=== PATIENT | male | born 1955 | race Caucasian/White ===

== ENCOUNTER 2023-05-25 15:23 | Inpatient (IN) | payer MEDICARE, OTHER, SELFPAY ==
[2023-05-25] VITALS (7 sets, daily range): BP systolic 132–151; BP diastolic 83–101; PULSE 57–92; RESP 16–20; TEMP 36.4; O2SAT 92–100; BMI 24.7
--- NOTE | ~2023-05-25 | CT_ITS ---
EXAMINATION: CT brain wo con DATE: 05/25/2023 18:28 INDICATION: Altered mental status TECHNIQUE: Computed tomography (CT) of the head was performed without intravenous contrast. Sagittal and coronal reconstructions were performed. The mA was adjusted according to patient size. Iterative reconstruction technique was employed. The dose-length product was 1362.00 mGy-cm. COMPARISON: None FINDINGS: A few small regions of cortical atrophy in the bilateral frontal lobes and right parietal lobe consis tent with chronic infarcts. Additional small old lacunar infarct at the bilateral basal ganglia and t he left thalamus. No acute intracranial hemorrhage, acute infarction or abnormal extra axial fluid co llection. There is moderate scattered white matter hypoattenuation consistent with chronic small vess el ischemic disease. Symmetric prominence of the sulci and ventricles consistent with mild to modera te age-appropriate diffuse cerebral volume loss. No mass/mass effect. Changes of right intraocular le ns replacement. The orbits and mastoid air cells are normal. Moderate mucosal thickening in the right ethmoid and maxillary sinuses with small amount of posterior layering fluid in the right maxillary s inus. IMPRESSION: 1. Scattered old infarcts in the bilateral cerebral hemispheres, basal ganglia and left thalamus. No acute intracranial process. 2. Age-related changes including mild to moderate diffuse volume loss and moderate scattered white ma tter hypoattenuation consistent with chronic small vessel ischemic disease. 3. Right maxillary and ethmoid sinus disease. Reviewed, dictated and finalized at location A. JOB TITLES MEAN IMPRESSION: 1. Scattered old infarcts in the bilateral cerebral hemispheres, basal ganglia and left thalamus. No acute intracranial process. 2. Age-related changes including mild to moderate diffuse volume loss and moder ate scattered white matter hypoattenuation consistent with chronic small vessel ischemic disease. 3. Right maxillary and ethmoid sinus disease.
--- NOTE | ~2023-05-25 | XR_ITS ---
EXAMINATION: XR chest 1V portable DATE: 05/25/2023 19:09 INDICATION: COVID TECHNIQUE: frontal view of the chest was obtained. COMPARISON: Chest radiograph dated 10/20/2018 FINDINGS: Lung volumes are mildly decreased with prominent on the right. There are mild airspace opacity right lower lung zone and minimal at the left costophrenic angle. No pleural effusion or pneumothorax. The cardiomediastinal silhouette is normal. Moderate thoracolumbar spondylosis. Right rotator cuff arthro jumana. IMPRESSION: 1. Opacities at the bilateral lower lung zones, right greater than left which given the posterior vol ume loss could represent atelectasis with differential including pneumonia. Reviewed, dictated and finalized at location A. ER OUT IMPRESSION: 1. Opacities at the bilateral lower lung zones, right greater than left which g iven the posterior volume loss could represent atelectasis with differential in cluding pneumonia.
--- NOTE | 2023-05-25 15:26 | ECG_ITS ---
Measurements Intervals [place] Rate: 89 P: 62 IN: 202 QRS: -44 QRSD: 138 T: 95 QT: 385 QTc: 468 Interpretive Statements SINUS RHYTHM ATRIAL PREMATURE COMPLEX LEFT AXIS DEVIATION BORDERLINE AV CONDUCTION DELAY LEFT BUNDLE BRANCH BLOCK BASELINE ARTIFACT- II, III, AVR, AVL, AVF, V4-V6 ABNORMAL ECG COMPARED TO ECG 10/20/2018 15:11:44 LEFT BUNDLE-BRANCH BLOCK NOW PRESENT Electronically Signed On 05-25-2023 16:43:33 [employer] by Gordy Stewart D.O.
[2023-05-25 16:04] LABS: Basophils Percent Auto 0.4 % (0.2-1.2); Hematocrit 41.3 % (42.0-52.0); Immature Granulocyte Absolute 0.02 K/mm3 (0.00-0.031); Immature Granulocyte Percent A 0.4 % (0-0.5); Immature Platelet Fraction Pct 6.7 % (0.9-11.2); Lymphocytes Absolute Auto 0.78 K/mm3 (0.9-3.2); Lymphocytes Percent Auto 16.1 % (18.3-44.2); Mean Corpuscular HGB Conc 33.9 g/dl (32-36); Mean Corpuscular Hemoglobin 30.5 pg (26-34); Mean Platelet Volume 10.9 fl (7.4-10.4); Monocytes Absolute Auto 0.6 K/mm3 (0.1-0.6); Monocytes Percent Auto 12.8 % (2.6-8.5); Neutrophils Absolute Auto 3.4 K/mm3 (1.3-6.7); Neutrophils Percent Auto 70.3 % (45.5-73.1); Platelet Count Result 146 k/mm3 (150-375); Red Blood Count 4.59 M/mm3 (4.6-6.20); Red Cell Distribution Width 12.7 % (11.5-14.5); White Blood Count 4.8 K/mm3 (4.5-10.0)
[2023-05-25 16:12] LABS: Appearance Urine Clear (Clear); Bacteria Urine None Seen /hpf; Bilirubin Urine Negative (Negative); Blood Urine Negative (Negative); Color Urine Yellow (Yellow); Glucose Urine UA 3+ mg/dL (Negative); Ketones Urine 3+ mg/dL (Negative); Leukocyte Esterase Ur Negative LEU/UL (Negative); Nitrate Urine Negative (Negative); Protein Urine 1+ mg/dL (Negative); RBC Urine 0-2 /hpf (0-2); Squamous Epithelial Cell Urine None seen /hpf (Few); WBC Urine 0-5 /hpf; pH Urine 5.5 (5.0-9.0)
[2023-05-25 16:12] LABS: Alanine Aminotransferase 23 U/L (6-50); Albumin Level 4.2 g/dL (3.5-5.1); Alkaline Phosphatase 66 U/L (38-126); Anion Gap 14 mmol/L (8-16); Aspartate Amino Transferase 24 U/L (17-59); Blood Urea Nitrogen 15 mg/dL (9-20); Calcium 8.9 mg/dL (8.4-10.2); Carbon Dioxide 22 mmol/L (22-30); Chloride 96 mmol/L (98-107); Estimated CRCL calculation 101 ml/min; Estimated Glomerular Filt Rate > 60; Glucose 273 mg/dL (65-110); Potassium 3.8 mmol/L (3.4-5.0); Sodium 132 mmol/L (137-145)
[2023-05-25 16:14] LABS: Partial Thromboplastin Time 26.4 SECONDS (22.3-36.8)
[2023-05-25 16:30] LABS: Add Urine Microscopic? YES; Specific Grav Ur 1.043 (1.001-1.035)
[2023-05-25 17:23] LABS: Influenza A QL RT-PCR Negative (Negative); Influenza B QL RT-PCR Negative (Negative); RSV RNA, RT-PCR Negative (Negative); SARS-CoV-2 RNA PCR Positive (Negative)
[2023-05-25] MEDS: LORazepam INJ (*CRX) 2 MG/ML VIAL 1 MG IV PUSH (18:20)
--- NOTE | 2023-05-25 18:49 | ED.AMS ---
HPI - Altered Mental Status General Chief Complaint: Altered Mental Status Stated Complaint: AMS Time Seen by Provider: 05/25/23 18:30 History of Present Illness HPI narrative: Patient is a 67-year-old male with history of heavy alcohol use, sober for 8 years, prior strokes here with weakness. All history is obtained from daughter as patient is confused. Daughter states that patient is at his baseline and is always confused. She notes that over the last 4-5 days he has been having an increased cough. Yesterday he seemed weaker and did have a fall at home. Today had difficulty ambulating around the house at all. She notes that usually he walks on his own, they do not have any assist with walker, wheelchair, cane. She is unsure if he has had a fever. Related Data Home Medications Medication Instructions Recorded Confirmed No Home Medications 05/25/23 05/25/23 Allergies Allergy/AdvReac Type Severity Reaction Status Date / Time No Known Allergies Allergy Unverified 10/20/18 18:38 Review of Systems Review of Systems: ROS unobtainable: Yes unobtainable due to mental status [facility] Family History Family History (Updated 05/25/23 @ 22:15 by Joycelyn Hernandez RN) Father Acute myocardial infarction Alcohol abuse Social History Social History Smoking status: Former smoker Alcohol intake: former Substance use: never Lack of Transportation: No Lack of Food: Never True Current Housing: I Have Housing Concerned About Future Housing: No Difficulty Paying Gas/Electric Bills: No Difficulty Paying for Meds: No Currently Unemployed: No Education: Associate Degree Difficulty w/ Childcare or Family Care: No Spiritual care concerns: No Exam Narrative: GENERAL: Well-appearing, well-nourished, and in no acute distress. HEAD: Normocephalic, atraumatic. EYES: PERRLA and EOMI. ENT: Nares clear. Mucous membranes dry. NECK: Supple. CHEST: Clear to auscultation. No respiratory distress. No chest wall tenderness HEART: Regular rate and rhythm. Normal peripheral pulses. ABDOMEN: Soft, nontender, nondistended. EXTREMITIES: Normal range of motion. No edema. No hip tenderness, moving all extremities with normal range of motion. Atraumatic extremity exam SKIN: Warm, dry, no rash. NEURO: No focal deficits. Alert and oriented x1-2. Course Course Emergency Course: Chart review performed. He is brought in by EMS for weakness and altered mental status. His daughter reportedly called EMS because he was unable to stand today. Triage vitals grossly normal. Triage workup reviewed, CBC within normal limits, electrolytes grossly normal, urine negative for UTI. Patient is COVID positive. CT brain shows scattered old infarcts throughout bilateral cerebral hemispheres, basal cannula, left thalamus. No acute process. Spoke with patient's daughter, Chery Wilcox: [phone] She lives with him. Noted he can usually get up and move around with some help. Yesterday he kept falling. Today was too weak to walk around. He has had a cough for about 4-5 days. No sick contacts. He has an appointment with a new PCP next Thursday. Troponin negative. Discussed case with Dr. Mcfarlane who accepts patient for admission. Additional IV fluids ordered. Daughter updated on plan of care. Vital Signs Vital signs: Vital Signs Pulse Rate 92 05/25/23 15:22 Respiratory Rate 16 05/25/23 15:22 Blood Pressure 151/101 H 05/25/23 15:22 Pulse Oximetry 99 05/25/23 15:22 Oxygen Delivery Room Air 05/25/23 15:22 Temperature 97.6 F 05/25/23 21:49 Pulse Rate 57 L 05/25/23 21:49 Respiratory Rate 18 05/25/23 21:49 Blood Pressure 136/85 05/25/23 21:49 Pulse Oximetry 92 05/25/23 21:49 Oxygen Delivery Room Air 05/25/23 16:03 MDM - Altered Mental Status Lab Data 05/25/23 15:31 05/25/23 15:31 Labs: Lab Results 05/25/23 05/25/23 05/25/23 Range/Units
[2023-05-25 20:13] LABS: Troponin I < 0.012 ng/mL (0.000-0.034)
[2023-05-25] MEDS: SODIUM CHLORIDE 0.9% IV 1,000 ML 999 ML IV CONT (20:21)
[2023-05-25] MEDS: LACTATED RINGERS 1,000 ML 999 ML IV CONT (21:01)
[2023-05-25 22:00] LABS: Glucose Point of Care 295 mg/dl (65-105)
--- NOTE | 2023-05-25 22:12 | ADMGEN ---
This patient, Miquel Real, was admitted to Medical Room 255-01. Patient/family oriented to hospital policies and general routines including ID bracelet, bed and alarms, visiting hours, pain management, procedures, bathroom and other care routines, personal items, smoking policy, room service/diet, and visiting hours. Information on how to activate the Rapid Response Team has been discussed. Patient/Family are encouraged to report perceived risks to care and to ask questions if they do not understand what they are told or what they should do.
[2023-05-25] MEDS: LACTATED RINGERS 1,000 ML 100 ML IV CONT (22:31)
[2023-05-26 02:54] VITALS: BP 152/82; PULSE 60; RESP 18; TEMP 37; O2SAT 96
--- NOTE | 2023-05-26 06:06 | PM.IMHP ---
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 Although the patient can answer orientation questions regarding being in the hospital and the month year and oriented person the patient denies all other symptoms. The patient was noted to be coughing. He has also been having significant bouts of urinary incontinence at home more than is usual. The patient denies the symptoms and was frustrated because he did not want to come to the ER at all. The daughter had reported the patient was having 4-5 days of cough. He had a fall at home. The patient is usually ambulatory on his own and does not need to use any assistive devices. Patient denies having any fever and the daughter did not check the patient for fever. Patient does have a history of type 2 diabetes mellitus but has not taken his metformin and will over a year. Patient evidently is lives with his daughter for the last 6-8 years. She reports that the patient memory is not been the same since he quit drinking 8 years ago. The patient is evidently been refusing to take medications. The daughter has an appointment arranged to get established with a new primary care physician next Thursday. The patient report provide some information regarding his social history but is otherwise a poor historian and unable to provide significant information. Review of Systems Review of Systems: ROS unobtainable: Yes unobtainable due to medical condition (Dementia) [facility] Past Medical History Medical History Alcoholism in recovery (~2014) Chronic sinusitis CVA (cerebral vascular accident) CT performed the ER 04/2023 demonstrated evidence of multiple scattered old infarcts bilateral cerebral hemispheres, basal ganglia and left thalamus Type 2 diabetes mellitus Surgical History Surgical History (Updated 05/26/23 @ 06:20 by Amber Mcfarlane DO) History of hemorrhoidectomy Infected pilonidal cyst With incision and drainage September 20082018 Status post cataract extraction Family History Family History Father Acute myocardial infarction Alcohol abuse Social History Social History (Updated 05/26/23 @ 06:22 by Amber Mcfarlane DO) Social History: The patient is live with his daughter since proximally 2014. He is a former alcoholic and has been in recovery since that time. He reports he used to smoke many years ago but cannot specify in amount. 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 Spiritual care concerns: No Meds Home Medications and Allergies Home Medications Medication Instructions Recorded Confirmed Type No Home Medications 05/25/23 05/25/23 History Allergies Allergy/AdvReac Type Severity Reaction Status Date / Time No Known Allergies Allergy Unverified 10/20/18 18:38 Vital Signs Vital Signs - 24 hr 05/25/23 15:22 05/25/23 16:03 05/25/23 15:33 Temperature Pulse Rate 92 89 Respiratory Rate 16 20 Blood Pressure 151/101 H 143/91 H Pulse Oximetry 99 100 Oxygen Delivery Room Air Room Air 05/25/23 15:34 05/25/23 19:33 05/25/23 19:46 Temperature Pulse Rate 87 91 89 Respiratory Rate 2
[2023-05-26 08:31] LABS: Glucose Point of Care 311 mg/dl (65-105)
[2023-05-26] MEDS: LACTATED RINGERS 1,000 ML 100 ML IV CONT ×2 (09:05→21:30)
[2023-05-26] MEDS: ENOXAPARIN 40 MG/0.4 ML SYRINGE SUB-Q (09:05)
[2023-05-26] MEDS: INSULIN ASPART (*BKC) 100 UNITS/ML SUB-Q ×4 (09:05→21:29)
[2023-05-26 10:36] LABS: Anion Gap 8 mmol/L (8-16); Blood Urea Nitrogen 11 mg/dL (9-20); Calcium 8.4 mg/dL (8.4-10.2); Carbon Dioxide 23 mmol/L (22-30); Chloride 101 mmol/L (98-107); Estimated CRCL calculation 91 ml/min; Estimated Glomerular Filt Rate > 60; Glucose 288 mg/dL (65-110); Potassium 3.7 mmol/L (3.4-5.0); Sodium 132 mmol/L (137-145)
[2023-05-26 10:53] LABS: Hematocrit 41.6 % (42.0-52.0); Immature Platelet Fraction Pct 6.5 % (0.9-11.2); Mean Corpuscular HGB Conc 33.7 g/dl (32-36); Mean Corpuscular Hemoglobin 30.4 pg (26-34); Mean Corpuscular Volume 90.4 fl (80-100); Mean Platelet Volume 10.9 fl (7.4-10.4); Platelet Count Result 137 k/mm3 (150-375); Red Cell Distribution Width 12.6 % (11.5-14.5); White Blood Count 3.9 K/mm3 (4.5-10.0)
[2023-05-26 12:08] LABS: Glucose Point of Care 381 mg/dl (65-105)
[2023-05-26 13:25] VITALS: BP 141/72; PULSE 76; RESP 18; TEMP 36.6; O2SAT 98
--- NOTE | 2023-05-26 14:39 | PM.IMPN ---
Progress Note: A&P Assessment and Plan (1) COVID: Code(s): U07.1 - COVID-19 Status: Acute Assessment and Plan: Uncertain onset of symptoms, patient poor historian and family not available. Atelectasis verses possible on imaging but patient is on room air without respiratory distress. (2) Uncontrolled diabetes mellitus with hyperglycemia: Code(s): E11.65 - Type 2 diabetes mellitus with hyperglycemia Status: Acute Assessment and Plan: Previously untreated type 2 diabetes with glucose levels over 300 on fingerstick. A1c from 2019 was 12 1. We will repeat this and use corrective sliding scale insulin. Patient will need diabetes education and prescriptions upon discharge. (3) Acute dehydration: Code(s): E86.0 - Dehydration Status: Acute Assessment and Plan: IV fluids continued. Diabetic diet with dietary supplements. (4) Inability to walk: Code(s): R26.2 - Difficulty in walking, not elsewhere classified Status: Acute Assessment and Plan: Currently using sit to stand, PT OT consulted (5) Hyponatremia: Code(s): E87.1 - Hypo-osmolality and hyponatremia Status: Acute Assessment and Plan: Records show sodium has been 135-138 in the past, 132 on admission as well as on repeat labs 05/26 morning. (6) History of CVA (cerebrovascular accident): Code(s): Z86.73 - Personal history of transient ischemic attack (TIA), and cerebral infarction without residual deficits Status: Acute Assessment and Plan: Imaging completed on 05/25 shows scattered old infarcts in the bilateral cerebral hemispheres basal ganglia and left thalamus as well as age-related changes including mild to moderate diffuse volume loss and moderate scattered white matter hypoattenuation consistent with chronic small-vessel ischemic disease Plan Admitting physician reports patient has chronic dementia and has refused to treat his diabetes at home. Patient's treatment may be hampered as the patient has refused medications in the past per staff report. Time Spent With Patient Time with patient: Greater than 35 minutes Subjective Date/time seen: 05/26/23 14:39 Interval history: This is a 67-year-old male patient poor historian with a history prior alcoholism, chronic confusion/dementia, newly identified scattered old ischemic strokes and uncontrolled type 2 diabetes that he refuses to take medication for at home. Patient is admitted to hospital due to inability to ambulate, generalized weakness altered mental status COVID positive status. Patient reportedly has had cough for 4-5 days and had a fall 2 days ago at home. Review of Systems Review of Systems: ROS unobtainable: Yes unobtainable due to mental status Exam Const: Other: No acute distress, appears older than stated age, well-developed well-nourished HENMT: Other: Edentulous in upper and lower jaw, no oral pharyngeal erythema, head is normocephalic atraumatic, patient will only minimally open his mouth limiting exam Eyes: Other: Pupils are equal and reactive, extraocular movements appear to be grossly intact but exam limited due to patient ability to follow commands Neck: Other: No lymphadenopathy, supple, no JVD Resp: Other: Clear to auscultation bilaterally, no increased work of breathing Cardio: Other: Regular rate, regular rhythm, 2+ bilateral radial pedal pulses GI: Other: Soft, lower abdominal tenderness and palpable fullness of the bladder, normoactive bowel sounds, nondistended Skin: Other: No jaundice, no pallor Neuro: Other: Alert and oriented x3 but poor historian regarding symptoms or past medical history, speech is clear and but slow, no obvious facial asymmetry but patient seems to have difficulty following some commands, no gross motor deficits noted on limited exam Extrem: Other: Positive clubbing, no cyanosis no edema
[2023-05-26 17:03] LABS: Glucose Point of Care 259 mg/dl (65-105)
[2023-05-26 19:52] LABS: Hemoglobin A1C 12.5 % (<5.7)
[2023-05-26 20:00] VITALS: PULSE 77; RESP 20; O2SAT 97
[2023-05-26 21:13] VITALS: BP 148/87; PULSE 77; RESP 20; TEMP 36.8; O2SAT 97
[2023-05-27 02:39] LABS: Glucose Point of Care 278 mg/dl (65-105)
[2023-05-27 03:18] VITALS: BP 146/74; PULSE 62; RESP 20; TEMP 36.4; O2SAT 98
[2023-05-27 05:25] LABS: Basophils Percent Auto 0.3 % (0.2-1.2); Eosinophils Percent Auto 1.3 % (0-4.4); Hemoglobin 12.9 g/dL (14.0-18.0); Immature Granulocyte Absolute 0.01 K/mm3 (0.00-0.031); Immature Granulocyte Percent A 0.3 % (0-0.5); Immature Platelet Fraction Pct 5.8 % (0.9-11.2); Lymphocytes Absolute Auto 1.42 K/mm3 (0.9-3.2); Lymphocytes Percent Auto 46.7 % (18.3-44.2); Mean Corpuscular HGB Conc 33.9 g/dl (32-36); Mean Corpuscular Hemoglobin 30.4 pg (26-34); Mean Corpuscular Volume 89.4 fl (80-100); Mean Platelet Volume 10.2 fl (7.4-10.4); Monocytes Absolute Auto 0.4 K/mm3 (0.1-0.6); Monocytes Percent Auto 12.5 % (2.6-8.5); Neutrophils Absolute Auto 1.2 K/mm3 (1.3-6.7); Neutrophils Percent Auto 38.9 % (45.5-73.1); Platelet Count Result 106 k/mm3 (150-375); Red Blood Count 4.25 M/mm3 (4.6-6.20); Red Cell Distribution Width 12.4 % (11.5-14.5)
[2023-05-27 05:43] LABS: Alanine Aminotransferase 21 U/L (6-50); Albumin Level 3.1 g/dL (3.5-5.1); Alkaline Phosphatase 59 U/L (38-126); Anion Gap 7 mmol/L (8-16); Aspartate Amino Transferase 31 U/L (17-59); Bilirubin,Total 0.6 mg/dL (0.2-1.3); Blood Urea Nitrogen 11 mg/dL (9-20); Carbon Dioxide 25 mmol/L (22-30); Chloride 101 mmol/L (98-107); Estimated CRCL calculation 91 ml/min; Estimated Glomerular Filt Rate > 60; Glucose 230 mg/dL (65-110); Magnesium 1.9 mg/dL (1.6-2.3); Potassium 3.5 mmol/L (3.4-5.0); Sodium 133 mmol/L (137-145)
[2023-05-27 08:00] VITALS: PULSE 80; RESP 16; O2SAT 100
--- NOTE | 2023-05-27 08:03 | PM.IMPN ---
Progress Note: A&P Assessment and Plan (1) COVID: Code(s): U07.1 - COVID-19 Status: Acute Assessment and Plan: Uncertain onset of symptoms, patient poor historian and family not available.? Atelectasis verses possible on imaging but patient is on room air without respiratory distress. Not a candidate for remdesivir given he is not requiring oxygen. IS and PEP therapy ordered Albuterol nebs prn for SOB 05/27: WBC 3.0. Afebrile. (2) Acute dehydration: Code(s): E86.0 - Dehydration Status: Acute Assessment and Plan: Diabetic diet with dietary supplements Monitor I&O's 05/27: Blood pressures elevated. Will stop IVF and continue with DM diet. (3) Inability to walk: Code(s): R26.2 - Difficulty in walking, not elsewhere classified Status: Acute Assessment and Plan: Baseline is independent with ambulation Currently using sit to stand PT OT consulted, rec's appreciated Anticipating needing SNF at discharge. Care coordination is consulted and assistance with this is much appreciated. 05/27: No formal evaluation from therapy at this time. OT recommends home health. (4) Uncontrolled diabetes mellitus with hyperglycemia: Code(s): E11.65 - Type 2 diabetes mellitus with hyperglycemia Status: Acute Assessment and Plan: Previously untreated type 2 diabetes with glucose levels over 300 on fingerstick.? A1c from 2019 was 12 1.? We will repeat this and use corrective sliding scale insulin.? Patient will need diabetes education and prescriptions upon discharge. Repeat A1C is 12.5% Blood glucose is not within desired range Moderate dosing SSI with ac/hs accu checks and hypoglycemic protocol Adding Lantus 16 units HS tonight snack foods mixer operator consulted and rec's appreciated. 05/27: BG ranging 230-280's. Add on Lantus [facility] units at [facility]. DM educator consulted. (5) Hyponatremia: Code(s): E87.1 - Hypo-osmolality and hyponatremia Status: Acute Assessment and Plan: Records show sodium has been 135-138 in the past 132 on admission Daily BMP 05/27: Na 133. Stable. Continue to monitor. (6) History of CVA (cerebrovascular accident): Code(s): Z86.73 - Personal history of transient ischemic attack (TIA), and cerebral infarction without residual deficits Status: Acute Assessment and Plan: Imaging completed on 05/25 shows scattered old infarcts in the bilateral cerebral hemispheres basal ganglia and left thalamus as well as age-related changes including mild to moderate diffuse volume loss and moderate scattered white matter hypoattenuation consistent with chronic small-vessel ischemic disease. 05/27: AMS likely 2/2 to acute viral infection with COVID vs worsening dementia. Plan Feeding:DM diet Analgesia:Tylenol Thromboembolic prophylaxis: Lovenox Ulcer prophylaxis: N/A Glycemic control: SSI moderate dosing, Accu checks, hypoglycemic protocol, Lantus 16 units. Bowel regimen: miralax prn Lines: PIV Antibiotics: na Disposition: Expecting placement with SNF?? 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 Although the patient can answer orientation questions regarding being in the hospital and the month year and oriented person the patient denies all other symptoms.? The patient was noted to be coughing.? He has also been having significant bouts of urinary incontinence at home more than is usual.? The patient denies the symptoms and was frustrated because he did not want to come to the ER at all.? The daughter had reported the patient was having 4-5 days of cough.? He had a fall at home.? The patient is usually ambulatory on his own and does not need to use any assistive devices.?
[2023-05-27 08:43] LABS: Glucose Point of Care 268 mg/dl (65-105)
[2023-05-27] MEDS: INSULIN ASPART (*BKC) 100 UNITS/ML SUB-Q ×4 (09:03→21:01)
[2023-05-27] MEDS: ENOXAPARIN 40 MG/0.4 ML SYRINGE SUB-Q (09:03)
--- NOTE | 2023-05-27 11:20 | PCPTNOTE ---
Attempted PT evaluation, pt on the phone and did not acknowledge therapist. RN aware.
[2023-05-27 11:38] VITALS: BMI 24.7
[2023-05-27 11:52] LABS: Glucose Point of Care 365 mg/dl (65-105)
[2023-05-27 14:43] VITALS: BP 127/80; PULSE 80; RESP 16; TEMP 36.6; O2SAT 100
[2023-05-27 17:12] LABS: Glucose Point of Care 289 mg/dl (65-105)
[2023-05-27 20:00] VITALS: PULSE 89; RESP 18; O2SAT 100
[2023-05-27 20:43] LABS: Glucose Point of Care 317 mg/dl (65-105)
[2023-05-27 20:53] VITALS: BP 143/86; PULSE 89; RESP 18; TEMP 36.8; O2SAT 100
[2023-05-27] MEDS: INSULIN GLARGINE (*BKC) 100 UNITS/ML 16 UNITS SUB-Q (21:01)
--- NOTE | 2023-05-28 | ECHO_ITS ---
Patient Info Name: Miquel Real Age: 67 years : 1955 Gender: Male Ht: 71 in Wt: 177 lbs BSA: 2.01 m2 HR: 62 bpm BP: 146 / 74 mmHg Heart Rhythm: Sinus Rhythm Technical Quality: Good Exam Date: 05/28/2023 9:25 AM Exam Location: Echo Lab Patient Status: Inpatient Admit Date: 05/25/2023 Staff Ordering Physician: Alex Chavira APRN Hand Dry Cleaner: Triston Jimenez RDCS Attending Provider: Amber Mcfarlane DO Referring Physician: Fan ARELLANO; Exam Type: CA echo doppler w bubble study Study Info Indications - scattered old stroke Complete two-dimensional, color flow and Doppler transthoracic echocardiogram is performed with agitated saline. Contrast/Agitated Saline Contrast/Ag. Saline: Agitated Saline Amount: 20.00 ml Summary 1. Left ventricular chamber dimension is normal. 2. Left ventricular systolic function is normal, estimated at 60-65%. 3. There is mildly increased left ventricular wall thickness. 4. The left ventricular diastolic function is grade I diastolic dysfunction. 5. Right ventricular systolic function is normal. 6. The interatrial septum is aneurysmal. Negative bubble study. 7. No significant valvular disease. Left Ventricle Left ventricular chamber dimension is normal. Left ventricular systolic function is normal, estimated at 60-65%. There is mildly increased left ventricular wall thickness. The left ventricular diastolic function is grade I diastolic dysfunction. Right Ventricle Right ventricular chamber dimension is normal. Right ventricular systolic function is normal. Left Atria Left atrial chamber dimension is normal. Right Atria Right atrial chamber dimension is normal. Atrial Septum The interatrial septum is aneurysmal. Negative bubble study. Aortic Valve The aortic valve is probable trileaflet. There is mild aortic valve sclerosis. There is no aortic valve stenosis. There is no aortic valve regurgitation. Pulmonic Valve The pulmonic valve is not well visualized. There is trace pulmonic regurgitation. Mitral Valve There is trace mitral valve regurgitation. Tricuspid Valve There is trace tricuspid valve regurgitation. Pericardium/Pleural The pericardium appears epicardial fat pad. There is no pericardial effusion. Inferior Vena Cava Inferior vena cava is not well visualized. Aorta The aortic root size at the sinus of Valsalva is normal. Left Ventricular Outflow Tract Name Value Normal LVOT 2D LVOT Diameter 2.0 cm LVOT Doppler LVOT Peak Gradient 7 mmHg LVOT Mean Gradient 3 mmHg LVOT VTI 27 cm LVOT VTI/AV VTI Ratio 1.1 LVOT Stroke Volume 88 ml LVOT CO 6.9 l/min LVOT CI 3.4 l/min/m2 Pulmonic Valve Name Value Normal RVOT Doppler
[2023-05-28 05:35] LABS: Basophils Percent Auto 0.3 % (0.2-1.2); Eosinophils Absolute Auto 0.1 K/mm3 (0-0.3); Eosinophils Percent Auto 1.9 % (0-4.4); Hematocrit 39.9 % (42.0-52.0); Hemoglobin 13.7 g/dL (14.0-18.0); Immature Granulocyte Absolute 0.02 K/mm3 (0.00-0.031); Immature Granulocyte Percent A 0.5 % (0-0.5); Immature Platelet Fraction Pct 6.2 % (0.9-11.2); Lymphocytes Absolute Auto 1.82 K/mm3 (0.9-3.2); Lymphocytes Percent Auto 48.4 % (18.3-44.2); Mean Corpuscular HGB Conc 34.3 g/dl (32-36); Mean Corpuscular Hemoglobin 30.6 pg (26-34); Mean Corpuscular Volume 89.3 fl (80-100); Mean Platelet Volume 10.5 fl (7.4-10.4); Monocytes Absolute Auto 0.4 K/mm3 (0.1-0.6); Monocytes Percent Auto 9.3 % (2.6-8.5); Neutrophils Absolute Auto 1.5 K/mm3 (1.3-6.7); Neutrophils Percent Auto 39.6 % (45.5-73.1); Platelet Count Result 124 k/mm3 (150-375); Red Blood Count 4.47 M/mm3 (4.6-6.20); Red Cell Distribution Width 12.4 % (11.5-14.5); White Blood Count 3.8 K/mm3 (4.5-10.0)
[2023-05-28 05:45] LABS: Alanine Aminotransferase 25 U/L (6-50); Albumin Level 3.4 g/dL (3.5-5.1); Alkaline Phosphatase 72 U/L (38-126); Anion Gap 7 mmol/L (8-16); Aspartate Amino Transferase 30 U/L (17-59); Bilirubin,Total 0.8 mg/dL (0.2-1.3); Blood Urea Nitrogen 9 mg/dL (9-20); Calcium 8.5 mg/dL (8.4-10.2); Carbon Dioxide 25 mmol/L (22-30); Chloride 103 mmol/L (98-107); Estimated CRCL calculation 91 ml/min; Estimated Glomerular Filt Rate > 60; Glucose 216 mg/dL (65-110); Potassium 3.5 mmol/L (3.4-5.0); Sodium 135 mmol/L (137-145)
[2023-05-28 06:00] VITALS: BP 145/80; PULSE 75; RESP 18; TEMP 36.5; O2SAT 95
--- NOTE | 2023-05-28 06:13 | PCCARD ---
Changed Echocardiogram with bubble study to an echocardiogram without bubble study due to the patient positive for covid.
--- NOTE | 2023-05-28 07:42 | PM.DS ---
DS: Admitting Diagnosis Discharge Date 05/28 Admitting Diagnosis AMS DS: Discharge Diagnosis Discharge Diagnosis (1) COVID: Code(s): U07.1 - COVID-19 Status: Acute Assessment and Plan: Uncertain onset of symptoms, patient poor historian and family not available.? Atelectasis verses possible on imaging but patient is on room air without respiratory distress. Not a candidate for remdesivir given he is not requiring oxygen. IS and PEP therapy ordered Albuterol nebs prn for SOB 05/27: WBC 3.0. Afebrile. (2) Acute dehydration: Code(s): E86.0 - Dehydration Status: Acute Assessment and Plan: Diabetic diet with dietary supplements Monitor I&O's 05/27: Blood pressures elevated. Will stop IVF and continue with DM diet. (3) Inability to walk: Code(s): R26.2 - Difficulty in walking, not elsewhere classified Status: Acute Assessment and Plan: Baseline is independent with ambulation Currently using sit to stand PT OT consulted, rec's appreciated Anticipating needing SNF at discharge. Care coordination is consulted and assistance with this is much appreciated. 05/27: No formal evaluation from therapy at this time. OT recommends home health. (4) Uncontrolled diabetes mellitus with hyperglycemia: Code(s): E11.65 - Type 2 diabetes mellitus with hyperglycemia Status: Acute Assessment and Plan: Previously untreated type 2 diabetes with glucose levels over 300 on fingerstick.? A1c from 2019 was 12 1.? We will repeat this and use corrective sliding scale insulin.? Patient will need diabetes education and prescriptions upon discharge. Repeat A1C is 12.5% Blood glucose is not within desired range Moderate dosing SSI with ac/hs accu checks and hypoglycemic protocol Adding Lantus 16 units HS tonight public health educator consulted and rec's appreciated. 05/27: BG ranging 230-280's. [facility] DM educator consulted. (5) Hyponatremia: Code(s): E87.1 - Hypo-osmolality and hyponatremia Status: Acute Assessment and Plan: Records show sodium has been 135-138 in the past 132 on admission Daily BMP 05/27: Na 133. Stable. Continue to monitor. (6) History of CVA (cerebrovascular accident): Code(s): Z86.73 - Personal history of transient ischemic attack (TIA), and cerebral infarction without residual deficits Status: Acute Assessment and Plan: Imaging completed on 05/25 shows scattered old infarcts in the bilateral cerebral hemispheres basal ganglia and left thalamus as well as age-related changes including mild to moderate diffuse volume loss and moderate scattered white matter hypoattenuation consistent with chronic small-vessel ischemic disease. 05/27: AMS likely 2/2 to acute viral infection with COVID vs worsening dementia. Plan Feeding:DM diet Analgesia:Tylenol Thromboembolic prophylaxis: Lovenox Ulcer prophylaxis: N/A Glycemic control: SSI moderate dosing, Accu checks, hypoglycemic protocol, Lantus 16 units. Bowel regimen: miralax prn Lines: PIV Antibiotics: na Disposition: Expecting placement with SNF?? 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 Although the patient can answer orientation questions regarding being in the hospital and the month year and oriented person the patient denies all other symptoms.? The patient was noted to be coughing.? He has also been having significant bouts of urinary incontinence at home more than is usual.? The patient denies the symptoms and was frustrated because he did not want to come to the ER at all.? The daughter had reported the patient was having 4-5 days of cough.? He had a fall at home.? The patient is usually ambulatory on his own and does not need t
[2023-05-28 08:13] LABS: Glucose Point of Care 226 mg/dl (65-105)
[2023-05-28] MEDS: INSULIN ASPART (*BKC) 100 UNITS/ML SUB-Q ×2 (09:59→12:45)
[2023-05-28] MEDS: ENOXAPARIN 40 MG/0.4 ML SYRINGE SUB-Q (10:00)
[2023-05-28 12:16] LABS: Glucose Point of Care 328 mg/dl (65-105)
[2023-05-28 14:00] VITALS: BP 140/78; PULSE 72; RESP 17; TEMP 36.4; O2SAT 96
--- NOTE | 2023-05-28 14:30 | PCCDE ---
am: received call from Angela JARVIS requesting to come speak with pt's daughter today. Daughter will be here at 1400 1430 arrived to unit but daughter not here yet. RN Amber called her and she was filling her tire and will be in. Amber agreed to call me when she arrives. 1515: Amber calls to verify if I saw the pt b/c the daughter said I did and he is on his way to the car. Amber called the family but they declined to come back up for education stating she doesn't need it. Amber called her back and provided my contact info and advised to call assistant health educator. Received order for OP diabetes education but will need final order from PCP managing the diabetes for Medicare to cover. He has first appt with Dr Whitney on 06/03-will request order from him.
== END 2023-05-28 15:10 | disposition home or self-care (01) | DRG 178 ==
LOC: ANHED 18:30 → ANH2MED 21:21
PROVIDERS: Emergency Medicine; Nurse Practitioner; Admitting Provider Internal Medicine; Emergency Provider Student in an Organized Health Care Education/Training Program; PCP Emergency Medicine; Visit Provider Internal Medicine
DX: U07.1 COVID-19 (principal); E87.1 Hypo-osmolality and hyponatremia; E86.0 Dehydration; E11.65 Type 2 diabetes mellitus with hyperglycemia; F03.90 Unspecified dementia, unspecified severity, without behavioral disturbance, psychotic disturbance, mood disturbance, and anxiety; F10.21 Alcohol dependence, in remission; J32.9 Chronic sinusitis, unspecified; R26.2 Difficulty in walking, not elsewhere classified; R32 Unspecified urinary incontinence; Z91.148 Patient's other noncompliance with medication regimen for other reason; Z86.73 Personal history of transient ischemic attack (TIA), and cerebral infarction without residual deficits; Z87.891 Personal history of nicotine dependence
CPT/HCPCS: 36415; 70450; 71045; 80048; 80053; 81001; 82948; 83036; 83735; 84484; 85025; 85027; 85055; 85610; 85730; 87637; 93005; 93306; 94667; 96374; 96375; 97110; 97161; 97165; 97530; 97535; 99285; A9270; J1650; J1815; J2060; J7030; J7120

== ENCOUNTER 2023-09-14 17:12 | Inpatient (IN) | payer MEDICARE, SELFPAY ==
[2023-09-14] VITALS (7 sets, daily range): BP systolic 121–166; BP diastolic 64–90; PULSE 46–75; RESP 14–18; TEMP 36.6–36.7; O2SAT 99–100
--- NOTE | ~2023-09-14 | XR_ITS ---
EXAMINATION: XR chest 2V DATE: 09/18/2023 13:12 INDICATION: Postoperative day 1 post pacemaker insertion TECHNIQUE: PA and lateral views of the chest were obtained. COMPARISON: Chest radiograph dated 09/17/2023 FINDINGS: No interval change in a dual lead pacemaker seen with leads projecting over the expected locations of the right atrium and right ventricle. Mild interstitial pattern at the bilateral costophrenic angles consistent with minimal pulmonary edema. No pleural effusion or pneumothorax. The cardiomediastinal silhouette is normal. Mild thoracic spondylosis with chronic mild anterior wedging of a lower thoraci c vertebral body, likely T11. IMPRESSION: 1. Mild interstitial pattern at the bilateral costophrenic angles most consistent with minimal pulmon chava edema with differential including atelectasis or less likely pneumonia. 2. Dual-lead cardiac pacemaker which remains in expected position. Reviewed, dictated and finalized at location A. IMPRESSION: 1. Mild interstitial pattern at the bilateral costophrenic angles most consiste nt with minimal pulmonary edema with differential including atelectasis or less likely pneumonia. 2. Dual-lead cardiac pacemaker which remains in expected position.
--- NOTE | ~2023-09-14 | CT_ITS ---
EXAMINATION: CT brain wo con DATE: 09/14/2023 18:24 INDICATION: head injury . TECHNIQUE: Computed tomography (CT) of the head was performed without intravenous contrast. The mA wa s adjusted according to patient size. Iterative reconstruction technique was employed. The dose-lengt h product was 756.67 mGy-cm. COMPARISON: 05/25/2023. FINDINGS: No acute intracranial hemorrhage or extra-axial fluid collection. No hydrocephalus, mass, or herniation. No acute ischemic infarct. Unremarkable dural venous sinus attenuation. No acute osseous abnormality. Pansinus mucosal thickening, mastoid air cells are clear. Moderate atrophy and chronic white matter change. Atherosclerotic intracranial calcification. Right l ens replacement. Bilateral basal ganglia calcification. Focal bilateral old basal ganglia and left th alamic lacunar infarcts. Focal encephalomalacia in the bilateral frontal and right parietal lobes. IMPRESSION: No acute intracranial process. Reviewed, dictated and finalized at location K.
--- NOTE | ~2023-09-14 | XR_ITS ---
EXAMINATION: XR chest 1V portable Exam Date/Time: 09/14/2023 22:55 CDT HISTORY: weakness Comparison: 05/25/2023. RESULT: Lines, tubes, and devices: None. Lungs and pleura: Rightward rotation. Right hemidiaphragm elevation. Streaky bibasilar opacities. Mi nimal right costophrenic angle blunting. Cardiomediastinal silhouette: Evaluation limited by rotation, grossly stable. Other: No acute osseous or upper abdominal finding. IMPRESSION: Streaky right basilar opacities possibly represent atelectasis, given associated volume loss. Infecti on/aspiration not excluded. Possible small right pleural effusion. Reviewed, dictated and finalized at location K. IMPRESSION: Streaky right basilar opacities possibly represent atelectasis, given associate d volume loss. Infection/aspiration not excluded. Possible small right pleural effusion.
--- NOTE | ~2023-09-14 | XR_ITS ---
XR chest 1V portable DATE: 09/17/2023 13:40 INDICATION: Pacemaker insertion TECHNIQUE: Portable AP chest on 09/17/2023 at 1336 hours COMPARISON: 09/14/2023 portable AP chest at 1100 hours FINDINGS: There is interval placement of a left transvenous pacemaker device with leads overlying rig ht atrium and right ventricle. Heart size is normal. There is mild aortic calcification and tortuosity. No hilar or mediastinal enla rgement. No pulmonary infiltrate or consolidation, pleural effusion or pulmonary vascular congestion or pneumo thorax is evident. Osteopenia. Dextroscoliosis of the thoracic spine. IMPRESSION: Left transvenous pacemaker placement with leads overlying right atrium and right ventricl e; no active cardiopulmonary disease or pneumothorax Reviewed, dictated and finalized at location L. IMPRESSION: Left transvenous pacemaker placement with leads overlying right atr ium and right ventricle; no active cardiopulmonary disease or pneumothorax
--- NOTE | ~2023-09-14 | CT_ITS ---
EXAMINATION: CT facial & cervical spine wo DATE: 09/14/2023 18:24 INDICATION: trauma TECHNIQUE: Computed tomography (CT) of the maxillofacial region and cervical spine was performed with out intravenous contrast. Automated exposure control and iterative reconstruction technique were empl oyed. The dose-length product was 501.87 mGy-cm. COMPARISON: None FINDINGS: CERVICAL: Vertebral Body Alignment: Intact. Reversed lordosis, centered at C3-4.i Craniocervical and atlantoaxial alignment: Moderate degenerative change. Alignment intact. Osseous structures/fracture: No evidence of a lytic or blastic process in the visualized spine. No e vidence of acute fracture. Right C2-3 and left C3-4 facet fusion. Cervical soft tissues: The paraspinal soft tissues planes are maintained. Degenerative changes: Multilevel severe degenerative disc disease. Multilevel facet arthropathy. Yolande re right neural foraminal narrowing at C4-5 secondary to degenerative changes. No severe central geronimo l narrowing. FACE: Soft Tissues: Left temporal periorbital soft tissue swelling. Facial bones: Mildly displaced fracture of the left lateral maxillary wall. Nondisplaced fracture of the left anterior maxillary sinus wall. No lytic or blastic process. Eyes: The globes are intact. Right lens replacement The soft tissue planes of the orbits are maintai mehran. Paranasal Sinuses: Pansinus mucosal thickening. The mastoid air cells are clear. Foreign Bodies: No radiopaque foreign bodies. Other Findings: Dental caries and periodontal disease. IMPRESSION: Fractures of the left anterior and lateral maxillary ludwig. No acute fracture or traumatic malalignment detected in the cervical spine. Reviewed, dictated and finalized at location K.
[2023-09-14 17:59] LABS: Basophils Percent Auto 0.2 % (0.2-1.2); Hematocrit 49.6 % (42.0-52.0); Hemoglobin 16.9 g/dL (14.0-18.0); Immature Granulocyte Absolute 0.04 K/mm3 (0.00-0.031); Immature Granulocyte Percent A 0.4 % (0-0.5); Lymphocytes Absolute Auto 1.31 K/mm3 (0.9-3.2); Lymphocytes Percent Auto 11.7 % (18.3-44.2); Mean Corpuscular HGB Conc 34.1 g/dl (32-36); Mean Corpuscular Hemoglobin 29.9 pg (26-34); Mean Corpuscular Volume 87.8 fl (80-100); Monocytes Absolute Auto 0.5 K/mm3 (0.1-0.6); Neutrophils Absolute Auto 9.4 K/mm3 (1.3-6.7); Neutrophils Percent Auto 83.7 % (45.5-73.1); Platelet Count Result 208 k/mm3 (150-375); Red Blood Count 5.65 M/mm3 (4.6-6.20); Red Cell Distribution Width 13.2 % (11.5-14.5); White Blood Count 11.2 K/mm3 (4.5-10.0)
[2023-09-14 18:09] LABS: Alanine Aminotransferase 62 U/L (6-50); Albumin Level 4.9 g/dL (3.5-5.1); Alkaline Phosphatase 98 U/L (38-126); Anion Gap 19 mmol/L (8-16); Aspartate Amino Transferase 55 U/L (17-59); Bilirubin,Total 1.4 mg/dL (0.2-1.3); Blood Urea Nitrogen 22 mg/dL (9-20); Calcium 10.4 mg/dL (8.4-10.2); Carbon Dioxide 21 mmol/L (22-30); Chloride 102 mmol/L (98-107); Creatine Kinase 437 U/L (55-170); Estimated Glomerular Filt Rate > 60; Glucose 418 mg/dL (65-110); Lipase 27 U/L (23-300); Potassium 4.2 mmol/L (3.4-5.0); Sodium 142 mmol/L (137-145)
[2023-09-14 18:10] LABS: Prothrombin Time 13.6 Seconds (11.1-14.7)
[2023-09-14 18:27] LABS: Troponin I 0.038 ng/mL (0.000-0.034)
--- NOTE | 2023-09-14 18:37 | ED.GENADULT ---
HPI - General Adult General Chief complaint: Weakness Stated complaint: found on floor by family @ 0900, LKW 2100 last noc Time Seen by Provider: 09/14/23 17:26 History of Present Illness HPI narrative: Patient is a 67-year-old male who presents ER with altered mental status. Apparently last night patient been vomiting throughout the evening and then was found on the ground this morning. He continued to lay on the ground since 9:00 a.m. this morning and EMS was called. Patient is not cooperative with exam or history taking will not answer questions. There is evidence of trauma to left face ray as some ecchymosis to the upper eyelid. He has dried vomit on his face and arms and chest. Related Data Allergies Allergy/AdvReac Type Severity Reaction Status Date / Time No Known Allergies Allergy Verified 06/03/23 13:26 Review of Systems Review of Systems: ROS unobtainable: Yes unobtainable due to mental status PMFSH Past Medical History Medical History (Updated 09/14/23 @ 19:43 by Urban Salcido MD) Acute dehydration Alcoholism in recovery (~2014) Chronic sinusitis COVID CVA (cerebral vascular accident) CT performed the ER 04/2023 demonstrated evidence of multiple scattered old infarcts bilateral cerebral hemispheres, basal ganglia and left thalamus History of CVA (cerebrovascular accident) Type 2 diabetes mellitus Surgical History Surgical History History of hemorrhoidectomy Infected pilonidal cyst With incision and drainage September 20082018 Status post cataract extraction Family History Family History Father Acute myocardial infarction Alcohol abuse Social History Social History Social History: The patient is live with his daughter since proximally 2014. He is a former alcoholic and has been in recovery since that time. He reports he used to smoke many years ago but cannot specify in amount. 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 HEAD: Normocephalic, bruising left face most notably with the upper eyelid and supraorbital ridge. ENT: Dry mucous membranes with poor dentition. NECK: Supple. CHEST: Clear to auscultation. No respiratory distress. HEART: Bradycardic regular. Normal peripheral pulses. ABDOMEN: Soft, nontender, nondistended. EXTREMITIES: Moving all extremities with normal strength. No edema. No deformity. SKIN: Warm, dry, no rash. NEURO: Awake and alert, not cooperative.. Course Course Emergency Course: Discussed with ENT, recommend sinus precautions, soft diet for a couple days, and augmentin. Patient will be aggressively hydrated given elevated CK. We will trend troponins. Admit to hospitalist service for observation. Vital Signs Vital signs: Vital Signs Temperature 97.9 F 09/14/23 17:16 Pulse Rate 50 L 09/14/23 17:16 Respiratory Rate 14 09/14/23 17:16 Blood Pressure 158/78 H 09/14/23 17:16 Pulse Oximetry 100 09/14/23 17:16 Oxygen Delivery Room Air 09/14/23 17:16 Temperature 97.9 F 09/14/23 17:16 Pulse Rate 75 09/14/23 18:30 Respiratory Rate 16 09/14/23 18:30 Blood Pressure 124/90 09/14/23 18:30 Pulse Oximetry 99 09/14/23 18:30 Oxygen Delivery Room Air 08/27
--- NOTE | 2023-09-14 18:42 | ECG_ITS ---
Measurements Intervals [place] Rate: 53 P: MA: 0 QRS: -89 QRSD: 134 T: 75 QT: 551 QTc: 521 Interpretive Statements SINUS BRADYCARDIA ATRIAL AND VENTRICULAR PREMATURE COMPLEXES RIGHT BUNDLE BRANCH BLOCK LEFT ANTERIOR FASCICULAR BLOCK BASELINE ARTIFACT- I, II, III, AVR, AVL, AVF, V1-V6 ABNORMAL ECG COMPARED TO ECG 05/25/2023 15:46:49 SINUS BRADYCARDIA NOW PRESENT RIGHT BUNDLE-BRANCH BLOCK NOW PRESENT LEFT ANTERIOR FASCICULAR BLOCK NOW PRESENT Electronically Signed On 09-15-2023 9:17:13 CDT by Gordy Stewart D.O.
[2023-09-14 19:18] LABS: Ethanol < 10 mg/dL (<10)
[2023-09-14] MEDS: SODIUM CHLORIDE 0.9% IV 1,000 ML 999 ML IV CONT ×2 (19:35→21:17)
[2023-09-14] MEDS: THIAMINE HCL 200 MG/2 ML VIAL 100 MG IV PUSH (19:39)
--- NOTE | 2023-09-14 19:49 | PC.NURSE ---
Pt placed on bed alarm.
--- NOTE | 2023-09-14 19:51 | PC.NURSE ---
1944-PATIENT PLACED ON FALL PAD. YELLOW CLASP PRESENT TO [place]MB[place]. FALL SIGNAL AT PATIENT DOOR. NO VISITORS PRESENT. CHARGE NURSE NOTIFIED OF PATIENT AT RISK FOR FALL.
--- NOTE | 2023-09-14 21:00 | PC.NURSE ---
Pt unable to take PO abx. Hospitalist notified and advised this RN to have the floor nurse attempt to give it to him.
[2023-09-14 22:22] LABS: Troponin I 0.037 ng/mL (0.000-0.034)
--- NOTE | 2023-09-14 23:47 | PM.IMHP ---
H&P: HPI History of Present Illness Date/Time: 09/14/23 23:47 Chief Complaint: found on ground Narrative: Source of information is from ER records and past medical records. The patient will only tell me his 1st name and is not following commands. 67-year-old male with past medical history of dementia secondary to alcohol use and multi-infarct dementia and insulin-dependent diabetes mellitus and noncompliance with medical management who presented to the ER via EMS from home after being found down on the ground at 09:00 today. Patient's last known well was the night before around 21:00 the night before. The patient initially refused to come to the ER at 09:00 and family called EMS at 1637 after the patient had had several episodes of emesis.. The patient was found to be covered in emesis and had a left periorbital hematoma. The family given and 26 units of long-acting insulin but had not checked his sugars. On arrival to the ER patient's glucoses were in the 400s. The patient would tell me his 1st name but would not answer his last last name. He would only say yes or no and responses were not always appropriate. There were times when I would ask a question the patient would stare straight ahead at me and clench his jaw repetitively. Patient is slightly tremulous. He has been afebrile since presentation. He has been mildly bradycardic. Initial labs demonstrated mild anion gap and glucose of 418 with mild hyper calcemia a mildly elevated ALT as well as mild elevation in CK at 04:37. The patient's troponin was mildly elevated as well ranging between 0.[address] scan in the ER demonstrated maxillary fractures on the left without other acute process. Chest x-ray demonstrated streaky right basilar opacities atelectasis versus pneumonia with atelectasis be more likely. Right small pleural effusion. Patient's white count was minimally elevated. Patient received oral Augmentin, 2 L normal saline and 1 dose of IV thiamin. Review of Systems Review of Systems: ROS unobtainable: Yes unobtainable due to mental status [facility] Past Medical History Medical History (Updated 09/15/23 @ 02:41 by Amber Mcfarlane, ) Alcoholism in recovery (~2014) Chronic sinusitis COVID 04/2023 CVA (cerebral vascular accident) CT performed the ER 04/2023 demonstrated evidence of multiple scattered old infarcts bilateral cerebral hemispheres, basal ganglia and left thalamus Dementia With history of alcoholism and multiple infarcts Diastolic dysfunction Type 2 diabetes mellitus Surgical History Surgical History History of hemorrhoidectomy Infected pilonidal cyst With incision and drainage September 20082018 Status post cataract extraction Family History Family History Father Acute myocardial infarction Alcohol abuse Social History Social History Social History: The patient is live with his daughter since proximally 2014. He is a former alcoholic and has been in recovery since that time. He reports he used to smoke many years ago but cannot specify in amount. 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
[2023-09-15] VITALS (11 sets, daily range): BP systolic 134–164; BP diastolic 60–84; PULSE 43–76; RESP 14–18; TEMP 36.5–37.3; O2SAT 95–100; BMI 21.7
--- NOTE | 2023-09-15 | ECHO_ITS ---
Patient Info Name: Miquel Real Age: 67 years : 1955 Gender: Male Ht: 70 in Wt: 151 lbs BSA: 1.84 m2 HR: 48 bpm BP: 134 / 66 mmHg Heart Rhythm: Bradycardia Technical Quality: Fair Exam Date: 09/15/2023 2:22 PM Exam Location: Echo Lab Patient Status: Inpatient Admit Date: 09/15/2023 Staff Ordering Physician: Kristy Ramírez PA-C Wharf Laborer: Melissa Nieves RDCS Attending Provider: Amber Mcfarlane DO Referring Physician: Darrell HUNT; Exam Type: CA echo doppler color flow Study Info Indications - elevated trops Complete two-dimensional, color flow and Doppler transthoracic echocardiogram is performed. Summary 1. Technically difficult study with limited views. 2. Left ventricular chamber dimension is normal. 3. Left ventricular systolic function is normal, estimated at 65-70%. 4. Right ventricular systolic function is normal. 5. There is mild tricuspid valve regurgitation. Left Ventricle Left ventricular chamber dimension is normal. Left ventricular systolic function is normal, estimated at 65-70%. There is no increased left ventricular wall thickness. Right Ventricle Right ventricular chamber dimension is normal. Right ventricular systolic function is normal. Left Atria Left atrial chamber dimension is normal. Right Atria Right atrial chamber dimension is normal. Atrial Septum Intact interatrial septum visualized by color flow imaging. Aortic Valve The aortic valve is probable trileaflet. There is no aortic valve stenosis. There is no aortic valve regurgitation. There is mild aortic valve calcification. Pulmonic Valve The pulmonic valve is not well visualized. There is trace pulmonic regurgitation. Mitral Valve There is trace mitral valve regurgitation. Tricuspid Valve There is mild tricuspid valve regurgitation. Pericardium/Pleural There is no pericardial effusion. Inferior Vena Cava Inferior vena cava is not well visualized. Aorta The aortic root size at the sinus of Valsalva is normal. Left Ventricular Outflow Tract Name Value Normal LVOT 2D LVOT Diameter 2.0 cm LVOT Doppler LVOT Peak Gradient 4 mmHg LVOT Mean Gradient 2 mmHg LVOT VTI 19 cm LVOT VTI/AV VTI Ratio 0.8 LVOT Stroke Volume 59 ml LVOT CO 2.6 l/min LVOT CI 1.4 l/min/m2 Pulmonic Valve Name Value Normal RVOT Doppler RVOT Peak Gradient 3 mmHg PV Doppler PV Peak Gradient 4 mmHg Mitral Valve Name Value Normal MV Doppler
[2023-09-15 01:26] LABS: Troponin I 0.044 ng/mL (0.000-0.034)
[2023-09-15 01:40] LABS: Glucose Point of Care 293 mg/dl (65-105)
[2023-09-15] MEDS: SODIUM CHLORIDE 0.9% IV 1,000 ML 150 ML IV CONT ×2 (01:47→16:00)
[2023-09-15] MEDS: INSULIN GLARGINE (*BKC) 100 UNITS/ML 16 UNITS SUB-Q ×2 (04:06→20:01)
--- NOTE | 2023-09-15 04:46 | ADMGEN ---
This patient, Miquel Real, was admitted to [facility] Surg Room 305-02. Patient/family oriented to hospital policies and general routines including ID bracelet, bed and alarms, visiting hours, pain management, procedures, bathroom and other care routines, personal items, smoking policy, room service/diet, and visiting hours. Information on how to activate the Rapid Response Team has been discussed. Patient/Family are encouraged to report perceived risks to care and to ask questions if they do not understand what they are told or what they should do.
[2023-09-15 07:00] LABS: Hematocrit 43.4 % (42.0-52.0); Hemoglobin 14.8 g/dL (14.0-18.0); Mean Corpuscular HGB Conc 34.1 g/dl (32-36); Mean Corpuscular Hemoglobin 30.5 pg (26-34); Mean Corpuscular Volume 89.5 fl (80-100); Mean Platelet Volume 10.8 fl (7.4-10.4); Platelet Count Result 188 k/mm3 (150-375); Red Blood Count 4.85 M/mm3 (4.6-6.20); Red Cell Distribution Width 13.2 % (11.5-14.5); White Blood Count 13.4 K/mm3 (4.5-10.0)
[2023-09-15 07:06] LABS: Alanine Aminotransferase 46 U/L (6-50); Albumin Level 3.9 g/dL (3.5-5.1); Alkaline Phosphatase 81 U/L (38-126); Anion Gap 10 mmol/L (8-16); Aspartate Amino Transferase 38 U/L (17-59); Blood Urea Nitrogen 19 mg/dL (9-20); Calcium 9.2 mg/dL (8.4-10.2); Carbon Dioxide 25 mmol/L (22-30); Chloride 110 mmol/L (98-107); Creatine Kinase 589 U/L (55-170); Estimated CRCL calculation 66 ml/min; Estimated Glomerular Filt Rate > 60; Glucose 260 mg/dL (65-110); Potassium 3.8 mmol/L (3.4-5.0); Sodium 145 mmol/L (137-145)
[2023-09-15 07:32] LABS: Hemoglobin A1C > 14.0 % (<5.7)
[2023-09-15] MEDS: THIAMINE HCL 100 MG TABLET PO (08:47)
[2023-09-15] MEDS: AMOXICILLIN/CLAVULANATE K 875-125 MG TAB 1 TABLET PO ×2 (08:47→19:59)
[2023-09-15] MEDS: INSULIN ASPART (*BKC) 100 UNITS/ML SUB-Q ×2 (09:05→18:01)
[2023-09-15 09:14] LABS: Glucose Point of Care 248 mg/dl (65-105)
[2023-09-15 12:53] LABS: Glucose Point of Care 200 mg/dl (65-105)
--- NOTE | 2023-09-15 13:46 | PM.IMPN ---
Progress Note: A&P Assessment and Plan (1) Altered mental status: Qualifiers: Altered mental status type: unspecified Qualified Code(s): R41.82 - Altered mental status, unspecified Code(s): R41.82 - Altered mental status, unspecified Status: Acute Assessment and Plan: The patient has acute altered mental status and seems encephalopathic which is complicating his chronic dementia. Patient does not have evidence of acute infection but does have significant hyperglycemia. He is chronically noncompliant with his diabetic medications and has uncontrolled diabetes with his prior A1cs both in 2019 and 2022 being higher than 12%. Evidence of rhabdomyolysis, on IV fluids. A&O to self, place and president (2) Rhabdomyolysis: Qualifiers: Rhabdomyolysis type: non-traumatic Qualified Code(s): M62.82 - Rhabdomyolysis Code(s): M62.82 - Rhabdomyolysis Status: Acute Assessment and Plan: Patient had a fall and was found on the ground. CK 437 ->589 Continuous IV fluids Monitor labs. (3) Elevated troponin: Code(s): R79.89 - Other specified abnormal findings of blood chemistry Status: Acute Assessment and Plan: Likely elevated due to rhabdomyolysis. Denies active chest pain. 0.038, 0.037, 0.044 Continue to monitor Telemetery monitoring. Echocardiogram ordered. (4) Closed fracture of maxillary sinus: Qualifiers: Encounter type: initial encounter Qualified Code(s): S02.401A - Maxillary fracture, unspecified side, initial encounter for closed fracture Code(s): S02.401A - Maxillary fracture, unspecified side, initial encounter for closed fracture Status: Acute Assessment and Plan: CT of facial bones with fractures of the left anterior and lateral maxillary ludwig. Analgesics as needed. Ice to affected area (5) Uncontrolled diabetes mellitus with hyperglycemia: Qualifiers: Diabetes mellitus type: type 2 Qualified Code(s): E11.65 - Type 2 diabetes mellitus with hyperglycemia Code(s): E11.65 - Type 2 diabetes mellitus with hyperglycemia Status: Acute Assessment and Plan: Insulin Lispro sliding scale, Accu-checks qAc and HS and Hold oral hypoglycemics Initiate hypoglycemic precautions HgbA1c >14 certified lactation educator consult (6) Pneumonia: Code(s): J18.9 - Pneumonia, unspecified organism Status: Acute Assessment and Plan: Chest x-ray showing right basilar opacities representing atelectasis versus pneumonia. Patient started on Augmentin. Supportive therapy with nebs, Tessalon Perles and Tylenol (7) Dementia: Qualifiers: Dementia behavioral or psychological symptom: unspecified whether behavioral, psychotic, or mood disturbance or anxiety Dementia severity: moderate Dementia type: vascular dementia Qualified Code(s): F01.B0 - Vascular dementia, moderate, without behavioral disturbance, psychotic disturbance, mood disturbance, and anxiety Code(s): F03.90 - Unspecified dementia, unspecified severity, without behavioral disturbance, psychotic disturbance, mood disturbance, and anxiety Status: Acute Subjective Date/time seen: 09/15/23 13:46 Interval history: Patient is alert oriented to place, self and president. He was not able to tell me the year. He did seem more alert oriented than his admission no stated. He is on IV fluids. As well as antibiotics for potential pneumonia. He denies any chest pain, shortness a breath, nausea, vomiting or dysuria. Exam Narrative: GENERAL: Comfortable, no acute distress HENMT: moist mucous membranes EYES: EOM intact b/l NECK: no lymphadenopathy RESPIRATORY: clear to auscultation, no increased respiratory effort CARDIO: Regular rate and rhythm GI: soft, nontender, bowel sounds present SKIN/EXTREMITIES: no rashes, no edema, no redness or tenderness NEURO:
[2023-09-15 15:19] LABS: Troponin I 0.021 ng/mL (0.000-0.034)
[2023-09-15 17:27] LABS: Glucose Point of Care 220 mg/dl (65-105)
[2023-09-15 19:18] LABS: Amphetamine Screen Urine Negative (Negative); Barbiturate Screen Urine Negative (Negative); Benzodiazepines Screen Urine Negative (Negative); Cannabinoid Screen Urine Negative (Negative); Cocaine Screen Urine Negative (Negative); Methadone Screen Urine Negative (Negative); Opiate Screen Urine Negative (Negative); Phencyclidine Screen Urine Negative (Negative)
[2023-09-15 20:14] LABS: Glucose Point of Care 132 mg/dl (65-105)
[2023-09-15] MEDS: SODIUM CHLORIDE 0.9% IV 1,000 ML 125 ML IV CONT (23:52)
[2023-09-16] VITALS (9 sets, daily range): BP systolic 123–145; BP diastolic 65–98; PULSE 38–87; RESP 12–18; TEMP 36.4–37.3; O2SAT 96–99
--- NOTE | 2023-09-16 07:50 | ECG_ITS ---
Measurements Intervals [place] Rate: 52 P: 67 [place]: 218 QRS: -75 QRSD: 146 T: 62 QT: 568 QTc: 530 Interpretive Statements SINUS BRADYCARDIA WITH SECOND DEGREE AV BLOCK (2:1 AV BLOCK) VENTRICULAR PREMATURE COMPLEX LEFT AXIS DEVIATION RIGHT BUNDLE BRANCH BLOCK INFERIOR INFARCT, AGE INDETERMINATE BASELINE ARTIFACT- I, II, III, AVL, V2 ABNORMAL ECG COMPARED TO ECG 09/14/2023 19:02:47 SECOND DEGREE AV BLOCK NOW PRESENT Electronically Signed On 09-16-2023 13:42:46 CDT by Gordy Stewart D.O.
[2023-09-16 07:58] LABS: Glucose Point of Care 108 mg/dl (65-105)
[2023-09-16 07:59] LABS: Alanine Aminotransferase 32 U/L (6-50); Albumin Level 3.2 g/dL (3.5-5.1); Alkaline Phosphatase 71 U/L (38-126); Anion Gap 6 mmol/L (8-16); Aspartate Amino Transferase 32 U/L (17-59); Bilirubin,Total 1.2 mg/dL (0.2-1.3); Blood Urea Nitrogen 12 mg/dL (9-20); Calcium 8.5 mg/dL (8.4-10.2); Carbon Dioxide 25 mmol/L (22-30); Chloride 107 mmol/L (98-107); Creatine Kinase 274 U/L (55-170); Estimated CRCL calculation 83 ml/min; Estimated Glomerular Filt Rate > 60; Glucose 96 mg/dL (65-110); Potassium 3.2 mmol/L (3.4-5.0); Sodium 138 mmol/L (137-145)
[2023-09-16] MEDS: AMOXICILLIN/CLAVULANATE K 875-125 MG TAB 1 TABLET PO ×2 (08:37→20:59)
[2023-09-16] MEDS: THIAMINE HCL 100 MG TABLET PO (08:37)
[2023-09-16] MEDS: SODIUM CHLORIDE 0.9% IV 1,000 ML 125 ML IV CONT ×2 (08:38→17:04)
[2023-09-16] MEDS: FOLIC ACID 1 MG TABLET PO (08:38)
[2023-09-16 08:43] LABS: Hematocrit 37.2 % (42.0-52.0); Hemoglobin 12.9 g/dL (14.0-18.0); Mean Corpuscular HGB Conc 34.7 g/dl (32-36); Mean Corpuscular Hemoglobin 30.9 pg (26-34); Mean Corpuscular Volume 89.2 fl (80-100); Platelet Count Result 145 k/mm3 (150-375); Red Blood Count 4.17 M/mm3 (4.6-6.20); Red Cell Distribution Width 13.2 % (11.5-14.5); White Blood Count 8.3 K/mm3 (4.5-10.0)
[2023-09-16 08:55] LABS: Cholesterol 149 mg/dL (0-200); HDL Direct 36 mg/dL; Triglycerides 105 mg/dL (<150)
[2023-09-16 08:59] LABS: Creatine Kinase 248 U/L (55-170)
[2023-09-16 09:05] LABS: LDL Cholesterol Direct 103 mg/dL
[2023-09-16 09:45] LABS: NT Pro B Type Natriuretic Pept 574 pg/mL (19.9-100); Troponin I 0.014 ng/mL (0.000-0.034)
--- NOTE | 2023-09-16 11:18 | P.PNIM_ITS ---
Progress Note: A&P Assessment and Plan (1) Rhabdomyolysis: Qualifiers: Rhabdomyolysis type: non-traumatic Qualified Code(s): M62.82 - Rhabdomyolysis Code(s): M62.82 - Rhabdomyolysis Status: Acute Assessment and Plan: Improving Patient had a fall and was found on the ground. * CK 437 ->589>248 * Continuous IV fluids * Monitor labs. (2) Elevated troponin: Code(s): R79.89 - Other specified abnormal findings of blood chemistry Status: Acute Assessment and Plan: * Likely ischemic demand * 0.038, 0.037, 0.044 * Negative troponin 09/15 * Continue to monitor * Telemetry monitoring. * Echocardiogram ordered. (3) Closed fracture of maxillary sinus: Qualifiers: Encounter type: initial encounter Qualified Code(s): S02.401A - Maxillary fracture, unspecified side, initial encounter for closed fracture Code(s): S02.401A - Maxillary fracture, unspecified side, initial encounter for closed fracture Status: Acute Assessment and Plan: CT of facial bones with fractures of the left anterior and lateral maxillary ludwig. * Analgesics as needed. * Ice to affected area (4) Uncontrolled diabetes mellitus with hyperglycemia: Qualifiers: Diabetes mellitus type: type 2 Qualified Code(s): E11.65 - Type 2 diabetes mellitus with hyperglycemia Code(s): E11.65 - Type 2 diabetes mellitus with hyperglycemia Status: Acute Assessment and Plan: * Patient non-compliant/Hyperglycemic POA >400 * Accu-Cheks a.c. HS * sliding scale insulin * resume patient's home long-acting * Hemoglobin A1c goal 14.4 * lipid panel * Diabetic diet * consult to dietitian * encourage lifestyle modifications and weight loss * Optimize Regino inhibitors and statins. * Watch for hypoglycemia/hypoglycemic protocol ordered (5) Pneumonia: Code(s): J18.9 - Pneumonia, unspecified organism Status: Acute Assessment and Plan: * Chest x-ray showing right basilar opacities representing atelectasis versus pneumonia. * Patient started on Augmentin. * Supportive therapy with nebs, Tessalon Perles and Tylenol * Normal WBC/afebrile (6) Dementia: Qualifiers: Dementia behavioral or psychological symptom: unspecified whether behavioral, psychotic, or mood disturbance or anxiety Dementia severity: moderate Dementia type: vascular dementia Qualified Code(s): F01.B0 - Vascular dementia, moderate, without behavioral disturbance, psychotic disturbance, mood disturbance, and anxiety Code(s): F03.90 - Unspecified dementia, unspecified severity, without behavioral dist urbance, psychotic disturbance, mood disturbance, and anxiety Status: Acute (7) Metabolic encephalopathy: Code(s): G93.41 - Metabolic encephalopathy Status: Acute Assessment and Plan: Resolving back to baseline The patient has acute altered mental status and seems encephalopathic which is complicating his chronic dementia.? Patient does not have evidence of acute infection but does have significant hyperglycemia.? * He is chronically noncompliant with his diabetic medications and has uncontrolled diabetes with his prior A1cs both in 2019 and 2022 being higher than 12%. * Evidence of rhabdomyolysis, on IV fluids. * A&O to self, place and president (8) Bradycardia with 31-40 beats per minute: Code(s): R00.1 - Bradycardia, unspecified Status: Acute
--- NOTE | 2023-09-16 11:18 | PM.IMPN ---
Progress Note: A&P Assessment and Plan (1) Rhabdomyolysis: Qualifiers: Rhabdomyolysis type: non-traumatic Qualified Code(s): M62.82 - Rhabdomyolysis Code(s): M62.82 - Rhabdomyolysis Status: Acute Assessment and Plan: Improving Patient had a fall and was found on the ground. CK 437 ->589>248 Continuous IV fluids Monitor labs. (2) Elevated troponin: Code(s): R79.89 - Other specified abnormal findings of blood chemistry Status: Acute Assessment and Plan: Likely ischemic demand 0.038, 0.037, 0.044 Negative troponin 09/15 Continue to monitor Telemetry monitoring. Echocardiogram ordered. (3) Closed fracture of maxillary sinus: Qualifiers: Encounter type: initial encounter Qualified Code(s): S02.401A - Maxillary fracture, unspecified side, initial encounter for closed fracture Code(s): S02.401A - Maxillary fracture, unspecified side, initial encounter for closed fracture Status: Acute Assessment and Plan: CT of facial bones with fractures of the left anterior and lateral maxillary ludwig. Analgesics as needed. Ice to affected area (4) Uncontrolled diabetes mellitus with hyperglycemia: Qualifiers: Diabetes mellitus type: type 2 Qualified Code(s): E11.65 - Type 2 diabetes mellitus with hyperglycemia Code(s): E11.65 - Type 2 diabetes mellitus with hyperglycemia Status: Acute Assessment and Plan: Patient non-compliant/Hyperglycemic POA >400 Accu-Cheks a.c. HS sliding scale insulin resume patient's home long-acting Hemoglobin A1c goal 14.4 lipid panel Diabetic diet consult to dietitian encourage lifestyle modifications and weight loss Optimize Regino inhibitors and statins. Watch for hypoglycemia/hypoglycemic protocol ordered (5) Pneumonia: Code(s): J18.9 - Pneumonia, unspecified organism Status: Acute Assessment and Plan: Chest x-ray showing right basilar opacities representing atelectasis versus pneumonia. Patient started on Augmentin. Supportive therapy with nebs, Tessalon Perles and Tylenol Normal WBC/afebrile (6) Dementia: Qualifiers: Dementia behavioral or psychological symptom: unspecified whether behavioral, psychotic, or mood disturbance or anxiety Dementia severity: moderate Dementia type: vascular dementia Qualified Code(s): F01.B0 - Vascular dementia, moderate, without behavioral disturbance, psychotic disturbance, mood disturbance, and anxiety Code(s): F03.90 - Unspecified dementia, unspecified severity, without behavioral disturbance, psychotic disturbance, mood disturbance, and anxiety Status: Acute (7) Metabolic encephalopathy: Code(s): G93.41 - Metabolic encephalopathy Status: Acute Assessment and Plan: Resolving back to baseline The patient has acute altered mental status and seems encephalopathic which is complicating his chronic dementia.? Patient does not have evidence of acute infection but does have significant hyperglycemia.? He is chronically noncompliant with his diabetic medications and has uncontrolled diabetes with his prior A1cs both in 2019 and 2022 being higher than 12%. Evidence of rhabdomyolysis, on IV fluids. A&O to self, place and president (8) Bradycardia with 31-40 beats per minute: Code(s): R00.1 - Bradycardia, unspecified Status: Acute Assessment and Plan: EKG sinus Roby 53 w/ RT BBB POA bradycardia worsening as low as 36 No HR lower medication Junctional on monitor f/U EKG pending Echo pending Cardiology consulted continuous potline monitor Plan Code status: Full code per patient DVT prophylaxis: SCD Stress ulcer prophylaxis: Protonix 40 daily PT/OT notes: PT/OT pending Disposition: Patient continues admission to the cardiac unit for further evaluation of bradycardia, AMS
[2023-09-16 12:04] LABS: Glucose Point of Care 120 mg/dl (65-105)
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
[2023-09-16 16:40] LABS: Glucose Point of Care 120 mg/dl (65-105)
[2023-09-16] MEDS: INSULIN ASPART (*BKC) 100 UNITS/ML SUB-Q (21:23)
[2023-09-16] MEDS: INSULIN GLARGINE (*BKC) 100 UNITS/ML 16 UNITS SUB-Q (21:23)
[2023-09-16 21:24] LABS: Glucose Point of Care 219 mg/dl (65-105)
--- NOTE | 2023-09-16 21:50 | PC.NURSE ---
This patient, Miquel Real, was transferred to [ [facility]] on 09/16/23 at 2153. Personal belongings sent with patient. Report given to [ Vega]. Appropriate documentation sent with patient.
[2023-09-17] VITALS (24 sets, daily range): BP systolic 147–179; BP diastolic 75–106; PULSE 39–93; RESP 12–18; TEMP 36.2–36.6; O2SAT 93–99
[2023-09-17] MEDS: SODIUM CHLORIDE 0.9% IV 1,000 ML 125 ML IV CONT ×2 (00:12→09:43)
--- NOTE | 2023-09-17 00:13 | PC.NURSE ---
This patient, Miquel Real, was received from [ [facility]urg ] on 09/17/23 at 2200. Patient/family oriented to unit policies and routines
[2023-09-17 05:14] LABS: Hematocrit 39.5 % (42.0-52.0); Hemoglobin 13.5 g/dL (14.0-18.0); Mean Corpuscular HGB Conc 34.2 g/dl (32-36); Mean Corpuscular Hemoglobin 30.3 pg (26-34); Mean Corpuscular Volume 88.6 fl (80-100); Mean Platelet Volume 10.9 fl (7.4-10.4); Platelet Count Result 146 k/mm3 (150-375); Red Blood Count 4.46 M/mm3 (4.6-6.20); Red Cell Distribution Width 12.9 % (11.5-14.5); White Blood Count 7.2 K/mm3 (4.5-10.0)
[2023-09-17 05:25] LABS: Alanine Aminotransferase 27 U/L (6-50); Albumin Level 3.1 g/dL (3.5-5.1); Alkaline Phosphatase 67 U/L (38-126); Anion Gap 5 mmol/L (8-16); Aspartate Amino Transferase 26 U/L (17-59); Bilirubin,Total 1.1 mg/dL (0.2-1.3); Blood Urea Nitrogen 10 mg/dL (9-20); Calcium 8.3 mg/dL (8.4-10.2); Carbon Dioxide 23 mmol/L (22-30); Chloride 107 mmol/L (98-107); Estimated CRCL calculation 83 ml/min; Estimated Glomerular Filt Rate > 60; Glucose 132 mg/dL (65-110); Sodium 135 mmol/L (137-145)
[2023-09-17] MEDS: THIAMINE HCL 100 MG TABLET PO (08:27)
[2023-09-17] MEDS: ASPIRIN 81 MG ENTERIC TABLET PO (08:27)
[2023-09-17] MEDS: FOLIC ACID 1 MG TABLET PO (08:27)
[2023-09-17] MEDS: ATORVASTATIN 40 MG TABLET PO (08:27)
[2023-09-17] MEDS: AMOXICILLIN/CLAVULANATE K 875-125 MG TAB 1 TABLET PO ×2 (08:27→22:30)
[2023-09-17 08:32] LABS: Glucose Point of Care 119 mg/dl (65-105)
[2023-09-17] MEDS: ACETAMINOPHEN 325 MG TABLET 650 MG PO (08:37)
--- NOTE | 2023-09-17 09:24 | PM.OP ---
Procedure Note - Brief Procedure Note - Brief Date of procedure: 09/17/23 AMS,Rhabdomyolysis,Elevvated Trop,Maxillary Sinus Post-op diagnosis: Other (Status post loop recorder implant) Procedure performed: Uneventful loop recorder implant under local anesthesia Surgeon: Deloris Nails MD Description of procedure: Uneventful loop recorder implant under local anesthesia Urine output (mL): 620 Complications: No immediate complications Condition: Stable Disposition: Observation
[2023-09-17] MEDS: POTASSIUM CHLORIDE 20 MEQ PACKET (FOR LIQUID) 40 MEQ PO (09:47)
--- NOTE | 2023-09-17 10:17 | PCOTNOTE ---
The patient treatment was not able to be completed on 09/16 due to patient going into surgery for pacemaker. Will plan to continue treatment per plan of care.
[2023-09-17] MEDS: LORazepam (*CRX) 1 MG TABLET PO (10:39)
--- NOTE | 2023-09-17 11:12 | WPDHPUPDATE1 ---
History and Physical Update Update Date/Time: 09/17/23 11:12 Pt remained in 2:1 heart block through the night, but did not require atropine. Afebrile. Has been given extra potassium for hypokalemia. Again reviewed the indication for pacemaker implant with patient and his sisters. He and they would like to proceed. History and Physical has been reviewed, including an updated exam of the patient. There are NO changes in the patient's condition. Risks, benefits, and alternatives have been discussed and questions answered. Reviewed risks of pacemaker implant with patient. These include breathing problems, allergic reactions, bleeding, infection, pneumothorax, cardiac puncture, need for unanticipated surgery, lead dislodgement among others. Patient agrees to proceed with procedure.
--- NOTE | 2023-09-17 11:14 | WPDMODSED ---
Moderate Sedation Note-Pt Data Patient Data Diagnosis: Syncope, second-degree AV block type 2 Present Complaint: Miquel Real is a 67-year-old male with dementia who had a syncopal event at home and was down for a while. He was admitted with rhabdomyolysis in and mild dehydration. He was found to have second-degree AV block type 2 as well as a right bundle-branch block and left anterior fascicular block. Echo showed ejection fraction 65-70%. I suspect this interval episode was due to high-degree AV block and recommended implantation of dual-chamber pacemaker. Procedure to be performed/Plan: Conscious sedation venogram implantation of a dual-chamber pacemaker Allergies Allergy/AdvReac Type Severity Reaction Status Date / Time No Known Allergies Allergy Verified 06/03/23 13:26 Home Medications Medication Instructions Recorded Confirmed Type blood sugar diagnostic (OneTouch #1 g 05/28/23 09/15/23 Rx Verio test strips) blood-glucose meter (OneTouch #1 page hospital 05/28/23 09/15/23 Rx Verio Flex Meter) glucose 2 gram chewable tablet 2 g PO PRN hypoglycemia #30 tabs 05/28/23 09/15/23 Rx insulin aspart U-100 100 unit/mL 1 sliding scale dose subcut .TID 05/28/23 09/15/23 Rx (3 mL) subcutaneous pen with meals diabetes #15 mL insulin aspart U-100 100 unit/mL 4 unit (0.04 mL) subcut .TID with 05/28/23 09/15/23 Rx (3 mL) subcutaneous pen meals #15 mL insulin glargine-aglr 100 unit/mL 16 unit (0.16 mL) subcut QPM #15 mL 05/28/23 09/15/23 Rx (3 mL) subcutaneous pen (Rezvoglar CezarikPen) lancets 30 gauge (OneTouch Delica #1 pkg 05/28/23 09/15/23 Rx Plus Lancet) pen needle, diabetic 32 gauge x #1 pkg 05/28/23 09/15/23 Rx /32 (BD Ultra-Fine Liat Pen Needle) Current Medications: Active Medications Acetaminophen (Acetaminophen 325 Mg Tablet) 650 mg PO Q4H PRN PRN Reason: Mild Pain (1-3) or Fever Last Admin: 09/17/23 08:37 Dose: 650 mg Albuterol (Albuterol Sulfate Neb 2.5 Mg/3 Ml Inh) 2.5 mg INHALATION Q6HRT PRN PRN Reason: Shortness Of Breath Amoxicillin/Clavulanate Potassium (Amoxicillin/Clavulanate K 875-125 Mg Tab) 1 tablet PO Q12HR [facility] Last Admin: 09/17/23 08:27 Dose: 1 tablet Aspirin (Aspirin 81 Mg Enteric Tablet) 81 mg PO QAM [facility] Last Admin: 09/17/23 08:27 Dose: 81 mg Atorvastatin Calcium (Atorvastatin 40 Mg Tablet) 40 mg PO DAILY [facility] Last Admin: 09/17/23 08:27 Dose: 40 mg Atropine Sulfate (Atropine Sulfate 0.4 Mg/Ml Vial) 0.4 mg IV PUSH Q5MIN PRN PRN Reason: for sustained HR < 30 BPM Benzonatate (Benzonatate 100 Mg Capsule) 100 mg PO TID PRN PRN Reason: cough Dextrose (Dextrose 50% 25 Gm/50 Ml Syringe) 12.5 gm IV PUSH PRN PRN; Protocol PRN Reason: Hypoglycemia Diphenhydramine HCl (Diphenhydramine Hcl Cap 25 Mg Capsule) 25 mg PO Q6H PRN PRN Reason: Itching Folic Acid (Folic Acid 1 Mg Tablet) 1 mg PO DAILY [facility] Last Admin: 09/17/23 08:27 Dose: 1 mg Glucagon (Glucagon For Inj 1 Mg Vial) 1 mg IM PRN PRN; Protocol PRN Reason: Hypoglycemia Glucose (Glucose Oral Gel 15 Gm Of Glucse In 37.5 Gm Tube) 15 gm PO PRN PRN; Protocol PRN Reason: Hypoglycemia Sodium Chloride (Normal Saline Iv) 1,000 mls @ 125 mls/hr IV CONT .Q8H [facility] Last Admin: 09/17/23 09:43 Dose: 125 mls/hr Dextrose (Dextrose 5% 1,000 Ml) 1,000 mls @ 100 mls/hr IVPB PRN PRN; Protocol PRN Reason: Hypoglycemia Insulin Aspart (Insulin Aspart (*Bkc) 100 Units/Ml) 3 - 6 units SUB-Q TIDWM [facility]; Protocol Last Admin: 09/17/23 08:24 Dose: Not Given Insulin Aspart (Insulin Aspart (*Bkc) 100 Units/Ml) 1 - 3 units SUB-Q HS [facility]; Protocol Last Admin: 09/16/23 21:23 Dose: 1 units Insulin Glargine (Insulin Glargine (*Bkc) 100 Units/Ml) 16 units SUB-Q HS [facility]HAIL Last Admin: 09/16/23 21:23 Dose: 16 units Perflutren Lipid Microsphere (Perflutren Lipid Microspheres 1.5 Ml Vial Diluted To 10 Ml Total Volume) 0 ml IV PUSH ONCE PRN; Protocol PRN Reason: adequate visualization Stop: 09/18/23 14:04 Pr
--- NOTE | 2023-09-17 13:19 | ECG_ITS ---
Measurements Intervals [place] Rate: 62 P: 252 CT: 179 QRS: 264 QRSD: 173 T: 50 QT: 487 QTc: 498 Interpretive Statements ELECTRONIC ATRIAL PACEMAKER ELECTRONIC VENTRICULAR PACEMAKER NO FURTHER INTERPRETATION IS POSSIBLE ATYPICAL ECG COMPARED TO ECG 09/16/2023 13:18:32 ELECTRONIC ATRIAL-VENTRICULAR PACEMAKER NOW PRESENT Electronically Signed On 09-17-2023 13:37:18 CDT by Gordy Stewart D.O.
--- NOTE | 2023-09-17 13:26 | PM.OP ---
Procedure Note - Brief Procedure Note - Brief Date of procedure: 09/17/23 Second-degree AV block, syncope Post-op diagnosis: Other ( status post dual-chamber Biotronik pacemaker) Procedure performed: conscious sedation dual-chamber Biotronik pacemaker implantation Surgeon: Deloris Nails MD Findings: 2-1 AV block throughout case Description of procedure: uneventful pacemaker implant Implants: Biotronik dual-chamber pacemaker Urine output (mL): 620 Complications: No immediate complications Condition: Stable Disposition: Floor
--- NOTE | 2023-09-17 13:28 | W.PM.PROC2 ---
Procedure Note - Detailed Date of Procedure 09/17/23 Pre-op Diagnosis syncope, second-degree AV block type 2 Post-op Diagnosis Other ( status post dual-chamber Biotronik pacemaker implantation) Procedure Performed PROCEDURE PERFORMED: Conscious sedation Venogram Placement of a permanent dual-chamber pacemaker Surgeon Deloris Nails MD Anesthesia Local ( with conscious sedation) Indications Miquel Real is a 67-year-old male with dementia who had a syncopal event at home and was down for a while.? He was admitted with rhabdomyolysis and mild dehydration.? He was found to have second-degree AV block type 2 as well as a right bundle-branch block and left anterior fascicular block. ? Echo showed ejection fraction 65-70%. ? I suspect this syncopal episode was due to high-degree AV block and recommended implantation of dual-chamber pacemaker. Findings Tortuous venous system Pt remained in 2-1 AV block throughout case Description of Procedure SITE: Left prepectoral area MEDICATIONS GIVEN IN CHECKER LOADER: vancomycin 2 gram IV piggyback CONSCIOUS SEDATION: Assessment: The patient has no history of anesthesia problems. The patient's oropharynx is clear. The patient was deemed to be a good candidate for conscious sedation. The patient had continuous hemodynamic monitoring during the procedure. Start time: 11:29 a.m. Completion time: 1:02 p.m. Total conscious sedation time: 83 minutes Medications: Versed 3 mg, fentanyl 125 mcg IV push Trained observer: Litzy Lewis RN, and Zeenat Lerner RN Outcome: The patient tolerated the procedure well with no complications. PROCEDURE: After informed consent , the patient was brought to the lab technician and the left prepectoral area was prepped and draped in usual fashion . The patient received preop antibiotic and conscious sedation . The left prepectoral area was anesthetized with lidocaine . A venogram was performed showing the course of the left subclavian vein,which was patent though tortuous. Next a skin incision was made and carried down to the prepectoral fascia. Hemostasis was obtained using electrocautery . The pacer pocket was formed. The left subclavian vein was easily accessed with the micropuncture technique, and a J-tipped guide wire was passed into the inferior vena cava under fluoroscopic guidance. The needle was withdrawn. A 2nd wire was introduced in an identical fashion. Because of the venous tortuousity, long sheaths were used. A 6 Vietnamese safety sheath was passed over the lateral wire, the wire withdrawn, and the right ventricular lead was passed into the inferior vena cava under fluoroscopic guidance . The lead was then prolapsed through the tricuspid valve and advanced into the right ventricular apex. When suitable sensing and pacing thresholds were obtained, it was screwed into place. No extra cardiac stimulation was obtained using 10 volts. The sheath was withdrawn. Next, another 6 Vietnamese long safety sheath was passed over the more medial wire, the wire withdrawn, and the right atrial lead was passed into the inferior vena cava under fluoroscopic guidance. Right atrial lead was then pulled back to the level of the right atrium and manipulated into the right atrial appendage . When suitable sensing and pacing thresholds were obtained , it was screwed into place . No extra cardiac stimulation was obtained using 10 volts. The sheath was withdrawn. The RV lead had become dislodged and was reimplanted in the RV apex, and secured into place when suitable sensing and pacing was obtained. Both leads were secured to the prepectoral fascia using 2-0 silk over their respective sleeves. The pocket was cleansed with antibiotic containing solution . The pulse generator was introduced into the operative field, and both leads were secured into the generator . A gentle tug showed the leads were securely fastened. The device was introduced into the pocket
--- NOTE | 2023-09-17 13:47 | P.PNIM_ITS ---
Progress Note: A&P Assessment and Plan (1) Rhabdomyolysis: Qualifiers: Rhabdomyolysis type: non-traumatic Qualified Code(s): M62.82 - Rhabdomyolysis Code(s): M62.82 - Rhabdomyolysis Status: Acute Assessment and Plan: Improving Patient had a fall and was found on the ground. * CK 437 ->589>248 * Continuous IV fluids * Monitor labs. (2) Elevated troponin: Code(s): R79.89 - Other specified abnormal findings of blood chemistry Status: Acute Assessment and Plan: * Likely ischemic demand * 0.038, 0.037, 0.044 * Negative troponin 09/15 * Continue to monitor * Telemetry monitoring. * Echocardiogram Summary ? 1. Technically difficult study with limited views. ? 2. Left ventricular chamber dimension is normal. ? 3. Left ventricular systolic function is normal, estimated at 65-70%. ? 4. Right ventricular systolic function is normal. ? 5. There is mild tricuspid valve regurgitation. (3) Closed fracture of maxillary sinus: Qualifiers: Encounter type: initial encounter Qualified Code(s): S02.401A - Maxillary fracture, unspecified side, initial encounter for closed fracture Code(s): S02.401A - Maxillary fracture, unspecified side, initial encounter for closed fracture Status: Acute Assessment and Plan: CT of facial bones with fractures of the left anterior and lateral maxillary ludwig. * Analgesics as needed. * Ice to affected area (4) Uncontrolled diabetes mellitus with hyperglycemia: Qualifiers: Diabetes mellitus type: type 2 Qualified Code(s): E11.65 - Type 2 diabetes mellitus with hyperglycemia Code(s): E11.65 - Type 2 diabetes mellitus with hyperglycemia Status: Acute Assessment and Plan: * Patient non-compliant/Hyperglycemic POA >400 * Accu-Cheks a.c. HS * sliding scale insulin * resume patient's home long-acting * Hemoglobin A1c goal 14.4 * lipid panel * Diabetic diet * consult to dietitian * encourage lifestyle modifications and weight loss * Optimize Regino inhibitors and statins. * Watch for hypoglycemia/hypoglycemic protocol ordered (5) Pneumonia: Code(s): J18.9 - Pneumonia, unspecified organism Status: Acute Assessment and Plan: * Chest x-ray showing right basilar opacities representing atelectasis versus pneumonia. * Patient started on Augmentin. * Supportive therapy with nebs, Tessalon Perles and Tylenol * Normal WBC/afebrile (6) Dementia: Qualifiers: Dementia behavioral or psychological symptom: unspecified whether behavioral, psychotic, or mood disturbance or anxiety Dementia severity: moderate Dementia type: vascular dementia Qualified Code(s): F01.B0 - Vascular dementia, moderate, without behavioral disturbance, psychotic disturbance, mood disturbance, and anxiety Code(s): F03.90 - Unspecified dementia, unspecified severity, without behavioral disturbance, psychotic disturbance, mood disturbance, and anxiety Status: Acute (7) Metabolic encephalopathy: Code(s): G93.41 - Metabolic encephalopathy Status: Acute Assessment and Plan: Resolving back to baseline The patient has acute altered mental status and seems encephalopathic which is complicating his chronic dementia.? Patient does not have evidence of acute infection but does have significant hyperglycemia.? * He is chronically noncompliant with his diabetic medications and has uncon
--- NOTE | 2023-09-17 13:47 | PM.IMPN ---
Progress Note: A&P Assessment and Plan (1) Rhabdomyolysis: Qualifiers: Rhabdomyolysis type: non-traumatic Qualified Code(s): M62.82 - Rhabdomyolysis Code(s): M62.82 - Rhabdomyolysis Status: Acute Assessment and Plan: Improving Patient had a fall and was found on the ground. CK 437 ->589>248 Continuous IV fluids Monitor labs. (2) Elevated troponin: Code(s): R79.89 - Other specified abnormal findings of blood chemistry Status: Acute Assessment and Plan: Likely ischemic demand 0.038, 0.037, 0.044 Negative troponin 09/15 Continue to monitor Telemetry monitoring. Echocardiogram Summary ? 1. Technically difficult study with limited views. ? 2. Left ventricular chamber dimension is normal. ? 3. Left ventricular systolic function is normal, estimated at 65-70%. ? 4. Right ventricular systolic function is normal. ? 5. There is mild tricuspid valve regurgitation. (3) Closed fracture of maxillary sinus: Qualifiers: Encounter type: initial encounter Qualified Code(s): S02.401A - Maxillary fracture, unspecified side, initial encounter for closed fracture Code(s): S02.401A - Maxillary fracture, unspecified side, initial encounter for closed fracture Status: Acute Assessment and Plan: CT of facial bones with fractures of the left anterior and lateral maxillary ludwig. Analgesics as needed. Ice to affected area (4) Uncontrolled diabetes mellitus with hyperglycemia: Qualifiers: Diabetes mellitus type: type 2 Qualified Code(s): E11.65 - Type 2 diabetes mellitus with hyperglycemia Code(s): E11.65 - Type 2 diabetes mellitus with hyperglycemia Status: Acute Assessment and Plan: Patient non-compliant/Hyperglycemic POA >400 Accu-Cheks a.c. HS sliding scale insulin resume patient's home long-acting Hemoglobin A1c goal 14.4 lipid panel Diabetic diet consult to dietitian encourage lifestyle modifications and weight loss Optimize Regino inhibitors and statins. Watch for hypoglycemia/hypoglycemic protocol ordered (5) Pneumonia: Code(s): J18.9 - Pneumonia, unspecified organism Status: Acute Assessment and Plan: Chest x-ray showing right basilar opacities representing atelectasis versus pneumonia. Patient started on Augmentin. Supportive therapy with nebs, Tessalon Perles and Tylenol Normal WBC/afebrile (6) Dementia: Qualifiers: Dementia behavioral or psychological symptom: unspecified whether behavioral, psychotic, or mood disturbance or anxiety Dementia severity: moderate Dementia type: vascular dementia Qualified Code(s): F01.B0 - Vascular dementia, moderate, without behavioral disturbance, psychotic disturbance, mood disturbance, and anxiety Code(s): F03.90 - Unspecified dementia, unspecified severity, without behavioral disturbance, psychotic disturbance, mood disturbance, and anxiety Status: Acute (7) Metabolic encephalopathy: Code(s): G93.41 - Metabolic encephalopathy Status: Acute Assessment and Plan: Resolving back to baseline The patient has acute altered mental status and seems encephalopathic which is complicating his chronic dementia.? Patient does not have evidence of acute infection but does have significant hyperglycemia.? He is chronically noncompliant with his diabetic medications and has uncontrolled diabetes with his prior A1cs both in 2019 and 2022 being higher than 12%. Evidence of rhabdomyolysis, on IV fluids. A&O to self, place and president (8) Bradycardia with 31-40 beats per minute: Code(s): R00.1 - Bradycardia, unspecified Status: Acute Assessment and Plan: EKG sinus Roby 53 w/ RT BBB POA bradycardia worsening as low as 36 No HR lower medication Junctional on monitor f/U EKG pending Echo pending Cardiology consulted cont
--- NOTE | 2023-09-17 14:27 | PC.NURSE ---
patient gone for pacemaker procedure
[2023-09-17 16:30] LABS: Glucose Point of Care 182 mg/dl (65-105)
[2023-09-17 20:28] LABS: Glucose Point of Care 360 mg/dl (65-105)
[2023-09-17] MEDS: INSULIN GLARGINE (*BKC) 100 UNITS/ML 16 UNITS SUB-Q (22:30)
[2023-09-17] MEDS: INSULIN ASPART (*BKC) 100 UNITS/ML SUB-Q (22:30)
[2023-09-17] MEDS: VANCOMYCIN 1,000 MG/NS 250 ML 1,000 MG/250 ML BAG 250 MG IVPB (22:37)
[2023-09-18] VITALS (18 sets, daily range): BP systolic 128–153; BP diastolic 85–104; PULSE 76–96; RESP 16–18; TEMP 36.2–36.9; O2SAT 96–100; BMI 21.7
[2023-09-18] MEDS: SODIUM CHLORIDE 0.9% IV 1,000 ML 125 ML IV CONT (01:50)
[2023-09-18 05:09] LABS: Hemoglobin 14.8 g/dL (14.0-18.0); Mean Corpuscular HGB Conc 34.4 g/dl (32-36); Mean Corpuscular Hemoglobin 30.3 pg (26-34); Mean Corpuscular Volume 88.1 fl (80-100); Platelet Count Result 141 k/mm3 (150-375); Red Blood Count 4.88 M/mm3 (4.6-6.20); Red Cell Distribution Width 12.8 % (11.5-14.5); White Blood Count 5.7 K/mm3 (4.5-10.0)
[2023-09-18 05:35] LABS: Alanine Aminotransferase 26 U/L (6-50); Albumin Level 3.6 g/dL (3.5-5.1); Alkaline Phosphatase 79 U/L (38-126); Anion Gap 3 mmol/L (8-16); Aspartate Amino Transferase 26 U/L (17-59); Bilirubin,Total 1.4 mg/dL (0.2-1.3); Blood Urea Nitrogen 5 mg/dL (9-20); Calcium 8.7 mg/dL (8.4-10.2); Carbon Dioxide 27 mmol/L (22-30); Chloride 106 mmol/L (98-107); Estimated CRCL calculation 96 ml/min; Estimated Glomerular Filt Rate > 60; Glucose 164 mg/dL (65-110); Potassium 3.1 mmol/L (3.4-5.0); Sodium 136 mmol/L (137-145)
[2023-09-18 07:55] LABS: Glucose Point of Care 181 mg/dl (65-105)
--- NOTE | 2023-09-18 08:18 | PC.NURSE ---
Report given to the Nveae[facility] INFORMATION TECHNOLOGY SPECIALIST that the EMT Dr. Poole endorses he does not treat Maxillary Fractures if the pt is needing treatment the pt will need to be transferred
[2023-09-18] MEDS: AMOXICILLIN/CLAVULANATE K 875-125 MG TAB 1 TABLET PO ×2 (09:18→21:29)
[2023-09-18] MEDS: ASPIRIN 81 MG ENTERIC TABLET PO (09:18)
[2023-09-18] MEDS: ATORVASTATIN 40 MG TABLET PO (09:19)
[2023-09-18] MEDS: THIAMINE HCL 100 MG TABLET PO (09:19)
[2023-09-18] MEDS: FOLIC ACID 1 MG TABLET PO (09:19)
[2023-09-18] MEDS: POTASSIUM CHLORIDE INJ 40 MEQ in SODIUM CHLORIDE 0.9% IV 500 ML 130 MEQ IVPB (09:19)
[2023-09-18 09:45] LABS: Creatine Kinase 128 U/L (55-170)
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
[2023-09-18] MEDS: INSULIN ASPART (*BKC) 100 UNITS/ML SUB-Q (12:26)
[2023-09-18 12:53] LABS: Glucose Point of Care 360 mg/dl (65-105)
[2023-09-18 12:53] LABS: Glucose Point of Care 365 mg/dl (65-105)
--- NOTE | 2023-09-18 15:14 | P.PNIM_ITS ---
Progress Note: A&P Assessment and Plan (1) Rhabdomyolysis: Qualifiers: Rhabdomyolysis type: non-traumatic Qualified Code(s): M62.82 - Rhabdomyolysis Code(s): M62.82 - Rhabdomyolysis Status: Acute Assessment and Plan: Improving Patient had a fall and was found on the ground. * CK 437 ->589 > 248 -> 128 * d/c IV fluids * Monitor labs. (2) Elevated troponin: Code(s): R79.89 - Other specified abnormal findings of blood chemistry Status: Acute Assessment and Plan: * Likely ischemic demand * 0.038, 0.037, 0.044 * Negative troponin 09/15 * Continue to monitor * Telemetry monitoring. * Echocardiogram Summary ? 1. Technically difficult study with limited views. ? 2. Left ventricular chamber dimension is normal. ? 3. Left ventricular systolic function is normal, estimated at 65-70%. ? 4. Right ventricular systolic function is normal. ? 5. There is mild tricuspid valve regurgitation. (3) Closed fracture of maxillary sinus: Qualifiers: Encounter type: initial encounter Qualified Code(s): S02.401A - Maxillary fracture, unspecified side, initial encounter for closed fracture Code(s): S02.401A - Maxillary fracture, unspecified side, initial encounter for closed fracture Status: Acute Assessment and Plan: CT of facial bones with fractures of the left anterior and lateral maxillary ludwig. * Analgesics as needed. * Ice to affected area (4) Uncontrolled diabetes mellitus with hyperglycemia: Qualifiers: Diabetes mellitus type: type 2 Qualified Code(s): E11.65 - Type 2 diabetes mellitus with hyperglycemia Code(s): E11.65 - Type 2 diabetes mellitus with hyperglycemia Status: Acute Assessment and Plan: * Patient non-compliant/Hyperglycemic POA >400 * Accu-Cheks a.c. HS * sliding scale insulin * resume patient's home long-acting * Hemoglobin A1c goal 14.4 * lipid panel * Diabetic diet * consult to dietitian * encourage lifestyle modifications and weight loss * Optimize Regino inhibitors and statins. * Watch for hypoglycemia/hypoglycemic protocol ordered (5) Pneumonia: Code(s): J18.9 - Pneumonia, unspecified organism Status: Acute Assessment and Plan: * Chest x-ray showing right basilar opacities representing atelectasis versus pneumonia. * con't Augmentin. * Supportive therapy with nebs, Tessalon Perles and Tylenol * Normal WBC/afebrile (6) Dementia: Qualifiers: Dementia type: vascular dementia Dementia severity: moderate Dementia behavioral or psychological symptom: unspecified whether behavioral, psychotic, or mood disturbance or anxiety Qualified Code(s): F01.B0 - Vascular dementia, moderate, without behavioral disturbance, psychotic disturbance, mood disturbance, and anxiety Code(s): F03.90 - Unspecified dementia, unspecified severity, without behavioral disturbance, psychotic disturbance, mood disturbance, and anxiety Status: Chronic (7) Metabolic encephalopathy: Code(s): G93.41 - Metabolic encephalopathy Status: Acute Assessment and Plan: Resolving back to baseline The patient has acute altered mental status and seems encephalopathic which is complicating his chronic dementia.? Patient does not have evidence of acute infection but does have significant hyperglycemia.? * He is chronically noncompliant with his diabetic medications and has uncontrolled
--- NOTE | 2023-09-18 15:14 | PM.IMPN ---
Progress Note: A&P Assessment and Plan (1) Rhabdomyolysis: Qualifiers: Rhabdomyolysis type: non-traumatic Qualified Code(s): M62.82 - Rhabdomyolysis Code(s): M62.82 - Rhabdomyolysis Status: Acute Assessment and Plan: Improving Patient had a fall and was found on the ground. CK 437 ->589 > 248 -> 128 d/c IV fluids Monitor labs. (2) Elevated troponin: Code(s): R79.89 - Other specified abnormal findings of blood chemistry Status: Acute Assessment and Plan: Likely ischemic demand 0.038, 0.037, 0.044 Negative troponin 09/15 Continue to monitor Telemetry monitoring. Echocardiogram Summary ? 1. Technically difficult study with limited views. ? 2. Left ventricular chamber dimension is normal. ? 3. Left ventricular systolic function is normal, estimated at 65-70%. ? 4. Right ventricular systolic function is normal. ? 5. There is mild tricuspid valve regurgitation. (3) Closed fracture of maxillary sinus: Qualifiers: Encounter type: initial encounter Qualified Code(s): S02.401A - Maxillary fracture, unspecified side, initial encounter for closed fracture Code(s): S02.401A - Maxillary fracture, unspecified side, initial encounter for closed fracture Status: Acute Assessment and Plan: CT of facial bones with fractures of the left anterior and lateral maxillary ludwig. Analgesics as needed. Ice to affected area (4) Uncontrolled diabetes mellitus with hyperglycemia: Qualifiers: Diabetes mellitus type: type 2 Qualified Code(s): E11.65 - Type 2 diabetes mellitus with hyperglycemia Code(s): E11.65 - Type 2 diabetes mellitus with hyperglycemia Status: Acute Assessment and Plan: Patient non-compliant/Hyperglycemic POA >400 Accu-Cheks a.c. HS sliding scale insulin resume patient's home long-acting Hemoglobin A1c goal 14.4 lipid panel Diabetic diet consult to dietitian encourage lifestyle modifications and weight loss Optimize Regino inhibitors and statins. Watch for hypoglycemia/hypoglycemic protocol ordered (5) Pneumonia: Code(s): J18.9 - Pneumonia, unspecified organism Status: Acute Assessment and Plan: Chest x-ray showing right basilar opacities representing atelectasis versus pneumonia. con't Augmentin. Supportive therapy with nebs, Tessalon Perles and Tylenol Normal WBC/afebrile (6) Dementia: Qualifiers: Dementia type: vascular dementia Dementia severity: moderate Dementia behavioral or psychological symptom: unspecified whether behavioral, psychotic, or mood disturbance or anxiety Qualified Code(s): F01.B0 - Vascular dementia, moderate, without behavioral disturbance, psychotic disturbance, mood disturbance, and anxiety Code(s): F03.90 - Unspecified dementia, unspecified severity, without behavioral disturbance, psychotic disturbance, mood disturbance, and anxiety Status: Chronic (7) Metabolic encephalopathy: Code(s): G93.41 - Metabolic encephalopathy Status: Acute Assessment and Plan: Resolving back to baseline The patient has acute altered mental status and seems encephalopathic which is complicating his chronic dementia.? Patient does not have evidence of acute infection but does have significant hyperglycemia.? He is chronically noncompliant with his diabetic medications and has uncontrolled diabetes with his prior A1cs both in 2019 and 2022 being higher than 12%. improved rhabdomyolysis A&O x3 today (8) Bradycardia with 31-40 beats per minute: Code(s): R00.1 - Bradycardia, unspecified Status: Acute Assessment and Plan: EKG sinus Roby 53 w/ RT BBB POA bradycardia worsening as low as 36 No HR lower medication Junctional on monitor f/U EKG Echo Cardiology placed pacemaker yesterday, following continuous clinical research monitor (9) S
[2023-09-18 18:44] LABS: Glucose Point of Care 199 mg/dl (65-105)
--- NOTE | 2023-09-18 19:22 | PC.NURSE ---
1220 The pt refused continuation of IV Potassium. Education given on the need for intervention. The pts IV was flushed, blood return noted. The pt requested IV be removed et a new one place. IV replacement completed et the pt tolerated well. Nevaeh JARVIS called et given report on the pt refusal et requesting a oral intervention. POC reviewed. No new orders given to the RN
[2023-09-18] MEDS: ACETAMINOPHEN 325 MG TABLET 650 MG PO (21:29)
[2023-09-18] MEDS: INSULIN GLARGINE (*BKC) 100 UNITS/ML 16 UNITS SUB-Q (21:30)
[2023-09-18 21:41] LABS: Glucose Point of Care 175 mg/dl (65-105)
[2023-09-19] VITALS (14 sets, daily range): BP systolic 148–169; BP diastolic 83–98; PULSE 58–93; RESP 16–20; TEMP 36.4–36.6; O2SAT 95–100
[2023-09-19 04:40] LABS: Hematocrit 41.6 % (42.0-52.0); Hemoglobin 14.3 g/dL (14.0-18.0); Mean Corpuscular HGB Conc 34.4 g/dl (32-36); Mean Corpuscular Hemoglobin 30.4 pg (26-34); Mean Corpuscular Volume 88.5 fl (80-100); Platelet Count Result 146 k/mm3 (150-375); Red Cell Distribution Width 12.9 % (11.5-14.5); White Blood Count 6.2 K/mm3 (4.5-10.0)
[2023-09-19 04:54] LABS: Alanine Aminotransferase 20 U/L (6-50); Albumin Level 3.3 g/dL (3.5-5.1); Alkaline Phosphatase 73 U/L (38-126); Anion Gap 3 mmol/L (8-16); Aspartate Amino Transferase 19 U/L (17-59); Bilirubin,Total 1.2 mg/dL (0.2-1.3); Blood Urea Nitrogen 4 mg/dL (9-20); Calcium 8.6 mg/dL (8.4-10.2); Carbon Dioxide 26 mmol/L (22-30); Chloride 109 mmol/L (98-107); Estimated CRCL calculation 83 ml/min; Estimated Glomerular Filt Rate > 60; Glucose 147 mg/dL (65-110); Potassium 3.3 mmol/L (3.4-5.0); Sodium 138 mmol/L (137-145)
[2023-09-19 07:57] LABS: Glucose Point of Care 152 mg/dl (65-105)
[2023-09-19] MEDS: ACETAMINOPHEN 325 MG TABLET 650 MG PO (08:23)
[2023-09-19] MEDS: ATORVASTATIN 40 MG TABLET PO (08:23)
[2023-09-19] MEDS: THIAMINE HCL 100 MG TABLET PO (08:23)
[2023-09-19] MEDS: ASPIRIN 81 MG ENTERIC TABLET PO (08:23)
[2023-09-19] MEDS: AMOXICILLIN/CLAVULANATE K 875-125 MG TAB 1 TABLET PO ×2 (08:23→20:57)
[2023-09-19] MEDS: FOLIC ACID 1 MG TABLET PO (08:23)
--- NOTE | 2023-09-19 09:42 | P.PNIM_ITS ---
Progress Note: A&P Assessment and Plan (1) Rhabdomyolysis: Qualifiers: Rhabdomyolysis type: non-traumatic Qualified Code(s): M62.82 - Rhabdomyolysis Code(s): M62.82 - Rhabdomyolysis Status: Acute Assessment and Plan: RESOLVED * Patient had a fall and was found on the ground. * CK 437 ->589 > 248 -> 128 * d/c IV fluids * Monitor labs. (2) Elevated troponin: Code(s): R79.89 - Other specified abnormal findings of blood chemistry Status: Acute Assessment and Plan: * Likely ischemic demand * 0.038, 0.037, 0.044 * Negative troponin 09/15 * Continue to monitor * Telemetry monitoring. * Echocardiogram Summary ? 1. Technically difficult study with limited views. ? 2. Left ventricular chamber dimension is normal. ? 3. Left ventricular systolic function is normal, estimated at 65-70%. ? 4. Right ventricular systolic function is normal. ? 5. There is mild tricuspid valve regurgitation. (3) Closed fracture of maxillary sinus: Qualifiers: Encounter type: initial encounter Qualified Code(s): S02.401A - Maxillary fracture, unspecified side, initial encounter for closed fracture Code(s): S02.401A - Maxillary fracture, unspecified side, initial encounter for closed fracture Status: Acute Assessment and Plan: CT of facial bones with fractures of the left anterior and lateral maxillary ludwig. * Analgesics as needed. * Ice to affected area (4) Uncontrolled diabetes mellitus with hyperglycemia: Qualifiers: Diabetes mellitus type: type 2 Qualified Code(s): E11.65 - Type 2 diabetes mellitus with hyperglycemia Code(s): E11.65 - Type 2 diabetes mellitus with hyperglycemia Status: Acute Assessment and Plan: * Patient non-compliant/Hyperglycemic POA >400 * Accu-Cheks a.c. HS * sliding scale insulin * resume patient's home long-acting * Hemoglobin A1c goal 14.4 * lipid panel * Diabetic diet * consult to dietitian * encourage lifestyle modifications and weight loss * Optimize Regino inhibitors and statins. * Watch for hypoglycemia/hypoglycemic protocol ordered (5) Pneumonia: Code(s): J18.9 - Pneumonia, unspecified organism Status: Acute Assessment and Plan: * Chest x-ray showing right basilar opacities representing atelectasis versus pneumonia. * con't Augmentin. * Supportive therapy with nebs, Tessalon Perles and Tylenol * Normal WBC/afebrile (6) Dementia: Qualifiers: Dementia behavioral or psychological symptom: unspecified whether behavioral, psychotic, or mood disturbance or anxiety Dementia severity: moderate Dementia type: vascular dementia Qualified Code(s): F01.B0 - Vascular dementia, moderate, without behavioral disturbance, psychotic disturbance, mood disturbance, and anxiety Code(s): F03.90 - Unspecified dementia, unspecified severity, without behavioral disturbance, psychotic disturbance, mood disturbance, and anxiety Status: Chronic (7) Metabolic encephalopathy: Code(s): G93.41 - Metabolic encephalopathy Status: Acute Assessment and Plan: Resolving back to baseline The patient has acute altered mental status and seems encephalopathic which is complicating his chronic dementia.? Patient does not have evidence of acute infection but does have significant hyperglycemia.? * He is chronically noncompliant with his diabetic medications and has
--- NOTE | 2023-09-19 09:42 | PM.IMPN ---
Progress Note: A&P Assessment and Plan (1) Rhabdomyolysis: Qualifiers: Rhabdomyolysis type: non-traumatic Qualified Code(s): M62.82 - Rhabdomyolysis Code(s): M62.82 - Rhabdomyolysis Status: Acute Assessment and Plan: RESOLVED Patient had a fall and was found on the ground. CK 437 ->589 > 248 -> 128 d/c IV fluids Monitor labs. (2) Elevated troponin: Code(s): R79.89 - Other specified abnormal findings of blood chemistry Status: Acute Assessment and Plan: Likely ischemic demand 0.038, 0.037, 0.044 Negative troponin 09/15 Continue to monitor Telemetry monitoring. Echocardiogram Summary ? 1. Technically difficult study with limited views. ? 2. Left ventricular chamber dimension is normal. ? 3. Left ventricular systolic function is normal, estimated at 65-70%. ? 4. Right ventricular systolic function is normal. ? 5. There is mild tricuspid valve regurgitation. (3) Closed fracture of maxillary sinus: Qualifiers: Encounter type: initial encounter Qualified Code(s): S02.401A - Maxillary fracture, unspecified side, initial encounter for closed fracture Code(s): S02.401A - Maxillary fracture, unspecified side, initial encounter for closed fracture Status: Acute Assessment and Plan: CT of facial bones with fractures of the left anterior and lateral maxillary ludwig. Analgesics as needed. Ice to affected area (4) Uncontrolled diabetes mellitus with hyperglycemia: Qualifiers: Diabetes mellitus type: type 2 Qualified Code(s): E11.65 - Type 2 diabetes mellitus with hyperglycemia Code(s): E11.65 - Type 2 diabetes mellitus with hyperglycemia Status: Acute Assessment and Plan: Patient non-compliant/Hyperglycemic POA >400 Accu-Cheks a.c. HS sliding scale insulin resume patient's home long-acting Hemoglobin A1c goal 14.4 lipid panel Diabetic diet consult to dietitian encourage lifestyle modifications and weight loss Optimize Regino inhibitors and statins. Watch for hypoglycemia/hypoglycemic protocol ordered (5) Pneumonia: Code(s): J18.9 - Pneumonia, unspecified organism Status: Acute Assessment and Plan: Chest x-ray showing right basilar opacities representing atelectasis versus pneumonia. con't Augmentin. Supportive therapy with nebs, Tessalon Perles and Tylenol Normal WBC/afebrile (6) Dementia: Qualifiers: Dementia behavioral or psychological symptom: unspecified whether behavioral, psychotic, or mood disturbance or anxiety Dementia severity: moderate Dementia type: vascular dementia Qualified Code(s): F01.B0 - Vascular dementia, moderate, without behavioral disturbance, psychotic disturbance, mood disturbance, and anxiety Code(s): F03.90 - Unspecified dementia, unspecified severity, without behavioral disturbance, psychotic disturbance, mood disturbance, and anxiety Status: Chronic (7) Metabolic encephalopathy: Code(s): G93.41 - Metabolic encephalopathy Status: Acute Assessment and Plan: Resolving back to baseline The patient has acute altered mental status and seems encephalopathic which is complicating his chronic dementia.? Patient does not have evidence of acute infection but does have significant hyperglycemia.? He is chronically noncompliant with his diabetic medications and has uncontrolled diabetes with his prior A1cs both in 2019 and 2022 being higher than 12%. improved rhabdomyolysis A&O x3 today (8) Bradycardia with 31-40 beats per minute: Code(s): R00.1 - Bradycardia, unspecified Status: Acute Assessment and Plan: RESOLVED EKG sinus Roby 53 w/ RT BBB POA bradycardia worsening as low as 36 No HR lower medication Junctional on monitor f/U EKG Echo Cardiology placed pacemaker yesterday, following continuous card
[2023-09-19 12:01] LABS: Glucose Point of Care 371 mg/dl (65-105)
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
[2023-09-19] MEDS: POTASSIUM CHLORIDE 20 MEQ ER TABLET 40 MEQ PO (12:54)
[2023-09-19] MEDS: FUROSEMIDE INJ 40 MG/4 ML VIAL 20 MG IV PUSH (12:54)
[2023-09-19] MEDS: INSULIN ASPART (*BKC) 100 UNITS/ML SUB-Q ×2 (12:55→20:58)
[2023-09-19 15:50] LABS: Glucose Point of Care 166 mg/dl (65-105)
--- NOTE | 2023-09-19 19:01 | PC.NURSE ---
Report given to Chery RN day nurse
[2023-09-19 19:51] LABS: Glucose Point of Care 218 mg/dl (65-105)
[2023-09-19] MEDS: INSULIN GLARGINE (*BKC) 100 UNITS/ML 16 UNITS SUB-Q (20:57)
[2023-09-20] VITALS (15 sets, daily range): BP systolic 138–158; BP diastolic 89–112; PULSE 73–96; RESP 16–24; TEMP 36.3–36.8; O2SAT 95–100
[2023-09-20 05:04] LABS: Hematocrit 41.9 % (42.0-52.0); Hemoglobin 14.3 g/dL (14.0-18.0); Mean Corpuscular HGB Conc 34.1 g/dl (32-36); Mean Corpuscular Hemoglobin 30.2 pg (26-34); Mean Corpuscular Volume 88.6 fl (80-100); Mean Platelet Volume 10.7 fl (7.4-10.4); Platelet Count Result 160 k/mm3 (150-375); Red Blood Count 4.73 M/mm3 (4.6-6.20); Red Cell Distribution Width 12.6 % (11.5-14.5); White Blood Count 6.7 K/mm3 (4.5-10.0)
[2023-09-20 05:13] LABS: Alanine Aminotransferase 20 U/L (6-50); Albumin Level 3.5 g/dL (3.5-5.1); Alkaline Phosphatase 73 U/L (38-126); Anion Gap 3 mmol/L (8-16); Aspartate Amino Transferase 19 U/L (17-59); Bilirubin,Total 1.4 mg/dL (0.2-1.3); Blood Urea Nitrogen 5 mg/dL (9-20); Calcium 8.9 mg/dL (8.4-10.2); Carbon Dioxide 28 mmol/L (22-30); Chloride 106 mmol/L (98-107); Estimated CRCL calculation 83 ml/min; Estimated Glomerular Filt Rate > 60; Glucose 151 mg/dL (65-110); Potassium 3.1 mmol/L (3.4-5.0); Sodium 137 mmol/L (137-145)
[2023-09-20 08:19] LABS: Glucose Point of Care 149 mg/dl (65-105)
[2023-09-20] MEDS: ACETAMINOPHEN 325 MG TABLET 650 MG PO (10:10)
[2023-09-20] MEDS: ATORVASTATIN 40 MG TABLET PO (10:10)
[2023-09-20] MEDS: ASPIRIN 81 MG ENTERIC TABLET PO (10:10)
[2023-09-20] MEDS: FOLIC ACID 1 MG TABLET PO (10:10)
[2023-09-20] MEDS: AMOXICILLIN/CLAVULANATE K 875-125 MG TAB 1 TABLET PO ×2 (10:10→21:06)
[2023-09-20] MEDS: THIAMINE HCL 100 MG TABLET PO (10:11)
[2023-09-20 11:15] LABS: Glucose Point of Care 305 mg/dl (65-105)
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
[2023-09-20] MEDS: POTASSIUM CHLORIDE 20 MEQ ER TABLET 40 MEQ PO (14:21)
[2023-09-20] MEDS: INSULIN ASPART (*BKC) 100 UNITS/ML SUB-Q ×3 (14:22→21:06)
[2023-09-20 16:25] LABS: Glucose Point of Care 206 mg/dl (65-105)
[2023-09-20 20:57] LABS: Glucose Point of Care 256 mg/dl (65-105)
[2023-09-20] MEDS: INSULIN GLARGINE (*BKC) 100 UNITS/ML 16 UNITS SUB-Q (21:06)
[2023-09-21] VITALS (20 sets, daily range): BP systolic 121–142; BP diastolic 70–92; PULSE 75–96; RESP 17–19; TEMP 36.3–36.9; O2SAT 97–100
[2023-09-21 05:09] LABS: Hematocrit 42.8 % (42.0-52.0); Hemoglobin 14.7 g/dL (14.0-18.0); Mean Corpuscular HGB Conc 34.3 g/dl (32-36); Mean Corpuscular Hemoglobin 30.2 pg (26-34); Mean Corpuscular Volume 88.1 fl (80-100); Mean Platelet Volume 10.7 fl (7.4-10.4); Platelet Count Result 170 k/mm3 (150-375); Red Blood Count 4.86 M/mm3 (4.6-6.20); Red Cell Distribution Width 13.2 % (11.5-14.5); White Blood Count 7.7 K/mm3 (4.5-10.0)
[2023-09-21 05:19] LABS: Alanine Aminotransferase 20 U/L (6-50); Albumin Level 3.6 g/dL (3.5-5.1); Alkaline Phosphatase 76 U/L (38-126); Anion Gap 6 mmol/L (8-16); Aspartate Amino Transferase 22 U/L (17-59); Bilirubin,Total 1.3 mg/dL (0.2-1.3); Blood Urea Nitrogen 7 mg/dL (9-20); Carbon Dioxide 26 mmol/L (22-30); Chloride 106 mmol/L (98-107); Estimated CRCL calculation 83 ml/min; Estimated Glomerular Filt Rate > 60; Glucose 230 mg/dL (65-110); Potassium 3.8 mmol/L (3.4-5.0); Sodium 138 mmol/L (137-145)
--- NOTE | 2023-09-21 07:41 | P.PNIM_ITS ---
Progress Note: A&P Assessment and Plan (1) Rhabdomyolysis: Qualifiers: Rhabdomyolysis type: non-traumatic Qualified Code(s): M62.82 - Rhabdomyolysis Code(s): M62.82 - Rhabdomyolysis Status: Acute Assessment and Plan: RESOLVED * Patient had a fall and was found on the ground. * CK 437 ->589 > 248 -> 128 * d/c IV fluids * Monitor labs. (2) Elevated troponin: Code(s): R79.89 - Other specified abnormal findings of blood chemistry Status: Acute Assessment and Plan: * Likely ischemic demand * 0.038, 0.037, 0.044 * Negative troponin 09/15 * Continue to monitor * Telemetry monitoring. * Echocardiogram Summary ? 1. Technically difficult study with limited views. ? 2. Left ventricular chamber dimension is normal. ? 3. Left ventricular systolic function is normal, estimated at 65-70%. ? 4. Right ventricular systolic function is normal. ? 5. There is mild tricuspid valve regurgitation. (3) Closed fracture of maxillary sinus: Qualifiers: Encounter type: initial encounter Qualified Code(s): S02.401A - Maxillary fracture, unspecified side, initial encounter for closed fracture Code(s): S02.401A - Maxillary fracture, unspecified side, initial encounter for closed fracture Status: Acute Assessment and Plan: CT of facial bones with fractures of the left anterior and lateral maxillary ludwig. * Analgesics as needed. * Ice to affected area (4) Uncontrolled diabetes mellitus with hyperglycemia: Qualifiers: Diabetes mellitus type: type 2 Qualified Code(s): E11.65 - Type 2 diabetes mellitus with hyperglycemia Code(s): E11.65 - Type 2 diabetes mellitus with hyperglycemia Status: Acute Assessment and Plan: * Patient non-compliant/Hyperglycemic POA >400 * Accu-Cheks a.c. HS * sliding scale insulin * resume patient's home long-acting * Hemoglobin A1c goal 14.4 * lipid panel * Diabetic diet * consult to dietitian * encourage lifestyle modifications and weight loss * Optimize Regino inhibitors and statins. * Watch for hypoglycemia/hypoglycemic protocol ordered (5) Pneumonia: Code(s): J18.9 - Pneumonia, unspecified organism Status: Acute Assessment and Plan: RESOLVED * Chest x-ray showing right basilar opacities representing atelectasis versus pneumonia. * con't Augmentin. * Supportive therapy with nebs, Tessalon Perles and Tylenol * Normal WBC/afebrile (6) Dementia: Qualifiers: Dementia behavioral or psychological symptom: unspecified whether behavioral, psychotic, or mood disturbance or anxiety Dementia severity: moderate Dementia type: vascular dementia Qualified Code(s): F01.B0 - Vascular dementia, moderate, without behavioral disturbance, psychotic disturbance, mood disturbance, and anxiety Code(s): F03.90 - Unspecified dementia, unspecified severity, without behavioral disturbance, psychotic disturbance, mood disturbance, and anxiety Status: Chronic Assessment and Plan: * Mini mental * B12/folic/RPR/hepatitis/HIV * CT showing moderate white matter atrophy * Discussed with Dr. Lindsay Psychiatry (7) Metabolic encephalopathy: Code(s): G93.41 - Metabolic encephalopathy Status: Acute Assessment and Plan: Resolving back to baseline The patient has acute altered mental status and seems encephalopathic which is complicating his c
[2023-09-21 07:59] LABS: Alanine Aminotransferase 19 U/L (6-50); Albumin Level 3.5 g/dL (3.5-5.1); Alkaline Phosphatase 74 U/L (38-126); Aspartate Amino Transferase 31 U/L (17-59); Bilirubin,Total 1.2 mg/dL (0.2-1.3)
[2023-09-21 08:07] LABS: Glucose Point of Care 199 mg/dl (65-105)
[2023-09-21 08:16] LABS: Vitamin D 25 Hydroxy 30.2 ng/mL
[2023-09-21 09:09] LABS: Folic Acid 9.6 ng/mL (2.76->20); Vitamin B12 > 1000.0 pg/mL (239-931)
[2023-09-21] MEDS: ATORVASTATIN 40 MG TABLET PO (09:27)
[2023-09-21] MEDS: LOSARTAN POTASSIUM 25 MG TABLET PO (09:27)
[2023-09-21] MEDS: AMOXICILLIN/CLAVULANATE K 875-125 MG TAB 1 TABLET PO ×2 (09:27→20:59)
[2023-09-21] MEDS: FOLIC ACID 1 MG TABLET PO (09:27)
[2023-09-21] MEDS: ASPIRIN 81 MG ENTERIC TABLET PO (09:27)
[2023-09-21] MEDS: THIAMINE HCL 100 MG TABLET PO (09:27)
[2023-09-21] MEDS: ACETAMINOPHEN 325 MG TABLET 650 MG PO (09:27)
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
[2023-09-21 11:38] LABS: Glucose Point of Care 292 mg/dl (65-105)
[2023-09-21] MEDS: INSULIN ASPART (*BKC) 100 UNITS/ML SUB-Q ×2 (11:38→17:06)
--- NOTE | 2023-09-21 15:00 | WPDCNPSYCH ---
HPI Data of Consult Date/Time: 09/21/23 15:00 Requesting Physician: Amber Mcfarlane DO Primary Care Provider: Eyal Whitney MD Consult Narrative Narrative: CHIEF COMPLAINT/REASON FOR CONSULTATION: According to the patient's Nurse Practitioner, Maddy Smith, patient was admitted five days ago to the Medicine Service for a near syncopal episode with an associated fall. Psychiatric Consultation is requested for a competency evaluation. HISTORY OF PRESENT ILLNESS: According to Maddy Smith NP, patient appears intact cognitively when she has had contact with the patient. She reports family requests a Psychiatric Consultation for competency. According to Maddy Smith NP, patient would lay in his feces. He was living with his daughter and needed help with activities of daily living; and, at this hospitalization, patient needed either a pacemaker or a defibrillator placed. His CT of the head was c/w nonspecific findings. His lab work including TSH were unremarkable. DISCUSSION: Competency evaluation often is done by Primary Care. Maddy Smith NP has agreed to order RPR, HIV, Hepatitis panel, B12, folate, Vitamin D level and to ask Care Coordination to conduct MMSE. Maddy Smith NP will review the results of the above, and if she still feels Psychiatric Consultation is indicated she will contact me again and I complete a formal consultation. Thanks for contacting me about this patient. I hope our informal consult has proved adequate. If not please contact me for a more formal consult. I have left my cellphone number with Maddy Smith NP Sincerely, Go Lindsay MD cellphone: [phone] [facility] Past Medical History Medical History Alcoholism in recovery (~2014) Chronic sinusitis COVID 04/2023 CVA (cerebral vascular accident) CT performed the ER 04/2023 demonstrated evidence of multiple scattered old infarcts bilateral cerebral hemispheres, basal ganglia and left thalamus Dementia With history of alcoholism and multiple infarcts Diastolic dysfunction Second degree AV block, Mobitz type II Syncope Type 2 diabetes mellitus Surgical History Surgical History History of hemorrhoidectomy Infected pilonidal cyst With incision and drainage September 2008 2019 Status post cataract extraction Family History Family History Father Acute myocardial infarction Alcohol abuse Social History Social History Social History: The patient is live with his daughter since proximally 2014. He is a former alcoholic and has been in recovery since that time. He reports he used to smoke many years ago but cannot specify in amount. 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
[2023-09-21 16:53] LABS: Rapid Plasma Reagin Non-Reactive (NonReactive)
[2023-09-21 16:57] LABS: Glucose Point of Care 232 mg/dl (65-105)
[2023-09-21 20:30] LABS: Glucose Point of Care 197 mg/dl (65-105)
[2023-09-21] MEDS: INSULIN GLARGINE (*BKC) 100 UNITS/ML 16 UNITS SUB-Q (21:03)
[2023-09-22] VITALS (10 sets, daily range): BP systolic 118–131; BP diastolic 68–90; PULSE 80–110; RESP 18–20; TEMP 36.2–36.6; O2SAT 98–100
[2023-09-22 04:55] LABS: Hematocrit 41.3 % (42.0-52.0); Hemoglobin 14.3 g/dL (14.0-18.0); Mean Corpuscular HGB Conc 34.6 g/dl (32-36); Mean Corpuscular Hemoglobin 30.8 pg (26-34); Mean Corpuscular Volume 88.8 fl (80-100); Mean Platelet Volume 10.6 fl (7.4-10.4); Platelet Count Result 160 k/mm3 (150-375); Red Blood Count 4.65 M/mm3 (4.6-6.20); Red Cell Distribution Width 13.2 % (11.5-14.5); White Blood Count 7.7 K/mm3 (4.5-10.0)
[2023-09-22 05:14] LABS: Alanine Aminotransferase 20 U/L (6-50); Albumin Level 3.5 g/dL (3.5-5.1); Alkaline Phosphatase 70 U/L (38-126); Anion Gap 4 mmol/L (8-16); Aspartate Amino Transferase 23 U/L (17-59); Bilirubin,Total 1.4 mg/dL (0.2-1.3); Blood Urea Nitrogen 9 mg/dL (9-20); Calcium 8.9 mg/dL (8.4-10.2); Carbon Dioxide 28 mmol/L (22-30); Chloride 105 mmol/L (98-107); Estimated CRCL calculation 74 ml/min; Estimated Glomerular Filt Rate > 60; Glucose 222 mg/dL (65-110); Potassium 3.7 mmol/L (3.4-5.0); Sodium 137 mmol/L (137-145)
[2023-09-22 08:27] LABS: Glucose Point of Care 191 mg/dl (65-105)
[2023-09-22] MEDS: THIAMINE HCL 100 MG TABLET PO (08:39)
[2023-09-22] MEDS: LOSARTAN POTASSIUM 25 MG TABLET PO (08:39)
[2023-09-22] MEDS: ASPIRIN 81 MG ENTERIC TABLET PO (08:39)
[2023-09-22] MEDS: FOLIC ACID 1 MG TABLET PO (08:39)
[2023-09-22] MEDS: AMOXICILLIN/CLAVULANATE K 875-125 MG TAB 1 TABLET PO (08:39)
[2023-09-22] MEDS: ATORVASTATIN 40 MG TABLET PO (08:40)
--- NOTE | 2023-09-22 09:21 | P.DS_ITS ---
DS: Admitting Diagnosis Discharge Date 09/22/2023 Admitting Diagnosis AMS/rhabdomyolysis/bradycardia/hyperglycemia DS: Discharge Diagnosis Discharge Diagnosis (1) Rhabdomyolysis: Qualifiers: Rhabdomyolysis type: non-traumatic Qualified Code(s): M62.82 - Rhabdomyolysis Code(s): M62.82 - Rhabdomyolysis Status: Acute Assessment and Plan: RESOLVED * Patient had a fall and was found on the ground. * CK 437 ->589 > 248 -> 128 * d/c IV fluids * Monitor labs. (2) Elevated troponin: Code(s): R79.89 - Other specified abnormal findings of blood chemistry Status: Acute Assessment and Plan: * Likely ischemic demand * 0.038, 0.037, 0.044 * Negative troponin 09/15 * Continue to monitor * Telemetry monitoring. * Echocardiogram Summary ? 1. Technically difficult study with limited views. ? 2. Left ventricular chamber dimension is normal. ? 3. Left ventricular systolic function is normal, estimated at 65-70%. ? 4. Right ventricular systolic function is normal. ? 5. There is mild tricuspid valve regurgitation. (3) Closed fracture of maxillary sinus: Qualifiers: Encounter type: initial encounter Qualified Code(s): S02.401A - Maxillary fracture, unspecified side, initial encounter for closed fracture Code(s): S02.401A - Maxillary fracture, unspecified side, initial encounter for closed fracture Status: Acute Assessment and Plan: CT of facial bones with fractures of the left anterior and lateral maxillary ludwig. * Analgesics as needed. * Ice to affected area (4) Uncontrolled diabetes mellitus with hyperglycemia: Qualifiers: Diabetes mellitus type: type 2 Qualified Code(s): E11.65 - Type 2 diabetes mellitus with hyperglycemia Code(s): E11.65 - Type 2 diabetes mellitus with hyperglycemia Status: Acute Assessment and Plan: * Patient non-compliant/Hyperglycemic POA >400 * Accu-Cheks a.c. HS * sliding scale insulin * resume patient's home long-acting * Hemoglobin A1c goal 14.4 * lipid panel * Diabetic diet * consult to dietitian * encourage lifestyle modifications and weight loss * Optimize Regino inhibitors and statins. * Watch for hypoglycemia/hypoglycemic protocol ordered (5) Pneumonia: Code(s): J18.9 - Pneumonia, unspecified organism Status: Acute Assessment and Plan: RESOLVED * Chest x-ray showing right basilar opacities representing atelectasis versus pneumonia. * con't Augmentin. * Supportive therapy with nebs, Tessalon Perles and Tylenol * Normal WBC/afebrile (6) Dementia: Qualifiers: Dementia behavioral or psychological symptom: unspecified whether behavioral, psychotic, or mood disturbance or anxiety Dementia severity: moderate Dementia type: vascular dementia Qualified Code(s): F01.B0 - Vascular dementia, moderate, without behavioral disturbance, psychotic disturbance, mood disturbance, and anxiety Code(s): F03.90 - Unspecified dementia, unspecified severity, without behavioral disturbance, psychotic disturbance, mood disturbance, and anxiety Status: Chronic Assessment and Plan: * Mini mental * B12/folic/RPR/hepatitis/HIV * CT showing moderate white matter atrophy * Discussed with Dr. Lindsay Psychiatry (7) Metabolic encephalopathy: Code(s): G93.41 - Metabolic encephalopathy Status: Acute Assessment
--- NOTE | 2023-09-22 09:21 | PM.DS ---
DS: Admitting Diagnosis Discharge Date 09/22/2023 Admitting Diagnosis AMS/rhabdomyolysis/bradycardia/hyperglycemia DS: Discharge Diagnosis Discharge Diagnosis (1) Rhabdomyolysis: Qualifiers: Rhabdomyolysis type: non-traumatic Qualified Code(s): M62.82 - Rhabdomyolysis Code(s): M62.82 - Rhabdomyolysis Status: Acute Assessment and Plan: RESOLVED Patient had a fall and was found on the ground. CK 437 ->589 > 248 -> 128 d/c IV fluids Monitor labs. (2) Elevated troponin: Code(s): R79.89 - Other specified abnormal findings of blood chemistry Status: Acute Assessment and Plan: Likely ischemic demand 0.038, 0.037, 0.044 Negative troponin 09/15 Continue to monitor Telemetry monitoring. Echocardiogram Summary ? 1. Technically difficult study with limited views. ? 2. Left ventricular chamber dimension is normal. ? 3. Left ventricular systolic function is normal, estimated at 65-70%. ? 4. Right ventricular systolic function is normal. ? 5. There is mild tricuspid valve regurgitation. (3) Closed fracture of maxillary sinus: Qualifiers: Encounter type: initial encounter Qualified Code(s): S02.401A - Maxillary fracture, unspecified side, initial encounter for closed fracture Code(s): S02.401A - Maxillary fracture, unspecified side, initial encounter for closed fracture Status: Acute Assessment and Plan: CT of facial bones with fractures of the left anterior and lateral maxillary ludwig. Analgesics as needed. Ice to affected area (4) Uncontrolled diabetes mellitus with hyperglycemia: Qualifiers: Diabetes mellitus type: type 2 Qualified Code(s): E11.65 - Type 2 diabetes mellitus with hyperglycemia Code(s): E11.65 - Type 2 diabetes mellitus with hyperglycemia Status: Acute Assessment and Plan: Patient non-compliant/Hyperglycemic POA >400 Accu-Cheks a.c. HS sliding scale insulin resume patient's home long-acting Hemoglobin A1c goal 14.4 lipid panel Diabetic diet consult to dietitian encourage lifestyle modifications and weight loss Optimize Regino inhibitors and statins. Watch for hypoglycemia/hypoglycemic protocol ordered (5) Pneumonia: Code(s): J18.9 - Pneumonia, unspecified organism Status: Acute Assessment and Plan: RESOLVED Chest x-ray showing right basilar opacities representing atelectasis versus pneumonia. con't Augmentin. Supportive therapy with nebs, Tessalon Perles and Tylenol Normal WBC/afebrile (6) Dementia: Qualifiers: Dementia behavioral or psychological symptom: unspecified whether behavioral, psychotic, or mood disturbance or anxiety Dementia severity: moderate Dementia type: vascular dementia Qualified Code(s): F01.B0 - Vascular dementia, moderate, without behavioral disturbance, psychotic disturbance, mood disturbance, and anxiety Code(s): F03.90 - Unspecified dementia, unspecified severity, without behavioral disturbance, psychotic disturbance, mood disturbance, and anxiety Status: Chronic Assessment and Plan: Mini mental B12/folic/RPR/hepatitis/HIV CT showing moderate white matter atrophy Discussed with Dr. Lindsay Psychiatry (7) Metabolic encephalopathy: Code(s): G93.41 - Metabolic encephalopathy Status: Acute Assessment and Plan: Resolving back to baseline The patient has acute altered mental status and seems encephalopathic which is complicating his chronic dementia.? Patient does not have evidence of acute infection but does have significant hyperglycemia.? He is chronically noncompliant with his diabetic medications and has uncontrolled diabetes with his prior A1cs both in 2019 and 2022 being higher than 12%. improved rhabdomyolysis A&O x3 today (8) Bradycardia with 31-40 beats per minute: Code(s): R00.1 - Miguel
[2023-09-22] MEDS: INSULIN ASPART (*BKC) 100 UNITS/ML 10 UNITS SUB-Q (11:34)
[2023-09-22 13:27] LABS: Glucose Point of Care 443 mg/dl (65-105)
[2023-09-22 13:28] LABS: Glucose Point of Care 444 mg/dl (65-105)
[2023-09-22 13:28] LABS: Glucose Point of Care 345 mg/dl (65-105)
--- NOTE | 2023-09-22 14:57 | PC.NURSE ---
1330- discharge instructions discussed with pt and family- both verbalized [id number] instructions for activity and dressing for pacemaker. 1410- discharged home via w/c to vehicle driven by daughter
--- NOTE | 2023-09-22 16:21 | PC.NURSE ---
1320 J Luis SLIP COVER OPERATOR notified of repeat blood sugar - okayed to discharge
--- NOTE | 2023-09-23 09:31 | PCCDE ---
09/23/23 Message left re: following up since discharge, including direct call back number.
[2023-09-23 15:51] LABS: HIV 1 RNA PCR Not Detected Copies/mL; HIV 1 RNA PCR Not Detected Log cps/mL
== END 2023-09-22 14:05 | disposition home health service (06) | DRG 242 ==
LOC: ANHED 19:14 → ANH3MEDSUR 09-15 03:42 → ANHIMU 09-17 01:32 → ANH3MEDSUR 09-23 08:44 → ANHIMU 09-23 08:44
PROVIDERS: Internal Medicine; Internal Medicine Cardiovascular Disease; Internal Medicine Critical Care Medicine; Nurse Practitioner; Admitting Provider Internal Medicine; Emergency Provider Emergency Medicine; PCP Emergency Medicine; Visit Provider Nurse Practitioner Family
PROC: 0JH606Z Insertion of Pacemaker, Dual Chamber into Chest Subcutaneous Tissue and Fascia, Open Approach (ICD-10-PCS; CPT 33208; principal; 2023-09-17 12:00)
DX: I44.1 Atrioventricular block, second degree (principal); G93.41 Metabolic encephalopathy; J18.9 Pneumonia, unspecified organism; M62.82 Rhabdomyolysis; S02.40DA Maxillary fracture, left side, initial encounter for closed fracture; I24.89 Other forms of acute ischemic heart disease; J98.11 Atelectasis; R55 Syncope and collapse; E86.0 Dehydration; E11.65 Type 2 diabetes mellitus with hyperglycemia; W19.XXXA Unspecified fall, initial encounter; F03.90 Unspecified dementia, unspecified severity, without behavioral disturbance, psychotic disturbance, mood disturbance, and anxiety; R00.1 Bradycardia, unspecified; I45.10 Unspecified right bundle-branch block; I44.4 Left anterior fascicular block; E83.52 Hypercalcemia; E87.6 Hypokalemia; Z60.9 Problem related to social environment, unspecified; Z86.16 Personal history of COVID-19; Z86.73 Personal history of transient ischemic attack (TIA), and cerebral infarction without residual deficits; Z98.49 Cataract extraction status, unspecified eye; Z87.891 Personal history of nicotine dependence; Z91.148 Patient's other noncompliance with medication regimen for other reason
CPT/HCPCS: 33208; 36415; 70450; 70486; 71045; 71046; 72125; 80053; 80061; 80076; 80307; 82306; 82550; 82607; 82746; 82948; 83036; 83690; 83880; 84443; 84484; 85025; 85027; 85055; 85610; 85730; 86592; 87536; 93005; 93306; 96361; 96374; 97110; 97116; 97161; 97165; 97530; 97535; 97537; 99285; A9270; C1779; C1785; C1894; G0378; J1815; J1940; J2250; J3010; J3370; J3411; J3480; J7030; J7040

== ENCOUNTER 2023-12-07 20:23 | Emergency (ER) | payer MEDICARE, SELFPAY ==
--- NOTE | ~2023-12-07 | CT_ITS ---
EXAMINATION: CT cervical spine wo con DATE: 12/07/2023 23:21 INDICATION: weak, fall TECHNIQUE: Computed tomography (CT) of the cervical spine was performed without intravenous contrast. Automated exposure control and iterative reconstruction technique were employed. The dose-length pro duct was 579.90 mGy-cm. COMPARISON: 09/14/2023. FINDINGS: Motion artifact is present throughout the scan. Vertebral Body Alignment: Intact. Reversed lordosis, centered at C3-4. Craniocervical and atlantoaxial alignment: Moderate degenerative change. Alignment intact. Osseous structures/fracture: No evidence of a lytic or blastic process in the visualized spine. No e vidence of acute fracture. Right C2-3 and left C3-4 facet fusion. Cervical soft tissues: The paraspinal soft tissues planes are maintained. Considerable motion artifac t at the thoracic inlet and upper lungs. Degenerative changes: Multilevel degenerative disc disease and facet arthropathy. Severe right neural foraminal narrowing at C4-5 secondary to degenerative changes. No severe central canal narrowing. IMPRESSION: Motion limited examination. No definite acute fracture or traumatic malalignment in the cervical spin e. Reviewed, dictated and finalized at location K. IMPRESSION: Motion limited examination. No definite acute fracture or traumatic malalignmen t in the cervical spine.
--- NOTE | ~2023-12-07 | XR_ITS ---
EXAMINATION: XR chest 2V Exam Date/Time: 12/07/2023 21:25 CDT HISTORY: weakness Comparison: 09/18/2023. RESULT: Lines, tubes, and devices: Left chest pacer with intact leads. Lungs and pleura: Mild diffuse reticular opacities. Cardiomediastinal silhouette: Stable. Other: No acute osseous or upper abdominal finding. Stable mild anterior wedge deformity of a lower thoracic vertebral body. IMPRESSION: Mild interstitial edema. Reviewed, dictated and finalized at location K. IMPRESSION: Mild interstitial edema.
--- NOTE | ~2023-12-07 | CT_ITS ---
EXAMINATION: CT brain wo con DATE: 12/07/2023 23:21 INDICATION: weak, fall . TECHNIQUE: Computed tomography (CT) of the head was performed without intravenous contrast. The mA wa s adjusted according to patient size. Iterative reconstruction technique was employed. The dose-lengt h product was 1135.00 mGy-cm. COMPARISON: 09/14/2023. FINDINGS: Motion artifact present which persisted in repeated imaging attempts. Large volume, hemispheric, extra-axial fluid collection over the right hemisphere with isodense and h yperdense components. Compression of the right lateral ventricle. [id number] midline shift of 5 mm. No acute ischemic infarct. Unremarkable dural venous sinus attenuation. No acute osseous abnormality. Right maxillary and ethmoid mucosal thickening, the remaining aerated spaces are clear. Moderate atrophy and chronic white matter change. Atherosclerotic intracranial calcification. Right l ens replacement. Bilateral basal ganglia calcification. Focal bilateral old basal ganglia and left th alamic lacunar infarcts. Focal encephalomalacia in the bilateral frontal and right parietal lobes IMPRESSION: Motion limited examination. Large right extra-axial hemorrhagic collection, likely representing acute or acute on chronic subdura l hemorrhage. 5 mm right to left subfalcine herniation. Results reported telephonically to Diann Verduzco PA-C by Dr. Nunn at 11:33 PM on 12/07/2023. Reviewed, dictated and finalized at location K. IMPRESSION: Motion limited examination. Large right extra-axial hemorrhagic collection, likely representing acute or ac ella on chronic subdural hemorrhage. 5 mm right to left subfalcine herniation. Results reported telephonically to Diann Verduzco PA-C by Dr. Nunn at 11:33 PM on 12/07/2023.
[2023-12-07 20:43] VITALS: BP 137/78; PULSE 79; RESP 20; TEMP 36.6; O2SAT 97
--- NOTE | 2023-12-07 21:13 | ECG_ITS ---
Test Date: 2023-12-07 21:43:59 Measurements Intervals Burton Rate: 83 P: 40 GA: 148 QRS: -89 QRSD: 157 T: 82 QT: 411 QTc: 485 Interpretive Statements ELECTRONIC VENTRICULAR PACEMAKER ABNORMAL RHYTHM ECG No previous ECG available for comparison Electronically Signed On 12-08-2023 10:52:03 CDT by Kristen Pedersen M.D.
[2023-12-07 21:46] VITALS: O2SAT 100
[2023-12-07 21:47] VITALS: PULSE 84
[2023-12-07 21:54] LABS: Basophils Percent Auto 0.4 % (0.2-1.2); Eosinophils Absolute Auto 0.2 K/mm3 (0-0.3); Eosinophils Percent Auto 2.8 % (0-4.4); Hematocrit 44.5 % (42.0-52.0); Hemoglobin 15.5 g/dL (14.0-18.0); Immature Granulocyte Absolute 0.02 K/mm3 (0.00-0.031); Immature Granulocyte Percent A 0.2 % (0-0.5); Lymphocytes Absolute Auto 2.58 K/mm3 (0.9-3.2); Lymphocytes Percent Auto 31.6 % (18.3-44.2); Mean Corpuscular HGB Conc 34.8 g/dl (32-36); Mean Platelet Volume 10.8 fl (7.4-10.4); Monocytes Absolute Auto 0.5 K/mm3 (0.1-0.6); Monocytes Percent Auto 6.5 % (2.6-8.5); Neutrophils Absolute Auto 4.8 K/mm3 (1.3-6.7); Neutrophils Percent Auto 58.5 % (45.5-73.1); Platelet Count Result 186 k/mm3 (150-375); Red Cell Distribution Width 12.6 % (11.5-14.5); White Blood Count 8.2 K/mm3 (4.5-10.0)
[2023-12-07 22:08] LABS: Appearance Urine Clear (Clear); Bacteria Urine None Seen /hpf; Bilirubin Urine Negative (Negative); Blood Urine Negative (Negative); Color Urine Yellow (Yellow); Glucose Urine UA 3+ mg/dL (Negative); Ketones Urine 1+ mg/dL (Negative); Leukocyte Esterase Ur Negative LEU/UL (Negative); Nitrate Urine Negative (Negative); Non Pathogenic Casts 0-2; Protein Urine Trace mg/dL (Negative); RBC Urine 0-2 /hpf (0-2); Squamous Epithelial Cell Urine None Seen /hpf (Few); WBC Urine 0-5 /hpf (0-3)
--- NOTE | 2023-12-07 22:18 | PC.NURSE ---
Patient occasionally twitches and states that this normal and it happens when a shirt or cloth is rubbing on his back.
[2023-12-07 22:19] LABS: Alanine Aminotransferase 16 U/L (6-50); Albumin Level 4.5 g/dL (3.5-5.1); Alkaline Phosphatase 67 U/L (38-126); Anion Gap 10 mmol/L (4-12); Aspartate Amino Transferase 32 U/L (17-59); Blood Urea Nitrogen 21 mg/dL (9-20); Calcium 9.2 mg/dL (8.4-10.2); Carbon Dioxide 24 mmol/L (22-30); Chloride 104 mmol/L (98-107); Estimated CRCL calculation 46 ml/min; Estimated Glomerular Filt Rate 50; Glucose 141 mg/dL (65-110); Potassium 4.2 mmol/L (3.4-5.0); Sodium 138 mmol/L (137-145)
[2023-12-07 22:33] LABS: Specific Grav Ur 1.031 (1.001-1.035)
[2023-12-07 22:34] LABS: Add Urine Microscopic? YES
--- NOTE | 2023-12-07 22:56 | ED.WEAKNESS ---
HPI - Weakness General Chief complaint: Weakness Stated complaint: weakness Time Seen by Provider: 12/07/23 22:39 History of Present Illness HPI Narrative: 68-year-old male with history of hypertension, hypokalemia, type 2 diabetes, CVA presents to the ED via EMS for weakness. Patient states he lives at home with his daughter and granddaughter who take care of him. States he has been having frequent falls. He had a fall today where he tried to go to the bathroom, slipped and fell. He did not hit his head or lose consciousness. States he follow up his bed yesterday and did hit his head but did not lose consciousness. He denies neck pain or back pain, other injuries acquired. He states every time is falls his family is unable to pick him off of the ground. He is having dyskinetic movements on exam and states that this happens sometimes when he is wearing a weird shirt. He denies chest pain or shortness of breath, cough or congestion, abdominal pain, nausea, vomiting or diarrhea, fever, dysuria or hematuria. States he has not been drinking many fluids because he does not want to walk to the bathroom and fall. He is not anticoagulated. Related Data Allergies Allergy/AdvReac Type Severity Reaction Status Date / Time No Known Allergies Allergy Verified 12/07/23 20:52 Review of Systems Review of Systems: CONSTITUTIONAL: Denies fever, chills, or sweats. EYES: Denies visual changes, redness, or discharge. ENT: Denies rhinorrhea, congestion, sore throat, or otalgia. CARDIOVASCULAR: Denies chest pain, palpitations, or edema. RESPIRATORY: Denies cough or dyspnea. GASTROINTESTINAL: Denies abdominal pain, nausea, vomiting, or diarrhea. GENITOURINARY: Denies dysuria or hematuria. SKIN: Denies rash or itching. MUSCULOSKELETAL: Denies back pain, joint pain, or myalgia. NEUROLOGIC: See HPI PSYCHIATRIC: Denies anxiety or depression. [facility] Past Medical History Medical History Alcoholism in recovery (~2014) Chronic sinusitis COVID 04/2023 CVA (cerebral vascular accident) CT performed the ER 04/2023 demonstrated evidence of multiple scattered old infarcts bilateral cerebral hemispheres, basal ganglia and left thalamus Dementia With history of alcoholism and multiple infarcts Diastolic dysfunction Second degree AV block, Mobitz type II Syncope Type 2 diabetes mellitus Surgical History Surgical History History of hemorrhoidectomy Infected pilonidal cyst With incision and drainage September 2008 2019 Status post cataract extraction Family History Family History Father Acute myocardial infarction Alcohol abuse Social History Social History Social History: The patient is live with his daughter since proximally 2014. He is a former alcoholic and has been in recovery since that time. He reports he used to smoke many years ago but cannot specify in amount. 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 EYES: PERRLA and EOMI. ENT: Nares clear, no rhinorrhea or ep
[2023-12-07] MEDS: SODIUM CHLORIDE 0.9% IV 1,000 ML 999 ML IV CONT (23:25)
[2023-12-07 23:36] LABS: Magnesium 2.3 mg/dL (1.6-2.3)
[2023-12-07 23:43] LABS: NT Pro B Type Natriuretic Pept 217 pg/mL (19.9-100)
[2023-12-07 23:46] LABS: Troponin I 0.075 ng/mL (0.000-0.034)
[2023-12-07 23:50] LABS: Influenza A QL RT-PCR Negative (Negative); Influenza B QL RT-PCR Negative (Negative); RSV RNA, RT-PCR Negative (Negative); SARS-CoV-2 RNA PCR Negative (Negative)
[2023-12-07 23:59] VITALS: BP 157/96; PULSE 83; RESP 20; O2SAT 100
[2023-12-08 00:01] LABS: INR 1.1; Prothrombin Time 14.7 Seconds (11.1-14.7)
[2023-12-08 00:02] LABS: Partial Thromboplastin Time 24.7 Seconds (22.3-36.8)
[2023-12-08 12:17] LABS: Creatine Kinase 500 U/L (55-170)
== END 2023-12-08 00:29 | disposition short-term general hospital (02) ==
PROVIDERS: Emergency Medicine; Student in an Organized Health Care Education/Training Program; Emergency Provider Physician Assistant; PCP Emergency Medicine
DX: S06.5X0A Traumatic subdural hemorrhage without loss of consciousness, initial encounter (principal); R29.6 Repeated falls; Z20.822 Contact with and (suspected) exposure to COVID-19; F03.90 Unspecified dementia, unspecified severity, without behavioral disturbance, psychotic disturbance, mood disturbance, and anxiety; I11.9 Hypertensive heart disease without heart failure; E11.9 Type 2 diabetes mellitus without complications; J32.9 Chronic sinusitis, unspecified; Z95.0 Presence of cardiac pacemaker; Z86.16 Personal history of COVID-19; Z86.73 Personal history of transient ischemic attack (TIA), and cerebral infarction without residual deficits; Z87.891 Personal history of nicotine dependence; Z98.49 Cataract extraction status, unspecified eye; Z79.4 Long term (current) use of insulin; Z79.82 Long term (current) use of aspirin; Z79.899 Other long term (current) drug therapy; W06.XXXA Fall from bed, initial encounter; W01.0XXA Fall on same level from slipping, tripping and stumbling without subsequent striking against object, initial encounter
CPT/HCPCS: 36415; 70450; 71046; 72125; 80053; 81001; 82550; 83735; 83880; 84443; 84484; 85025; 85610; 85730; 87040; 87637; 93005; 99285; J7030

== ENCOUNTER 2024-10-08 10:54 | Outpatient (CLI) | payer MEDICARE, SELFPAY ==
--- NOTE | ~2024-10-08 | XR_ITS ---
Left Hand Technique: PA, oblique, and lateral views were obtained. Clinical History: Pain Findings: No acute fracture or dislocation is seen. Osseous alignment is anatomic. There is advanced degenerative change of the first CMC joint. Soft tissues are unremarkable. Impression: Advanced degenerative change of the first CMC joint. Reviewed, dictated and finalized at location . Impression: Advanced degenerative change of the first CMC joint.
--- NOTE | ~2024-10-08 | XR_ITS ---
EXAM/ PROCEDURE: XR wrist LT 2V - 10/08/2024 11:20 CDT HISTORY: 68 years old Male with M25.532 - Pain in left wrist COMPARISON: None available TECHNIQUE: Four view(s) FINDINGS/ IMPRESSION: There are no fractures or dislocations.Joint space narrowing, subchondral sclerosis, subchondral cyst formation and osteophyte formation, compatible with [id number] osteoarthritis. Reviewed, dictated and finalized at location A.
--- NOTE | ~2024-10-08 | XR_ITS ---
Left foot Technique: AP, oblique, and lateral views were obtained. Clinical History: Pain Findings: No acute fracture or dislocation is seen. Osseous alignment is anatomic. There is mild dege nerative change of the first MTP joint. Soft tissues are unremarkable. Impression: Mild degenerative change of the first MTP joint. Reviewed, dictated and finalized at [facility]. Impression: Mild degenerative change of the first MTP joint.
--- OUTSIDE RECORDS SUMMARY | 2024-10-08 10:57 | XMS_ITS | Clinical Summary ---
Author Organization [facility] Address [address] [place] [address] Care Team Providers Care Leasing Machine Tender Name Role Phone Eyal Whitney MD Primary Care Provider [phone] Source Comments [facility],non-owned Affiliates and Associated Physician Practices is amultiple site organization consisting of ambulatory clinics and hospital sitesin [place], [place], [place] and [place]. This disclosure is being madepursuant to the Care Everywhere program and may not contain all information available regarding this patient. Last updated 18.[facility] Allergies No known active allergies Medications * Be aware that medications may not be up to date on this document. Alwaysverify current medications with the patient. acetaminophen (Tylenol) 325 MG tablet TAKE 2 TABLET BY MOUTH EVERY 6 HOURS. MAXIMUM ALLOWABLE ACETAMINOPHEN AMOUNT: 4 GRAMS (4,000MG) PER 24 HOURS. 30 tablet 4 12/16/19 25 Active atorvastatin (Lipitor) 40 MG tablet TAKE ONE TABLET BY MOUTH EVERY NIGHT AT BEDTIME 30 tablet 4 12/16/19 25 Active Active Problems Problem Noted Date Diagnosed Date Trauma 12/08/2023 Subdural hematoma 12/08/2023 Weakness 12/08/2023 Frequent falls 12/08/2023 Traumatic intracerebral hemo rrhage with unknown loss of consciousness status, unspecified laterality, initial encounter 12/08/2023 Family History Medical History Relation Name Comments None Known Father None Known Mother None Known Sister Relation Name Status Comments Father Mother Sister Social History Tobacco Use Types Packs/Day Years Used Date Smoking Tobacco: Former Cigarettes Q uit: 12/07/2013 Smokeless Tobacco: Never Tobacco Cessation:Counseling Given: No Alcohol Use Standard Drinks/Week Comments Not Currently 0 (1 standard drink = 0.6 oz pur e alcohol) AUDIT-C Answer Date Recorded Q1: How often do you have a drink containing alcohol? Never 12/08/2023 Q2: How many drinks containi ng alcohol do you have on a typical day when you are drinking? Patient does not drink Q3: How often do you have si x or more drinks on one occasion? Never 12/08/2023 Overall Financial Resource Strain (CARDIA) Answe r Date Recorded How hard is it for you to pa y for the very basics like food, housing, medical care, and heating? Very hard 12/08/2023 PHQ-2 Answer Date Recorded Patient Health Questionnaire-2 Score 0 12/08/2023 [facility] - Occupational Stress Questionnaire Answer Date Recorded Do you feel stress - tense, restless, nervous, or anxious, or unable to sleep at night because your mind is troubled all the time - these days? Not at all 12/08/2023 Hunger Vital Sign Answer Date Recorded Within the past 12 months, y ou worried that your food would run out before you got the money to buy more. Never true 12/08/19 24 Within the past 12 months, t he food you bought just didn't last and you didn't have money to get more. Never true 12/08/2023 PRAPARE - Transportation Answer Date Re corded In the past 12 months, has l ack of transportation kept you from medical appointments or from getting medications? No 11/27 In the past 12 months, has l ack of transportation kept you from meetings, work, or from getting things needed for daily living? No 12/08/2023 Housing Stability Vital Sign Answer Luis Eduardo e Recorded In the last 12 months, was t here a time when you were not able to pay the mortgage or rent on time? No 12/08/2023 In the last 12 months, how many places have you lived? 1 12/08/2023 In the last 12 months, was t here a time when you did not have a steady place to sleep or slept in a group home (including now)? No 12/08/2023 Sex and Gender Information Value Date Recorded Sex Assigned at Not on file Legal Sex Male 12:04 AM CDT Gender Identity Not on file Sexual Orientation Not on file Last Filed Vital Signs Vital Sign Reading Time Taken Comments Blood Pressure 148/88 12/16/2023 12:00 PM CDT Pulse 78 12/16/2023 12:00 PM CDT Temperature 36.7 C (98 F) 12/16/2023 12:00 PM CDT Respiratory Rate 15 12/15/2023 10:40 PM CDT Oxygen Saturation 96% 12/16/2023 12:00 PM CDT Inhaled Oxygen Concentration 45% 12/11/2023 4 :31 PM CDT Weight 82 kg (180 lb 12.4 oz) 12/16/2023 12:37 A M CDT Height 177.8 cm (5' 10 ) 12/08/2023 5:00 AM CDT Body Mass Index 25.94 12/08/2023 5:00 AM CDT Plan of Treatment Health Maintenance Due Date Last Done Comments COLOGUARD (AGES 45-75) - COLON CA SCREENING 1955 COLON MONITORING 1953 COLONOSCOPY - COLON CA SCREENING 1953 CT COLONOGRAPHY - COLON CA SCREENING 1955 Colorectal Cancer Screening 1955 FIT - COLON CA SCREENING 1953 FLEX SIG - COLON CA SCREENING 1953 HEPATITIS C SCREENING 11/04/1971 DTAP/TDAP/TD VACCINES (1 - Tdap) 1972 PNEUMOCOCCAL VACCINE 50+ (1 of 2 - PCV) 1972 ZOSTER VACCINE (1 of 2) 11/09/2003 Respiratory Syncytial Virus (RSV) Vaccine Pt: or over 60 yrs (1 - Risk 60-74 years 1-dose series) 2013 AAA SCREENING 2018 COVID-19 VACCINE ( - season) 2024 DEPRESSION SCREENING 06/29/2024 12/08/2023 MEDICARE AWV CALENDAR YEAR 2024 INFLUENZA VACCINE (Season Ended) 2025 SCREENING FOR DIABETES 12/15/2026 4, 12/15/2023, 12/15/2023, Additional history exists HEPATITIS B VACCINE Aged Out No longe r eligible based on patient's age to complete this topic HIB VACCINE Aged Out No longer eligi ble based on patient's age to complete this topic HPV VACCINE Aged Out No longer eligi ble based on patient's age to complete this topic MENINGOCOCCAL (Group B) VACCINE SHARED DECISION-MAKING Aged Out No longer eligible based on patient's age to complete this topic MENINGOCOCCAL GROUPS A/C/Y/W VACCINE Aged Out No longer eligible based on patient's age to complete this topic Medical Devices Implanted Type Area Employment Specialist Device Identifier Shelf Expiration Date Model / Serial / Lot Biotronik; Estuardo Shu Muñoz, 2023, [id number]; Mri Conditional Sys Embl Trfl Kt Lq 1gm Implanted:Qty: 1 on 12/11/2023 by Christofer Crowder MD at [facility] [employer] 11/26/2024 [id number] / / [id number] Procedures Procedure Name Priority Date/Time Associated Diagnosis Comments BASIC METABOLIC PANEL (CALCIUM TOTAL) Routine 12/16/2023 5:13 AM CDT from Last 3 Months or Most Recently Relevant to Health Maintenance Results * (ABNORMAL) BASIC METABOLIC PANEL (CALCIUM TOTAL) (12/16/2023 5:13 AM CDT) BUN 14 7 - 26 mg/dL 12/16/2023 6:02 AM [facility] Creatinine 0.71 0.71 - 1.16 mg/dL 12/16/2023 6:02 AM [facility] Sodium 140 136 - 145 mmol/L 12/16/2023 6:02 AM [facility] Potassium 3.6 3.5 - 4.5 mmol/L 12/16/2023 6:02 AM [facility] Chloride 110(H) 98 - 107 mmol/L 12/16/2023 6:02 AM [facility] CO2 24 22 - 29 mmol/L 12/16/2023 6:02 AM [facility] Glucose 151(H) 70 - 115 mg/dL 12/16/2023 6:02 AM [facility] Calcium 8.1(L) 8.4 - 10.2 mg/dL 12/16/2023 6:02 AM [facility] Anion Gap 6 6 - 16 12/16/2023 6:02 AM CDT [facility] BUN/Creatinine Ratio 20 7 - 23 12/16/2023 6:02 AM T [facility] Osmolality Calculated 293 275 - 295 mOsm/kg 12/16/2023 6:02 AM T [facility] eGFR by CKD-EPI >90 >=90 mL/min/1.7 3 m2 12/16/2023 6:02 AM T [facility] Blood BLOOD SPECIMEN / Unknown Venipuncture / Unknown 12/16/2023 5:13 AM CDT 12/16/2023 5:27 AM CDT us Ren Michelle MD LAB - CHEMISTRY ORDERABLES F inal Result [facility] [address] [place] [address], [facility] [phone] from Last 3 Months or Most Recently Relevant to Health Maintenance Insurance [facility] MEDICARE ADV HMO & PPO Advance Directives * Full Code (Latest Code Status on File) Date Activated Date Inactivated Comments 12/08/2023 2:55 AM 12/16/2023 6:17 PM Care Teams Leasing Machine Tender Relationship Specialty Start Date End Date Eyal Whitney MD [facility] [address] [address] PCP - General Internal Medicine 12/08/23
--- OUTSIDE RECORDS SUMMARY | 2024-10-08 10:57 | XMS_ITS | Referral Summary ---
Author Organization [facility] [address] Address [address] [place] [address] Care Team Providers Care Arc Welding Machine Operator Name Role Phone Eyal Whitney MD Primary Care Provide r Encounters Date Type Department Care Team Description 07/14/2024 12:00 PM RETAIL SHIFT MANAGER Ancillary Procedure [facility] Cardiology [address] [place] [phone] Cardiac pacemaker in situ [Z95.0] (Primary Dx); AVB (atrioventricular block) 07/14/2024 Telephone [facility] Cardiology [address] [place] [address] [place] [phone] Camille Sharpe MD from Last 3 Months Allergies No known active allergies Medications insulin lispro (HumaLOG, ADMELOG) 100 unit/mL pen for injectionIndicat ions:type 2 diabetes mellitus Inject 14 Units under the skin electric frying pan repairer before breakfast Active ergocalciferol (VITAMIN D) 50,000 unit capsule TAKE 1 CAPSULE BY MOUTH EVERY Thursday 4 Active atorvastatin (LIPITOR) 40 mg tablet Take 1 tablet (40 mg total) by mouth nightly 4 12/16/19 25 Active acetaminophen (TYLENOL) 325 mg tabletIndication s:Pain Take 1 tablet (325 mg total) by mouth every 6 (six) hours as needed for pain 4 12/16/19 25 Active thiamine (vitamin B-1) 100 mg tablet Take 1 tablet (100 mg total) by mouth daily 3 Active dapagliflozin propanediol (FARXIGA) 5 mg tabletIndication s:type 2 diabetes mellitus Take 1 tablet (5 mg total) by mouth electric frying pan repairer before breakfast Active insulin aspart (NovoLOG) 100 unit/mL (3 mL) pen for injectionIndicat ions:type 2 diabetes mellitus,4 units 3 times a day with additional units based on sliding scale Inject under the skin as directed Sliding Scale - 3 times a day 4 units 3 times a day with additional units based on sliding scale Active UNABLE TO FINDIndications: brain supplement Take by mouth electric frying pan repairer before breakfast Med Name: Neuriva - brain supplement Active Active Problems Problem Noted Date Diagnosed Date 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 Dx; Second Degree AVB. DOI 09/17/2023- [facility] Mexico[facility] [employer] remote monitoring. Social History Tobacco Use Types Packs/Day Years Used Date Smoking Tobacco: Former Cigarettes 2 32 1 - 2011 Passive Smoke Exposure: Never Smokeless Tobacco: Never Tobacco Cessation:Counseling Given: Not Answered AUDIT-C Answer Date Recorded Q1: How often do you have a drink containing alcohol? Never 04/26/2024 Q2: How many drinks containi ng alcohol do you have on a typical day when you are drinking? Patient does not drink Q3: How often do you have si x or more drinks on one occasion? Never 04/26/2024 Sex and Gender Information Value Date Recorded Sex Assigned at Not on file Legal Sex Male 10:41 AM RETAIL SHIFT MANAGER Gender Identity Not on file Sexual Orientation Not on file Last Filed Vital Signs Vital Sign Reading Time Taken Comments Blood Pressure - - Pulse - - Temperature - - Respiratory Rate - - Oxygen Saturation - - Inhaled Oxygen Concentration - - Weight 83.9 kg (185 lb) 04/26/2024 3:00 PM CDT Height 177.8 cm (5' 10 ) 04/26/2024 3:00 PM CDT Body Mass Index 26.54 04/26/2024 3:00 PM CDT Plan of Treatment Not on file Medical Devices Implanted Type Area Surgical Territory Manager Device Identifier Shelf Expiration Date Model / Serial / Lot Pacemaker Implanted:Qty: 1 Pacemaker Left: Chest Procedures Procedure Name Priority Date/Time Associated Diagnosis Comments DEVICE CHECK - REMOTE Routine 07/14/2024 1:21 PM RETAIL SHIFT MANAGER AVB (atrioventricular block) from Last 3 Months Results * DEVICE CHECK - REMOTE (07/14/2024 1:21 PM RETAIL SHIFT MANAGER) Anatomical Region Laterality Modality Other Narrative 07/21/2024 2:43 PM RETAIL SHIFT MANAGER Biotronik Amvia Edge Dual Pacemaker. Dx; Second Degree AVB. DOI 09/17/2023-[facility]. Biotronik remote monitoring. Pacemaker DDD remote report received. Normal device function noted. Battery function: Ok, 90% remaining to KARISHMA. AP-7%, HEALTH SERVICES DIRECTOR-27%. 1 Afib episode noted on 07/13/2024 that lasted for 58 minutes. IEGM confirms AFib. No ventricular high rate episodes noted. See scanned report. I contacted patient's sister Diomedes and talked to her about patient's cardiology follow-up in the office. She informed me that patient lives with his daughter Chery. She stated m y brother has had multiple strokes, fell and hit his head, had a brain bleed, and was hospitalized at [facility]. I contacted and spoke with patient's daughter Chery. I informed her that he did not have an office pacemaker follow-up or an appointment with his operations consultant. She stated abel dubois does have an appointment with his operations consultant. His operations consultant is Dr. Stewart and he is scheduled on August 02, 2024 at 2:00 p.m. I instructed her to inform Dr. Stewart that his remote monitoring will need to be transferred to their practice when they see him on 08/02/2024. She verbalized understanding. Yamilet Mayen, RN us Eyal Pompa MD CV CARDIAC SERVICES PROC EDURES Final Result from Last 3 Months Insurance HU[employer]NA MEDICARE HMO HUMANA MEDICARE HMO Care Teams Arc Welding Machine Operator Relationship Specialty Start Date End Date Eyal Whitney MD [address] [place] [address] PCP - General Emergency Medicine 05/25/23
--- OUTSIDE RECORDS SUMMARY | 2024-10-08 10:57 | XMS_ITS | Clinical Summary ---
Author Organization [facility] Address [address] [place] [address] Care Team Providers Care Legal Counsel Name Role Phone Angelica Campoverde MD Primary Care Provider [phone] Medications insulin lispro, 1 Unit Dial, (HUMALOG) 100 UNIT/ML injection (PEN) Inject into the skin 3 (three) times daily. Active vitamin B1 100 MG tabletIndication s:Muscle twitching Take 1 tablet (100 mg total) by mouth daily. 30 tablet 6 11/12/2022 Active Family History Medical History Relation Comments Heart Attack Father Obesity Father Relation Status Comments Father Social History Tobacco Use Types Packs/Day Years Used Date Smoking Tobacco: Never Passive Smoke Exposure: Past Smokeless Tobacco: Never Tobacco Cessation:Counseling Given: No Alcohol Use Standard Drinks/Week Comments Not Currently 0 (1 standard drink = 0.6 oz pur e alcohol) PHQ-2 Answer Date Recorded Patient Health Questionnaire-2 Score 0 11/06/2022 Sex and Gender Information Value Date Recorded Sex Assigned at Not on file Legal Sex Male 8:52 PM CDT Gender Identity Not on file Sexual Orientation Not on file Last Filed Vital Signs Vital Sign Reading Time Taken Comments Blood Pressure 158/80 11/06/2022 9:57 AM CDT Pulse 35 11/06/2022 9:11 AM CDT Temperature 36.7 C (98 F) 11/06/2022 9:11 AM CDT Respiratory Rate - - Oxygen Saturation 99% 11/06/2022 9:11 AM CDT Inhaled Oxygen Concentration - - Weight 81.4 kg (179 lb 8 oz) 11/06/2022 9:11 AM CDT Height 177.8 cm (5' 10 ) 11/06/2022 9:11 AM CDT Body Mass Index 25.76 11/06/2022 9:11 AM CDT Plan of Treatment Health Maintenance Due Date Last Done Comments Colorectal Cancer Screening Colonoscopy (10 Years) 1955 Hepatitis C 11/09/1971 DTaP, Tdap and Td Vaccines ( 1 - Tdap) 1972 Zoster Vaccines (1 of 2) 11/09/2003 Annual Medicare Wellness Visit 2018 Pneumococcal Vaccine: 65+ Ye ars (1 of 1 - PCV) 2018 COVID-19 Vaccine (1 - 2023-2 5 season) 2024 PHQ-2 (Physician Inupiat) 06/29/2024 11/06/2022 RSV Immunization or 60+ Years (1 - 1-dose 75+ series) 2028 Meningococcal B Vaccine Aged Out No l onger eligible based on patient's age to complete this topic Meningococcal Vaccine Aged Out No cuauhtemoc nadja eligible based on patient's age to complete this topic RSV Immunizations Under 20 Months Aged Out No longer eligible based on patient's age to complete this topic Insurance HUMANA AETNA Care Teams Legal Counsel Relationship Specialty Start Date End Date Angelica Campoverde MD [address] [facility] [address] [place] [address] PCP - General INTERNAL MEDICINE 11/06/22
--- OUTSIDE RECORDS SUMMARY | 2024-10-08 10:57 | XMS_ITS | Clinical Summary ---
Author Organization [facility] [address] Address [address] [place] [address] Care Team Providers Care Cake Washer Name Role Phone Eyal Whitney MD Primary Care Provide r Allergies No known active allergies Medications insulin lispro (HumaLOG, ADMELOG) 100 unit/mL pen for injectionIndicat ions:type 2 diabetes mellitus Inject 14 Units under the skin control room agent before breakfast Active ergocalciferol (VITAMIN D) 50,000 [...] 1 tablet (5 mg total) by mouth control room agent before breakfast Active insulin aspart (NovoLOG) 100 [...] TO FINDIndications: brain supplement Take by mouth control room agent before breakfast Med Name: Neuriva - brain supplement Active Active Problems Problem Noted Date Diagnosed Date 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 Dx; Second Degree AVB. DOI 09/17/2023- [employer]. Biotronik remote monitoring. Encounters Date Type Department Care Team Description 07/14/2024 12:00 PM MUSIC INTERNSHIP Ancillary Procedure [facility] Cardiology [address] [place] [phone] Cardiac pacemaker in situ [Z95.0] (Primary Dx); AVB (atrioventricular block) 07/14/2024 Telephone [facility] Cardiology [address] [place] [phone] Camille Sharpe MD from Last 3 Months Surgical History Surgery Date Site/Laterality Comments CARDIAC PACEMAKER PLACEMENT 12/08/2023 dual chamber Biotronik Pacemaker implanted at [facility] in [place] - Left Chest CATARACT EXTRACTION Right BRAIN SURGERY 06/29/2023 - 06/28/2024 brain bleed Medical History Medical History Date Comments Atrial fibrillation (HCC) Brain bleed (HCC) Stroke (HCC) Family History Medical History Relation Name Comments Anesthesia problems Neg Hx Diabetes Neg Hx Glaucoma Neg Hx Macular degeneration Neg Hx Retinal detachment Neg Hx Thyroid disease Neg Hx Social History Tobacco Use Types Packs/Day Years [...] on file Legal Sex Male 10:41 AM MUSIC INTERNSHIP Gender Identity Not on file Sexual Orientation Not on file Obstetrics History Last Filed Vital Signs Vital Sign Reading Time Taken Comments Blood Pressure - - Pulse - - Temperature - - Respiratory Rate - - Oxygen Saturation - - Inhaled Oxygen Concentration - - Weight 83.9 kg (185 lb) 04/26/2024 3:00 PM CDT Height 177.8 cm (5' 10 ) 04/26/2024 3:00 PM CDT Body Mass Index 26.54 04/26/2024 3:00 PM CDT Plan of Treatment Health Maintenance Due Date Last Done Comments Colon Cancer Screening-Colonoscopy 1955 Depression Screening 1953 Fall Risk Assessment 1955 Hepatitis C Screening 1953 DTaP/Tdap/Td Vaccine (1 - Tdap) 1964 Hepatitis B Screening 11/09/1971 Lung Cancer Screening 11/09/2003 Zoster Vaccine (1 of 2) 11/09/2003 Well Visit 65+ 2018 Pneumococcal vaccine 65+ (2 of 2 - PCV) 04/14/2019 1 Influenza Vaccine (#1) 2024 Abdominal Aortic Aneurysm (AAA) Screen Completed Medical Devices Implanted Type Area Cashier Clerk Device Identifier Shelf Expiration Date Model / Serial / Lot Pacemaker Implanted:Qty: 1 Pacemaker Left: Chest Procedures Procedure Name Priority Date/Time Associated Diagnosis Comments DEVICE CHECK - REMOTE Routine 07/14/2024 1:21 PM MUSIC INTERNSHIP AVB (atrioventricular block) from Last 3 Months Results * DEVICE CHECK - REMOTE (07/14/2024 1:21 PM MUSIC INTERNSHIP) Anatomical Region Laterality Modality Other Narrative 07/21/2024 2:43 PM MUSIC INTERNSHIP [employer]alt[employer] Amvia Edge Dual Pacemaker. Dx; Second Degree AVB. DOI 09/17/2023-[facility]. KalturaroniCatglobe remote monitoring. Pacemaker DDD remote report received. Normal device function noted. Battery function: Ok, 90% remaining to KARISHMA. AP-7%, HYDRAULIC ENGINEER-27%. 1 Afib episode noted on 07/13/2024 that [...] a brain bleed, and was hospitalized at [facility]. I contacted and spoke with patient's daughter Chery. I informed her that he did not have an office pacemaker follow-up or an appointment with his rayon coner. She stated abel dubois does have an appointment with his rayon coner. His rayon coner is Dr. Stewart and he is scheduled on August 02, 2024 at 2:00 p.m. I instructed her to inform Dr. Stewart that his remote monitoring will need to be transferred to their practice when they see him on 08/02/2024. She verbalized understanding. Yamilet Mayen RN Eyal Pompa MD CV CARDIAC SERVICES PROC EDURES Final Result from Last 3 Months Insurance HUMANA MEDICARE HMO HUMANA MEDICARE HMO Care Teams Cake Washer Relationship Specialty Start Date End Date Eyal Whitney MD [address] [place] [address] PCP - General Emergency Medicine 05/25/23
[2024-10-08 11:28] LABS: Hemoglobin A1C 11.5 % (<5.7)
== END 2024-10-08 10:55 | disposition home or self-care (01) ==
PROVIDERS: PCP Emergency Medicine; Visit Provider Emergency Medicine
DX: M25.532 Pain in left wrist (principal); M79.642 Pain in left hand; M79.672 Pain in left foot; E11.9 Type 2 diabetes mellitus without complications; R93.6 Abnormal findings on diagnostic imaging of limbs
CPT/HCPCS: 36415; 73100; 73120; 73620; 83036

== ENCOUNTER 2024-11-21 19:17 | Inpatient (IN) | payer MEDICARE, SELFPAY ==
--- NOTE | ~2024-11-21 | XR_ITS ---
XR foot LT min 3V Ordering provider: Lizette Chambers APRN History: . concern for osteomyelitis . Comparison: October 08, 2024 FINDINGS: BONES: Destructive changes in the proximal phalanx of the left big toe and proximal distal phalanx w ith highly suggestive osteomyelitis. Periosteal reaction is seen in the area. JOINT SPACES: Normal. No tarsal coalition. SOFT TISSUES: Soft tissue swelling in the left big toe. Soft tissue swelling is seen on the dorsum of the foot. IMPRESSION: Osteomyelitis involving the proximal phalanx and distal phalanx of the left big toe. Clinical correla tion and follow-up advised. Reviewed, dictated and finalized at location A. IMPRESSION: Osteomyelitis involving the proximal phalanx and distal phalanx of the left big toe. Clinical correlation and follow-up advised.
--- NOTE | ~2024-11-21 | CT_ITS ---
CT brain wo con Ordering provider: Anahi Aguilar MD History: 69 years Male with . possible stroke . Comparison: December 07, 2023 Technique: CT of the head without contrast. Radiation reduction technique utilized.The dose-length pr oduct was 908 mGy-cm. FINDINGS: BRAIN PARENCHYMA AND CSF SPACES: Moderate leukoaraiosis and diffuse cortical atrophy. Moderate athero matous disease. Old infarct with encephalomalacia seen in the right parietal area. Similar appearance seen in the right and left frontal areas. Old lacunar infarct in the right basal ganglia. No midline shift, mass effect or hemorrhage. The brain parenchyma and CSF spaces are otherwise normal. VISUALIZED PARANASAL SINUSES: Well aerated. Left nasal septal deviation. MASTOIDS: Well aerated. BONES: The bones appear intact. SOFT TISSUES: Visualized nasopharynx is normal. Superficial soft tissues are normal. IMPRESSION: No acute intracranial findings. Reviewed, dictated and finalized at location A.
--- NOTE | ~2024-11-21 | US_ITS ---
EXAMINATION: US venous doppler UE LT DATE: 11/29/2024 11:58 INDICATION: Left upper extremity edema TECHNIQUE: [place]mana scale images with and without compression and Doppler images of the left upper extrem ity veins were obtained. COMPARISON: None. FINDINGS: The left internal jugular vein, subclavian vein, axillary vein, brachial veins, basilic vein, cephali c vein, radial vein, and ulnar vein are patent. IMPRESSION: 1. Patent left upper extremity veins. No evidence of deep venous thrombosis. Reviewed, dictated and finalized at location A.
--- NOTE | ~2024-11-21 | US_ITS ---
ULTRASOUND ANKLE BRACHIAL INDEX Ordering provider: Maddy Smith APRN History: . Osteomyelitis BLE wounds . Comparison: None. FINDINGS: Right brachial systolic blood pressure: 127 mmHg Left brachial systolic blood pressure: 142 mmHg Right ankle systolic blood pressure: 57 mmHg Left ankle systolic blood pressure: 66 mmHg Right ankle/arm index (YARA): 1.2 Left ankle/arm index (YARA): 0.94 Note regarding YARA: --Normal= 1.0 or slightly greater. --Claudication (moderate stenosis or occlusive state)= 0.6 to 0.9. --Rest pain (severe occlusive states)= 0.5 or less. IMPRESSION: Normal right YARA. Moderate stenosis on the left side. Clinical correlation and further evaluation advised. Reviewed, dictated and finalized at location A.
[2024-11-21 19:18] VITALS: BP 138/89; PULSE 104; RESP 20; TEMP 36.6; O2SAT 97
--- OUTSIDE RECORDS SUMMARY | 2024-11-21 19:19 | XMS_ITS | Clinical Summary ---
Author Organization [facility] [employer] Address [address] [place] [address] Care Team Providers Care Sales Representative Graphic Art Name Role Phone Eyal Whitney MD Primary Care Provider [phone] Source Comments [facility],non-owned Affiliates and Associated Physician Practices is amultiple site organization consisting of ambulatory clinics and hospital sitesin [place], [place], [place] and [place]. This disclosure is being madepursuant to the Care Everywhere program and may not contain all information available regarding this patient. Last updated 18.[facility] Allergies No known active allergies Medications * [...] Recorded Patient Health Questionnaire-2 Score 0 12/08/2023 [facility] Occup[facility] ional Health - Occupational Stress [...] place to sleep or slept in a correction (including now)? No 12/08/2023 Sex and Gender [...] A M CDT Height 177.8 cm (5' 10) 12/08/2023 5:00 AM CDT Body Mass Index [...] this topic Medical Devices Implanted Type Area Bookkeeper Device Identifier Shelf Expiration Date Model / Serial / Lot Biotronik; Estuardo Shu Muñoz, 2023, [id number]; Mri Conditional Sys Embl Trfl Kt Lq 1gm Implanted:Qty: 1 on 12/11/2023 by Christofer Crowder MD at [facility] [employer] 11/26/2024 [id number] / / [id number] Procedures Procedure Name Priority Date/Time Associated Diagnosis Comments BASIC METABOLIC PANEL (CALCIUM TOTAL) Routine 12/16/2023 5:13 AM CDT from Last 3 Months or Most Recently Relevant to Health Maintenance Results * (ABNORMAL) BASIC METABOLIC PANEL (CALCIUM TOTAL) (12/16/2023 5:13 AM CDT) BUN 14 7 - 26 mg/dL 12/16/2023 6:02 AM [facility] Creatinine 0.71 0.71 - 1.16 mg/dL 12/16/2023 6:02 AM [facility] Sodium 140 136 - 145 mmol/L 12/16/2023 6:02 AM [facility] Potassium 3.6 3.5 - 4.5 mmol/L 12/16/2023 6:02 AM [facility] Chloride 110(H) 98 - 107 mmol/L 12/16/2023 6:02 AM [facility] CO2 24 22 - 29 mmol/L 12/16/2023 6:02 AM [facility] Glucose 151(H) 70 - 115 mg/dL 12/16/2023 6:02 AM [facility] Calcium 8.1(L) 8.4 - 10.2 mg/dL 12/16/2023 6:02 AM [facility] Anion Gap 6 6 - 16 12/16/2023 [...] [facility] [address] [place] [address], [facility] [phone] from Last 3 Months or Most Recently Relevant to Health Maintenance Insurance [facility] MEDICARE ADV HMO & PPO Advance Directives * Full Code (Latest Code Status on File) Date Activated Date Inactivated Comments 12/08/2023 2:55 AM 12/16/2023 6:17 PM Care Teams Sales Representative Graphic Art Relationship Specialty Start Date End Date Eyal Whitney MD [facility] [address] [address] PCP - General Internal Medicine 12/08/23
--- OUTSIDE RECORDS SUMMARY | 2024-11-21 19:19 | XMS_ITS | Clinical Summary ---
Author Organization [facility] [address] Address [address] [place] [address] Care Team Providers Care Traffic Or System Dispatcher Name Role Phone Eyal Whitney MD Primary Care Provide r Allergies No known active allergies Medications insulin lispro (HumaLOG, ADMELOG) 100 unit/mL pen for injectionIndicat ions:type 2 diabetes mellitus Inject 14 Units under the skin clay carman before breakfast Active ergocalciferol (VITAMIN D) 50,000 [...] 1 tablet (5 mg total) by mouth clay carman before breakfast Active insulin aspart (NovoLOG) 100 [...] TO FINDIndications: brain supplement Take by mouth clay carman before breakfast Med Name: Neuriva - brain supplement Active Active Problems Problem Noted Date Diagnosed Date 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 Dx; Second Degree AVB. DOI 09/17/2023- [employer]. Biotronik remote monitoring. 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 Gender Identity Not on file Sexual Orientation Not on file Obstetrics History Last Filed Vital Signs Vital Sign Reading Time Taken Comments Blood Pressure - - Pulse - - Temperature - - Respiratory Rate - - Oxygen Saturation - - Inhaled Oxygen Concentration - - Weight 83.9 kg (185 lb) 04/26/2024 3:00 PM CDT Height 177.8 cm (5' 10) 04/26/2024 3:00 PM CDT Body Mass Index [...] 2 - PCV) 04/14/2019 1 Influenza Vaccine (Season Ended) 2025 Abdominal Aortic Aneurysm (AAA) Screen Completed Medical Devices Implanted Type Area Legal Financial Specialist Device Identifier Shelf Expiration Date Model / Serial / Lot Pacemaker Implanted:Qty: 1 Pacemaker Left: Chest Insurance HUMANA MEDICARE HMO HUMANA MEDICARE HMO Care Teams Traffic Or System Dispatcher Relationship Specialty Start Date End Date Eyal Whitney MD [address] [place] [address] PCP - General Emergency Medicine 05/25/23
--- OUTSIDE RECORDS SUMMARY | 2024-11-21 19:19 | XMS_ITS | Referral Summary ---
Author Organization [facility] [address] Address [address] [place] [address] Care Team Providers Care Research Nutritionist Name Role Phone Eyal Whitney MD Primary Care Provide r Allergies No known active allergies Medications insulin lispro (HumaLOG, ADMELOG) 100 unit/mL pen for injectionIndicat ions:type 2 diabetes mellitus Inject 14 Units under the skin early childhood associate before breakfast Active ergocalciferol (VITAMIN D) 50,000 [...] 1 tablet (5 mg total) by mouth early childhood associate before breakfast Active insulin aspart (NovoLOG) 100 [...] TO FINDIndications: brain supplement Take by mouth early childhood associate before breakfast Med Name: Neuriva - brain supplement Active Active Problems Problem Noted Date Diagnosed Date 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 Dx; Second Degree AVB. DOI 09/17/2023- [employer]. [email or web address] remote monitoring. 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
[2024-11-21 20:19] LABS: Glucose Point of Care 462 mg/dl (65-105)
--- OUTSIDE RECORDS SUMMARY | 2024-11-21 20:28 | XMS_ITS | Clinical Summary ---
Author Organization [facility] [employer] Address [address] [place] [address] Care Team Providers Care Plastic Molding Operator Name Role Phone Eyal Whitney MD Primary Care Provider [phone] Source Comments [facility] [employer],non-owned Affiliates and Associated Physician Practices is amultiple site organization consisting of ambulatory clinics and hospital sitesin [place], [place], [place] and [place]. This disclosure is being madepursuant to the Care Everywhere program and may not contain all information available regarding this patient. Last updated 18.[facility] [employer] Allergies No known active allergies Medications * [...] Recorded Patient Health Questionnaire-2 Score 0 12/08/2023 [facility] of Occupat ional Health - Occupational Stress [...] place to sleep or slept in a intermediate (including now)? No 12/08/2023 Sex and Gender [...] this topic Medical Devices Implanted Type Area Cleaner Industrial Device Identifier Shelf Expiration Date Model / Serial / Lot Biotronik; Estuardo Shu Muñoz, 2023, [id number]; Mri Conditional Sys Embl Trfl Kt Lq 1gm Implanted:Qty: 1 on 12/11/2023 by Christofer Crowder MD at [facility] [employer] 11/26/2024 [id number] / / [id number] Procedures Procedure Name Priority Date/Time Associated Diagnosis Comments BASIC METABOLIC PANEL (CALCIUM TOTAL) Routine 12/16/2023 5:13 AM CDT from Last 3 Months or Most Recently Relevant to Health Maintenance Results * (ABNORMAL) BASIC METABOLIC PANEL (CALCIUM TOTAL) (12/16/2023 5:13 AM CDT) BUN 14 7 - 26 mg/dL 12/16/2023 6:02 AM [facility] Creatinine 0.71 0.71 - 1.16 mg/dL 12/16/2023 6:02 AM [facility] Sodium 140 136 - 145 mmol/L 12/16/2023 6:02 AM [facility] Potassium 3.6 3.5 - 4.5 mmol/L 12/16/2023 6:02 AM [facility] Chloride 110(H) 98 - 107 mmol/L 12/16/2023 6:02 AM [facility] CO2 24 22 - 29 mmol/L 12/16/2023 6:02 AM [facility] Glucose 151(H) 70 - 115 mg/dL 12/16/2023 6:02 AM [facility] Calcium 8.1(L) 8.4 - 10.2 mg/dL 12/16/2023 6:02 AM [facility] Anion Gap 6 6 - [...] [facility] [address] [place] [address], [facility] [phone] from Last 3 Months or Most Recently Relevant to Health Maintenance Insurance [facility] MEDICARE ADV HMO & PPO Advance Directives * Full Code (Latest Code Status on File) Date Activated Date Inactivated Comments 12/08/2023 2:55 AM 12/16/2023 6:17 PM Care Teams Plastic Molding Operator Relationship Specialty Start Date End Date Eyal Whitney MD [facility] [address] [address] PCP - General Internal Medicine 12/08/23
--- OUTSIDE RECORDS SUMMARY | 2024-11-21 20:28 | XMS_ITS | Clinical Summary ---
Author Organization [facility] [address] Address [address] [place] [address] Care Team Providers Care Chemical Process Engineer Name Role Phone Eyal Whitney MD Primary Care Provide r Allergies No known active allergies Medications insulin lispro (HumaLOG, ADMELOG) 100 unit/mL pen for injectionIndicat ions:type 2 diabetes mellitus Inject 14 Units under the skin women's health care nurse practitioner before breakfast Active ergocalciferol (VITAMIN D) 50,000 [...] 1 tablet (5 mg total) by mouth women's health care nurse practitioner before breakfast Active insulin aspart (NovoLOG) 100 [...] TO FINDIndications: brain supplement Take by mouth women's health care nurse practitioner before breakfast Med Name: Neuriva - brain supplement Active Active Problems Problem Noted Date Diagnosed Date 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 Dx; Second Degree AVB. DOI 09/17/2023- [employer]. Biotronik remote monitoring. 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
--- OUTSIDE RECORDS SUMMARY | 2024-11-21 20:28 | XMS_ITS | Referral Summary ---
Author Organization [facility] [address] Address [address] [place] [address] Care Team Providers Care Aquatic Ecologist Name Role Phone Eyal Whitney MD Primary Care Provide r Allergies No known active allergies Medications insulin lispro (HumaLOG, ADMELOG) 100 unit/mL pen for injectionIndicat ions:type 2 diabetes mellitus Inject 14 Units under the skin parking lot supervisor before breakfast Active ergocalciferol (VITAMIN D) 50,000 [...] 1 tablet (5 mg total) by mouth parking lot supervisor before breakfast Active insulin aspart (NovoLOG) 100 [...] TO FINDIndications: brain supplement Take by mouth parking lot supervisor before breakfast Med Name: Neuriva - brain supplement Active Active Problems Problem Noted Date Diagnosed Date 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 Dx; Second Degree AVB. DOI 09/17/2023- [employer]. [employer] remote monitoring. 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
--- NOTE | 2024-11-21 20:37 | ECG_ITS ---
Test Date: 2024-11-21 20:52:40 Measurements Intervals Gordon Rate: 90 P: 52 WY: 211 QRS: 224 QRSD: 158 T: 52 QT: 391 QTc: 479 Interpretive Statements SINUS RHYTHM WITH FIRST DEGREE AV BLOCK MARKED RIGHT AXIS DEVIATION [QRS AXIS > 100] RIGHT BUNDLE BRANCH BLOCK [120+ ms QRS DURATION, UPRIGHT V1, 40+ ms S IN I/aVL/V4/V5/V6] Compared to ECG 12/07/2023 21:43:59 Ventricular-paced complex(es) or rhythm no longer present Electronically Signed On 11-22-2024 13:51:02 CDT by Kristen Pedersen M.D.
--- NOTE | 2024-11-21 20:38 | ED.EXTPRO ---
HPI - Extremity Problem General Chief complaint: Extremity Problem,Nontraumatic Stated complaint: my toes look bad Time Seen by Provider: 11/21/24 20:11 History of Present Illness HPI Narrative: Patient is a 69-year-old male who presents to the ER with complaints of a left foot wound. He and his daughter report they 1st started noticing the wound 1 and half weeks ago. Patient has a history of diabetes in his daughter reports his blood sugars have been running in the 400s lately.He also endorses a history of a pacemaker. Patient's daughter reports he uses Lantus and NovoLog at home for blood sugar control. He denies any feeling or pain in his left foot. Patient denies any calf tenderness, recent fevers, or decreased range of motion in his ankle. Related Data Allergies Allergy/AdvReac Type Severity Reaction Status Date / Time No Known Allergies Allergy Verified 11/21/24 19:34 Review of Systems Review of Systems: All systems reviewed & are unremarkable except as noted in HPI and below PMFSH Past Medical History Medical History Closed fracture of maxillary sinus Elevated troponin Rhabdomyolysis Altered mental status Inability to walk Pneumonia Syncope Second degree AV block, Mobitz type II Diastolic dysfunction Dementia With history of alcoholism and multiple infarcts Type 2 diabetes mellitus Alcoholism in recovery (~2014) Chronic sinusitis CVA (cerebral vascular accident) CT performed the ER 04/2023 demonstrated evidence of multiple scattered old infarcts bilateral cerebral hemispheres, basal ganglia and left thalamus COVID 04/2023 Surgical History Surgical History Status post cataract extraction History of hemorrhoidectomy Infected pilonidal cyst With incision and drainage September [id number] Family History Family History Father Acute myocardial infarction Alcohol abuse Social History Social History Social History: The patient is live with his daughter since proximally 2014. He is a former alcoholic and has been in recovery since that time. He reports he used to smoke many years ago but cannot specify in amount. 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 HEAD: Normocephalic, atraumatic. NECK: Supple. No adenopathy, no masses. RESPIRATORY: Airway patent, respirations nonlabored. Clear to auscultation bilaterally, no rales, rhonchi, wheezing. CARDIOVASCULAR: Regular rate and rhythm without murmurs, rubs, or gallops. Peripheral pulses 2+ and equal bilaterally. No visible pacemaker pacing on EKG during time of examination ABDOMINAL: Soft, nontender, nondistended, no hepatosplenomegaly. Normoactive BS. MUSCULOSKELETAL: Moves all extremities. Strength/ROM intact without gross deformities. SKIN: Warm, dry, normal color. No rashes. Left great toe necrotic with areas of full thickness ulcer, severe redness and edema traveling up to ankle area and to dorsal part of foot, minimal serosanguineous drainage. No crepitus in L foot. NEURO: A&O X3. Speech clear. Cranial nerves II-XII intact. No ataxic movements. PSYCHIATRIC: Appropriate mood and affect. Normal interaction. Course Vital Signs Vital signs: Vital Signs Temperature 36.6 C 11/21/24 19:18 Pulse Rate 104 H 11/21/24 19:18 Respiratory Rate 20 11/21/24 19:18 Blood Pressure 138/89 11/21/24 19:18 Pulse Oximetry 97 11/21/24 19:18 Oxygen Delivery Room Air 11/21/24 19:18 Temperature 36.7 C 11/22/24 01:00 Pulse Rate 91 11/22/24 01:00 Respiratory Rate 18 11/22/24 01:00 Blood Pressure 159/86 H 11/22/24 01:00 Pulse Oximetry 100 11/22/24 01:00 Oxygen Delivery Room Air 11/22/24 01:38 MDM - Extremity (Nontraumatic) MDM Narrative Medical decision making narrative: Patient is a 69-year-old male who presents to the ER with complaints of a left foot wound. He and his daughter report they 1st started noticing the wound 1 and half weeks ago. Patient has a history of diabetes in his daughter reports his blood sugars have been running in the 400s lately.He also endorses a history of a pacemaker. Patient's daughter reports he uses Lantus and NovoLog at home for blood sugar control. He denies any feeling or pain in his left foot. Patient denies any calf tenderness, recent fevers, or decreased range of motion in his ankle. Labs Ordered: CBC, CMP, lactic acid, blood cultures, CRP, UA, hemoglobin A1c, troponin, PTT, INR Imaging Ordered: Left foot x-ray Medications Ordered: L normal saline IV bolus, vancomycin IV, Flagyl IV, cefepime IV Results: EKG is similar to previous EKG reading. Pt's L foot x-ray indicates Osteomyelitis involving the proximal phalanx and distal phalanx of the left big toe. Clinical correlation and follow-up advised. Diagnosis: osteomyelitis, hyperglycemia, poorly controlled diabetes Consults: General surgery, Dr. Salazar, who was in agreement for his service to consult pt in the hospital tomorrow. Pt should remain NPO after midnight. Patient Education/Shared MDM: Results of imaging and lab work shared with pt. It was advised patient be admitted to the hospital for further treatment and evaluation. Patient verbalized understanding and is in agreement with plan. Spoke with hospitalist, Dr. Mcfarlane, who was in agreement with plan for admission. Pt will continue receiving IV antibiotics and maintenance IV fluids. He will be admitted to the med/surg floor. Lab Data 11/21/24 20:50 11/21/24 20:50 Labs: Lab Results 11/21/24 11/21/24 11/21/24 Range/Units 19:52 20:50 20:53 WBC 7.7 (4.5-10.0) K/mm3 RBC 4.53 L (4.6-6.20) M/mm3 Hgb 13.4 L (14.0-18.0) g/dL Hct 39.5 L (42.0-52.0) % MCV 87.2 (80-100) fl MCH 29.6 (26-34) pg MCHC 33.9 (32-36) g/dl RDW 12.3 (11.5-14.5) % Plt Count 212 (150-375) k/mm3 MPV 10.0 (7.4-10.4) fl Immature Gran % (Auto) 0.8 H (0-0.5) % Neut % (Auto) 71.6 (45.5-73.1) % Lymph % (Auto) 19.3 (18.3-44.2) % [place] % (Auto) 6.8 (2.6-8.5) % Eos % (Auto) 1.2 (0-4.4) % Baso % (Auto) 0.3 (0.2-1.2) % Lymph # (Auto) 1.48 (0.9-3.2) K/mm3 [place] # (Auto) 0.5 (0.1-0.6) K/mm3 Eos # (Auto) 0.1 (0-0.3) K/mm3 Baso # (Auto) 0.0 (0.0-0.1) K/mm3 Abs Immat Gran (auto) 0.06 H (0.00-0.031) K/mm3 Absolute Neuts (auto) 5.5 (1.3-6.7) K/mm3 Absolute Nucleated RBC 0.000 (0.0-0.012) K/mm3 Nucleated RBC % 0.0 (0.0-0.2) % PT 14.7 (11.1-14.7) Seconds INR 1.1 APTT 28.0 (22.3-36.8) Seconds Sodium 132 L (137-145) mmol/L Potassium 4.0 (3.4-5.0) mmol/L Chloride 96 L (98-107) mmol/L Carbon Dioxide 28 (22-30) mmol/L Anion Gap 8 (4-12) mmol/L BUN 16 (9-20) mg/dL Creatinine 0.74 (0.7-1.3) mg/dL Estim Creat Clear Calc 82 ml/min Estimated GFR > 60 (59 - ) Glucose 474 H (65-110) mg/dL POC Capillary Glucose 462 H (65-105) mg/dl Hemoglobin A1c (<5.7) % Lactic Acid (0.7-2.0) mmol/L Calcium 8.7 (8.4-10.2) mg/dL Total Bilirubin 1.3 (0.2-1.3) mg/dL AST 25 (17-59) U/L ALT 19 (6-50) U/L Alkaline Phosphatase 121 (38-126) U/L Troponin I < 0.012 (0.000-0.034) ng/mL C-Reactive Protein 17.3 H (<1.0) mg/dL Total Protein 7.0 (6.3-8.2) g/dL Albumin 3.6 (3.5-5.1) g/dL Beta-Hydroxybutyrate/Acetoacetate (0.02-0.27) mmol/L Urine Color Yellow (Yellow) Urine Appearance Clear (Clear) Urine pH 5.5 (5.0-9.0) Ur Specific [place] 1.044 H (1.001-1.035) Urine Protein 1+ H (Negative) mg/dL Urine Glucose (UA) 3+ H (Negative) mg/dL Urine Ketones 1+ H (Negative) mg/dL Ur Blood (Man) Negative (Negative) Urine Nitrate Negative (Negative) Urine Bilirubin Negative (Negative) Urine Urobilinogen 2.0 H (<2.0) mg/dL Leukocyte Esterase Rfl Negative (Negative) HITESH/UL Urine RBC 0-2 (0-2) /hpf Urine WBC 0-5 (0-3) /hpf Ur Squamous Epith Cells None seen (Few) /hpf Urine Bacteria None seen /hpf Urine Casts 0-2 11/21/24 11/21/24 Range/Units 20:54 21:41 WBC (4.5-10.0) K/mm3 RBC (4.6-6.20) M/mm3 Hgb (14.0-18.0) g/dL Hct (42.0-52.0) % MCV (80-100) fl MCH (26-34) pg MCHC (32-36) g/dl RDW (11.5-14.5) % Plt Count (150-375) k/mm3 MPV (7.4-10.4) fl Immature Gran % (Auto) (0-0.5) % Neut % (Auto) (45.5-73.1) % Lymph % (Auto) (18.3-44.2) % [place] % (Auto) (2.6-8.5) % Eos % (Auto) (0-4.4) % Baso % (Auto) (0.2-1.2) % Lymph # (Auto) (0.9-3.2) K/mm3 [place] # (Auto) (0.1-0.6) K/mm3 Eos # (Auto) (0-0.3) K/mm3 Baso # (Auto) (0.0-0.1) K/mm3 Abs Immat Gran (auto) (0.00-0.031) K/mm3 Absolute Neuts (auto) (1.3-6.7) K/mm3 Absolute Nucleated RBC (0.0-0.012) K/mm3 Nucleated RBC % (0.0-0.2) % PT (11.1-14.7) Seconds INR APTT (22.3-36.8) Seconds Sodium (137-145) mmol/L Potassium (3.4-5.0) mmol/L Chloride (98-107) mmol/L Carbon Dioxide (22-30) mmol/L Anion Gap (4-12) mmol/L BUN (9-20) mg/dL Creatinine (0.7-1.3) mg/dL Estim Creat Clear Calc ml/min Estimated GFR (59 - ) Glucose (65-110) mg/dL POC Capillary Glucose (65-105) mg/dl Hemoglobin A1c 12.0 H (<5.7) % Lactic Acid 1.1 (0.7-2.0) mmol/L Calcium (8.4-10.2) mg/dL Total Bilirubin (0.2-1.3) mg/dL AST (17-59) U/L ALT (6-50) U/L Alkaline Phosphatase (38-126) U/L Troponin I (0.000-0.034) ng/mL C-Reactive Protein (<1.0) mg/dL Total Protein (6.3-8.2) g/dL Albumin (3.5-5.1) g/dL Beta-Hydroxybutyrate/Acetoacetate 0.42 H (0.02-0.27) mmol/L Urine Color (Yellow) Urine Appearance (Clear) Urine pH (5.0-9.0) Ur Specific [place] (1.001-1.035) Urine Protein (Negative) mg/dL Urine Glucose (UA) (Negative) mg/dL Urine Ketones (Negative) mg/dL Ur Blood (Man) (Negative) Urine Nitrate (Negative) Urine Bilirubin (Negative) Urine Urobilinogen (<2.0) mg/dL Leukocyte Esterase Rfl (Negative) HITESH/UL Urine RBC (0-2) /hpf Urine WBC (0-3) /hpf Ur Squamous Epith Cells (Few) /hpf Urine Bacteria /hpf Urine Casts Discharge Plan Discharge Clinical Impression: Osteomyelitis, Hyperglycemia, Poorly controlled diabetes mellitus, Diabetic infection of left foot Patient Disposition: Still a Patient Condition: Stable
[2024-11-21] MEDS: SODIUM CHLORIDE 0.9% IV 400 ML 999 ML IV CONT (20:48)
[2024-11-21] MEDS: SODIUM CHLORIDE 0.9% IV 1,000 ML 999 ML IV CONT ×2 (20:48)
[2024-11-21 21:05] LABS: Basophils Percent Auto 0.3 % (0.2-1.2); Eosinophils Absolute Auto 0.1 K/mm3 (0-0.3); Eosinophils Percent Auto 1.2 % (0-4.4); Hematocrit 39.5 % (42.0-52.0); Hemoglobin 13.4 g/dL (14.0-18.0); Immature Granulocyte Absolute 0.06 K/mm3 (0.00-0.031); Immature Granulocyte Percent A 0.8 % (0-0.5); Lymphocytes Absolute Auto 1.48 K/mm3 (0.9-3.2); Lymphocytes Percent Auto 19.3 % (18.3-44.2); Mean Corpuscular HGB Conc 33.9 g/dl (32-36); Mean Corpuscular Hemoglobin 29.6 pg (26-34); Mean Corpuscular Volume 87.2 fl (80-100); Monocytes Absolute Auto 0.5 K/mm3 (0.1-0.6); Monocytes Percent Auto 6.8 % (2.6-8.5); Neutrophils Absolute Auto 5.5 K/mm3 (1.3-6.7); Neutrophils Percent Auto 71.6 % (45.5-73.1); Platelet Count Result 212 k/mm3 (150-375); Red Blood Count 4.53 M/mm3 (4.6-6.20); Red Cell Distribution Width 12.3 % (11.5-14.5); White Blood Count 7.7 K/mm3 (4.5-10.0)
[2024-11-21 21:11] LABS: Add Urine Microscopic? YES; Appearance Urine Clear (Clear); Bacteria Urine None Seen /hpf; Bilirubin Urine Negative (Negative); Blood Urine Negative (Negative); Color Urine Yellow (Yellow); Glucose Urine UA 3+ mg/dL (Negative); Ketones Urine 1+ mg/dL (Negative); Leukocyte Esterase Ur Negative LEU/UL (Negative); Nitrate Urine Negative (Negative); Non Pathogenic Casts 0-2; Protein Urine 1+ mg/dL (Negative); RBC Urine 0-2 /hpf (0-2); Specific Grav Ur 1.044 (1.001-1.035); Squamous Epithelial Cell Urine None Seen /hpf (Few); WBC Urine 0-5 /hpf (0-3); pH Urine 5.5 (5.0-9.0)
[2024-11-21 21:21] LABS: Alanine Aminotransferase 19 U/L (6-50); Albumin Level 3.6 g/dL (3.5-5.1); Alkaline Phosphatase 121 U/L (38-126); Anion Gap 8 mmol/L (4-12); Aspartate Amino Transferase 25 U/L (17-59); Bilirubin,Total 1.3 mg/dL (0.2-1.3); Blood Urea Nitrogen 16 mg/dL (9-20); Calcium 8.7 mg/dL (8.4-10.2); Carbon Dioxide 28 mmol/L (22-30); Chloride 96 mmol/L (98-107); Estimated CRCL calculation 82 ml/min; Estimated Glomerular Filt Rate > 60; Glucose 474 mg/dL (65-110); INR 1.1; Prothrombin Time 14.7 Seconds (11.1-14.7); Sodium 132 mmol/L (137-145)
[2024-11-21 21:27] LABS: Beta-Hydroxybutyrate/Acetoacetate 0.42 mmol/L (0.02-0.27)
[2024-11-21 21:28] LABS: Troponin I < 0.012 ng/mL (0.000-0.034)
[2024-11-21] MEDS: CEFEPIME 2 GM/NS 50 ML 2 GM/50 ML BAG IVPB (21:41)
[2024-11-21 21:46] LABS: CRP 17.3 mg/dL (<1.0)
[2024-11-21 21:54] LABS: Lactic Acid Reflex 1.1 mmol/L (0.7-2.0)
[2024-11-21] MEDS: metroNIDAZOLE 500 MG/ISO 100ML 500 MG/100 ML BAG 100 MG IVPB (22:17)
[2024-11-21 22:20] VITALS: BP 145/92; PULSE 93; RESP 19; O2SAT 95
[2024-11-21] MEDS: VANCOMYCIN 2,000 MG/NS 500 ML 2,000 MG/500 ML BAG 250 MG IVPB (23:19)
[2024-11-22] VITALS (7 sets, daily range): BP systolic 104–159; BP diastolic 58–90; PULSE 67–91; RESP 18–22; TEMP 36.6–37; O2SAT 92–100; BMI 24.1
[2024-11-22 00:46] LABS: Glucose Point of Care 317 mg/dl (65-105)
--- NOTE | 2024-11-22 00:57 | PC.NURSE ---
This RN and CHINYERE Alanis attempted to clean wound on L great toe. Pt requested this RN and jeimy to stop due to discomfort and tickling him. Pt educated that there were animal hairs and straw/grass on bottom of toe. Pt allowed this RN and CHINYERE alanis to remove more, but then requested to stop again. Floor RN North made aware.
[2024-11-22] MEDS: SODIUM CHLORIDE 0.9% IV 1,000 ML 125 ML IV CONT ×3 (01:31→18:23)
--- NOTE | 2024-11-22 05:50 | P.HP_ITS ---
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 The patient arrived to the ER with a large ulcer to the left great toe with swelling up into the ball of the foot with associated erythema. He reports that he has been having pain in the foot for about a week. He reports that the pain is pretty bad with touch base a or with trying to walk. He has areas of necrosis of the toe with what appears to be extension to the 2nd digit. Had the patient has rancid odor from the foot He had elevated CRP but normal white count. The patient denies having any pain in the foot and in fact has been walking around barefoot out in the yard and his foot was covered in dirt and grass on arrival to the ER. He denies any fevers or chills. He reports that his daughters been giving him his insulin but they do not check his blood sugars. Patient has a long history of nonadherence to medical therapy. Patient is not the best historian and as such the majority of his HPI was obtained from review of ER records and my prior H and Ps from prior hospitalizations. Review of Systems 2 Review of Systems: 12 systems were reviewed with pertinent positives and negatives per HPI. Except as documented in the HPI, all other systems were reviewed and are negative. [facility] Past Medical History Medical History (Updated 11/22/24 @ 07:41 by Amber Mcfarlane DO) Second degree AV block, Mobitz type II Subarachnoid hemorrhage Closed fracture of maxillary sinus Elevated troponin Pneumonia Syncope Diastolic dysfunction Dementia With history of alcoholism and multiple infarcts Type 2 diabetes mellitus Alcoholism in recovery (~2014) Chronic sinusitis CVA (cerebral vascular accident) CT performed the ER 04/2023 demonstrated evidence of multiple scattered old infarcts bilateral cerebral hemispheres, basal ganglia and left thalamus COVID 04/2023 Surgical History Surgical History (Updated 11/22/24 @ 07:38 by Amber Mcfarlane DO) Status post biventricular cardiac pacemaker insertion (08/2023) Status post cataract extraction History of hemorrhoidectomy Infected pilonidal cyst With incision and drainage September 20082018 Family History Family History Father Acute myocardial infarction Alcohol abuse Social History Social History Social History: The patient is live with his daughter since proximally 2014. He is a former alcoholic and has been in recovery since that time. He reports he used to smoke many years ago but cannot specify in amount. Code status: Full code Smoking status: Former smoker Tobacco type: cigarettes Second hand tobacco smoke exposure: No Alcohol intake: former Substance use: never Substance use type: does not use Do You Feel Safe in your Home?: Yes Lack of Transportation: No Lack of Food: Never True Current Housing: I Have Housing Concerned About Future Housing: No Difficulty Paying Gas/Electric Bills: No Difficulty Paying for Meds: No Currently Unemployed: No Education: High School Diploma/GED Difficulty w/ Childcare or Family Care: No Additional living arrangements comments: Lives with daughter Additional occupation/education comments: 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 Spiritual care concerns: No Meds Home Medications and Allergies Home Medications ?Medication ?Instructions ?Recorded ?Confirmed ?Type dapagliflozin propanediol 5 mg 5 mg PO DAILY #90 tabs 10/30/23 11/22/24 Rx tablet (Farxiga) lancets (Accu-Chek Fastclix Lancet #100 ea 11/03/23 11/22/24 Rx Drum) blood sugar diagnostic (Accu-Chek #100 ea 01/05/24 11/22/24 Rx Guide test strips) losartan 50 mg tablet 50 mg PO DAILY #90 tabs 02/02/24 11/22/24 Rx insulin aspart U-100 100 unit/mL 1 sliding scale dose subcut .TID 02/08/24 11/22/24 Rx (3 mL) subcutaneous pen with meals diabetes #15 mL insulin aspart U-100 100 unit/mL 4 unit (0.04 mL) subcut .TID with 02/08/24 11/22/24 Rx (3 mL) subcutaneous pen meals #15 mL insulin glargine 100 unit/mL (3 16 unit (0.16 mL) subcut QAM #15 mL 02/08/24 11/22/24 Rx mL) subcutaneous pen metoprolol succinate 25 mg 25 mg PO DAILY #30 tabs 08/02/24 11/22/24 Rx tablet,extended release 24 hr atorvastatin 40 mg tablet See Rx Instructions .Route 09/19/24 11/22/24 Rx .COMPLEX #90 tabs blood-glucose sensor (FreeStyle #1 ea 09/19/24 11/22/24 Rx Yue 3 Plus Sensor device) blood-glucose,electrical 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,cont #1 ea 09/19/24 11/22/24 Rx (FreeStyle Yue 3 [place]) metformin 500 mg tablet 500 mg PO BID #180 tabs 09/19/24 11/22/24 Rx pen needle, diabetic 32 gauge x #1 pkg 09/19/24 11/22/24 Rx Allergies Allergy/AdvReac Type Severity Reaction Status Date / Time No Known Allergies Allergy Verified 11/21/24 19:34 Vital Signs Vital Signs - 24 hr 11/21/24 19:18 11/21/24 22:20 11/22/24 00:41 Temperature 97.8 F Pulse Rate 104 H 93 89 Respiratory Rate 20 19 22 H Blood Pressure 138/89 145/92 H 134/83 Pulse Oximetry 97 95 94 Oxygen Delivery Room Air 11/22/24 01:00 11/22/24 01:38 11/22/24 04:41 Temperature 98.1 F 98.0 F Pulse Rate 91 67 Respiratory Rate 18 18 Blood Pressure 159/86 H 104/90 Pulse Oximetry 100 99 Oxygen Delivery Room Air Exam 2 Narrative: Weight 78.5 kg BMI 24.1 Const: Other: Poor hygiene, disheveled, appears older than stated age, no acute distress HENMT: Other: Mucous membranes are dry, no oral pharyngeal erythema, poor dentition, head is normocephalic atraumatic Eyes: Other: Pupils are equal and reactive, no conjunctival pallor, mildly injected sclerae Neck: Other: No JVD, no lymphadenopathy Resp: Other: Decreased breath sounds bilaterally, no increased work of breathing Cardio: Other: Regular rate, regular rhythm, 2+ bilateral radial pulses, 1+ left pedal pulse 2+ pedal pulse, no murmur GI: Other: Soft, nontender, nondistended, positive bowel sounds Skin: Other: Long overgrown fingernails with debris under the nail beds both hands and feet, tanned, non jaundice Neuro: Other: Alert oriented person place and confused as to time he thought that the month was March and that the year was 2023 speech is clear but slow, moments of confusion, decreased sensation to the feet, no gross motor deficits noted on exam Extrem: Other: Yellow moist boggy tissue to the medial great toe, necrotic tissue to the lateral great toe and in the inter webspace with serous drainage, boggy erythematous tissue extending up to the forefoot and stopping just prior to the ankle the increased warmth, marked tenderness to palpation on both dorsal and plantar surfaces, plantar surface has open wound with foul odor Psych: Other: Poor judgment and insight, cooperative, calm H&P: Results Labs Labs: Laboratory Tests 11/22/24 05:30 11/22/24 05:30 11/21/24 11/21/24 11/21/24 19:52 20:50 20:53 WBC 7.7 RBC 4.53 L Hgb 13.4 L Hct 39.5 L MCV 87.2 MCH 29.6 MCHC 33.9 RDW 12.3 Plt Count 212 MPV 10.0 Immature Gran % (Auto) 0.8 H Neut % (Auto) 71.6 Lymph % (Auto) 19.3 [place] % (Auto) 6.8 Eos % (Auto) 1.2 Baso % (Auto) 0.3 Lymph # (Auto) 1.48 [place] # (Auto) 0.5 Eos # (Auto) 0.1 Baso # (Auto) 0.0 Abs Immat Gran (auto) 0.06 H Absolute Neuts (auto) 5.5 Absolute Nucleated RBC 0.000 Nucleated RBC % 0.0 PT 14.7 INR 1.1 APTT 28.0 Sodium 132 L Potassium 4.0 Chloride 96 L Carbon Dioxide 28 Anion Gap 8 BUN 16 Creatinine 0.74 Estim Creat Clear Calc 82 Estimated GFR > 60 Glucose 474 H POC Capillary Glucose 462 H Hemoglobin A1c Lactic Acid Calcium 8.7 Total Bilirubin 1.3 AST 25 ALT 19 Alkaline Phosphatase 121 Troponin I < 0.012 C-Reactive Protein 17.3 H Total Protein 7.0 Albumin 3.6 Beta-Hydroxybutyrate/Acetoacetate Procalcitonin Urine Color Yellow Urine Appearance Clear Urine pH 5.5 Ur Specific [place] 1.044 H Urine Protein 1+ H Urine Glucose (UA) 3+ H Urine Ketones 1+ H Ur Blood (Man) Negative Urine Nitrate Negative Urine Bilirubin Negative Urine Urobilinogen 2.0 H Leukocyte Esterase Rfl Negative Urine RBC 0-2 Urine WBC 0-5 Ur Squamous Epith Cells None seen Urine Bacteria None seen Urine Casts 0-2 11/21/24 11/21/24 11/22/24 20:54 21:41 00:43 WBC RBC Hgb Hct MCV MCH MCHC RDW Plt Count MPV Immature Gran % (Auto) Neut % (Auto) Lymph % (Auto) [place] % (Auto) Eos % (Auto) Baso % (Auto) Lymph # (Auto) [place] # (Auto) Eos # (Auto) Baso # (Auto) Abs Immat Gran (auto) Absolute Neuts (auto) Absolute Nucleated RBC Nucleated RBC % PT INR APTT Sodium Potassium Chloride Carbon Dioxide Anion Gap BUN Creatinine Estim Creat Clear Calc Estimated GFR Glucose POC Capillary Glucose 317 H Hemoglobin A1c 12.0 H Lactic Acid 1.1 Calcium Total Bilirubin AST ALT Alkaline Phosphatase Troponin I C-Reactive Protein Total Protein Albumin Beta-Hydroxybutyrate/Acetoacetate 0.42 H Procalcitonin Urine Color Urine Appearance Urine pH Ur Specific [place] Urine Protein Urine Glucose (UA) Urine Ketones Ur Blood (Man) Urine Nitrate Urine Bilirubin Urine Urobilinogen Leukocyte Esterase Rfl Urine RBC Urine WBC Ur Squamous Epith Cells Urine Bacteria Urine Casts 11/22/24 11/22/24 11/22/24 05:30 05:30 05:30 WBC 7.8 RBC 4.06 L Hgb 12.0 L Hct 36.9 L MCV 90.9 MCH 29.6 MCHC 32.5 RDW 12.2 Plt Count 177 MPV 10.1 Immature Gran % (Auto) 0.8 H Neut % (Auto) 68.6 Lymph % (Auto) 20.2 [place] % (Auto) 9.0 H Eos % (Auto) 1.0 Baso % (Auto) 0.4 Lymph # (Auto) 1.57 [place] # (Auto) 0.7 H Eos # (Auto) 0.1 Baso # (Auto) 0.0 Abs Immat Gran (auto) 0.06 H Absolute Neuts (auto) 5.3 Absolute Nucleated RBC 0.000 Nucleated RBC % 0.0 PT INR APTT Sodium 133 L Potassium 3.8 Chloride 104 Carbon Dioxide 21 L Anion Gap 8 BUN 11 D Creatinine 0.60 L 0.60 L Estim Creat Clear Calc 102 102 Estimated GFR > 60 Glucose POC Capillary Glucose Hemoglobin A1c Lactic Acid Calcium Total Bilirubin AST ALT Alkaline Phosphatase Troponin I C-Reactive Protein Total Protein Albumin Beta-Hydroxybutyrate/Acetoacetate Procalcitonin Urine Color Urine Appearance Urine pH Ur Specific [place] Urine Protein Urine Glucose (UA) Urine Ketones Ur Blood (Man) Urine Nitrate Urine Bilirubin Urine Urobilinogen Leukocyte Esterase Rfl Urine RBC Urine WBC Ur Squamous Epith Cells Urine Bacteria Urine Casts 11/22/24 11/22/24 05:30 05:55 WBC RBC Hgb Hct MCV MCH MCHC RDW Plt Count MPV Immature Gran % (Auto) Neut % (Auto) Lymph % (Auto) [place] % (Auto) Eos % (Auto) Baso % (Auto) Lymph # (Auto) [place] # (Auto) Eos # (Auto) Baso # (Auto) Abs Immat Gran (auto) Absolute Neuts (auto) Absolute Nucleated RBC Nucleated RBC % PT INR APTT Sodium Potassium Chloride Carbon Dioxide Anion Gap BUN Creatinine Estim Creat Clear Calc Estimated GFR > 60 Glucose 282 H POC Capillary Glucose 308 H Hemoglobin A1c Lactic Acid Calcium 7.9 L Total Bilirubin AST ALT Alkaline Phosphatase Troponin I C-Reactive Protein Total Protein Albumin Beta-Hydroxybutyrate/Acetoacetate Procalcitonin 0.2 Urine Color Urine Appearance Urine pH Ur Specific [place] Urine Protein Urine Glucose (UA) Urine Ketones Ur Blood (Man) Urine Nitrate Urine Bilirubin Urine Urobilinogen Leukocyte Esterase Rfl Urine RBC Urine WBC Ur Squamous Epith Cells Urine Bacteria Urine Casts Impressions Foot X-Ray 11/21/24 21:42 IMPRESSION: Osteomyelitis involving the proximal phalanx and distal phalanx of the left big toe. Clinical correlation and follow-up advised. Assessment and Plan Assessment and plan (1) Diabetic infection of left foot: Code(s): E11.628 - Type 2 diabetes mellitus with other skin complications; L08.9 - Local infection of the skin and subcutaneous tissue, unspecified Status: Acute (2) Osteomyelitis: Qualifiers: Laterality: left Osteomyelitis location: foot Osteomyelitis type: o ther acute Qualified Code(s): M86.172 - Other acute osteomyelitis, left ankle and foot Code(s): M86.9 - Osteomyelitis, unspecified Status: Acute (3) Uncontrolled diabetes mellitus with hyperglycemia: Qualifiers: Diabetes mellitus type: type 2 Qualified Code(s): E11.65 - Type 2 diabetes mellitus with hyperglycemia Code(s): E11.65 - Type 2 diabetes mellitus with hyperglycemia Status: Acute Plan Patient has osteomyelitis secondary to infected diabetic foot ulcer of the left toe. The tissues are boggy and Brayden there areas of obvious necrosis. Infection seems to also extends to the 2nd toe. And extends down to the mid metatarsal. Patient does not have a white count or fever. The patient is NPO and General surgery has been consulted. Patient will likely need amputation of the toe and or a portion of the metatarsal. Will await further recommendations from General surgery. Will provide pain management with Tylenol, tramadol and morphine depending on pain scale. Will place on broad-spectrum antibiotic coverage with cefepime Flagyl and vancomycin per antibiotic stewardship guidelines. The patient glucoses are still largely uncontrolled at home with an A1c of greater than 12. If patient is daughter cannot manage his diabetes he may benefit from placement in skilled facility/assisted facility to help with medication administration. Will place patient on his home Lantus and will continue his mealtime bolus insulin. Will add high-dose sliding scale insulin as well. Will check Accu-Cheks q.6 hours while NPO. Will continue home antihypertensives. Quality VTE Prophylaxis VTE prophylaxis: pharmacologic ordered (Lovenox 40 mg subQ daily. To start on 11/23/2024) Hospitalist [facility] Advance Care Plan I have confirmed that the patient's Advanced Care Plan is present, code status is documented, or surrogate decision maker is listed in patient medical record.: Yes Medication Reconciliation I have utilized all available resources to obtain, update and review the patients current medications (includes all prescriptions, OTC, herbals, cannabis, and nutritional supplements).: Yes
[2024-11-22 05:58] LABS: Glucose Point of Care 308 mg/dl (65-105)
[2024-11-22 06:12] LABS: Estimated CRCL calculation 102 ml/min; Estimated Glomerular Filt Rate > 60
[2024-11-22 06:48] LABS: Procalcitonin 0.2 ng/mL
[2024-11-22 07:15] LABS: Basophils Percent Auto 0.4 % (0.2-1.2); Eosinophils Absolute Auto 0.1 K/mm3 (0-0.3); Hematocrit 36.9 % (42.0-52.0); Immature Granulocyte Absolute 0.06 K/mm3 (0.00-0.031); Immature Granulocyte Percent A 0.8 % (0-0.5); Lymphocytes Absolute Auto 1.57 K/mm3 (0.9-3.2); Lymphocytes Percent Auto 20.2 % (18.3-44.2); Mean Corpuscular HGB Conc 32.5 g/dl (32-36); Mean Corpuscular Hemoglobin 29.6 pg (26-34); Mean Corpuscular Volume 90.9 fl (80-100); Mean Platelet Volume 10.1 fl (7.4-10.4); Monocytes Absolute Auto 0.7 K/mm3 (0.1-0.6); Neutrophils Absolute Auto 5.3 K/mm3 (1.3-6.7); Neutrophils Percent Auto 68.6 % (45.5-73.1); Platelet Count Result 177 k/mm3 (150-375); Red Blood Count 4.06 M/mm3 (4.6-6.20); Red Cell Distribution Width 12.2 % (11.5-14.5); White Blood Count 7.8 K/mm3 (4.5-10.0)
[2024-11-22 07:25] LABS: Anion Gap 8 mmol/L (4-12); Blood Urea Nitrogen 11 mg/dL (9-20); Calcium 7.9 mg/dL (8.4-10.2); Carbon Dioxide 21 mmol/L (22-30); Chloride 104 mmol/L (98-107); Estimated CRCL calculation 102 ml/min; Estimated Glomerular Filt Rate > 60; Glucose 282 mg/dL (65-110); Potassium 3.8 mmol/L (3.4-5.0); Sodium 133 mmol/L (137-145)
--- NOTE | 2024-11-22 08:15 | P.PNCROSS_ITS ---
Event Note Event Note Event Note: Patient is a 69-year-old male admitted for further evaluation and treatment of osteomyelitis of his proximal phalanx and distal phalanx of the left big toe seen on a foot x-ray. patient had been seen by previous provider same day has been initiated on IV vancomycin Flagyl, and cefepime with consult to surgery. patient has been afebrile with normal WBC but has had increased swelling to left big toe which brought him to the emergency room. Patient with uncontrolled d iabetes currently on insulin sugars were greater than 400 on arrival. I have increased patient's Lantus from 16 units to 20 units and added a high dose sliding scale for better control A1c was 12. will hold Lovenox DVT prophylaxis for possible surgery currently NPO with plans to see surgery today. will consult dietitian for further education on diabetic diet and blood sugar control. Spoke with Surgery will continue with IV ABX and get MRI for further evaluation. Will order YARA's for vascular evaluation multiple wounds noted BLE in different stages of healing. Patient denied any further complaints but patient does have some forgetfulness and appears unkept, likely poor management of his diabetes at home
[2024-11-22] MEDS: EMPAGLIFLOZIN 10 MG TABLET BY MOUTH (08:25)
[2024-11-22] MEDS: METOPROLOL SUCCINATE EXT REL 25 MG TABCR PO (08:25)
[2024-11-22] MEDS: ATORVASTATIN 40 MG TABLET BY MOUTH (08:25)
[2024-11-22] MEDS: LOSARTAN POTASSIUM 50 MG TABLET PO (08:25)
[2024-11-22] MEDS: HYDROcodone/acetaminophen (*CRX) 5-325 MG TABLET 1 TAB PO (08:30)
[2024-11-22] MEDS: metroNIDAZOLE 500 MG/ISO 100ML 500 MG/100 ML BAG 100 MG IVPB ×3 (09:26→21:42)
[2024-11-22] MEDS: INSULIN GLARGINE (*BKC) 100 UNITS/ML 20 UNITS SUB-Q (09:29)
--- NOTE | 2024-11-22 09:38 | P.CONGS_ITS ---
Assessment and Plan Assessment and plan (1) Diabetic infection of left foot: Code(s): E11.628 - Type 2 diabetes mellitus with other skin complications; L08.9 - Local infection of the skin and subcutaneous tissue, unspecified Status: Acute Assessment and Plan: Patient 69-year-old male with history of poorly-controlled type 2 diabetes with 1-2 week history of a wound to the left great toe. He does not recall ever having an issue like this before. Upon exam the left great toe is surround with necrotic tissue and possible purulent drainage from lateral aspect that will likely need surgical intervention. Foot x-ray was positive for osteomyelitis involving the proximal phalanx and distal phalanx of the left big toe. Maintain NPO diet and IV antibiotics and plan for surgical debridement. History of Present Illness Consult details Consult date: 11/22/24 Narrative: Patient is a 69-year-old male with history of type 2 diabetes who presented to the ED yesterday with complaints of left foot wound. Patient states that the wound came out of nowhere roughly a week or two ago as he cannot recall any triggers or events when he first noticed the wound. He reports that he has been diabetic for around 6 months and that his daughter helps him manage medications. He notes that his blood sugars usually run high. Patient denies any pain in his left foot. He denies ever having anything like this before. Of note, patient reports pacemaker in place. General surgery consulted for surgical evaluation. Normal white count and no fever since admission. Foot x-ray shows osteomyelitis involving the proximal phalanx and distal phalanx of the left great toe. [facility] Past Medical History Medical History (Updated 11/22/24 @ 07:41 by Amber Mcfarlane DO) Second degree AV block, Mobitz type II Subarachnoid hemorrhage Closed fracture of maxillary sinus Elevated troponin Pneumonia Syncope Diastolic dysfunction Dementia With history of alcoholism and multiple infarcts Type 2 diabetes mellitus Alcoholism in recovery (~2014) Chronic sinusitis CVA (cerebral vascular accident) CT performed the ER 04/2023 demonstrated evidence of multiple scattered old infarcts bilateral cerebral hemispheres, basal ganglia and left thalamus COVID 04/2023 Surgical History Surgical History (Updated 11/22/24 @ 07:38 by Amber Mcfarlane DO) Status post biventricular cardiac pacemaker insertion (08/2023) Status post cataract extraction History of hemorrhoidectomy Infected pilonidal cyst With incision and drainage September [id number] Family History Family History Father Acute myocardial infarction Alcohol abuse Social History Social History Social History: The patient is live with his daughter since proximally 2014. He is a former alcoholic and has been in recovery since that time. He reports he used to smoke many years ago but cannot specify in amount. 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 Spiritual care concerns: No Meds Home Medications and Allergies Home Medications ?Medication ?Instructions ?Recorded ?Confirmed ?Type dapagliflozin propanediol 5 mg 5 mg PO DAILY #90 tabs 10/30/23 11/22/24 Rx tablet (Farxiga) lancets (Accu-Chek Fastclix Lancet #100 ea 11/03/23 11/22/24 Rx Drum) blood sugar diagnostic (Accu-Chek #100 ea 01/05/24 11/22/24 Rx Guide test strips) losartan 50 mg tablet 50 mg PO DAILY #90 tabs 02/02/24 11/22/24 Rx insulin aspart U-100 100 unit/mL 1 sliding scale dose subcut .TID 02/08/24 11/22/24 Rx (3 mL) subcutaneous pen with meals diabetes #15 mL insulin aspart U-100 100 unit/mL 4 unit (0.04 mL) subcut .TID with 02/08/24 11/22/24 Rx (3 mL) subcutaneous pen meals #15 mL insulin glargine 100 unit/mL (3 16 unit (0.16 mL) subcut QAM #15 mL 02/08/24 11/22/24 Rx mL) subcutaneous pen metoprolol succinate 25 mg 25 mg PO DAILY #30 tabs 08/02/24 11/22/24 Rx tablet,extended release 24 hr atorvastatin 40 mg tablet See Rx Instructions .Route 09/19/24 11/22/24 Rx .COMPLEX #90 tabs blood-glucose sensor (FreeStyle #1 ea 09/19/24 11/22/24 Rx Yue 3 Plus Sensor device) blood-glucose,special skills officer,cont #1 ea 09/19/24 11/22/24 Rx (FreeStyle Yue 3 [place]) metformin 500 mg tablet 500 mg PO BID #180 tabs 09/19/24 11/22/24 Rx pen needle, diabetic 32 gauge x #1 pkg 09/19/24 11/22/24 Rx Allergies Allergy/AdvReac Type Severity Reaction Status Date / Time No Known Allergies Allergy Verified 11/21/24 19:34 Vital Signs Vital Signs - 24 hr 11/21/24 19:18 11/21/24 22:20 11/22/24 00:41 Temperature 97.8 F Pulse Rate 104 H 93 89 Respiratory Rate 20 19 22 H Blood Pressure 138/89 145/92 H 134/83 Pulse Oximetry 97 95 94 Oxygen Delivery Room Air 11/22/24 01:00 11/22/24 01:38 11/22/24 04:41 Temperature 98.1 F 98.0 F Pulse Rate 91 67 Respiratory Rate 18 18 Blood Pressure 159/86 H 104/90 Pulse Oximetry 100 99 Oxygen Delivery Room Air 11/22/24 08:25 Temperature Pulse Rate 67 Respiratory Rate Blood Pressure Pulse Oximetry Oxygen Delivery Exam 2 Skin: General skin exam: normal color Other: Warm, dry, normal color, no rashes. Left great toe necrotic with areas of full- thickness ulcer, severe redness and edema traveling up from dorsal foot to the ankle and mid pre-tibial region. Minimal serosanguineous drainage with possible purulent drainage from lateral aspect of great toe. Results Labs 11/22/24 05:30 11/22/24 05:30 Labs: Abnormal lab results 11/21/24 11/21/24 11/21/24 Range/Units 19:52 20:50 20:53 RBC 4.53 L (4.6-6.20) M/mm3 Hgb 13.4 L (14.0-18.0) g/dL Hct 39.5 L (42.0-52.0) % Immature Gran % (Auto) 0.8 H (0-0.5) % White % (Auto) (2.6-8.5) % White # (Auto) (0.1-0.6) K/mm3 Abs Immat Gran (auto) 0.06 H (0.00-0.031) K/mm3 Sodium 132 L (137-145) mmol/L Chloride 96 L (98-107) mmol/L Carbon Dioxide (22-30) mmol/L Creatinine (0.7-1.3) mg/dL Glucose 474 H (65-110) mg/dL POC Capillary Glucose 462 H (65-105) mg/dl Hemoglobin A1c (<5.7) % Calcium (8.4-10.2) mg/dL C-Reactive Protein 17.3 H (<1.0) mg/dL Beta-Hydroxybutyrate/Acetoacetate (0.02-0.27) mmol/L Ur Specific [place] 1.044 H (1.001-1.035) Urine Protein 1+ H (Negative) mg/dL Urine Glucose (UA) 3+ H (Negative) mg/dL Urine Ketones 1+ H (Negative) mg/dL Urine Urobilinogen 2.0 H (<2.0) mg/dL 11/21/24 11/22/24 11/22/24 Range/Units 20:54 00:43 05:30 RBC 4.06 L (4.6-6.20) M/mm3 Hgb 12.0 L (14.0-18.0) g/dL Hct 36.9 L (42.0-52.0) % Immature Gran % (Auto) 0.8 H (0-0.5) % White % (Auto) 9.0 H (2.6-8.5) % White # (Auto) 0.7 H (0.1-0.6) K/mm3 Abs Immat Gran (auto) 0.06 H (0.00-0.031) K/mm3 Sodium 133 L (137-145) mmol/L Chloride (98-107) mmol/L Carbon Dioxide 21 L (22-30) mmol/L Creatinine 0.60 L (0.7-1.3) mg/dL Glucose (65-110) mg/dL POC Capillary Glucose 317 H (65-105) mg/dl Hemoglobin A1c 12.0 H (<5.7) % Calcium (8.4-10.2) mg/dL C-Reactive Protein (<1.0) mg/dL Beta-Hydroxybutyrate/Acetoacetate 0.42 H (0.02-0.27) mmol/L Ur Specific [place] (1.001-1.035) Urine Protein (Negative) mg/dL Urine Glucose (UA) (Negative) mg/dL Urine Ketones (Negative) mg/dL Urine Urobilinogen (<2.0) mg/dL 11/22/24 11/22/24 Range/Units 05:30 05:55 RBC (4.6-6.20) M/mm3 Hgb (14.0-18.0) g/dL Hct (42.0-52.0) % Immature Gran % (Auto) (0-0.5) % White % (Auto) (2.6-8.5) % White # (Auto) (0.1-0.6) K/mm3 Abs Immat Gran (auto) (0.00-0.031) K/mm3 Sodium (137-145) mmol/L Chloride (98-107) mmol/L Carbon Dioxide (22-30) mmol/L Creatinine 0.60 L (0.7-1.3) mg/dL Glucose 282 H (65-110) mg/dL POC Capillary Glucose 308 H (65-105) mg/dl Hemoglobin A1c (<5.7) % Calcium 7.9 L (8.4-10.2) mg/dL C-Reactive Protein (<1.0) mg/dL Beta-Hydroxybutyrate/Acetoacetate (0.02-0.27) mmol/L Ur Specific [place] (1.001-1.035) Urine Protein (Negative) mg/dL Urine Glucose (UA) (Negative) mg/dL Urine Ketones (Negative) mg/dL Urine Urobilinogen (<2.0) mg/dL Diabetes panel 11/21/24 11/21/24 11/22/24 Range/Units 20:50 20:54 05:30 Sodium 132 L 133 L (137-145) mmol/L Potassium 4.0 3.8 (3.4-5.0) mmol/L Chloride 96 L 104 (98-107) mmol/L Carbon Dioxide 28 21 L (22-30) mmol/L BUN 16 11 D (9-20) mg/dL Creatinine 0.74 0.60 L (0.7-1.3) mg/dL Glucose 474 H (65-110) mg/dL Hemoglobin A1c 12.0 H (<5.7) % Calcium 8.7 (8.4-10.2) mg/dL AST 25 (17-59) U/L ALT 19 (6-50) U/L Alkaline Phosphatase 121 (38-126) U/L Total Protein 7.0 (6.3-8.2) g/dL Albumin 3.6 (3.5-5.1) g/dL 11/22/24 Range/Units 05:30 Sodium (137-145) mmol/L Potassium (3.4-5.0) mmol/L Chloride (98-107) mmol/L Carbon Dioxide (22-30) mmol/L BUN (9-20) mg/dL Creatinine 0.60 L (0.7-1.3) mg/dL Glucose 282 H (65-110) mg/dL Hemoglobin A1c (<5.7) % Calcium 7.9 L (8.4-10.2) mg/dL AST (17-59) U/L ALT (6-50) U/L Alkaline Phosphatase (38-126) U/L Total Protein (6.3-8.2) g/dL Albumin (3.5-5.1) g/dL Calcium panel 11/21/24 11/22/24 Range/Units 20:50 05:30 Calcium 8.7 7.9 L (8.4-10.2) mg/dL Albumin 3.6 (3.5-5.1) g/dL Pituitary panel 11/21/24 11/22/24 11/22/24 Range/Units 20:50 05:30 05:30 Sodium 132 L 133 L (137-145) mmol/L Potassium 4.0 3.8 (3.4-5.0) mmol/L Chloride 96 L 104 (98-107) mmol/L Carbon Dioxide 28 21 L (22-30) mmol/L BUN 16 11 D (9-20) mg/dL Creatinine 0.74 0.60 L 0.60 L (0.7-1.3) mg/dL Glucose 474 H 282 H (65-110) mg/dL Calcium 8.7 7.9 L (8.4-10.2) mg/dL Adrenal panel 11/21/24 11/22/24 11/22/24 Range/Units 20:50 05:30 05:30 Sodium 132 L 133 L (137-145) mmol/L Potassium 4.0 3.8 (3.4-5.0) mmol/L Chloride 96 L 104 (98-107) mmol/L Carbon Dioxide 28 21 L (22-30) mmol/L BUN 16 11 D (9-20) mg/dL Creatinine 0.74 0.60 L 0.60 L (0.7-1.3) mg/dL Glucose 474 H 282 H (65-110) mg/dL Calcium 8.7 7.9 L (8.4-10.2) mg/dL Total Bilirubin 1.3 (0.2-1.3) mg/dL AST 25 (17-59) U/L ALT 19 (6-50) U/L Alkaline Phosphatase 121 (38-126) U/L Total Protein 7.0 (6.3-8.2) g/dL Albumin 3.6 (3.5-5.1) g/dL All other labs normal.
[2024-11-22] MEDS: VANCOMYCIN 1,500 MG/NS 500 ML 1,500 MG/500 ML BAG 250 MG IVPB ×2 (10:51→23:53)
[2024-11-22] MEDS: PANTOPRAZOLE 40 MG TABLET PO (10:56)
--- NOTE | 2024-11-22 11:25 | PC.NURSE ---
Outpatient referral for DSMT and MNT started and faxed to [facility] and to Dr. Whitney.
[2024-11-22 12:24] LABS: Glucose Point of Care 161 mg/dl (65-105)
[2024-11-22] MEDS: INSULIN ASPART (*BKC) 100 UNITS/ML SUB-Q ×2 (13:07→17:28)
[2024-11-22 16:55] LABS: Glucose Point of Care 148 mg/dl (65-105)
[2024-11-22] MEDS: CEFEPIME 2 GM/NS 50 ML 2 GM/50 ML BAG IVPB (20:10)
[2024-11-22 23:37] LABS: Glucose Point of Care 159 mg/dl (65-105)
[2024-11-23] MEDS: SODIUM CHLORIDE 0.9% IV 1,000 ML 125 ML IV CONT ×2 (04:51→13:52)
[2024-11-23 05:47] VITALS: BP 133/81; PULSE 78; RESP 18; TEMP 36.5; O2SAT 98
[2024-11-23 05:48] LABS: Glucose Point of Care 88 mg/dl (65-105)
[2024-11-23] MEDS: metroNIDAZOLE 500 MG/ISO 100ML 500 MG/100 ML BAG 100 MG IVPB ×3 (05:51→22:13)
[2024-11-23 06:15] LABS: Hematocrit 36.2 % (42.0-52.0); Hemoglobin 12.2 g/dL (14.0-18.0); Mean Corpuscular HGB Conc 33.7 g/dl (32-36); Mean Corpuscular Hemoglobin 29.6 pg (26-34); Mean Corpuscular Volume 87.9 fl (80-100); Mean Platelet Volume 9.9 fl (7.4-10.4); Platelet Count Result 183 k/mm3 (150-375); Red Blood Count 4.12 M/mm3 (4.6-6.20); Red Cell Distribution Width 12.2 % (11.5-14.5); White Blood Count 9.4 K/mm3 (4.5-10.0)
[2024-11-23 06:28] LABS: Alanine Aminotransferase 18 U/L (6-50); Albumin Level 2.9 g/dL (3.5-5.1); Alkaline Phosphatase 101 U/L (38-126); Anion Gap 9 mmol/L (4-12); Aspartate Amino Transferase 30 U/L (17-59); Bilirubin,Total 0.9 mg/dL (0.2-1.3); Blood Urea Nitrogen 8 mg/dL (9-20); Calcium 7.8 mg/dL (8.4-10.2); Carbon Dioxide 20 mmol/L (22-30); Chloride 105 mmol/L (98-107); Estimated CRCL calculation 101 ml/min; Estimated Glomerular Filt Rate > 60; Glucose 83 mg/dL (65-110); Potassium 3.4 mmol/L (3.4-5.0); Sodium 134 mmol/L (137-145)
--- NOTE | 2024-11-23 07:03 | P.PNIM_ITS ---
Progress Note: A&P Assessment and Plan (1) Diabetic infection of left foot: Code(s): E11.628 - Type 2 diabetes mellitus with other skin complications; L08.9 - Local infection of the skin and subcutaneous tissue, unspecified Status: Acute Assessment and Plan: * See below (2) Osteomyelitis: Qualifiers: Laterality: left Osteomyelitis location: foot Osteomyelitis type: other acute Qualified Code(s): M86.172 - Other acute osteomyelitis, left ankle and foot Code(s): M86.9 - Osteomyelitis, unspecified Status: Acute Assessment and Plan: * Presented to the ED with complaints of left great toe swelling and pain radiating to the ball of the foot * Osteomyelitis secondary to infected diabetic foot ulcer of the left toe. * tissues are boggy with noted there areas of obvious necrosis. * Infection seems to also extends to the 2nd toe and extends down to the mid metatarsal. * WBC stable currently at 9.4 * General surgery consulted thank you for your help * Will need a toe amputation * MRI of the foot unable to be done here will need to follow up further outpatient * Continue IV therapy cefepime, flagyl, and vancomycin * Continue pain medications with morphine and norco * Zofran from nausea and vomiting (3) Uncontrolled diabetes mellitus with hyperglycemia: Qualifiers: Diabetes mellitus type: type 2 Qualified Code(s): E11.65 - Type 2 diabetes mellitus with hyperglycemia Code(s): E11.65 - Type 2 diabetes mellitus with hyperglycemia Status: Acute Assessment and Plan: * Glucose is stable at 83 * A1c 12.0 * Continue home Jardiance, Lantus 20 units at night * Consider sticker machine operator consult * Hold home metformin * ISS * Hypoglycemia protocol * Trend glucose * Adjust therapy as indicated (4) Hypertension: Code(s): I10 - Essential (primary) hypertension Status: Acute Assessment and Plan: * Current BP is 133/81 * Continue home metoprolol, losartan * Trend BP * Adjust therapy as indicated (5) Dyslipidemia: Code(s): E78.5 - Hyperlipidemia, unspecified Status: Acute Assessment and Plan: * Continue atorvastatin Time Spent With Patient Time: 56 minutes Time with patient: Greater than 35 minutes Subjective Date/time seen: 11/23/24 07:03 Interval history: 11/23/2024 0815 Patient was sitting up eating. Patient states that he is doing okay. He denies any current chest pain, shortness a breath, nausea, vomiting, diarrhea constipation. He did state his pain is about a 5/10. Did talk to the nursing and about him getting the MRI which was stated that is not able to get an MRI here. Did reach out to calcium with surgery however did not hear anything back yet. Awaiting further recommendations from General surgery for surgical intervention versus antibiotic therapy. 11/22/2024 0527 Patient is a 69-year-old male admitted for further evaluation and treatment of osteomyelitis of his proximal phalanx and distal phalanx of the left big toe seen on a foot x-ray. patient had been seen by previous provider same day has been initiated on IV vancomycin Flagyl, and cefepime with consult to surgery. patient has been afebrile with normal WBC but has had increased swelling to left big toe which brought him to the emergency room. Patient with uncontrolled diabetes currently on insulin sugars were greater than 400 on arrival. I have increased patient's Lantus from 16 units to 20 units and added a high dose sliding scale for better control A1c was 12. will hold Lovenox DVT prophylaxis for possible surgery currently NPO with plans to see surgery today. will consult dietitian for further education on diabetic diet and blood sugar control. Spoke with Surgery will continue with IV ABX and get MRI for further evaluation. Will order YARA's for vascular evaluation multiple wounds noted BLE in different stages of healing. 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 The patient arrived to the ER with a large ulcer to the left great toe with swelling up into the ball of the foot with associated erythema. He reports that he has been having pain in the foot for about a week. He reports that the pain is pretty bad with touch base a or with trying to walk. He has areas of necrosis of the toe with what appears to be extension to the 2nd digit. Had the patient has rancid odor from the foot He had elevated CRP but normal white count. The patient denies having any pain in the foot and in fact has been walking around barefoot out in the yard and his foot was covered in dirt and grass on arrival to the ER. He denies any fevers or chills. He reports that his daughters been giving him his insulin but they do not check his blood sugars. Review of Systems Review of Systems: 12 systems were reviewed with pertinent positives and negatives per HPI. Except as documented in the HPI, all other systems were reviewed and are negative. Exam Narrative: General: well-nourished, well-appearing 69-year-old male, sitting up in bed, comfortable, NARD Neuro: awake, alert and oriented x4, speech clear, no focal neuro deficits noted HEENMT: normocephalic, atraumatic, EOMI, sclerae anicteric, moist oral mucosa Respiratory: Clear to auscultation bilaterally without crackles, rhonchi or wheezes, nonlabored breathing Cardio: regular rate, regular rhythm with S1-S2 Abdomen: nondistended, normoactive bowel sounds, soft, nontender to palpation Extremities: Left great toe is very swollen red with necrotic tissue that radiates down to the ball of foot down to the middle of the foot. Skin: no rashes or lesions, warm and dry Psych: appropriate mood and affect, judgment and insight intact Objective Data Vital Signs Vital Signs: Vital Signs - 24 hr 11/22/24 08:00 11/22/24 08:25 11/22/24 14:00 Temperature 97.8 F Pulse Rate 67 73 Respiratory Rate 18 Blood Pressure 127/58 L Pulse Oximetry 100 Oxygen Delivery Room Air Fraction of Inspired Oxygen 11/22/24 20:00 11/22/24 20:18 11/22/24 21:31 Temperature 98.6 F Pulse Rate 77 81 Respiratory Rate 18 20 Blood Pressure 129/72 Pulse Oximetry 99 92 Oxygen Delivery Room Air Room Air Fraction of Inspired Oxygen 21 11/23/24 05:47 Temperature 97.7 F Pulse Rate 78 Respiratory Rate 18 Blood Pressure 133/81 Pulse Oximetry 98 Oxygen Delivery Fraction of Inspired Oxygen Intake/Output Intake/Output: Intake & Output 11/20/24 11/21/24 11/22/24 11/23/24 23:59 23:59 23:59 23:59 Intake Total 2550 3027.5 1000 Output Total 1700 Balance 2550 1327.5 1000 Meds/Results Medications: Active Medications Generic Name Dose Route Start Last Admin Trade Name Freq PRN Reason Stop Dose Admin Acetaminophen 650 mg 11/21/24 23:41 Acetaminophen 325 Mg Tablet PO Q4H PRN Mild Pain (1-3) or Fever Hydrocodone Bitart/Acetaminophen 1 tab 11/22/24 08:20 11/22/24 08:30 Hydrocodone/Acetaminophen (*Crx) 5-325 Mg Tablet PO 1 tab Q4H PRN Administration Moderate Pain (4-6) Atorvastatin Calcium 40 mg 11/22/24 09:00 11/22/24 08:25 Atorvastatin 40 Mg Tablet BY MOUTH 40 mg DAILY SUHAIL Administration Dextrose 12.5 gm 11/22/24 07:04 Dextrose 50% 25 Gm/50 Ml Syringe IV PUSH PRN PRN Hypoglycemia Protocol Empagliflozin 10 mg 11/22/24 09:00 11/22/24 08:25 Empagliflozin 10 Mg Tablet BY MOUTH 10 mg DAILY SUHAIL Administration Enoxaparin Sodium 40 mg 11/23/24 09:00 Enoxaparin 40 Mg/0.4 Ml Syringe SUB-Q DAILY SUHAIL Glucagon 1 mg 11/22/24 07:04 Glucagon For Inj 1 Mg Vial IM PRN PRN Hypoglycemia Protocol Glucose 15 gm 11/22/24 07:04 Glucose Oral Gel 15 Gm Of Glucse In 37.5 Gm Tube PO PRN PRN Hypoglycemia Protocol Sodium Chloride 1,000 mls @ 125 mls/hr 11/21/24 23:45 11/23/24 04:51 Normal Saline Iv IV CONT 125 mls/hr .Q8H SUHAIL Administration Vancomycin HCl 1,500 mg in 500 mls @ 250 mls/hr 11/22/24 11:00 11/22/24 23:53 Vancomycin 1,500 Mg/Ns 500 Ml IVPB 250 mls/hr Q12H SUHAIL Administration Dextrose 1,000 mls @ 100 mls/hr 11/22/24 07:04 Dextrose 5% 1,000 Ml IVPB PRN PRN Hypoglycemia Protocol Cefepime HCl 2 gm in 50 mls @ 100 mls/hr 11/22/24 21:00 11/22/24 20:10 Maxipime 2 Gm/Ns 50 Ml IVPB 100 mls/hr Q12H SUHAIL Administration Metronidazole 500 mg in 100 mls @ 100 mls/hr 11/22/24 07:45 11/23/24 05:51 Flagyl 500 Mg/Iso Soln 100 Ml IVPB 100 mls/hr Q8HR SUHAIL Administration Insulin Aspart 4 - 8 units 11/22/24 12:00 11/23/24 05:50 Insulin Aspart (*Bkc) 100 Units/Ml SUB-Q Not Given Q6HR [facility] Protocol Insulin Aspart 4 units 11/22/24 12:00 11/22/24 17:28 Insulin Aspart (*Bkc) 100 Units/Ml SUB-Q 4 units TIDWM SUHAIL Administration Insulin Glargine 20 units 11/22/24 09:00 11/22/24 09:29 Insulin Glargine (*Bkc) 100 Units/Ml SUB-Q 20 units QAM SUHAIL Administration Losartan Potassium 50 mg 11/22/24 09:00 11/22/24 08:25 Losartan Potassium 50 Mg Tablet PO 50 mg DAILY SUHAIL Administration Metoprolol Succinate 25 mg 11/22/24 09:00 11/22/24 08:25 Metoprolol Succinate Ext Rel 25 Mg Tabcr PO 25 mg DAILY SUHAIL Administration Morphine Sulfate 4 mg 11/22/24 07:47 Morphine Sulfate (*Crx) 4 Mg/Ml Inj IV PUSH Q4H PRN Pain Rated 7-10 Ondansetron HCl 4 mg 11/22/24 08:20 Ondansetron Inj 4 Mg/2 Ml Vial IV PUSH Q6H PRN Nausea And Vomiting Pantoprazole Sodium 40 mg 11/22/24 09:00 11/22/24 10:56 Pantoprazole 40 Mg Tablet PO 40 mg QAM SUHAIL Administration Radiology Results: ITS Impressions Foot X-Ray 11/21/24 21:42 IMPRESSION: Osteomyelitis involving the proximal phalanx and distal phalanx of the left big toe. Clinical correlation and follow-up advised. Labs Labs: Laboratory Results - last 24 hr 11/22/24 11/22/24 11/22/24 05:30 12:19 16:53 WBC 7.8 RBC 4.06 L Hgb 12.0 L Hct 36.9 L MCV 90.9 MCH 29.6 MCHC 32.5 RDW 12.2 Plt Count 177 MPV 10.1 Immature Gran % (Auto) 0.8 H Neut % (Auto) 68.6 Lymph % (Auto) 20.2 [place] % (Auto) 9.0 H Eos % (Auto) 1.0 Baso % (Auto) 0.4 Lymph # (Auto) 1.57 [place] # (Auto) 0.7 H Eos # (Auto) 0.1 Baso # (Auto) 0.0 Abs Immat Gran (auto) 0.06 H Absolute Neuts (auto) 5.3 Absolute Nucleated RBC 0.000 Nucleated RBC % 0.0 Sodium 133 L Potassium 3.8 Chloride 104 Carbon Dioxide 21 L Anion Gap 8 BUN 11 D Creatinine 0.60 L Estim Creat Clear Calc 102 Estimated GFR > 60 Glucose 282 H POC Capillary Glucose 161 H 148 H Calcium 7.9 L Total Bilirubin AST ALT Alkaline Phosphatase Total Protein Albumin 11/22/24 11/23/24 11/23/24 23:35 05:40 05:59 WBC 9.4 RBC 4.12 L Hgb 12.2 L Hct 36.2 L MCV 87.9 MCH 29.6 MCHC 33.7 RDW 12.2 Plt Count 183 MPV 9.9 Immature Gran % (Auto) Neut % (Auto) Lymph % (Auto) [place] % (Auto) Eos % (Auto) Baso % (Auto) Lymph # (Auto) [place] # (Auto) Eos # (Auto) Baso # (Auto) Abs Immat Gran (auto) Absolute Neuts (auto) Absolute Nucleated RBC Nucleated RBC % Sodium 134 L Potassium 3.4 Chloride 105 Carbon Dioxide 20 L Anion Gap 9 BUN 8 L Creatinine 0.61 L Estim Creat Clear Calc 101 Estimated GFR > 60 Glucose 83 POC Capillary Glucose 159 H 88 Calcium 7.8 L Total Bilirubin 0.9 AST 30 ALT 18 Alkaline Phosphatase 101 Total Protein 6.0 L Albumin 2.9 L Quality VTE Prophylaxis VTE prophylaxis: pharmacologic ordered (Lovenox 40 mg subQ daily. To start on 11/23/2024) Hospitalist [facility] Advance Care Plan I have confirmed that the patient's Advanced Care Plan is present, code status is documented, or surrogate decision maker is listed in patient medical record.: Yes Medication Reconciliation I have utilized all available resources to obtain, update and review the patients current medications (includes all prescriptions, OTC, herbals, cannabis, and nutritional supplements).: Yes The patient is not eligible for med reconciliation; the patient is in a emergent medical situation where delaying treatment would jeopardize the patients health.: Yes
[2024-11-23] MEDS: INSULIN GLARGINE (*BKC) 100 UNITS/ML 20 UNITS SUB-Q (09:12)
[2024-11-23] MEDS: INSULIN ASPART (*BKC) 100 UNITS/ML SUB-Q ×3 (09:14→19:45)
[2024-11-23 09:16] VITALS: PULSE 78
[2024-11-23] MEDS: EMPAGLIFLOZIN 10 MG TABLET BY MOUTH (09:16)
[2024-11-23] MEDS: ATORVASTATIN 40 MG TABLET BY MOUTH (09:16)
[2024-11-23] MEDS: METOPROLOL SUCCINATE EXT REL 25 MG TABCR PO (09:16)
[2024-11-23] MEDS: LOSARTAN POTASSIUM 50 MG TABLET PO (09:16)
[2024-11-23] MEDS: PANTOPRAZOLE 40 MG TABLET PO (09:16)
[2024-11-23] MEDS: CEFEPIME 2 GM/NS 50 ML 2 GM/50 ML BAG IVPB ×2 (09:18→20:42)
[2024-11-23] MEDS: HYDROcodone/acetaminophen (*CRX) 5-325 MG TABLET 1 TAB PO ×2 (09:28→13:45)
[2024-11-23 10:20] LABS: Vancomycin Trough 13.1 ug/mL (10.0-20.0)
--- NOTE | 2024-11-23 10:38 | P.PNGS_ITS ---
Progress Note: A&P Assessment and Plan (1) Diabetic infection of left foot: Code(s): E11.628 - Type 2 diabetes mellitus with other skin complications; L08.9 - Local infection of the skin and subcutaneous tissue, unspecified Status: Acute Assessment and Plan: Upon exam the left great toe is surround with necrotic tissue and possible purulent drainage from lateral aspect that will likely need surgical interve ntion. Surrounding erythema and edema improved from yesterday. Continue IV antibiotics and plan for surgical intervention pending imaging results. Patient will likely need left great toe amputation in the next few days. OK to maintain diabetic regular diet today. Subjective Subjective Date/Time Seen: 11/23/24 10:38 Interval history: Erythema and edema to dorsal left foot has decreased since yesterday. Left great toe is still severely necrotic. US YARA ordered. MRI cancelled, presumably due to pacemaker. Exam Skin: General skin exam: normal color Other: Warm, dry, normal color, no rashes. Left great toe necrotic with areas of full- thickness ulcer. Edema and erythema improved from yesterday. Minimal serosanguineous drainage with possible purulent drainage from lateral aspect of great toe. Objective Data Vital Signs Vital Signs: Vital Signs - 24 hr 11/22/24 14:00 11/22/24 20:00 11/22/24 20:18 Temperature 97.8 F 98.6 F Pulse Rate 73 77 Respiratory Rate 18 18 Blood Pressure 127/58 L 129/72 Pulse Oximetry 100 99 Oxygen Delivery Room Air Fraction of Inspired Oxygen 11/22/24 21:31 11/23/24 05:47 11/23/24 09:16 Temperature 97.7 F Pulse Rate 81 78 78 Respiratory Rate 20 18 Blood Pressure 133/81 Pulse Oximetry 92 98 Oxygen Delivery Room Air Fraction of Inspired Oxygen 21 Intake/Output Intake/Output: Intake & Output 11/20/24 11/21/24 11/22/24 11/23/24 23:59 23:59 23:59 23:59 Intake Total 2550 3077.5 1600 Output Total 1700 Balance 2550 1377.5 1600 Meds/Results Medications: Active Medications Generic Name Dose Route Start Last Admin Trade Name Freq PRN Reason Stop Dose Admin Acetaminophen 650 mg 11/21/24 23:41 Acetaminophen 325 Mg Tablet PO Q4H PRN Mild Pain (1-3) or Fever Hydrocodone Bitart/Acetaminophen 1 tab 11/22/24 08:20 11/23/24 09:28 Hydrocodone/Acetaminophen (*Crx) 5-325 Mg Tablet PO 1 tab Q4H PRN Administration Moderate Pain (4-6) Atorvastatin Calcium 40 mg 11/22/24 09:00 11/23/24 09:16 Atorvastatin 40 Mg Tablet BY MOUTH 40 mg DAILY SUHAIL Administration Dextrose 12.5 gm 11/22/24 07:04 Dextrose 50% 25 Gm/50 Ml Syringe IV PUSH PRN PRN Hypoglycemia Protocol Empagliflozin 10 mg 11/22/24 09:00 11/23/24 09:16 Empagliflozin 10 Mg Tablet BY MOUTH 10 mg DAILY SUHAIL Administration Enoxaparin Sodium 40 mg 11/23/24 09:00 Enoxaparin 40 Mg/0.4 Ml Syringe SUB-Q DAILY SUHAIL Glucagon 1 mg 11/22/24 07:04 Glucagon For Inj 1 Mg Vial IM PRN PRN Hypoglycemia Protocol Glucose 15 gm 11/22/24 07:04 Glucose Oral Gel 15 Gm Of Glucse In 37.5 Gm Tube PO PRN PRN Hypoglycemia Protocol Sodium Chloride 1,000 mls @ 125 mls/hr 11/21/24 23:45 11/23/24 04:51 Normal Saline Iv IV CONT 125 mls/hr .Q8H SUHAIL Administration Vancomycin HCl 1,500 mg in 500 mls @ 250 mls/hr 11/22/24 11:00 11/23/24 01:53 Vancomycin 1,500 Mg/Ns 500 Ml IVPB Infused Q12H SUHAIL Infusion Dextrose 1,000 mls @ 100 mls/hr 11/22/24 07:04 Dextrose 5% 1,000 Ml IVPB PRN PRN Hypoglycemia Protocol Cefepime HCl 2 gm in 50 mls @ 100 mls/hr 11/22/24 21:00 11/23/24 09:18 Maxipime 2 Gm/Ns 50 Ml IVPB 100 mls/hr Q12H SUHAIL Administration Metronidazole 500 mg in 100 mls @ 100 mls/hr 11/22/24 07:45 11/23/24 06:28 Flagyl 500 Mg/Iso Soln 100 Ml IVPB Infused Q8HR SUHAIL Infusion Insulin Aspart 4 units 11/22/24 12:00 11/23/24 09:14 Insulin Aspart (*Bkc) 100 Units/Ml SUB-Q 4 units TIDWM SUHAIL Administration Insulin Glargine 20 units 11/22/24 09:00 11/23/24 09:12 Insulin Glargine (*Bkc) 100 Units/Ml SUB-Q 20 units QAM SUHAIL Administration Losartan Potassium 50 mg 11/22/24 09:00 11/23/24 09:16 Losartan Potassium 50 Mg Tablet PO 50 mg DAILY SUHAIL Administration Metoprolol Succinate 25 mg 11/22/24 09:00 11/23/24 09:16 Metoprolol Succinate Ext Rel 25 Mg Tabcr PO 25 mg DAILY SUHAIL Administration Morphine Sulfate 4 mg 11/22/24 07:47 Morphine Sulfate (*Crx) 4 Mg/Ml Inj IV PUSH Q4H PRN Pain Rated 7-10 Ondansetron HCl 4 mg 11/22/24 08:20 Ondansetron Inj 4 Mg/2 Ml Vial IV PUSH Q6H PRN Nausea And Vomiting Pantoprazole Sodium 40 mg 11/22/24 09:00 11/23/24 09:16 Pantoprazole 40 Mg Tablet PO 40 mg QAM SUHAIL Administration Radiology Results: ITS Impressions Foot X-Ray 11/21/24 21:42 IMPRESSION: Osteomyelitis involving the proximal phalanx and distal phalanx of the left big toe. Clinical correlation and follow-up advised. Labs Labs: Laboratory Results - last 24 hr 11/22/24 11/22/24 11/22/24 12:19 16:53 23:35 WBC RBC Hgb Hct MCV MCH MCHC RDW Plt Count MPV Sodium Potassium Chloride Carbon Dioxide Anion Gap BUN Creatinine Estim Creat Clear Calc Estimated GFR Glucose POC Capillary Glucose 161 H 148 H 159 H Calcium Total Bilirubin AST ALT Alkaline Phosphatase Total Protein Albumin Vancomycin Trough 11/23/24 11/23/24 11/23/24 05:40 05:59 09:57 WBC 9.4 RBC 4.12 L Hgb 12.2 L Hct 36.2 L MCV 87.9 MCH 29.6 MCHC 33.7 RDW 12.2 Plt Count 183 MPV 9.9 Sodium 134 L Potassium 3.4 Chloride 105 Carbon Dioxide 20 L Anion Gap 9 BUN 8 L Creatinine 0.61 L Estim Creat Clear Calc 101 Estimated GFR > 60 Glucose 83 POC Capillary Glucose 88 Calcium 7.8 L Total Bilirubin 0.9 AST 30 ALT 18 Alkaline Phosphatase 101 Total Protein 6.0 L Albumin 2.9 L Vancomycin Trough 13.1
[2024-11-23 12:04] LABS: Glucose Point of Care 187 mg/dl (65-105)
[2024-11-23] MEDS: VANCOMYCIN 1,500 MG/NS 500 ML 1,500 MG/500 ML BAG 250 MG IVPB (13:33)
[2024-11-23 14:00] VITALS: BP 128/78; PULSE 76; RESP 18; TEMP 36.6; O2SAT 99
[2024-11-23] MEDS: VANCOMYCIN 1,750 MG/NS 500 ML 1,750 MG/500 ML BAG 250 MG IVPB (16:56)
[2024-11-23 17:15] LABS: Glucose Point of Care 147 mg/dl (65-105)
[2024-11-23 20:40] VITALS: PULSE 77; RESP 18; O2SAT 96
[2024-11-23 21:04] VITALS: BP 129/66; PULSE 77; RESP 18; TEMP 36.6; O2SAT 96
[2024-11-23 21:35] LABS: Glucose Point of Care 145 mg/dl (65-105)
[2024-11-24] MEDS: SODIUM CHLORIDE 0.9% IV 1,000 ML 125 ML IV CONT ×3 (00:31→23:20)
[2024-11-24] MEDS: VANCOMYCIN 1,750 MG/NS 500 ML 1,750 MG/500 ML BAG 250 MG IVPB ×2 (03:59→16:04)
[2024-11-24 06:00] VITALS: BP 142/89; PULSE 71; RESP 18; TEMP 36.8; O2SAT 100
[2024-11-24] MEDS: metroNIDAZOLE 500 MG/ISO 100ML 500 MG/100 ML BAG 100 MG IVPB ×3 (06:10→20:14)
[2024-11-24 06:20] LABS: Hematocrit 36.7 % (42.0-52.0); Hemoglobin 11.9 g/dL (14.0-18.0); Mean Corpuscular HGB Conc 32.4 g/dl (32-36); Mean Corpuscular Hemoglobin 29.5 pg (26-34); Mean Corpuscular Volume 91.1 fl (80-100); Mean Platelet Volume 10.3 fl (7.4-10.4); Platelet Count Result 197 k/mm3 (150-375); Red Blood Count 4.03 M/mm3 (4.6-6.20); Red Cell Distribution Width 12.4 % (11.5-14.5); White Blood Count 9.5 K/mm3 (4.5-10.0)
[2024-11-24 06:29] LABS: Alanine Aminotransferase 16 U/L (6-50); Albumin Level 2.7 g/dL (3.5-5.1); Alkaline Phosphatase 98 U/L (38-126); Anion Gap 6 mmol/L (4-12); Aspartate Amino Transferase 29 U/L (17-59); Bilirubin,Total 0.6 mg/dL (0.2-1.3); Blood Urea Nitrogen 8 mg/dL (9-20); Calcium 7.9 mg/dL (8.4-10.2); Carbon Dioxide 20 mmol/L (22-30); Chloride 106 mmol/L (98-107); Estimated CRCL calculation 91 ml/min; Estimated Glomerular Filt Rate > 60; Glucose 83 mg/dL (65-110); Potassium 3.3 mmol/L (3.4-5.0); Sodium 132 mmol/L (137-145)
--- NOTE | 2024-11-24 06:52 | P.PNIM_ITS ---
Progress Note: A&P Assessment and Plan (1) Diabetic infection of left foot: Code(s): E11.628 - Type 2 diabetes mellitus with other skin complications; L08.9 - Local infection of the skin and subcutaneous tissue, unspecified Status: Acute Assessment and Plan: * See below (2) Osteomyelitis: Qualifiers: Laterality: left Osteomyelitis location: foot Osteomyelitis type: other acute Qualified Code(s): M86.172 - Other acute osteomyelitis, left ankle and foot Code(s): M86.9 - Osteomyelitis, unspecified Status: Acute Assessment and Plan: * Presented to the ED with complaints of left great toe swelling and pain radiating to the ball of the foot * Osteomyelitis secondary to infected diabetic foot ulcer of the left toe. * tissues are boggy with noted there areas of obvious necrosis. * Infection seems to also extends to the 2nd toe and extends down to the mid metatarsal. * WBC stable currently at 9.5 * General surgery consulted thank you for your help * most likely with get surgical intervention today * MRI of the foot unable to be done here will need to follow up further outpatient * Continue IV therapy cefepime, flagyl, and vancomycin * Continue pain medications with morphine and norco * Zofran from nausea and vomiting (3) Uncontrolled diabetes mellitus with hyperglycemia: Qualifiers: Diabetes mellitus type: type 2 Qualified Code(s): E11.65 - Type 2 diabetes mellitus with hyperglycemia Code(s): E11.65 - Type 2 diabetes mellitus with hyperglycemia Status: Acute Assessment and Plan: * Glucose is stable at 83 * A1c 12.0 * Continue home Jardiance, Lantus 20 units at night * Consider remote sensing scientist consult * Hold home metformin * ISS * Hypoglycemia protocol * Trend glucose * Adjust therapy as indicated (4) Hypertension: Code(s): I10 - Essential (primary) hypertension Status: Acute Assessment and Plan: * Current BP is 142/89 * Continue home metoprolol, losartan * Trend BP * Adjust therapy as indicated (5) Dyslipidemia: Code(s): E78.5 - Hyperlipidemia, unspecified Status: Acute Assessment and Plan: * Continue atorvastatin (6) Hypokalemia: Code(s): E87.6 - Hypokalemia Status: Acute Assessment and Plan: * K 3.3 today * 40 meq ordered x 1 * Trend K * Replace and supplement as indicated Time Spent With Patient Time: 49 minutes Time with patient: Greater than 35 minutes Subjective Date/time seen: 11/24/24 0915 Interval history: 11/24/2024 0915 Patient is lying in bed and is doing okay. Patient did have a rough time getting out of bed this morning however per nursing he did okay and did not f all. He denies any chest pain, shortness a breath, nausea, vomiting, diarrhea constipation. Patient seems to be a little bit off when it comes to memory however he does seem pretty pleasant at this time. Patient does appear a little paler than normal. Spoke with surgery about plan. MRI unable to be obtained due to patient's pacemaker. Potassium 3.3 this morning will replace accordingly. 11/23/2024 0815 Patient was sitting up eating. Patient states that he is doing okay. He denies any current chest pain, shortness a breath, nausea, vomiting, diarrhea constipat ion. He did state his pain is about a 5/10. Did talk to the nursing and about him getting the MRI which was stated that is not able to get an MRI here. Did reach out to calcium with surgery however did not hear anything back yet. Awaiting further recommendations from General surgery for surgical intervention versus antibiotic therapy. 11/22/2024 0550 Patient is a 69-year-old male admitted for further evaluation and treatment of osteomyelitis of his proximal phalanx and distal phalanx of the left big toe seen on a foot x-ray. patient had been seen by previous provider same day has been initiated on IV vancomycin Flagyl, and cefepime with consult to surgery. patient has been afebrile with normal WBC but has had increased swelling to left big toe which brought him to the emergency room. Patient with uncontrolled diabetes currently on insulin sugars were greater than 400 on arrival. I have increased patient's Lantus from 16 units to 20 units and added a high dose sliding scale for better control A1c was 12. will hold Lovenox DVT prophylaxis for possible surgery currently NPO with plans to see surgery today. will consult dietitian for further education on diabetic diet and blood sugar control. Spoke with Surgery will continue with IV ABX and get MRI for further evaluation. Will order YARA's for vascular evaluation multiple wounds noted BLE in different stages of healing. 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 The patient arrived to the ER with a large ulcer to the left great toe with swelling up into the ball of the foot with associated erythema. He reports that he has been having pain in the foot for about a week. He reports that the pain is pretty bad with touch base a or with trying to walk. He has areas of necrosis of the toe with what appears to be extension to the 2nd digit. Had the patient has rancid odor from the foot He had elevated CRP but normal white count. The patient denies having any pain in the foot and in fact has been walking around barefoot out in the yard and his foot was covered in dirt and grass on arrival to the ER. He denies any fevers or chills. He reports that his daughters been giving him his insulin but they do not check his blood sugars. Review of Systems Review of Systems: 12 systems were reviewed with pertinent positives and negatives per HPI. Except as documented in the HPI, all other systems were reviewed and are negative. Exam Narrative: General: well-nourished, well-appearing 69-year-old male, sitting up in bed, comfortable, NARD Neuro: awake, alert and oriented x4, speech clear, no focal neuro deficits noted HEENMT: normocephalic, atraumatic, EOMI, sclerae anicteric, moist oral mucosa Respiratory: Clear to auscultation bilaterally without crackles, rhonchi or wheezes, nonlabored breathing Cardio: regular rate, regular rhythm with S1-S2 Abdomen: nondistended, normoactive bowel sounds, soft, nontender to palpation Extremities: Left great toe is very swollen red with necrotic tissue that radiates down to the ball of foot down to the middle of the foot. Skin: no rashes or lesions, warm and dry Psych: appropriate mood and affect, judgment and insight intact Objective Data Vital Signs Vital Signs: Vital Signs - 24 hr 11/23/24 08:00 11/23/24 09:16 11/23/24 14:00 Temperature 97.8 F Pulse Rate 78 76 Respiratory Rate 18 Blood Pressure 128/78 Pulse Oximetry 99 Oxygen Delivery Room Air Fraction of Inspired Oxygen 11/23/24 20:40 11/23/24 21:04 11/24/24 06:00 Temperature 98 F 98.3 F Pulse Rate 77 77 71 Respiratory Rate 18 18 18 Blood Pressure 129/66 142/89 H Pulse Oximetry 96 96 100 Oxygen Delivery Room Air Fraction of Inspired Oxygen 21 Intake/Output Intake/Output: Intake & Output 11/21/24 11/22/24 11/23/24 11/24/24 23:59 23:59 23:59 23:59 Intake Total 2550 3077.5 3710 1240 Output Total 1700 Balance 2550 1377.5 3710 1240 Meds/Results Medications: Active Medications Generic Name Dose Route Start Last Admin Trade Name Freq PRN Reason Stop Dose Admin Acetaminophen 650 mg 11/21/24 23:41 Acetaminophen 325 Mg Tablet PO Q4H PRN Mild Pain (1-3) or Fever Hydrocodone Bitart/Acetaminophen 1 tab 11/22/24 08:20 11/23/24 13:45 Hydrocodone/Acetaminophen (*Crx) 5-325 Mg Tablet PO 1 tab Q4H PRN Administration Moderate Pain (4-6) Atorvastatin Calcium 40 mg 11/22/24 09:00 11/23/24 09:16 Atorvastatin 40 Mg Tablet BY MOUTH 40 mg DAILY SUHAIL Administration Dextrose 12.5 gm 11/22/24 07:04 Dextrose 50% 25 Gm/50 Ml Syringe IV PUSH PRN PRN Hypoglycemia Protocol Empagliflozin 10 mg 11/22/24 09:00 11/23/24 09:16 Empagliflozin 10 Mg Tablet BY MOUTH 10 mg DAILY SUHAIL Administration Enoxaparin Sodium 40 mg 11/23/24 09:00 Enoxaparin 40 Mg/0.4 Ml Syringe SUB-Q DAILY SUHAIL Glucagon 1 mg 11/22/24 07:04 Glucagon For Inj 1 Mg Vial IM PRN PRN Hypoglycemia Protocol Glucose 15 gm 11/22/24 07:04 Glucose Oral Gel 15 Gm Of Glucse In 37.5 Gm Tube PO PRN PRN Hypoglycemia Protocol Sodium Chloride 1,000 mls @ 125 mls/hr 11/21/24 23:45 11/24/24 00:31 Normal Saline Iv IV CONT 125 mls/hr .Q8H SUHAIL Administration Dextrose 1,000 mls @ 100 mls/hr 11/22/24 07:04 Dextrose 5% 1,000 Ml IVPB PRN PRN Hypoglycemia Protocol Cefepime HCl 2 gm in 50 mls @ 100 mls/hr 11/22/24 21:00 11/23/24 20:42 Maxipime 2 Gm/Ns 50 Ml IVPB 100 mls/hr Q12H SUHAIL Administration Metronidazole 500 mg in 100 mls @ 100 mls/hr 11/22/24 07:45 11/24/24 06:10 Flagyl 500 Mg/Iso Soln 100 Ml IVPB 100 mls/hr Q8HR SUHAIL Administration Vancomycin HCl 1,750 mg in 500 mls @ 250 mls/hr 11/23/24 17:00 11/24/24 03:59 Vancomycin 1,750 Mg/Ns 500 Ml IVPB 250 mls/hr Q12H SUHAIL Administration Insulin Aspart 4 units 11/22/24 12:00 11/23/24 19:45 Insulin Aspart (*Bkc) 100 Units/Ml SUB-Q 4 units TIDWM SUHAIL Administration Insulin Glargine 20 units 11/22/24 09:00 11/23/24 09:12 Insulin Glargine (*Bkc) 100 Units/Ml SUB-Q 20 units QAM SUHAIL Administration Losartan Potassium 50 mg 11/22/24 09:00 11/23/24 09:16 Losartan Potassium 50 Mg Tablet PO 50 mg DAILY SUHAIL Administration Metoprolol Succinate 25 mg 11/22/24 09:00 11/23/24 09:16 Metoprolol Succinate Ext Rel 25 Mg Tabcr PO 25 mg DAILY SUHAIL Administration Morphine Sulfate 4 mg 11/22/24 07:47 Morphine Sulfate (*Crx) 4 Mg/Ml Inj IV PUSH Q4H PRN Pain Rated 7-10 Ondansetron HCl 4 mg 11/22/24 08:20 Ondansetron Inj 4 Mg/2 Ml Vial IV PUSH Q6H PRN Nausea And Vomiting Pantoprazole Sodium 40 mg 11/22/24 09:00 11/23/24 09:16 Pantoprazole 40 Mg Tablet PO 40 mg QAM SUHAIL Administration Radiology Results: ITS Impressions Foot X-Ray 11/21/24 21:42 IMPRESSION: Osteomyelitis involving the proximal phalanx and distal phalanx of the left big toe. Clinical correlation and follow-up advised. Ankle Brachial Index 11/23/24 15:42 IMPRESSION: Normal right YARA. Moderate stenosis on the left side. Clinical correlation and further evaluation advised. Labs Labs: Laboratory Results - last 24 hr 11/23/24 11/23/24 11/23/24 09:57 12:01 17:06 WBC RBC Hgb Hct MCV MCH MCHC RDW Plt Count MPV Sodium Potassium Chloride Carbon Dioxide Anion Gap BUN Creatinine Estim Creat Clear Calc Estimated GFR Glucose POC Capillary Glucose 187 H 147 H Calcium Total Bilirubin AST ALT Alkaline Phosphatase Total Protein Albumin Vancomycin Trough 13.1 11/23/24 11/24/24 21:08 05:34 WBC 9.5 RBC 4.03 L Hgb 11.9 L Hct 36.7 L MCV 91.1 MCH 29.5 MCHC 32.4 RDW 12.4 Plt Count 197 MPV 10.3 Sodium 132 L Potassium 3.3 L Chloride 106 Carbon Dioxide 20 L Anion Gap 6 BUN 8 L Creatinine 0.68 L Estim Creat Clear Calc 91 Estimated GFR > 60 Glucose 83 POC Capillary Glucose 145 H Calcium 7.9 L Total Bilirubin 0.6 AST 29 ALT 16 Alkaline Phosphatase 98 Total Protein 6.0 L Albumin 2.7 L Vancomycin Trough Quality VTE Prophylaxis VTE prophylaxis: pharmacologic ordered (Lovenox 40 mg subQ daily. To start on 11/23/2024)
[2024-11-24 07:54] LABS: Glucose Point of Care 79 mg/dl (65-105)
[2024-11-24] MEDS: CEFEPIME 2 GM/NS 50 ML 2 GM/50 ML BAG IVPB ×2 (08:57→20:13)
[2024-11-24 09:00] VITALS: PULSE 70
[2024-11-24] MEDS: PANTOPRAZOLE 40 MG TABLET PO (09:00)
[2024-11-24] MEDS: LOSARTAN POTASSIUM 50 MG TABLET PO (09:00)
[2024-11-24] MEDS: EMPAGLIFLOZIN 10 MG TABLET BY MOUTH (09:00)
[2024-11-24] MEDS: METOPROLOL SUCCINATE EXT REL 25 MG TABCR PO (09:00)
[2024-11-24] MEDS: ATORVASTATIN 40 MG TABLET BY MOUTH (09:00)
[2024-11-24] MEDS: INSULIN GLARGINE (*BKC) 100 UNITS/ML 20 UNITS SUB-Q (09:04)
[2024-11-24] MEDS: INSULIN ASPART (*BKC) 100 UNITS/ML SUB-Q ×3 (09:05→17:15)
--- NOTE | 2024-11-24 10:07 | P.PNGS_ITS ---
Progress Note: A&P Assessment and Plan (1) Diabetic infection of left foot: Code(s): E11.628 - Type 2 diabetes mellitus with other skin complications; L08.9 - Local infection of the skin and subcutaneous tissue, unspecified Status: Acute Assessment and Plan: Upon exam the left great toe is surround with necrotic tissue and possible purulent drainage from lateral aspect that will likely need surgical interve ntion. Surrounding erythema and edema still present. WBC 9.5. Afebrile. Continue IV antibiotics and plan for surgical intervention pending imaging results. Patient will likely need left great toe amputation in the next few days. NPO after midnight. Subjective Subjective Date/Time Seen: 11/24/24 10:07 Interval history: Patient is doing well today with no pain. Erythema and edema still present over dorsal left foot. Left great toe necrotic with areas of full-thickness ulcer. Minimal serosanguineous drainage with possible purulent drainage from lateral aspect of great toe. Exam Skin: General skin exam: normal color Other: Warm, dry, normal color, no rashes. Left great toe necrotic with areas of full- thickness ulcer. Edema and erythema improved from yesterday. Minimal serosanguineous drainage with possible purulent drainage from lateral aspect of great toe. Objective Data Vital Signs Vital Signs: Vital Signs - 24 hr 11/23/24 14:00 11/23/24 20:40 11/23/24 21:04 Temperature 97.8 F 98 F Pulse Rate 76 77 77 Respiratory Rate 18 18 18 Blood Pressure 128/78 129/66 Pulse Oximetry 99 96 96 Oxygen Delivery Room Air Fraction of Inspired Oxygen 21 11/24/24 06:00 11/24/24 09:00 Temperature 98.3 F Pulse Rate 71 70 Respiratory Rate 18 Blood Pressure 142/89 H Pulse Oximetry 100 Oxygen Delivery Fraction of Inspired Oxygen Intake/Output Intake/Output: Intake & Output 11/21/24 11/22/24 11/23/24 11/24/24 23:59 23:59 23:59 23:59 Intake Total 2550 3077.5 3760 1840 Output Total 1700 Balance 2550 1377.5 3760 1840 Meds/Results Medications: Active Medications Generic Name Dose Route Start Last Admin Trade Name Freq PRN Reason Stop Dose Admin Acetaminophen 650 mg 11/21/24 23:41 Acetaminophen 325 Mg Tablet PO Q4H PRN Mild Pain (1-3) or Fever Hydrocodone Bitart/Acetaminophen 1 tab 11/22/24 08:20 11/23/24 13:45 Hydrocodone/Acetaminophen (*Crx) 5-325 Mg Tablet PO 1 tab Q4H PRN Administration Moderate Pain (4-6) Atorvastatin Calcium 40 mg 11/22/24 09:00 11/24/24 09:00 Atorvastatin 40 Mg Tablet BY MOUTH 40 mg DAILY SUHAIL Administration Dextrose 12.5 gm 11/22/24 07:04 Dextrose 50% 25 Gm/50 Ml Syringe IV PUSH PRN PRN Hypoglycemia Protocol Empagliflozin 10 mg 11/22/24 09:00 11/24/24 09:00 Empagliflozin 10 Mg Tablet BY MOUTH 10 mg DAILY SUHAIL Administration Enoxaparin Sodium 40 mg 11/23/24 09:00 Enoxaparin 40 Mg/0.4 Ml Syringe SUB-Q DAILY SUHAIL Glucagon 1 mg 11/22/24 07:04 Glucagon For Inj 1 Mg Vial IM PRN PRN Hypoglycemia Protocol Glucose 15 gm 11/22/24 07:04 Glucose Oral Gel 15 Gm Of Glucse In 37.5 Gm Tube PO PRN PRN Hypoglycemia Protocol Sodium Chloride 1,000 mls @ 125 mls/hr 11/21/24 23:45 11/24/24 00:31 Normal Saline Iv IV CONT 125 mls/hr .Q8H SUHAIL Administration Dextrose 1,000 mls @ 100 mls/hr 11/22/24 07:04 Dextrose 5% 1,000 Ml IVPB PRN PRN Hypoglycemia Protocol Cefepime HCl 2 gm in 50 mls @ 100 mls/hr 11/22/24 21:00 11/24/24 08:57 Maxipime 2 Gm/Ns 50 Ml IVPB 100 mls/hr Q12H SUHAIL Administration Metronidazole 500 mg in 100 mls @ 100 mls/hr 11/22/24 07:45 11/24/24 07:10 Flagyl 500 Mg/Iso Soln 100 Ml IVPB Infused Q8HR SUHAIL Infusion Vancomycin HCl 1,750 mg in 500 mls @ 250 mls/hr 11/23/24 17:00 11/24/24 05:59 Vancomycin 1,750 Mg/Ns 500 Ml IVPB Infused Q12H SUHAIL Infusion Insulin Aspart 4 units 11/22/24 12:00 11/24/24 09:05 Insulin Aspart (*Bkc) 100 Units/Ml SUB-Q 4 units TIDWM SUHAIL Administration Insulin Glargine 20 units 11/22/24 09:00 11/24/24 09:04 Insulin Glargine (*Bkc) 100 Units/Ml SUB-Q 20 units QAM SUHAIL Administration Losartan Potassium 50 mg 11/22/24 09:00 11/24/24 09:00 Losartan Potassium 50 Mg Tablet PO 50 mg DAILY SUHAIL Administration Metoprolol Succinate 25 mg 11/22/24 09:00 11/24/24 09:00 Metoprolol Succinate Ext Rel 25 Mg Tabcr PO 25 mg DAILY SUHAIL Administration Morphine Sulfate 4 mg 11/22/24 07:47 Morphine Sulfate (*Crx) 4 Mg/Ml Inj IV PUSH Q4H PRN Pain Rated 7-10 Ondansetron HCl 4 mg 11/22/24 08:20 Ondansetron Inj 4 Mg/2 Ml Vial IV PUSH Q6H PRN Nausea And Vomiting Pantoprazole Sodium 40 mg 11/22/24 09:00 11/24/24 09:00 Pantoprazole 40 Mg Tablet PO 40 mg QAM SUHAIL Administration Radiology Results: ITS Impressions Foot X-Ray 11/21/24 21:42 IMPRESSION: Osteomyelitis involving the proximal phalanx and distal phalanx of the left big toe. Clinical correlation and follow-up advised. Ankle Brachial Index 11/23/24 15:42 IMPRESSION: Normal right YARA. Moderate stenosis on the left side. Clinical correlation and further evaluation advised. Labs Labs: Laboratory Results - last 24 hr 11/23/24 11/23/24 11/23/24 09:57 12:01 17:06 WBC RBC Hgb Hct MCV MCH MCHC RDW Plt Count MPV Sodium Potassium Chloride Carbon Dioxide Anion Gap BUN Creatinine Estim Creat Clear Calc Estimated GFR Glucose POC Capillary Glucose 187 H 147 H Calcium Total Bilirubin AST ALT Alkaline Phosphatase Total Protein Albumin Vancomycin Trough 13.1 11/23/24 11/24/24 11/24/24 21:08 05:34 07:51 WBC 9.5 RBC 4.03 L Hgb 11.9 L Hct 36.7 L MCV 91.1 MCH 29.5 MCHC 32.4 RDW 12.4 Plt Count 197 MPV 10.3 Sodium 132 L Potassium 3.3 L Chloride 106 Carbon Dioxide 20 L Anion Gap 6 BUN 8 L Creatinine 0.68 L Estim Creat Clear Calc 91 Estimated GFR > 60 Glucose 83 POC Capillary Glucose 145 H 79 Calcium 7.9 L Total Bilirubin 0.6 AST 29 ALT 16 Alkaline Phosphatase 98 Total Protein 6.0 L Albumin 2.7 L Vancomycin Trough
[2024-11-24] MEDS: POTASSIUM CHLORIDE 20 MEQ PACKET (FOR LIQUID) 40 MEQ PO (11:22)
[2024-11-24 12:26] LABS: Glucose Point of Care 85 mg/dl (65-105)
[2024-11-24] MEDS: HYDROcodone/acetaminophen (*CRX) 5-325 MG TABLET 1 TAB PO ×2 (12:35→20:15)
[2024-11-24 13:56] VITALS: BP 134/98; PULSE 72; RESP 18; TEMP 37; O2SAT 98
[2024-11-24 17:15] LABS: Glucose Point of Care 123 mg/dl (65-105)
[2024-11-24 20:00] VITALS: PULSE 82; RESP 16; O2SAT 95
[2024-11-24] MEDS: SOD HYPOCHLORITE 1/4 STRENGTH 473 ML 1 APPLIC TOPICAL (20:20)
[2024-11-24 21:34] VITALS: BP 135/66; PULSE 82; RESP 16; TEMP 38.1; O2SAT 95
[2024-11-24 21:39] LABS: Glucose Point of Care 178 mg/dl (65-105)
[2024-11-25] VITALS (9 sets, daily range): BP systolic 111–162; BP diastolic 69–90; PULSE 60–81; RESP 12–19; TEMP 36.2–36.8; O2SAT 96–100
[2024-11-25 04:02] LABS: Hematocrit 35.3 % (42.0-52.0); Hemoglobin 11.7 g/dL (14.0-18.0); Mean Corpuscular HGB Conc 33.1 g/dl (32-36); Mean Corpuscular Hemoglobin 29.2 pg (26-34); Mean Platelet Volume 9.5 fl (7.4-10.4); Platelet Count Result 195 k/mm3 (150-375); Red Blood Count 4.01 M/mm3 (4.6-6.20); Red Cell Distribution Width 12.5 % (11.5-14.5); White Blood Count 8.2 K/mm3 (4.5-10.0)
[2024-11-25 04:14] LABS: Alanine Aminotransferase 19 U/L (6-50); Albumin Level 2.7 g/dL (3.5-5.1); Alkaline Phosphatase 101 U/L (38-126); Anion Gap 7 mmol/L (4-12); Aspartate Amino Transferase 39 U/L (17-59); Bilirubin,Total 0.6 mg/dL (0.2-1.3); Blood Urea Nitrogen 8 mg/dL (9-20); Calcium 8.1 mg/dL (8.4-10.2); Carbon Dioxide 21 mmol/L (22-30); Chloride 105 mmol/L (98-107); Estimated CRCL calculation 90 ml/min; Estimated Glomerular Filt Rate > 60; Glucose 99 mg/dL (65-110); Potassium 3.4 mmol/L (3.4-5.0); Sodium 133 mmol/L (137-145)
[2024-11-25 04:24] LABS: Vancomycin Trough 17.9 ug/mL (10.0-20.0)
[2024-11-25] MEDS: VANCOMYCIN 1,750 MG/NS 500 ML 1,750 MG/500 ML BAG 250 MG IVPB ×2 (05:52→17:11)
[2024-11-25] MEDS: metroNIDAZOLE 500 MG/ISO 100ML 500 MG/100 ML BAG 100 MG IVPB ×3 (05:55→22:58)
--- NOTE | 2024-11-25 07:20 | PM.IMPN ---
Progress Note: A&P Assessment and Plan (1) Diabetic infection of left foot: Code(s): E11.628 - Type 2 diabetes mellitus with other skin complications; L08.9 - Local infection of the skin and subcutaneous tissue, unspecified Status: Acute Assessment and Plan: See below (2) Osteomyelitis: Qualifiers: Laterality: left Osteomyelitis location: foot Osteomyelitis type: other acute Qualified Code(s): M86.172 - Other acute osteomyelitis, left ankle and foot Code(s): M86.9 - Osteomyelitis, unspecified Status: Acute Assessment and Plan: Presented to the ED with complaints of left great toe swelling and pain radiating to the ball of the foot Osteomyelitis secondary to infected diabetic foot ulcer of the left toe. tissues are boggy with noted there areas of obvious necrosis. Infection seems to also extends to the 2nd toe and extends down to the mid metatarsal. WBC stable currently at 8.2 General surgery consulted thank you for your help Surgery planned for today with left great toe amputation MRI of the foot unable to be done here will need to follow up further outpatient Continue IV therapy cefepime, flagyl, and vancomycin Continue pain medications with morphine and norco Zofran from nausea and vomiting (3) Uncontrolled diabetes mellitus with hyperglycemia: Qualifiers: Diabetes mellitus type: type 2 Qualified Code(s): E11.65 - Type 2 diabetes mellitus with hyperglycemia Code(s): E11.65 - Type 2 diabetes mellitus with hyperglycemia Status: Acute Assessment and Plan: Glucose is stable at 99 A1c 12.0 Continue home Jardiance, Lantus 20 units at night Consider 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 supervisor consult Hold home metformin ISS Hypoglycemia protocol Trend glucose Adjust therapy as indicated (4) Hypertension: Code(s): I10 - Essential (primary) hypertension Status: Acute Assessment and Plan: Current BP is 162/90 Continue home metoprolol, losartan Trend BP Adjust therapy as indicated (5) Dyslipidemia: Code(s): E78.5 - Hyperlipidemia, unspecified Status: Acute Assessment and Plan: Continue atorvastatin (6) Hypokalemia: Code(s): E87.6 - Hypokalemia Status: Acute Assessment and Plan: K 3.4 today 40 meq ordered x 1 again Trend K Replace and supplement as indicated Labs in the am Time Spent With Patient Time: 53 minutes Subjective Date/time seen: 11/25/24 1115 Interval history: 11/25/2024 Patient is currently lying in bed. Patient states he has no chest pain, shortness a breath, nausea or vomiting. Patient stated that he feels okay at this time. He is also waiting for his procedure at this time. 11/24/2024 0915 Patient is lying in bed and is doing okay. Patient did have a rough time getting out of bed this morning however per nursing he did okay and did not fall. He denies any chest pain, shortness a breath, nausea, vomiting, diarrhea constipation. Patient seems to be a little bit off when it comes to memory however he does seem pretty pleasant at this time. Patient does appear a little paler than normal. Spoke with surgery about plan. MRI unable to be obtained due to patient's pacemaker. Potassium 3.3 this morning will replace accordingly. 11/23/2024 0815 Patient was sitting up eating. Patient states that he is doing okay. He denies any current chest pain, shortness a breath, nausea, vomiting, diarrhea constipation. He did state his pain is about a 5/10. Did talk to the nursing and about him getting the MRI which was stated that is not able to get an MRI here. Did reach out to calcium with surgery however did not hear anything back yet. Awaiting further recommendations from General surgery for surgical intervention versus antibiotic therapy. 11/22/2024 0550 Patient is a 69-year-old male admitted for further evaluation and treatment of osteomyelitis of his proximal phalanx and distal phalanx of the left big toe seen on a foot x-ray. patient had been seen by previous provider same day has been initiated on IV vancomycin Flagyl, and cefepime with consult to surgery. patient has been afebrile with normal WBC but has had increased swelling to left big toe which brought him to the emergency room. Patient with uncontrolled diabetes currently on insulin sugars were greater than 400 on arrival. I have increased patient's Lantus from 16 units to 20 units and added a high dose sliding scale for better control A1c was 12. will hold Lovenox DVT prophylaxis for possible surgery currently NPO with plans to see surgery today. will consult dietitian for further education on diabetic diet and blood sugar control. Spoke with Surgery will continue with IV ABX and get MRI for further evaluation. Will order YARA's for vascular evaluation multiple wounds noted BLE in different stages of healing. 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 The patient arrived to the ER with a large ulcer to the left great toe with swelling up into the ball of the foot with associated erythema. He reports that he has been having pain in the foot for about a week. He reports that the pain is pretty bad with touch base a or with trying to walk. He has areas of necrosis of the toe with what appears to be extension to the 2nd digit. Had the patient has rancid odor from the foot He had elevated CRP but normal white count. The patient denies having any pain in the foot and in fact has been walking around barefoot out in the yard and his foot was covered in dirt and grass on arrival to the ER. He denies any fevers or chills. He reports that his daughters been giving him his insulin but they do not check his blood sugars. Review of Systems Review of Systems: 12 systems were reviewed with pertinent positives and negatives per HPI. Except as documented in the HPI, all other systems were reviewed and are negative. Exam Narrative: General: well-nourished, well-appearing 69-year-old male, sitting up in bed, comfortable, NARD Neuro: awake, alert and oriented x4, speech clear, no focal neuro deficits noted HEENMT: normocephalic, atraumatic, EOMI, sclerae anicteric, moist oral mucosa Respiratory: Clear to auscultation bilaterally without crackles, rhonchi or wheezes, nonlabored breathing Cardio: regular rate, regular rhythm with S1-S2 Abdomen: nondistended, normoactive bowel sounds, soft, nontender to palpation Extremities: Left great toe is very swollen red with necrotic tissue that radiates down to the ball of foot down to the middle of the foot. Skin: no rashes or lesions, warm and dry Psych: appropriate mood and affect, judgment and insight intact Objective Data Vital Signs Vital Signs: Vital Signs - 24 hr 11/24/24 09:00 11/24/24 13:56 11/24/24 20:00 Temperature 98.6 F Pulse Rate 70 72 82 Respiratory Rate 18 16 Blood Pressure 134/98 H Pulse Oximetry 98 95 Oxygen Delivery Room Air Fraction of Inspired Oxygen 21 11/24/24 21:34 11/25/24 06:18 Temperature 100.5 F H 98.2 F Pulse Rate 82 60 Respiratory Rate 16 16 Blood Pressure 135/66 162/90 H Pulse Oximetry 95 100 Oxygen Delivery Fraction of Inspired Oxygen Intake/Output Intake/Output: Intake & Output 11/22/24 11/23/24 11/24/24 11/25/24 23:59 23:59 23:59 23:59 Intake Total 3077.5 3760 5260 500 Output Total 8382 414 7486 Balance 1377.5 3760 4360 -900 Meds/Results Medications: Active Medications Generic Name Dose Route Start Last Admin Trade Name Freq PRN Reason Stop Dose Admin Acetaminophen 650 mg 11/21/24 23:41 Acetaminophen 325 Mg Tablet PO Q4H PRN Mild Pain (1-3) or Fever Hydrocodone Bitart/Acetaminophen 1 tab 11/22/24 08:20 11/24/24 20:15 Hydrocodone/Acetaminophen (*Crx) 5-325 Mg Tablet PO 1 tab Q4H PRN Administration Moderate Pain (4-6) Atorvastatin Calcium 40 mg 11/22/24 09:00 11/24/24 09:00 Atorvastatin 40 Mg Tablet BY MOUTH 40 mg DAILY SUHAIL Administration Dextrose 12.5 gm 11/22/24 07:04 Dextrose 50% 25 Gm/50 Ml Syringe IV PUSH PRN PRN Hypoglycemia Protocol Empagliflozin 10 mg 11/22/24 09:00 11/25/24 07:18 Empagliflozin 10 Mg Tablet BY MOUTH Not Given DAILY [facility] Enoxaparin Sodium 40 mg 11/23/24 09:00 Enoxaparin 40 Mg/0.4 Ml Syringe SUB-Q DAILY SUHAIL Glucagon 1 mg 11/22/24 07:04 Glucagon For Inj 1 Mg Vial IM PRN PRN Hypoglycemia Protocol Glucose 15 gm 11/22/24 07:04 Glucose Oral Gel 15 Gm Of Glucse In 37.5 Gm Tube PO PRN PRN Hypoglycemia Protocol Sodium Chloride 1,000 mls @ 125 mls/hr 11/21/24 23:45 11/24/24 23:20 Normal Saline Iv IV CONT 125 mls/hr .Q8H SUHAIL Administration Dextrose 1,000 mls @ 100 mls/hr 11/22/24 07:04 Dextrose 5% 1,000 Ml IVPB PRN PRN Hypoglycemia Protocol Cefepime HCl 2 gm in 50 mls @ 100 mls/hr 11/22/24 21:00 11/24/24 20:45 Maxipime 2 Gm/Ns 50 Ml IVPB Infused Q12H SUHAIL Infusion Metronidazole 500 mg in 100 mls @ 100 mls/hr 11/22/24 07:45 11/25/24 06:55 Flagyl 500 Mg/Iso Soln 100 Ml IVPB Infused Q8HR SUHAIL Infusion Vancomycin HCl 1,750 mg in 500 mls @ 250 mls/hr 11/23/24 17:00 11/25/24 05:52 Vancomycin 1,750 Mg/Ns 500 Ml IVPB 250 mls/hr Q12H SUHAIL Administration Insulin Aspart 4 units 11/22/24 12:00 11/24/24 17:15 Insulin Aspart (*Bkc) 100 Units/Ml SUB-Q 4 units TIDWM [facility] Administration Insulin Glargine 20 units 11/22/24 09:00 11/24/24 09:04 Insulin Glargine (*Bkc) 100 Units/Ml SUB-Q 20 units QAM [facility] Administration Losartan Potassium 50 mg 11/22/24 09:00 11/24/24 09:00 Losartan Potassium 50 Mg Tablet PO 50 mg DAILY [facility] Administration Metoprolol Succinate 25 mg 11/22/24 09:00 11/24/24 09:00 Metoprolol Succinate Ext Rel 25 Mg Tabcr PO 25 mg DAILY [facility] Administration Morphine Sulfate 4 mg 11/22/24 07:47 Morphine Sulfate (*Crx) 4 Mg/Ml Inj IV PUSH Q4H PRN Pain Rated 7-10 Ondansetron HCl 4 mg 11/22/24 08:20 Ondansetron Inj 4 Mg/2 Ml Vial IV PUSH Q6H PRN Nausea And Vomiting Pantoprazole Sodium 40 mg 11/22/24 09:00 11/24/24 09:00 Pantoprazole 40 Mg Tablet PO 40 mg QAM [facility] Administration Sodium Hypochlorite 1 applic 11/24/24 21:00 11/24/24 20:20 Sod Hypochlorite 1/4 Strength 473 Ml TOPICAL 1 applic Q12HR SUHAIL Administration Radiology Results: ITS Impressions Foot X-Ray 11/21/24 21:42 IMPRESSION: Osteomyelitis involving the proximal phalanx and distal phalanx of the left big toe. Clinical correlation and follow-up advised. Ankle Brachial Index 11/23/24 15:42 IMPRESSION: Normal right YARA. Moderate stenosis on the left side. Clinical correlation and further evaluation advised. Labs Labs: Laboratory Results - last 24 hr 11/24/24 11/24/24 11/24/24 07:51 12:10 17:06 WBC RBC Hgb Hct MCV MCH MCHC RDW Plt Count MPV Sodium Potassium Chloride Carbon Dioxide Anion Gap BUN Creatinine Estim Creat Clear Calc Estimated GFR Glucose POC Capillary Glucose 79 85 123 H Calcium Total Bilirubin AST ALT Alkaline Phosphatase Total Protein Albumin Vancomycin Trough 11/24/24 11/25/24 21:36 03:57 WBC 8.2 RBC 4.01 L Hgb 11.7 L Hct 35.3 L MCV 88.0 MCH 29.2 MCHC 33.1 RDW 12.5 Plt Count 195 MPV 9.5 Sodium 133 L Potassium 3.4 Chloride 105 Carbon Dioxide 21 L Anion Gap 7 BUN 8 L Creatinine 0.69 L Estim Creat Clear Calc 90 Estimated GFR > 60 Glucose 99 POC Capillary Glucose 178 H Calcium 8.1 L Total Bilirubin 0.6 AST 39 ALT 19 Alkaline Phosphatase 101 Total Protein 6.0 L Albumin 2.7 L Vancomycin Trough 17.9 Quality VTE Prophylaxis VTE prophylaxis: pharmacologic ordered (Lovenox 40 mg subQ daily. To start on 11/23/2024)
[2024-11-25 08:11] LABS: Glucose Point of Care 103 mg/dl (65-105)
[2024-11-25] MEDS: CEFEPIME 2 GM/NS 50 ML 2 GM/50 ML BAG IVPB ×2 (08:45→20:17)
[2024-11-25] MEDS: METOPROLOL SUCCINATE EXT REL 25 MG TABCR PO (08:45)
[2024-11-25] MEDS: POTASSIUM CHLORIDE 20 MEQ ER TABLET 40 MEQ PO (08:46)
[2024-11-25] MEDS: LOSARTAN POTASSIUM 50 MG TABLET PO (08:46)
[2024-11-25] MEDS: ATORVASTATIN 40 MG TABLET BY MOUTH (08:46)
[2024-11-25] MEDS: PANTOPRAZOLE 40 MG TABLET PO (08:46)
[2024-11-25] MEDS: SOD HYPOCHLORITE 1/4 STRENGTH 473 ML 1 APPLIC TOPICAL (09:17)
[2024-11-25] MEDS: SODIUM CHLORIDE 0.9% IV 1,000 ML 125 ML IV CONT (10:53)
[2024-11-25 12:11] LABS: Glucose Point of Care 90 mg/dl (65-105)
[2024-11-25 14:09] LABS: Glucose Point of Care 86 mg/dl (65-105)
--- NOTE | 2024-11-25 14:21 | WPDANESEPPF ---
Anes - Initial Pre Proc Eval Procedure: Operation Date: 11/25/24 14:30 Proposed Procedures p Left Great Toe Amputation - John Salazar DO Date/Time: 11/25/24 14:21 Surgeon: Amber Mcfarlane DO Pre Op Diagnosis: Osteomyelitis Patient Data Age: 69 Gender: M Height: 1.8 m Weight: 78.5 kg Last Vital Signs Temp 36.8 C 11/25/24 06:18 Pulse 80 11/25/24 08:45 Resp 16 11/25/24 06:18 BP 162/90 H 11/25/24 06:18 Pulse Ox 100 11/25/24 06:18 O2 Del Method Room Air 11/24/24 20:00 FiO2 21 11/24/24 20:00 Allergies Allergy/AdvReac Type Severity Reaction Status Date / Time No Known Allergies Allergy Verified 11/21/24 19:34 Home Medications ?Medication ?Instructions ?Recorded ?Confirmed ?Type dapagliflozin propanediol 5 mg 5 mg PO DAILY #90 tabs 10/30/23 11/22/24 Rx tablet (Farxiga) lancets (Accu-Chek Fastclix Lancet #100 ea 11/03/23 11/22/24 Rx Drum) blood sugar diagnostic (Accu-Chek #100 ea 01/05/24 11/22/24 Rx Guide test strips) losartan 50 mg tablet 50 mg PO DAILY #90 tabs 02/02/24 11/22/24 Rx insulin aspart U-100 100 unit/mL 1 sliding scale dose subcut .TID 02/08/24 11/22/24 Rx (3 mL) subcutaneous pen with meals diabetes #15 mL insulin aspart U-100 100 unit/mL 4 unit (0.04 mL) subcut .TID with 02/08/24 11/22/24 Rx (3 mL) subcutaneous pen meals #15 mL insulin glargine 100 unit/mL (3 16 unit (0.16 mL) subcut QAM #15 mL 02/08/24 11/22/24 Rx mL) subcutaneous pen metoprolol succinate 25 mg 25 mg PO DAILY #30 tabs 08/02/24 11/22/24 Rx tablet,extended release 24 hr atorvastatin 40 mg tablet See Rx Instructions .Route 09/19/24 11/22/24 Rx .COMPLEX #90 tabs blood-glucose sensor (FreeStyle #1 ea 09/19/24 11/22/24 Rx Yue 3 Plus Sensor device) blood-glucose,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 chip 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,cont #1 ea 09/19/24 11/22/24 Rx (FreeStyle Yue 3 [place]) metformin 500 mg tablet 500 mg PO BID #180 tabs 09/19/24 11/22/24 Rx pen needle, diabetic 32 gauge x #1 pkg 09/19/24 11/22/24 Rx Laboratory Tests 11/24/24 11/24/24 11/25/24 17:06 21:36 03:57 WBC 8.2 K/mm3 (4.5-10.0) RBC 4.01 L M/mm3 (4.6-6.20) Hgb 11.7 L g/dL (14.0-18.0) Hct 35.3 L % (42.0-52.0) MCV 88.0 fl (80-100) MCH 29.2 pg (26-34) MCHC 33.1 g/dl (32-36) RDW 12.5 % (11.5-14.5) Plt Count 195 k/mm3 (150-375) MPV 9.5 fl (7.4-10.4) Sodium 133 L mmol/L (137-145) Potassium 3.4 mmol/L (3.4-5.0) Chloride 105 mmol/L (98-107) Carbon Dioxide 21 L mmol/L (22-30) Anion Gap 7 mmol/L (4-12) BUN 8 L mg/dL (9-20) Creatinine 0.69 L mg/dL (0.7-1.3) Estim Creat Clear Calc 90 ml/min Estimated GFR > 60 (59 - ) Glucose 99 mg/dL (65-110) POC Capillary Glucose 123 H mg/dl 178 H mg/dl (65-105) (65-105) Calcium 8.1 L mg/dL (8.4-10.2) Total Bilirubin 0.6 mg/dL (0.2-1.3) AST 39 U/L (17-59) ALT 19 U/L (6-50) Alkaline Phosphatase 101 U/L (38-126) Total Protein 6.0 L g/dL (6.3-8.2) Albumin 2.7 L g/dL (3.5-5.1) Vancomycin Trough 17.9 ug/mL (10.0-20.0) 11/25/24 11/25/24 11/25/24 08:06 12:06 14:07 WBC RBC Hgb Hct MCV MCH MCHC RDW Plt Count MPV Sodium Potassium Chloride Carbon Dioxide Anion Gap BUN Creatinine Estim Creat Clear Calc Estimated GFR Glucose POC Capillary Glucose 103 mg/dl 90 mg/dl 86 mg/dl (65-105) (65-105) (65-105) Calcium Total Bilirubin AST ALT Alkaline Phosphatase Total Protein Albumin Vancomycin Trough Patient hx anesthesia problems: none Family hx anesthesia problems: none Results Review: All pre-operative results and documents have been reviewed as part of the pre-operative evaluation. FORMERLY [facility], [facility] Past Medical History Medical History (Updated 11/22/24 @ 07:41 by Amber Mcfarlane DO) Second degree AV block, Mobitz type II Subarachnoid hemorrhage Closed fracture of maxillary sinus Elevated troponin Pneumonia Syncope Diastolic dysfunction Dementia With history of alcoholism and multiple infarcts Type 2 diabetes mellitus Alcoholism in recovery (~2014) Chronic sinusitis CVA (cerebral vascular accident) CT performed the ER 04/2023 demonstrated evidence of multiple scattered old infarcts bilateral cerebral hemispheres, basal ganglia and left thalamus COVID 04/2023 Surgical History Surgical History (Updated 11/22/24 @ 07:38 by Amber Mcfarlane DO) Status post biventricular cardiac pacemaker insertion (08/2023) Status post cataract extraction History of hemorrhoidectomy Infected pilonidal cyst With incision and drainage September 20082018 Family History Family History Father Acute myocardial infarction Alcohol abuse Social History Social History Social History: The patient is live with his daughter since proximally 2014. He is a former alcoholic and has been in recovery since that time. He reports he used to smoke many years ago but cannot specify in amount. 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 Informed Consent: The patient's anesthetic plan and its attendant risks and benefits were discussed with the patient/family/POA. Questions were solicited and answers provided to the satisfaction of the patient/family/POA.
--- NOTE | 2024-11-25 14:27 | WPDHPUPDATE1 ---
History and Physical Update Update Date/Time: 11/25/24 14:27 History and Physical has been reviewed, including an updated exam of the patient. There are NO changes in the patient's condition. Risks, benefits, and alternatives have been discussed and questions answered. Patient agrees to proceed with procedure.
[2024-11-25] MEDS: BUPivacaine HCL 0.5% PF 30 ML VIAL INFILTRATE (15:19)
--- NOTE | 2024-11-25 15:30 | S_PTH ---
PATIENT: Miquel Real LOC: [id number] U#:[id number] AGE/SX: 69/M ROOM: 246 RE11/21/[address]: Anahi Aguilar MD : [id number] BED: 01 DIS: 12/02/2024 SPEC #: [id number] RECD: 11/28/24 07:36 STATUS: IRMA REQ #: [id number] SHARYN: 11/25/24 15:[address]: John Salazar DEPT: [facility] Surgical RECD BY: Vida Chaney ENTERED: 11/28/24 07:36 SP TYPE: Surgical OTHR DR: PRABHJOT Garza, DO Eyal Whitney MD Tissues: A - Toe Procedures: Hematoxylin and Eosin Stain Gross and Microscopic Level 4 Decalcification
[2024-11-25] MEDS: LACTATED RINGERS 1,000 ML 30 ML IV CONT (15:45)
--- NOTE | 2024-11-25 15:54 | P.OP_ITS ---
Procedure Note - Detailed Date of Procedure 11/25/24 Pre-op Diagnosis Left diabetic foot ulcer, osteomyelitis Post-op Diagnosis Same Procedure Performed Left great toe ray amputation Surgeon John Salazar, DO Anesthesia General and Local (0.5% bupivacaine) Indications This is a 69-year-old poorly controlled diabetic patient who presented with a left great toe wound that had been present for several weeks. There is a very foul odor coming from the wound along with purulence drainage. There was a necrotic wound on the plantar surface of the great toe along with the lateral surface. There are also signs of cellulitis to the forefoot. IV antibiotics were started and further discussions were made with the patient and his power compliance attorney about treatment options. Decision was made to proceed left great toe amputation. Findings Left great toe ray amputation was performed. The skin and necrotic tissue appeared to involve the entire length of the great toe involving the proximal and distal phalanx. There did not appeared to be enough healthy skin to bring the wound closed by just performing a distal toe amputation. I then chose to perform a ray amputation by excising the 1st metatarsal head along with the proximal and distal phalanx. The midportion of the wound was packed with half- inch iodoform gauze and the lateral edges of the wound were closed with 3-0 nylon simple interrupted sutures. The toe was then sent to the lab for pathology. Description of Procedure Procedure as well as risks, benefits, and alternatives were discussed with the patient. Written consent was obtained and placed in chart prior to procedure. Patient was brought back to surgical suite. He was placed supine on operating table. Time-out was done to confirm patient procedure. He was then intubated by the anesthesia department. His left foot was prepped and draped in sterile fashion using Betadine prep. 0.5% bupivacaine was infiltrated locally around the 1st digit and metatarsal head. An elliptical incision was then made from the interdigit region around the base of the 1st toe to the medial side of the 1st metatarsal head. Electrocautery was then used for hemostasis and for dissection through the subcutaneous tissue. The ligamentous attachments were carefully transected with electrocautery and the vasculature was then also ligated with electrocautery. I then incised the plantar fascia between the 1st and 2nd metatarsal heads. The 1st metatarsal head was then isolated from the surrounding subcutaneous attachments and then this was transected using a bone cutter. The remaining attachments were ligated with electrocautery and the toe was completely amputated. A rasp was then used to file down the rough edges of the distal 1st metatarsal bone. Electrocautery was used for hemostasis. The subcutaneous space was then irrigated with sterile saline. There was still some necrotic tissue within the plantar area and this was excised with electrocautery. There appeared to be a bit of a gap where some infection could still develop therefore decision was made to leave the central portion of the incision open and packed this with gauze. The lateral edges of the incision were approximated using 3-0 nylon simple interrupted sutures. I then packed the mid portion of the wound with half-inch iodoform gauze. Xeroform gauze was then applied followed by 4 x 4 gauze and Kerlix wrap. The patient was then awakened from anesthesia, extubated, and transferred to recovery. Estimated Blood Loss 10 Urine Output 200 Packing Yes (Half-inch iodoform gauze) Pathology Yes (Left great toe) Complications No immediate complications Condition Stable Disposition Floor [facility] Billing Surgery - Charge Forward: Surgery Billing
[2024-11-25 16:00] LABS: Glucose Point of Care 74 mg/dl (65-105)
[2024-11-25 17:20] LABS: Glucose Point of Care 84 mg/dl (65-105)
[2024-11-25 20:48] LABS: Glucose Point of Care 179 mg/dl (65-105)
[2024-11-26] VITALS (9 sets, daily range): BP systolic 123–144; BP diastolic 74–96; PULSE 69–80; RESP 14–20; TEMP 36.2–36.7; O2SAT 90–100
[2024-11-26] MEDS: SODIUM CHLORIDE 0.9% IV 1,000 ML 125 ML IV CONT (02:00)
[2024-11-26] MEDS: VANCOMYCIN 1,750 MG/NS 500 ML 1,750 MG/500 ML BAG 250 MG IVPB ×2 (05:09→17:09)
[2024-11-26] MEDS: metroNIDAZOLE 500 MG/ISO 100ML 500 MG/100 ML BAG 100 MG IVPB ×3 (05:14→22:06)
[2024-11-26 05:40] LABS: Hematocrit 36.3 % (42.0-52.0); Mean Corpuscular HGB Conc 33.1 g/dl (32-36); Mean Corpuscular Hemoglobin 29.3 pg (26-34); Mean Corpuscular Volume 88.8 fl (80-100); Platelet Count Result 207 k/mm3 (150-375); Red Blood Count 4.09 M/mm3 (4.6-6.20); Red Cell Distribution Width 12.4 % (11.5-14.5); White Blood Count 7.7 K/mm3 (4.5-10.0)
[2024-11-26 05:53] LABS: Alanine Aminotransferase 33 U/L (6-50); Albumin Level 2.9 g/dL (3.5-5.1); Alkaline Phosphatase 107 U/L (38-126); Anion Gap 6 mmol/L (4-12); Aspartate Amino Transferase 66 U/L (17-59); Bilirubin,Total 0.8 mg/dL (0.2-1.3); Blood Urea Nitrogen 7 mg/dL (9-20); Calcium 8.3 mg/dL (8.4-10.2); Carbon Dioxide 24 mmol/L (22-30); Chloride 102 mmol/L (98-107); Estimated CRCL calculation 91 ml/min; Estimated Glomerular Filt Rate > 60; Glucose 147 mg/dL (65-110); Sodium 132 mmol/L (137-145)
[2024-11-26 08:01] LABS: Glucose Point of Care 138 mg/dl (65-105)
[2024-11-26] MEDS: ENOXAPARIN 40 MG/0.4 ML SYRINGE SUB-Q (09:09)
[2024-11-26] MEDS: ATORVASTATIN 40 MG TABLET BY MOUTH (09:10)
[2024-11-26] MEDS: METOPROLOL SUCCINATE EXT REL 25 MG TABCR PO (09:10)
[2024-11-26] MEDS: EMPAGLIFLOZIN 10 MG TABLET BY MOUTH (09:10)
[2024-11-26] MEDS: LOSARTAN POTASSIUM 50 MG TABLET PO (09:10)
[2024-11-26] MEDS: PANTOPRAZOLE 40 MG TABLET PO (09:10)
[2024-11-26] MEDS: CEFEPIME 2 GM/NS 50 ML 2 GM/50 ML BAG IVPB ×2 (09:11→21:28)
[2024-11-26] MEDS: INSULIN GLARGINE (*BKC) 100 UNITS/ML 20 UNITS SUB-Q (09:17)
[2024-11-26] MEDS: INSULIN ASPART (*BKC) 100 UNITS/ML SUB-Q ×3 (09:18→17:09)
[2024-11-26] MEDS: HYDROcodone/acetaminophen (*CRX) 5-325 MG TABLET 1 TAB PO (11:46)
[2024-11-26 11:55] LABS: Glucose Point of Care 152 mg/dl (65-105)
--- NOTE | 2024-11-26 12:46 | P.PNIM_ITS ---
Progress Note: A&P Assessment and Plan (1) Diabetic infection of left foot: Code(s): E11.628 - Type 2 diabetes mellitus with other skin complications; L08.9 - Local infection of the skin and subcutaneous tissue, unspecified Status: Acute Assessment and Plan: SSI with accucheks and lantus 20 units (2) Osteomyelitis: Qualifiers: Laterality: left Osteomyelitis location: foot Osteomyelitis type: other acute Qualified Code(s): M86.172 - Other acute osteomyelitis, left ankle and foot Code(s): M86.9 - Osteomyelitis, unspecified Status: Acute Assessment and Plan: * Presented to the ED with complaints of left great toe swelling and pain radiating to the ball of the foot * Osteomyelitis secondary to infected diabetic foot ulcer of the left toe. * tissues are boggy with noted there areas of obvious necrosis. * Infection seems to also extends to the 2nd toe and extends down to the mid metatarsal. * WBC stable currently at 8.2 * MRI of the foot unable to be done here will need to follow up further outpatient * s/p Left great toe amputation * Gen surgery following (3) Uncontrolled diabetes mellitus with hyperglycemia: Qualifiers: Diabetes mellitus type: type 2 Qualified Code(s): E11.65 - Type 2 diabetes mellitus with hyperglycemia Code(s): E11.65 - Type 2 diabetes mellitus with hyperglycemia Status: Acute Assessment and Plan: * Glucose is stable at 99 * A1c 12.0 * Continue home Jardiance, Lantus 20 units at night * SSI with accucheks (4) Hypertension: Code(s): I10 - Essential (primary) hypertension Status: Acute Assessment and Plan: * Current BP is 162/90 * Continue home metoprolol, losartan * Trend BP * Adjust therapy as indicated (5) Dyslipidemia: Code(s): E78.5 - Hyperlipidemia, unspecified Status: Acute Assessment and Plan: * Continue atorvastatin (6) Hypokalemia: Code(s): E87.6 - Hypokalemia Status: Acute Assessment and Plan: resolved monitor Plan DVT prophylaxis on Sq Lovenox Subjective Date/time seen: 11/26/24 12:46 Interval history: Comfortable at bedside S/p left great toe amputation Review of Systems Review of Systems: 12 systems were reviewed with pertinent positives and negatives per HPI. Except as documented in the HPI, all other systems were reviewed and are negative. Exam Narrative: General: well-nourished, well-appearing 69-year-old male, sitting up in bed, comfortable, NARD Neuro: awake, alert and oriented x4, speech clear, no focal neuro deficits noted HEENMT: normocephalic, atraumatic, EOMI, sclerae anicteric, moist oral mucosa Respiratory: Clear to auscultation bilaterally without crackles, rhonchi or wheezes, nonlabored breathing Cardio: regular rate, regular rhythm with S1-S2 Abdomen: nondistended, normoactive bowel sounds, soft, nontender to palpation Extremities: left foot wound dressing wet with bloody drainage Skin: no rashes or lesions, warm and dry Psych: appropriate mood and affect, judgment and insight intact Const: Other: Poor hygiene, disheveled, appears older than stated age, no acute distress HENMT: Other: Mucous membranes are dry, no oral pharyngeal erythema, poor dentition, head is normocephalic atraumatic Eyes: Other: Pupils are equal and reactive, no conjunctival pallor, mildly injected sclerae Neck: Other: No JVD, no lymphadenopathy Resp: Other: Decreased breath sounds bilaterally, no increased work of breathing Cardio: Other: Regular rate, regular rhythm, 2+ bilateral radial pulses, 1+ left pedal pulse 2+ pedal pulse, no murmur GI: Other: Soft, nontender, nondistended, positive bowel sounds Skin: Other: Long overgrown fingernails with debris under the nail beds both hands and feet, tanned, non jaundice Neuro: Other: Alert oriented person place and confused as to time he thought that the month was March and that the year was 2023 speech is clear but slow, moments of confusion, decreased sensation to the feet, no gross motor deficits noted on exam Extrem: Other: Yellow moist boggy tissue to the medial great toe, necrotic tissue to the later al great toe and in the inter webspace with serous drainage, boggy erythematous tissue extending up to the forefoot and stopping just prior to the ankle the increased warmth, marked tenderness to palpation on both dorsal and plantar surfaces, plantar surface has open wound with foul odor Psych: Other: Poor judgment and insight, cooperative, calm Objective Data Vital Signs Vital Signs: Vital Signs - 24 hr 11/25/24 15:45 11/25/24 16:00 11/25/24 16:15 Temperature 97.9 F Pulse Rate 69 68 67 Respiratory Rate 19 12 16 Blood Pressure 111/75 122/78 114/81 Pulse Oximetry 100 100 98 Oxygen Delivery Simple Face Mask Room Air Room Air Oxygen Flow Rate 10 11/25/24 16:35 11/25/24 17:39 11/25/24 18:51 Temperature 97.2 F L 97.4 F L 97.3 F L Pulse Rate 66 65 81 Respiratory Rate 18 18 18 Blood Pressure 150/70 H 153/75 H 134/69 Pulse Oximetry 96 98 100 Oxygen Delivery Oxygen Flow Rate 11/25/24 20:00 11/25/24 21:13 11/26/24 01:45 Temperature 98 F 97.6 F Pulse Rate 78 69 Respiratory Rate 18 16 Blood Pressure 136/74 144/96 H Pulse Oximetry 99 97 Oxygen Delivery Room Air Oxygen Flow Rate 11/26/24 05:52 11/26/24 09:10 11/26/24 10:02 Temperature 98 F 98.1 F Pulse Rate 77 80 76 Respiratory Rate 18 16 Blood Pressure 124/74 131/93 H Pulse Oximetry 97 100 Oxygen Delivery Oxygen Flow Rate 11/26/24 11:11 Temperature Pulse Rate Respiratory Rate Blood Pressure Pulse Oximetry Oxygen Delivery Nasal Cannula Oxygen Flow Rate 2 Intake/Output Intake/Output: Intake & Output 11/23/24 11/24/24 11/25/24 11/26/24 23:59 23:59 23:59 23:59 Intake Total 3760 5260 4140.0 1640 Output Total 900 2800 2200 Balance 3760 4360 1340.0 -560 Meds/Results Medications: Active Medications Generic Name Dose Route Start Last Admin Trade Name Freq PRN Reason Stop Dose Admin Acetaminophen 650 mg 11/21/24 23:41 Acetaminophen 325 Mg Tablet PO Q4H PRN Mild Pain (1-3) or Fever Hydrocodone Bitart/Acetaminophen 1 tab 11/25/24 16:17 11/26/24 11:46 Hydrocodone/Acetaminophen (*Crx) 5-325 Mg Tablet PO 1 tab Q4H PRN Administration Pain Rated 4-6 Hydrocodone Bitart/Acetaminophen 1 tab 11/25/24 16:17 Hydrocodone/Acetaminophen (*Crx) 10-325 Mg Tablet PO Q4H PRN Pain Rated 7-10 Atorvastatin Calcium 40 mg 11/22/24 09:00 11/26/24 09:10 Atorvastatin 40 Mg Tablet BY MOUTH 40 mg DAILY SUHAIL Administration Dextrose 12.5 gm 11/22/24 07:04 Dextrose 50% 25 Gm/50 Ml Syringe IV PUSH PRN PRN Hypoglycemia Protocol Empagliflozin 10 mg 11/22/24 09:00 11/26/24 09:10 Empagliflozin 10 Mg Tablet BY MOUTH 10 mg DAILY SUHAIL Administration Enoxaparin Sodium 40 mg 11/23/24 09:00 11/26/24 09:09 Enoxaparin 40 Mg/0.4 Ml Syringe SUB-Q 40 mg DAILY SUHAIL Administration Glucagon 1 mg 11/22/24 07:04 Glucagon For Inj 1 Mg Vial IM PRN PRN Hypoglycemia Protocol Glucose 15 gm 11/22/24 07:04 Glucose Oral Gel 15 Gm Of Glucse In 37.5 Gm Tube PO PRN PRN Hypoglycemia Protocol Dextrose 1,000 mls @ 100 mls/hr 11/22/24 07:04 Dextrose 5% 1,000 Ml IVPB PRN PRN Hypoglycemia Protocol Cefepime HCl 2 gm in 50 mls @ 100 mls/hr 11/22/24 21:00 11/26/24 09:41 Maxipime 2 Gm/Ns 50 Ml IVPB Infused Q12H SUHAIL Infusion Metronidazole 500 mg in 100 mls @ 100 mls/hr 11/22/24 07:45 11/26/24 10:10 Flagyl 500 Mg/Iso Soln 100 Ml IVPB Infused Q8HR SUHAIL Infusion Vancomycin HCl 1,750 mg in 500 mls @ 250 mls/hr 11/23/24 17:00 11/26/24 07:09 Vancomycin 1,750 Mg/Ns 500 Ml IVPB Infused Q12H SUHAIL Infusion Insulin Aspart 4 units 11/22/24 12:00 11/26/24 12:19 Insulin Aspart (*Bkc) 100 Units/Ml SUB-Q 4 units TIDWM SUHAIL Administration Insulin Glargine 20 units 11/22/24 09:00 11/26/24 09:17 Insulin Glargine (*Bkc) 100 Units/Ml SUB-Q 20 units QAM SUHAIL Administration Losartan Potassium 50 mg 11/22/24 09:00 11/26/24 09:10 Losartan Potassium 50 Mg Tablet PO 50 mg DAILY SUHAIL Administration Metoprolol Succinate 25 mg 11/22/24 09:00 11/26/24 09:10 Metoprolol Succinate Ext Rel 25 Mg Tabcr PO 25 mg DAILY SUHAIL Administration Morphine Sulfate 2 mg 11/25/24 16:17 Morphine Sulfate (*Crx) 2 Mg/Ml Inj IV PUSH Q2H PRN Breakthrough Pain Rated 4-6 or NPO Morphine Sulfate 4 mg 11/25/24 16:17 Morphine Sulfate (*Crx) 4 Mg/Ml Inj IV PUSH Q2H PRN Breakthrough Pain Rated 7-10 or NPO Naloxone HCl 0.1 mg 11/25/24 16:17 Naloxone Hcl 0.4 Mg/Ml Vial IV PUSH Q2M PRN Opiate Reversal Ondansetron HCl 4 mg 11/22/24 08:20 Ondansetron Inj 4 Mg/2 Ml Vial IV PUSH Q6H PRN Nausea And Vomiting Pantoprazole Sodium 40 mg 11/22/24 09:00 11/26/24 09:10 Pantoprazole 40 Mg Tablet PO 40 mg QAM SUHAIL Administration Radiology Results: ITS Impressions Foot X-Ray 11/21/24 21:42 IMPRESSION: Osteomyelitis involving the proximal phalanx and distal phalanx of the left big toe. Clinical correlation and follow-up advised. Ankle Brachial Index 11/23/24 15:42 IMPRESSION: Normal right YARA. Moderate stenosis on the left side. Clinical correlation and further evaluation advised. Labs Labs: Laboratory Results - last 24 hr 11/25/24 11/25/24 11/25/24 14:07 15:56 17:17 WBC RBC Hgb Hct MCV MCH MCHC RDW Plt Count MPV Sodium Potassium Chloride Carbon Dioxide Anion Gap BUN Creatinine Estim Creat Clear Calc Estimated GFR Glucose POC Capillary Glucose 86 74 84 Calcium Total Bilirubin AST ALT Alkaline Phosphatase Total Protein Albumin 11/25/24 11/26/24 11/26/24 20:23 05:02 07:46 WBC 7.7 RBC 4.09 L Hgb 12.0 L Hct 36.3 L MCV 88.8 MCH 29.3 MCHC 33.1 RDW 12.4 Plt Count 207 MPV 10.0 Sodium 132 L Potassium 4.0 Chloride 102 Carbon Dioxide 24 Anion Gap 6 BUN 7 L Creatinine 0.68 L Estim Creat Clear Calc 91 Estimated GFR > 60 Glucose 147 H POC Capillary Glucose 179 H 138 H Calcium 8.3 L Total Bilirubin 0.8 AST 66 H ALT 33 Alkaline Phosphatase 107 Total Protein 6.0 L Albumin 2.9 L 11/26/24 11:42 WBC RBC Hgb Hct MCV MCH MCHC RDW Plt Count MPV Sodium Potassium Chloride Carbon Dioxide Anion Gap BUN Creatinine Estim Creat Clear Calc Estimated GFR Glucose POC Capillary Glucose 152 H Calcium Total Bilirubin AST ALT Alkaline Phosphatase Total Protein Albumin Quality VTE Prophylaxis VTE prophylaxis: pharmacologic ordered (Lovenox 40 mg subQ daily. To start on 11/23/2024)
--- NOTE | 2024-11-26 12:49 | PCOTNOTE ---
Attempted to see patient for OT eval, however patient with Dr. Romero getting foot dressing changed. Discussed with Dr. Romero that the patient was unable to maintain NWB when transferring with PT earlier today. He reports that the patient can weight bear through the left heel only with transfers. Will continue to attempt OT eval.
[2024-11-26] MEDS: hydroCHLOROthiazide 12.5 MG CAPSULE PO (13:08)
--- NOTE | 2024-11-26 14:04 | WPDPN ---
Progress Note: A&P Assessment and Plan (1) Diabetic infection of left foot: Code(s): E11.628 - Type 2 diabetes mellitus with other skin complications; L08.9 - Local infection of the skin and subcutaneous tissue, unspecified Status: Acute Assessment and Plan: Postop day 1 after a amputation of left great toe. Wound is packed and dressing was changed today. No continue purulent drainage. All the flaps are viable. Wound was repacked with quarter-inch iodoform gauze. Continue with IV antibiotics and supportive management. Patient can weightbear on the left heel only for transfers. (2) Osteomyelitis: Qualifiers: Laterality: left Osteomyelitis location: foot Osteomyelitis type: other acute Qualified Code(s): M86.172 - Other acute osteomyelitis, left ankle and foot Code(s): M86.9 - Osteomyelitis, unspecified Status: Acute Assessment and Plan: Status post left great toe amputation. Continue antibiotics. Subjective Date/time seen: 11/26/24 14:04 Interval history: Postop day 1 after ray amputation of left great toe. Patient has no complaints today. Foot is dressed with some old blood on the dressing. Exam Extrem: Other: Left 1st toe amputation wound is partially closed. Packing with iodoform gauze is noted. No bleeding. No pus drainage. Flaps are erythematous and indurated but are viable. Remaining toes on left foot are viable. Objective Data Vital Signs Vital Signs: Vital Signs - 24 hr 11/25/24 15:45 11/25/24 16:00 11/25/24 16:15 Temperature 36.6 C Pulse Rate 69 68 67 Respiratory Rate 19 12 16 Blood Pressure 111/75 122/78 114/81 Pulse Oximetry 100 100 98 Oxygen Delivery Simple Face Mask Room Air Room Air Oxygen Flow Rate 10 11/25/24 16:35 11/25/24 17:39 11/25/24 18:51 Temperature 36.2 C L 36.3 C L 36.3 C L Pulse Rate 66 65 81 Respiratory Rate 18 18 18 Blood Pressure 150/70 H 153/75 H 134/69 Pulse Oximetry 96 98 100 Oxygen Delivery Oxygen Flow Rate 11/25/24 20:00 11/25/24 21:13 11/26/24 01:45 Temperature 36.6 C 36.4 C Pulse Rate 78 69 Respiratory Rate 18 16 Blood Pressure 136/74 144/96 H Pulse Oximetry 99 97 Oxygen Delivery Room Air Oxygen Flow Rate 11/26/24 05:52 11/26/24 09:10 11/26/24 10:02 Temperature 36.6 C 36.7 C Pulse Rate 77 80 76 Respiratory Rate 18 16 Blood Pressure 124/74 131/93 H Pulse Oximetry 97 100 Oxygen Delivery Oxygen Flow Rate 11/26/24 11:11 Temperature Pulse Rate Respiratory Rate Blood Pressure Pulse Oximetry Oxygen Delivery Nasal Cannula Oxygen Flow Rate 2 Intake/Output Intake/Output: Intake & Output 11/23/24 11/24/24 11/25/24 11/26/24 23:59 23:59 23:59 23:59 Intake Total 3760 5260 4140.0 1760 Output Total 900 2800 2200 Balance 3760 4360 1340.0 -440 Meds/Results Medications: Active Medications Generic Name Dose Route Start Last Admin Trade Name Freq PRN Reason Stop Dose Admin Acetaminophen 650 mg 11/21/24 23:41 Acetaminophen 325 Mg Tablet PO Q4H PRN Mild Pain (1-3) or Fever Hydrocodone Bitart/Acetaminophen 1 tab 11/25/24 16:17 11/26/24 11:46 Hydrocodone/Acetaminophen (*Crx) 5-325 Mg Tablet PO 1 tab Q4H PRN Administration Pain Rated 4-6 Hydrocodone Bitart/Acetaminophen 1 tab 11/25/24 16:17 Hydrocodone/Acetaminophen (*Crx) 10-325 Mg Tablet PO Q4H PRN Pain Rated 7-10 Atorvastatin Calcium 40 mg 11/22/24 09:00 11/26/24 09:10 Atorvastatin 40 Mg Tablet BY MOUTH 40 mg DAILY SUHAIL Administration Dextrose 12.5 gm 11/22/24 07:04 Dextrose 50% 25 Gm/50 Ml Syringe IV PUSH PRN PRN Hypoglycemia Protocol Empagliflozin 10 mg 11/22/24 09:00 11/26/24 09:10 Empagliflozin 10 Mg Tablet BY MOUTH 10 mg DAILY SUHAIL Administration Enoxaparin Sodium 40 mg 11/23/24 09:00 11/26/24 09:09 Enoxaparin 40 Mg/0.4 Ml Syringe SUB-Q 40 mg DAILY SUHAIL Administration Glucagon 1 mg 11/22/24 07:04 Glucagon For Inj 1 Mg Vial IM PRN PRN Hypoglycemia Protocol Glucose 15 gm 11/22/24 07:04 Glucose Oral Gel 15 Gm Of Glucse In 37.5 Gm Tube PO PRN PRN Hypoglycemia Protocol Hydrochlorothiazide 12.5 mg 11/26/24 12:55 11/26/24 13:08 Hydrochlorothiazide 12.5 Mg Capsule PO 12.5 mg QAM SUHAIL Administration Dextrose 1,000 mls @ 100 mls/hr 11/22/24 07:04 Dextrose 5% 1,000 Ml IVPB PRN PRN Hypoglycemia Protocol Cefepime HCl 2 gm in 50 mls @ 100 mls/hr 11/22/24 21:00 11/26/24 09:41 Maxipime 2 Gm/Ns 50 Ml IVPB Infused Q12H SUHAIL Infusion Metronidazole 500 mg in 100 mls @ 100 mls/hr 11/22/24 07:45 11/26/24 13:08 Flagyl 500 Mg/Iso Soln 100 Ml IVPB 100 mls/hr Q8HR SUHAIL Administration Vancomycin HCl 1,750 mg in 500 mls @ 250 mls/hr 11/23/24 17:00 11/26/24 07:09 Vancomycin 1,750 Mg/Ns 500 Ml IVPB Infused Q12H SUHAIL Infusion Insulin Aspart 4 units 11/22/24 12:00 11/26/24 12:19 Insulin Aspart (*Bkc) 100 Units/Ml SUB-Q 4 units TIDWM SUHAIL Administration Insulin Glargine 20 units 11/22/24 09:00 11/26/24 09:17 Insulin Glargine (*Bkc) 100 Units/Ml SUB-Q 20 units QAM SUHAIL Administration Losartan Potassium 50 mg 11/22/24 09:00 11/26/24 09:10 Losartan Potassium 50 Mg Tablet PO 50 mg DAILY SUHAIL Administration Metoprolol Succinate 25 mg 11/22/24 09:00 11/26/24 09:10 Metoprolol Succinate Ext Rel 25 Mg Tabcr PO 25 mg DAILY SUHAIL Administration Morphine Sulfate 2 mg 11/25/24 16:17 Morphine Sulfate (*Crx) 2 Mg/Ml Inj IV PUSH Q2H PRN Breakthrough Pain Rated 4-6 or NPO Morphine Sulfate 4 mg 11/25/24 16:17 Morphine Sulfate (*Crx) 4 Mg/Ml Inj IV PUSH Q2H PRN Breakthrough Pain Rated 7-10 or NPO Naloxone HCl 0.1 mg 11/25/24 16:17 Naloxone Hcl 0.4 Mg/Ml Vial IV PUSH Q2M PRN Opiate Reversal Ondansetron HCl 4 mg 11/22/24 08:20 Ondansetron Inj 4 Mg/2 Ml Vial IV PUSH Q6H PRN Nausea And Vomiting Pantoprazole Sodium 40 mg 11/22/24 09:00 11/26/24 09:10 Pantoprazole 40 Mg Tablet PO 40 mg QAM SUHAIL Administration Radiology Results: ITS Impressions Foot X-Ray 11/21/24 21:42 IMPRESSION: Osteomyelitis involving the proximal phalanx and distal phalanx of the left big toe. Clinical correlation and follow-up advised. Ankle Brachial Index 11/23/24 15:42 IMPRESSION: Normal right YARA. Moderate stenosis on the left side. Clinical correlation and further evaluation advised. Labs Labs: Laboratory Results - last 24 hr 11/25/24 11/25/24 11/25/24 14:07 15:56 17:17 WBC RBC Hgb Hct MCV MCH MCHC RDW Plt Count MPV Sodium Potassium Chloride Carbon Dioxide Anion Gap BUN Creatinine Estim Creat Clear Calc Estimated GFR Glucose POC Capillary Glucose 86 74 84 Calcium Total Bilirubin AST ALT Alkaline Phosphatase Total Protein Albumin 11/25/24 11/26/24 11/26/24 20:23 05:02 07:46 WBC 7.7 RBC 4.09 L Hgb 12.0 L Hct 36.3 L MCV 88.8 MCH 29.3 MCHC 33.1 RDW 12.4 Plt Count 207 MPV 10.0 Sodium 132 L Potassium 4.0 Chloride 102 Carbon Dioxide 24 Anion Gap 6 BUN 7 L Creatinine 0.68 L Estim Creat Clear Calc 91 Estimated GFR > 60 Glucose 147 H POC Capillary Glucose 179 H 138 H Calcium 8.3 L Total Bilirubin 0.8 AST 66 H ALT 33 Alkaline Phosphatase 107 Total Protein 6.0 L Albumin 2.9 L 11/26/24 11:42 WBC RBC Hgb Hct MCV MCH MCHC RDW Plt Count MPV Sodium Potassium Chloride Carbon Dioxide Anion Gap BUN Creatinine Estim Creat Clear Calc Estimated GFR Glucose POC Capillary Glucose 152 H Calcium Total Bilirubin AST ALT Alkaline Phosphatase Total Protein Albumin
[2024-11-26 17:14] LABS: Glucose Point of Care 235 mg/dl (65-105)
[2024-11-26 20:21] LABS: Glucose Point of Care 182 mg/dl (65-105)
[2024-11-27 04:37] LABS: Hematocrit 37.9 % (42.0-52.0); Hemoglobin 12.5 g/dL (14.0-18.0); Mean Corpuscular Hemoglobin 29.3 pg (26-34); Platelet Count Result 215 k/mm3 (150-375); Red Blood Count 4.26 M/mm3 (4.6-6.20); Red Cell Distribution Width 12.5 % (11.5-14.5); White Blood Count 7.3 K/mm3 (4.5-10.0)
[2024-11-27 04:54] LABS: Vancomycin Trough 21.7 ug/mL (10.0-20.0)
[2024-11-27 04:56] LABS: Alanine Aminotransferase 31 U/L (6-50); Albumin Level 3.1 g/dL (3.5-5.1); Alkaline Phosphatase 93 U/L (38-126); Anion Gap 7 mmol/L (4-12); Aspartate Amino Transferase 56 U/L (17-59); Bilirubin,Total 0.7 mg/dL (0.2-1.3); Blood Urea Nitrogen 9 mg/dL (9-20); Calcium 8.5 mg/dL (8.4-10.2); Carbon Dioxide 22 mmol/L (22-30); Chloride 103 mmol/L (98-107); Estimated CRCL calculation 89 ml/min; Estimated Glomerular Filt Rate > 60; Glucose 119 mg/dL (65-110); Potassium 3.9 mmol/L (3.4-5.0); Sodium 132 mmol/L (137-145)
[2024-11-27] MEDS: metroNIDAZOLE 500 MG/ISO 100ML 500 MG/100 ML BAG 100 MG IVPB ×3 (05:27→21:22)
[2024-11-27 08:15] LABS: Glucose Point of Care 134 mg/dl (65-105)
[2024-11-27] MEDS: LOSARTAN POTASSIUM 50 MG TABLET PO (08:54)
[2024-11-27 08:55] VITALS: PULSE 72
[2024-11-27] MEDS: METOPROLOL SUCCINATE EXT REL 25 MG TABCR PO (08:55)
[2024-11-27] MEDS: ATORVASTATIN 40 MG TABLET BY MOUTH (08:55)
[2024-11-27] MEDS: PANTOPRAZOLE 40 MG TABLET PO (08:55)
[2024-11-27] MEDS: EMPAGLIFLOZIN 10 MG TABLET BY MOUTH (08:55)
[2024-11-27] MEDS: CEFEPIME 2 GM/NS 50 ML 2 GM/50 ML BAG IVPB ×2 (08:55→23:09)
[2024-11-27] MEDS: hydroCHLOROthiazide 12.5 MG CAPSULE PO (08:55)
[2024-11-27] MEDS: ENOXAPARIN 40 MG/0.4 ML SYRINGE SUB-Q (08:55)
[2024-11-27] MEDS: INSULIN ASPART (*BKC) 100 UNITS/ML SUB-Q ×3 (09:34→17:37)
[2024-11-27] MEDS: VANCOMYCIN 1,500 MG/NS 500 ML 1,500 MG/500 ML BAG 250 MG IVPB ×2 (09:35→21:18)
--- NOTE | 2024-11-27 11:27 | WPDPN ---
Progress Note: A&P Assessment and Plan (1) Diabetic infection of left foot: Code(s): E11.628 - Type 2 diabetes mellitus with other skin complications; L08.9 - Local infection of the skin and subcutaneous tissue, unspecified Status: Acute Assessment and Plan: Postop day 2 after ray amputation of left great toe for diabetic necrotic toe and wound with osteomyelitis. The wound repacked today. I did remove all the sutures to open the wound further. The plantar flap seems to be ischemic. Patient may need further debridement of the plantar flap to remove any nonviable tissue in the next day or so. Continue on vancomycin for IV antibiotic therapy. Culture results still showed no growth at this time. Subjective Date/time seen: 11/27/24 11:27 Interval history: Postop day 2 after right amputation of left great toe for osteomyelitis and diabetic foot infection. No new complaints today. White blood count is normal. Culture results still showed no growth from the wound. He is on vancomycin IV. Exam Extrem: Other: The left forefoot wound that is open and has mostly serous drainage. The plantar flap has some ischemic changes. There is still moderate redness and induration in the tissue surround the ins the incision. The remaining toes are still viable without evidence of cellulitis. Objective Data Vital Signs Vital Signs: Vital Signs - 24 hr 11/26/24 14:02 11/26/24 18:02 11/26/24 20:00 Temperature 36.2 C L 36.4 C L Pulse Rate 70 73 Respiratory Rate 16 16 Blood Pressure 124/96 H 129/91 H Pulse Oximetry 100 100 95 Oxygen Delivery Room Air Fraction of Inspired Oxygen 11/26/24 20:30 11/26/24 21:22 11/27/24 08:25 Temperature 36.6 C Pulse Rate 76 72 Respiratory Rate 14 20 Blood Pressure 123/74 Pulse Oximetry 100 90 Oxygen Delivery Room Air Room Air Fraction of Inspired Oxygen 21 11/27/24 08:55 Temperature Pulse Rate 72 Respiratory Rate Blood Pressure Pulse Oximetry Oxygen Delivery Fraction of Inspired Oxygen Intake/Output Intake/Output: Intake & Output 11/24/24 11/25/24 11/26/24 11/27/24 23:59 23:59 23:59 23:59 Intake Total 5260 4140.0 2750 340 Output Total 900 2800 5300 400 Balance 4360 1340.0 -2550 -60 Meds/Results Medications: Active Medications Generic Name Dose Route Start Last Admin Trade Name Freq PRN Reason Stop Dose Admin Acetaminophen 650 mg 11/21/24 23:41 Acetaminophen 325 Mg Tablet PO Q4H PRN Mild Pain (1-3) or Fever Hydrocodone Bitart/Acetaminophen 1 tab 11/25/24 16:17 11/26/24 11:46 Hydrocodone/Acetaminophen (*Crx) 5-325 Mg Tablet PO 1 tab Q4H PRN Administration Pain Rated 4-6 Hydrocodone Bitart/Acetaminophen 1 tab 11/25/24 16:17 Hydrocodone/Acetaminophen (*Crx) 10-325 Mg Tablet PO Q4H PRN Pain Rated 7-10 Atorvastatin Calcium 40 mg 11/22/24 09:00 11/27/24 08:55 Atorvastatin 40 Mg Tablet BY MOUTH 40 mg DAILY SUHAIL Administration Dextrose 12.5 gm 11/22/24 07:04 Dextrose 50% 25 Gm/50 Ml Syringe IV PUSH PRN PRN Hypoglycemia Protocol Empagliflozin 10 mg 11/22/24 09:00 11/27/24 08:55 Empagliflozin 10 Mg Tablet BY MOUTH 10 mg DAILY SUHAIL Administration Enoxaparin Sodium 40 mg 11/23/24 09:00 11/27/24 08:55 Enoxaparin 40 Mg/0.4 Ml Syringe SUB-Q 40 mg DAILY SUHAIL Administration Glucagon 1 mg 11/22/24 07:04 Glucagon For Inj 1 Mg Vial IM PRN PRN Hypoglycemia Protocol Glucose 15 gm 11/22/24 07:04 Glucose Oral Gel 15 Gm Of Glucse In 37.5 Gm Tube PO PRN PRN Hypoglycemia Protocol Hydrochlorothiazide 12.5 mg 11/26/24 12:55 11/27/24 08:55 Hydrochlorothiazide 12.5 Mg Capsule PO 12.5 mg QAM SUHAIL Administration Dextrose 1,000 mls @ 100 mls/hr 11/22/24 07:04 Dextrose 5% 1,000 Ml IVPB PRN PRN Hypoglycemia Protocol Cefepime HCl 2 gm in 50 mls @ 100 mls/hr 11/22/24 21:00 11/27/24 08:55 Maxipime 2 Gm/Ns 50 Ml IVPB 100 mls/hr Q12H SUHAIL Administration Metronidazole 500 mg in 100 mls @ 100 mls/hr 11/22/24 07:45 11/27/24 06:27 Flagyl 500 Mg/Iso Soln 100 Ml IVPB Infused Q8HR SUHAIL Infusion Vancomycin HCl 1,500 mg in 500 mls @ 250 mls/hr 11/27/24 08:00 11/27/24 09:35 Vancomycin 1,500 Mg/Ns 500 Ml IVPB 250 mls/hr Q12H SUHAIL Administration Insulin Aspart 4 units 11/22/24 12:00 11/27/24 09:34 Insulin Aspart (*Bkc) 100 Units/Ml SUB-Q 4 units TIDWM SUHAIL Administration Insulin Glargine 20 units 11/22/24 09:00 11/26/24 09:17 Insulin Glargine (*Bkc) 100 Units/Ml SUB-Q 20 units QAM SUHAIL Administration Losartan Potassium 50 mg 11/22/24 09:00 11/27/24 08:54 Losartan Potassium 50 Mg Tablet PO 50 mg DAILY SUHAIL Administration Metoprolol Succinate 25 mg 11/22/24 09:00 11/27/24 08:55 Metoprolol Succinate Ext Rel 25 Mg Tabcr PO 25 mg DAILY SUHAIL Administration Morphine Sulfate 2 mg 11/25/24 16:17 Morphine Sulfate (*Crx) 2 Mg/Ml Inj IV PUSH Q2H PRN Breakthrough Pain Rated 4-6 or NPO Morphine Sulfate 4 mg 11/25/24 16:17 Morphine Sulfate (*Crx) 4 Mg/Ml Inj IV PUSH Q2H PRN Breakthrough Pain Rated 7-10 or NPO Naloxone HCl 0.1 mg 11/25/24 16:17 Naloxone Hcl 0.4 Mg/Ml Vial IV PUSH Q2M PRN Opiate Reversal Ondansetron HCl 4 mg 11/22/24 08:20 Ondansetron Inj 4 Mg/2 Ml Vial IV PUSH Q6H PRN Nausea And Vomiting Pantoprazole Sodium 40 mg 11/22/24 09:00 11/27/24 08:55 Pantoprazole 40 Mg Tablet PO 40 mg QAM SUHAIL Administration Radiology Results: ITS Impressions Foot X-Ray 11/21/24 21:42 IMPRESSION: Osteomyelitis involving the proximal phalanx and distal phalanx of the left big toe. Clinical correlation and follow-up advised. Ankle Brachial Index 11/23/24 15:42 IMPRESSION: Normal right YARA. Moderate stenosis on the left side. Clinical correlation and further evaluation advised. Labs Labs: Laboratory Results - last 24 hr 11/26/24 11/26/24 11/26/24 11:42 17:11 20:12 WBC RBC Hgb Hct MCV MCH MCHC RDW Plt Count MPV Sodium Potassium Chloride Carbon Dioxide Anion Gap BUN Creatinine Estim Creat Clear Calc Estimated GFR Glucose POC Capillary Glucose 152 H 235 H 182 H Calcium Total Bilirubin AST ALT Alkaline Phosphatase Total Protein Albumin Vancomycin Trough 11/27/24 11/27/24 04:18 08:12 WBC 7.3 RBC 4.26 L Hgb 12.5 L Hct 37.9 L MCV 89.0 MCH 29.3 MCHC 33.0 RDW 12.5 Plt Count 215 MPV 10.0 Sodium 132 L Potassium 3.9 Chloride 103 Carbon Dioxide 22 Anion Gap 7 BUN 9 Creatinine 0.70 Estim Creat Clear Calc 89 Estimated GFR > 60 Glucose 119 H POC Capillary Glucose 134 H Calcium 8.5 Total Bilirubin 0.7 AST 56 ALT 31 Alkaline Phosphatase 93 Total Protein 7.0 Albumin 3.1 L Vancomycin Trough 21.7 H
[2024-11-27 11:58] LABS: Glucose Point of Care 133 mg/dl (65-105)
[2024-11-27] MEDS: INSULIN GLARGINE (*BKC) 100 UNITS/ML 20 UNITS SUB-Q (12:47)
[2024-11-27 14:00] VITALS: BP 122/74; PULSE 68; RESP 16; TEMP 36.9; O2SAT 99
[2024-11-27 17:04] LABS: Glucose Point of Care 115 mg/dl (65-105)
[2024-11-27 19:44] LABS: Glucose Point of Care 109 mg/dl (65-105)
[2024-11-27 20:22] VITALS: PULSE 78; RESP 20; O2SAT 96
[2024-11-27 21:12] VITALS: BP 129/71; PULSE 70; RESP 14; TEMP 36.4; O2SAT 96
[2024-11-28 05:37] LABS: Hematocrit 37.5 % (42.0-52.0); Hemoglobin 12.3 g/dL (14.0-18.0); Mean Corpuscular HGB Conc 32.8 g/dl (32-36); Mean Corpuscular Hemoglobin 29.3 pg (26-34); Mean Corpuscular Volume 89.3 fl (80-100); Mean Platelet Volume 10.5 fl (7.4-10.4); Platelet Count Result 232 k/mm3 (150-375); Red Cell Distribution Width 12.7 % (11.5-14.5); White Blood Count 6.5 K/mm3 (4.5-10.0)
[2024-11-28 05:50] LABS: Alanine Aminotransferase 33 U/L (6-50); Albumin Level 2.8 g/dL (3.5-5.1); Alkaline Phosphatase 109 U/L (38-126); Anion Gap 10 mmol/L (4-12); Aspartate Amino Transferase 57 U/L (17-59); Bilirubin,Total 0.5 mg/dL (0.2-1.3); Blood Urea Nitrogen 13 mg/dL (9-20); Calcium 8.7 mg/dL (8.4-10.2); Carbon Dioxide 23 mmol/L (22-30); Chloride 103 mmol/L (98-107); Estimated CRCL calculation 81 ml/min; Estimated Glomerular Filt Rate > 60; Glucose 131 mg/dL (65-110); Sodium 136 mmol/L (137-145)
[2024-11-28] MEDS: metroNIDAZOLE 500 MG/ISO 100ML 500 MG/100 ML BAG 100 MG IVPB (05:55)
[2024-11-28 06:45] VITALS: BP 123/74; PULSE 79; RESP 14; TEMP 36.3; O2SAT 100
[2024-11-28 08:13] LABS: Glucose Point of Care 125 mg/dl (65-105)
--- NOTE | 2024-11-28 09:23 | PCNWS ---
Weekly nutritional screen. Patient is tolerating current Diabetic consistent carb diet with adequate intake. No weight loss reported. No nutritional needs at this time.
[2024-11-28] MEDS: CEFEPIME 2 GM/NS 50 ML 2 GM/50 ML BAG IVPB (09:59)
[2024-11-28] MEDS: ENOXAPARIN 40 MG/0.4 ML SYRINGE SUB-Q (10:02)
[2024-11-28] MEDS: EMPAGLIFLOZIN 10 MG TABLET BY MOUTH (10:03)
[2024-11-28] MEDS: ATORVASTATIN 40 MG TABLET BY MOUTH (10:03)
[2024-11-28] MEDS: LOSARTAN POTASSIUM 50 MG TABLET PO (10:03)
[2024-11-28] MEDS: hydroCHLOROthiazide 12.5 MG CAPSULE PO (10:03)
[2024-11-28 10:04] VITALS: PULSE 79
[2024-11-28] MEDS: INSULIN GLARGINE (*BKC) 100 UNITS/ML 20 UNITS SUB-Q (10:04)
[2024-11-28] MEDS: PANTOPRAZOLE 40 MG TABLET PO (10:04)
[2024-11-28] MEDS: METOPROLOL SUCCINATE EXT REL 25 MG TABCR PO (10:04)
[2024-11-28] MEDS: VANCOMYCIN 1,500 MG/NS 500 ML 1,500 MG/500 ML BAG 150 MG IVPB (10:48)
--- NOTE | 2024-11-28 10:51 | PM.PNGS ---
Progress Note: A&P Assessment and Plan (1) Diabetic infection of left foot: Code(s): E11.628 - Type 2 diabetes mellitus with other skin complications; L08.9 - Local infection of the skin and subcutaneous tissue, unspecified Status: Acute Assessment and Plan: Postop day 3 after amputation of left great toe for diabetic necrotic toe and wound with osteomyelitis. Sutures removed yesterday. The wound was repacked today. Plantar flap seems to be healing well, as there was concern for ischemic changes of the flap upon yesterday's exam. Continue to monitor this healing, as repeat surgical debridement may be necessary if tissue becomes nonviable. Continue daily dressing changes and wound packing. Culture results still pending. Currently on IV abx. Spoke with pharmacist who agrees that a transition to oral abx would be judicious. YARA with moderate stenosis on left side. Subjective Subjective Date/Time Seen: 11/28/24 10:51 Interval history: POD3 from amputation of left great toe for diabetic necrotic toe and wound with osteomyelitis. No acute events overnight. Normal WBC count. Afebrile. Patient sitting up in bed eating breakfast. Cultures still pending. On IV vancomycin, cefepime, and flagyl. Exam Skin: General skin exam: normal color Other: Warm, dry, normal color, no rashes. Left great toe necrotic with areas of full-thickness ulcer. Edema and erythema improved from yesterday. Minimal serosanguineous drainage with possible purulent drainage from lateral aspect of great toe. Extrem: Other: Left forefoot wound 6X2X4 cm. Tissue is pale, but no purulence, duskiness, or other obvious signs of necrosis. No significant surrounding erythema or edema. Small superficial ulcer to medial aspect of L second toe. No necrotic tissue or purulent drainage. The remaining toes are still viable without evidence of cellulitis. Objective Data Vital Signs Vital Signs: Vital Signs - 24 hr 11/27/24 14:00 11/27/24 20:00 11/27/24 20:22 Temperature 98.5 F Pulse Rate 68 78 Respiratory Rate 16 20 Blood Pressure 122/74 Pulse Oximetry 99 96 Oxygen Delivery Room Air Room Air Fraction of Inspired Oxygen 21 11/27/24 21:12 11/28/24 06:45 11/28/24 10:04 Temperature 97.6 F 97.4 F L Pulse Rate 70 79 79 Respiratory Rate 14 14 Blood Pressure 129/71 123/74 Pulse Oximetry 96 100 Oxygen Delivery Fraction of Inspired Oxygen 11/28/24 10:20 Temperature Pulse Rate Respiratory Rate Blood Pressure Pulse Oximetry Oxygen Delivery Room Air Fraction of Inspired Oxygen Intake/Output Intake/Output: Intake & Output 11/25/24 11/26/24 11/27/24 11/28/24 23:59 23:59 23:59 23:59 Intake Total 4140.0 2750 1690 50 Output Total 2800 5300 2050 1200 Balance 1340.0 -9870 360 1150 Meds/Results Medications: Active Medications Generic Name Dose Route Start Last Admin Trade Name Freq PRN Reason Stop Dose Admin Acetaminophen 650 mg 11/21/24 23:41 Acetaminophen 325 Mg Tablet PO Q4H PRN Mild Pain (1-3) or Fever Hydrocodone Bitart/Acetaminophen 1 tab 11/25/24 16:17 11/26/24 11:46 Hydrocodone/Acetaminophen (*Crx) 5-325 Mg Tablet PO 1 tab Q4H PRN Administration Pain Rated 4-6 Hydrocodone Bitart/Acetaminophen 1 tab 11/25/24 16:17 Hydrocodone/Acetaminophen (*Crx) 10-325 Mg Tablet PO Q4H PRN Pain Rated 7-10 Atorvastatin Calcium 40 mg 11/22/24 09:00 11/28/24 10:03 Atorvastatin 40 Mg Tablet BY MOUTH 40 mg DAILY SUHAIL Administration Dextrose 12.5 gm 11/22/24 07:04 Dextrose 50% 25 Gm/50 Ml Syringe IV PUSH PRN PRN Hypoglycemia Protocol Empagliflozin 10 mg 11/22/24 09:00 11/28/24 10:03 Empagliflozin 10 Mg Tablet BY MOUTH 10 mg DAILY SUHAIL Administration Enoxaparin Sodium 40 mg 11/23/24 09:00 11/28/24 10:02 Enoxaparin 40 Mg/0.4 Ml Syringe SUB-Q 40 mg DAILY SUHAIL Administration Glucagon 1 mg 11/22/24 07:04 Glucagon For Inj 1 Mg Vial IM PRN PRN Hypoglycemia Protocol Glucose 15 gm 11/22/24 07:04 Glucose Oral Gel 15 Gm Of Glucse In 37.5 Gm Tube PO PRN PRN Hypoglycemia Protocol Hydrochlorothiazide 12.5 mg 11/26/24 12:55 11/28/24 10:03 Hydrochlorothiazide 12.5 Mg Capsule PO 12.5 mg QAM SUHAIL Administration Dextrose 1,000 mls @ 100 mls/hr 11/22/24 07:04 Dextrose 5% 1,000 Ml IVPB PRN PRN Hypoglycemia Protocol Cefepime HCl 2 gm in 50 mls @ 100 mls/hr 11/22/24 21:00 11/28/24 10:29 Maxipime 2 Gm/Ns 50 Ml IVPB Infused Q12H SUHALI Infusion Metronidazole 500 mg in 100 mls @ 100 mls/hr 11/22/24 07:45 11/28/24 05:55 Flagyl 500 Mg/Iso Soln 100 Ml IVPB 100 mls/hr Q8HR SUHAIL Administration Vancomycin HCl 1,500 mg in 500 mls @ 250 mls/hr 11/27/24 08:00 11/28/24 10:48 Vancomycin 1,500 Mg/Ns 500 Ml IVPB 150 mls/hr Q12H SUHAIL Administration Insulin Aspart 4 units 11/22/24 12:00 11/28/24 09:52 Insulin Aspart (*Bkc) 100 Units/Ml SUB-Q Not Given TIDWM [facility] Insulin Glargine 20 units 11/22/24 09:00 11/28/24 10:04 Insulin Glargine (*Bkc) 100 Units/Ml SUB-Q 20 units QAM SUHAIL Administration Losartan Potassium 50 mg 11/22/24 09:00 11/28/24 10:03 Losartan Potassium 50 Mg Tablet PO 50 mg DAILY SUHAIL Administration Metoprolol Succinate 25 mg 11/22/24 09:00 11/28/24 10:04 Metoprolol Succinate Ext Rel 25 Mg Tabcr PO 25 mg DAILY SUHAIL Administration Morphine Sulfate 2 mg 11/25/24 16:17 Morphine Sulfate (*Crx) 2 Mg/Ml Inj IV PUSH Q2H PRN Breakthrough Pain Rated 4-6 or NPO Morphine Sulfate 4 mg 11/25/24 16:17 Morphine Sulfate (*Crx) 4 Mg/Ml Inj IV PUSH Q2H PRN Breakthrough Pain Rated 7-10 or NPO Naloxone HCl 0.1 mg 11/25/24 16:17 Naloxone Hcl 0.4 Mg/Ml Vial IV PUSH Q2M PRN Opiate Reversal Ondansetron HCl 4 mg 11/22/24 08:20 Ondansetron Inj 4 Mg/2 Ml Vial IV PUSH Q6H PRN Nausea And Vomiting Pantoprazole Sodium 40 mg 11/22/24 09:00 11/28/24 10:04 Pantoprazole 40 Mg Tablet PO 40 mg QAM SUHAIL Administration Radiology Results: ITS Impressions Foot X-Ray 11/21/24 21:42 IMPRESSION: Osteomyelitis involving the proximal phalanx and distal phalanx of the left big toe. Clinical correlation and follow-up advised. Ankle Brachial Index 11/23/24 15:42 IMPRESSION: Normal right YARA. Moderate stenosis on the left side. Clinical correlation and further evaluation advised. Labs Labs: Laboratory Results - last 24 hr 11/27/24 11/27/24 11/27/24 11:53 16:57 19:35 WBC RBC Hgb Hct MCV MCH MCHC RDW Plt Count MPV Sodium Potassium Chloride Carbon Dioxide Anion Gap BUN Creatinine Estim Creat Clear Calc Estimated GFR Glucose POC Capillary Glucose 133 H 115 H 109 H Calcium Total Bilirubin AST ALT Alkaline Phosphatase Total Protein Albumin 11/28/24 11/28/24 04:46 08:11 WBC 6.5 RBC 4.20 L Hgb 12.3 L Hct 37.5 L MCV 89.3 MCH 29.3 MCHC 32.8 RDW 12.7 Plt Count 232 MPV 10.5 H Sodium 136 L Potassium 4.0 Chloride 103 Carbon Dioxide 23 Anion Gap 10 BUN 13 Creatinine 0.77 Estim Creat Clear Calc 81 Estimated GFR > 60 Glucose 131 H POC Capillary Glucose 125 H Calcium 8.7 Total Bilirubin 0.5 AST 57 ALT 33 Alkaline Phosphatase 109 Total Protein 6.0 L Albumin 2.8 L
--- NOTE | 2024-11-28 12:07 | P.PNIM_ITS ---
Progress Note: A&P Assessment and Plan (1) Diabetic infection of left foot: Code(s): E11.628 - Type 2 diabetes mellitus with other skin complications; L08.9 - Local infection of the skin and subcutaneous tissue, unspecified Status: Acute Assessment and Plan: SSI with accucheks and lantus 20 units (2) Osteomyelitis: Qualifiers: Laterality: left Osteomyelitis location: foot Osteomyelitis type: other acute Qualified Code(s): M86.172 - Other acute osteomyelitis, left ankle and foot Code(s): M86.9 - Osteomyelitis, unspecified Status: Acute Assessment and Plan: * Presented to the ED with complaints of left great toe swelling and pain radiating to the ball of the foot * Osteomyelitis secondary to infected diabetic foot ulcer of the left toe. * s/p r amputation of left great toe * MRI of the foot unable to be done here will need to follow up further outpatient * For a possible second debridement, continue Abx * Gen surgery following (3) Uncontrolled diabetes mellitus with hyperglycemia: Qualifiers: Diabetes mellitus type: type 2 Qualified Code(s): E11.65 - Type 2 diabetes mellitus with hyperglycemia Code(s): E11.65 - Type 2 diabetes mellitus with hyperglycemia Status: Acute Assessment and Plan: * Glucose is stable at 99 * A1c 12.0 * Continue home Jardiance, Lantus 20 units at night * SSI with accucheks (4) Hypertension: Code(s): I10 - Essential (primary) hypertension Status: Acute Assessment and Plan: * Current BP is 162/90 * Continue home metoprolol, losartan * Trend BP * Adjust therapy as indicated (5) Dyslipidemia: Code(s): E78.5 - Hyperlipidemia, unspecified Status: Acute Assessment and Plan: * Continue atorvastatin (6) Hypokalemia: Code(s): E87.6 - Hypokalemia Status: Acute Assessment and Plan: resolved monitor Plan DVT prophylaxis on Sq Lovenox Subjective Date/time seen: 11/28/24 12:07 Interval history: Comfortable at bedside for a second debridement per Gen surgery Review of Systems Review of Systems: 12 systems were reviewed with pertinent positives and negatives per HPI. Except as documented in the HPI, all other systems were reviewed and are negative. Exam Narrative: General: well-nourished, well-appearing 69-year-old male, sitting up in bed, comfortable, NARD Neuro: awake, alert and oriented x4, speech clear, no focal neuro deficits noted HEENMT: normocephalic, atraumatic, EOMI, sclerae anicteric, moist oral mucosa Respiratory: Clear to auscultation bilaterally without crackles, rhonchi or wheezes, nonlabored breathing Cardio: regular rate, regular rhythm with S1-S2 Abdomen: nondistended, normoactive bowel sounds, soft, nontender to palpation Extremities: left foot wound dressing wet with bloody drainage Skin: no rashes or lesions, warm and dry Psych: appropriate mood and affect, judgment and insight intact Const: Other: Poor hygiene, disheveled, appears older than stated age, no acute distress HENMT: Other: Mucous membranes are dry, no oral pharyngeal erythema, poor dentition, head is normocephalic atraumatic Eyes: Other: Pupils are equal and reactive, no conjunctival pallor, mildly injected sclerae Neck: Other: No JVD, no lymphadenopathy Resp: Other: Decreased breath sounds bilaterally, no increased work of breathing Cardio: Other: Regular rate, regular rhythm, 2+ bilateral radial pulses, 1+ left pedal pulse 2+ pedal pulse, no murmur GI: Other: Soft, nontender, nondistended, positive bowel sounds Skin: Other: Long overgrown fingernails with debris under the nail beds both hands and feet, tanned, non jaundice Neuro: Other: Alert oriented person place and confused as to time he thought that the month was March and that the year was 2023 speech is clear but slow, moments of confusion, decreased sensation to the feet, no gross motor deficits noted on exam Extrem: Other: Yellow moist boggy tissue to the medial great toe, necrotic tissue to the lateral great toe and in the inter webspace with serous drainage, boggy erythematous tissue extending up to the forefoot and stopping just prior to the ankle the increased warmth, marked tenderness to palpation on both dorsal and plantar surfaces, plantar surface has open wound with foul odor Psych: Other: Poor judgment and insight, cooperative, calm Objective Data Vital Signs Vital Signs: Vital Signs - 24 hr 11/27/24 14:00 11/27/24 20:00 11/27/24 20:22 Temperature 98.5 F Pulse Rate 68 78 Respiratory Rate 16 20 Blood Pressure 122/74 Pulse Oximetry 99 96 Oxygen Delivery Room Air Room Air Fraction of Inspired Oxygen 21 06/01/25 21:12 11/28/24 06:45 11/28/24 10:04 Temperature 97.6 F 97.4 F L Pulse Rate 70 79 79 Respiratory Rate 14 14 Blood Pressure 129/71 123/74 Pulse Oximetry 96 100 Oxygen Delivery Fraction of Inspired Oxygen 11/28/24 10:20 Temperature Pulse Rate Respiratory Rate Blood Pressure Pulse Oximetry Oxygen Delivery Room Air Fraction of Inspired Oxygen Intake/Output Intake/Output: Intake & Output 11/25/24 11/26/24 11/27/24 11/28/24 23:59 23:59 23:59 23:59 Intake Total 4140.0 2750 1690 50 Output Total 2800 5300 2050 1200 Balance 1340.0 -2550 -360 -1150 Meds/Results Medications: Active Medications Generic Name Dose Route Start Last Admin Trade Name Freq PRN Reason Stop Dose Admin Acetaminophen 650 mg 11/21/24 23:41 Acetaminophen 325 Mg Tablet PO Q4H PRN Mild Pain (1-3) or Fever Hydrocodone Bitart/Acetaminophen 1 tab 11/25/24 16:17 11/26/24 11:46 Hydrocodone/Acetaminophen (*Crx) 5-325 Mg Tablet PO 1 tab Q4H PRN Administration Pain Rated 4-6 Hydrocodone Bitart/Acetaminophen 1 tab 11/25/24 16:17 Hydrocodone/Acetaminophen (*Crx) 10-325 Mg Tablet PO Q4H PRN Pain Rated 7-10 Amoxicillin/Clavulanate Potassium 1 tablet 11/28/24 21:00 Amoxicillin/Clavulanate K 875-125 Mg Tab PO Q12HR SUHAIL Atorvastatin Calcium 40 mg 11/22/24 09:00 11/28/24 10:03 Atorvastatin 40 Mg Tablet BY MOUTH 40 mg DAILY SUHAIL Administration Dextrose 12.5 gm 11/22/24 07:04 Dextrose 50% 25 Gm/50 Ml Syringe IV PUSH PRN PRN Hypoglycemia Protocol Doxycycline Hyclate 100 mg 11/28/24 21:00 Doxycycline Hyclate 100 Mg Tablet PO Q12HR SUHAIL Empagliflozin 10 mg 11/22/24 09:00 11/28/24 10:03 Empagliflozin 10 Mg Tablet BY MOUTH 10 mg DAILY SUHAIL Administration Enoxaparin Sodium 40 mg 11/23/24 09:00 11/28/24 10:02 Enoxaparin 40 Mg/0.4 Ml Syringe SUB-Q 40 mg DAILY SUHAIL Administration Glucagon 1 mg 11/22/24 07:04 Glucagon For Inj 1 Mg Vial IM PRN PRN Hypoglycemia Protocol Glucose 15 gm 11/22/24 07:04 Glucose Oral Gel 15 Gm Of Glucse In 37.5 Gm Tube PO PRN PRN Hypoglycemia Protocol Hydrochlorothiazide 12.5 mg 11/26/24 12:55 11/28/24 10:03 Hydrochlorothiazide 12.5 Mg Capsule PO 12.5 mg QAM SUHAIL Administration Dextrose 1,000 mls @ 100 mls/hr 11/22/24 07:04 Dextrose 5% 1,000 Ml IVPB PRN PRN Hypoglycemia Protocol Insulin Aspart 4 units 11/22/24 12:00 11/28/24 09:52 Insulin Aspart (*Bkc) 100 Units/Ml SUB-Q Not Given TIDWM [facility] Insulin Glargine 20 units 11/22/24 09:00 11/28/24 10:04 Insulin Glargine (*Bkc) 100 Units/Ml SUB-Q 20 units QAM SUHAIL Administration Losartan Potassium 50 mg 11/22/24 09:00 11/28/24 10:03 Losartan Potassium 50 Mg Tablet PO 50 mg DAILY SUHAIL Administration Metoprolol Succinate 25 mg 11/22/24 09:00 11/28/24 10:04 Metoprolol Succinate Ext Rel 25 Mg Tabcr PO 25 mg DAILY SUHAIL Administration Morphine Sulfate 2 mg 11/25/24 16:17 Morphine Sulfate (*Crx) 2 Mg/Ml Inj IV PUSH Q2H PRN Breakthrough Pain Rated 4-6 or NPO Morphine Sulfate 4 mg 11/25/24 16:17 Morphine Sulfate (*Crx) 4 Mg/Ml Inj IV PUSH Q2H PRN Breakthrough Pain Rated 7-10 or NPO Naloxone HCl 0.1 mg 11/25/24 16:17 Naloxone Hcl 0.4 Mg/Ml Vial IV PUSH Q2M PRN Opiate Reversal Ondansetron HCl 4 mg 11/22/24 08:20 Ondansetron Inj 4 Mg/2 Ml Vial IV PUSH Q6H PRN Nausea And Vomiting Pantoprazole Sodium 40 mg 11/22/24 09:00 11/28/24 10:04 Pantoprazole 40 Mg Tablet PO 40 mg QAM SUHAIL Administration Radiology Results: ITS Impressions Foot X-Ray 11/21/24 21:42 IMPRESSION: Osteomyelitis involving the proximal phalanx and distal phalanx of the left big toe. Clinical correlation and follow-up advised. Ankle Brachial Index 11/23/24 15:42 IMPRESSION: Normal right YARA. Moderate stenosis on the left side. Clinical correlation and further evaluation advised. Labs Labs: Laboratory Results - last 24 hr 11/27/24 11/27/24 11/28/24 16:57 19:35 04:46 WBC 6.5 RBC 4.20 L Hgb 12.3 L Hct 37.5 L MCV 89.3 MCH 29.3 MCHC 32.8 RDW 12.7 Plt Count 232 MPV 10.5 H Sodium 136 L Potassium 4.0 Chloride 103 Carbon Dioxide 23 Anion Gap 10 BUN 13 Creatinine 0.77 Estim Creat Clear Calc 81 Estimated GFR > 60 Glucose 131 H POC Capillary Glucose 115 H 109 H Calcium 8.7 Total Bilirubin 0.5 AST 57 ALT 33 Alkaline Phosphatase 109 Total Protein 6.0 L Albumin 2.8 L 11/28/24 08:11 WBC RBC Hgb Hct MCV MCH MCHC RDW Plt Count MPV Sodium Potassium Chloride Carbon Dioxide Anion Gap BUN Creatinine Estim Creat Clear Calc Estimated GFR Glucose POC Capillary Glucose 125 H Calcium Total Bilirubin AST ALT Alkaline Phosphatase Total Protein Albumin Quality VTE Prophylaxis VTE prophylaxis: pharmacologic ordered (Lovenox 40 mg subQ daily. To start on 11/23/2024)
[2024-11-28 12:10] LABS: Glucose Point of Care 164 mg/dl (65-105)
[2024-11-28] MEDS: INSULIN ASPART (*BKC) 100 UNITS/ML SUB-Q (12:31)
[2024-11-28 14:28] VITALS: BP 128/73; PULSE 82; RESP 18; TEMP 36.2; O2SAT 98
[2024-11-28 17:15] LABS: Glucose Point of Care 133 mg/dl (65-105)
[2024-11-28] MEDS: AMOXICILLIN/CLAVULANATE K 875-125 MG TAB 1 TABLET PO (20:15)
[2024-11-28] MEDS: DOXYCYCLINE HYCLATE 100 MG TABLET PO (20:15)
[2024-11-28 20:31] VITALS: BP 141/86; PULSE 75; RESP 20; TEMP 36.2; O2SAT 98
[2024-11-28 20:38] LABS: Glucose Point of Care 129 mg/dl (65-105)
[2024-11-28 21:36] VITALS: O2SAT 98
[2024-11-29] VITALS: BP 141/84; PULSE 81; RESP 20; TEMP 36.6; O2SAT 97
[2024-11-29 05:26] LABS: Basophils Percent Auto 0.7 % (0.2-1.2); Eosinophils Absolute Auto 0.2 K/mm3 (0-0.3); Eosinophils Percent Auto 2.9 % (0-4.4); Hematocrit 39.6 % (42.0-52.0); Hemoglobin 13.2 g/dL (14.0-18.0); Immature Granulocyte Absolute 0.12 K/mm3 (0.00-0.031); Lymphocytes Absolute Auto 2.08 K/mm3 (0.9-3.2); Mean Corpuscular HGB Conc 33.3 g/dl (32-36); Mean Corpuscular Hemoglobin 29.4 pg (26-34); Mean Corpuscular Volume 88.2 fl (80-100); Mean Platelet Volume 9.7 fl (7.4-10.4); Monocytes Absolute Auto 0.5 K/mm3 (0.1-0.6); Monocytes Percent Auto 7.5 % (2.6-8.5); Neutrophils Absolute Auto 3.2 K/mm3 (1.3-6.7); Neutrophils Percent Auto 52.9 % (45.5-73.1); Platelet Count Result 274 k/mm3 (150-375); Red Blood Count 4.49 M/mm3 (4.6-6.20); Red Cell Distribution Width 12.9 % (11.5-14.5); White Blood Count 6.1 K/mm3 (4.5-10.0)
[2024-11-29 05:36] LABS: Alanine Aminotransferase 40 U/L (6-50); Albumin Level 3.3 g/dL (3.5-5.1); Alkaline Phosphatase 106 U/L (38-126); Anion Gap 9 mmol/L (4-12); Aspartate Amino Transferase 72 U/L (17-59); Bilirubin,Total 0.5 mg/dL (0.2-1.3); Blood Urea Nitrogen 14 mg/dL (9-20); Calcium 8.9 mg/dL (8.4-10.2); Carbon Dioxide 25 mmol/L (22-30); Chloride 103 mmol/L (98-107); Estimated CRCL calculation 77 ml/min; Estimated Glomerular Filt Rate > 60; Glucose 116 mg/dL (65-110); Magnesium 2.2 mg/dL (1.6-2.3); Potassium 3.8 mmol/L (3.4-5.0); Sodium 137 mmol/L (137-145)
[2024-11-29 08:00] VITALS: BP 136/74; PULSE 78; RESP 19; TEMP 36.4; O2SAT 97
[2024-11-29 08:28] LABS: Glucose Point of Care 103 mg/dl (65-105)
[2024-11-29 08:37] VITALS: PULSE 81
[2024-11-29] MEDS: DOXYCYCLINE HYCLATE 100 MG TABLET PO ×2 (08:37→21:01)
[2024-11-29] MEDS: hydroCHLOROthiazide 12.5 MG CAPSULE PO (08:37)
[2024-11-29] MEDS: LOSARTAN POTASSIUM 50 MG TABLET PO (08:37)
[2024-11-29] MEDS: METOPROLOL SUCCINATE EXT REL 25 MG TABCR PO (08:37)
[2024-11-29] MEDS: EMPAGLIFLOZIN 10 MG TABLET BY MOUTH (08:37)
[2024-11-29] MEDS: AMOXICILLIN/CLAVULANATE K 875-125 MG TAB 1 TABLET PO ×2 (08:37→21:01)
[2024-11-29] MEDS: PANTOPRAZOLE 40 MG TABLET PO (08:37)
[2024-11-29] MEDS: INSULIN GLARGINE (*BKC) 100 UNITS/ML 20 UNITS SUB-Q (08:37)
[2024-11-29] MEDS: ATORVASTATIN 40 MG TABLET BY MOUTH (08:37)
[2024-11-29] MEDS: ENOXAPARIN 40 MG/0.4 ML SYRINGE SUB-Q (08:40)
[2024-11-29 12:10] LABS: Glucose Point of Care 177 mg/dl (65-105)
[2024-11-29] MEDS: HYDROcodone/acetaminophen (*CRX) 10-325 MG TABLET 1 TAB PO (14:58)
--- NOTE | 2024-11-29 15:04 | P.PNGS_ITS ---
Progress Note: A&P Assessment and Plan (1) Diabetic infection of left foot: Code(s): E11.628 - Type 2 diabetes mellitus with other skin complications; L08.9 - Local infection of the skin and subcutaneous tissue, unspecified Status: Acute Assessment and Plan: * Continue wound vac therapy for today. Will plan to change wound vac dressing tomorrow. * Continue oral antibiotics * PT/OT following, heel touch weight bearing on LLE * CC planning for SNF placement on discharge. If wound appears stable, then he may be able to discharge from our standpoint in the next few days if no need for further debridement. Plan I have discussed the patient's case and plan of care with Dr. Salazar. Subjective Subjective Date/Time Seen: 11/29/24 15:04 Post Op day: 4 Interval history: No acute changes overnight. Wound vac placed by wound care nurses yesterday. No pain. Exam Narrative: Left foot wound vac in place with no drainage in the canister Objective Data Vital Signs Vital Signs: Vital Signs - 24 hr 11/28/24 20:00 11/28/24 20:31 11/28/24 21:36 Temperature 97.2 F L Pulse Rate 75 Respiratory Rate 20 Blood Pressure 141/86 H Pulse Oximetry 98 98 Oxygen Delivery Room Air Room Air Fraction of Inspired Oxygen 21 11/29/24 00:00 11/29/24 08:00 11/29/24 08:00 Temperature 97.9 F 97.6 F Pulse Rate 81 78 Respiratory Rate 20 19 Blood Pressure 141/84 H 136/74 Pulse Oximetry 97 97 Oxygen Delivery Room Air Fraction of Inspired Oxygen 11/29/24 08:37 Temperature Pulse Rate 81 Respiratory Rate Blood Pressure Pulse Oximetry Oxygen Delivery Fraction of Inspired Oxygen Intake/Output Intake/Output: Intake & Output 11/26/24 11/27/24 11/28/24 11/29/24 23:59 23:59 23:59 23:59 Intake Total 2750 1690 850 540 Output Total 5300 2050 1650 1200 Balance -2550 -360 -800 -660 Meds/Results Medications: Active Medications Generic Name Dose Route Start Last Admin Trade Name Freq PRN Reason Stop Dose Admin Acetaminophen 650 mg 11/21/24 23:41 Acetaminophen 325 Mg Tablet PO Q4H PRN Mild Pain (1-3) or Fever Hydrocodone Bitart/Acetaminophen 1 tab 11/25/24 16:17 05/31/25 11:46 Hydrocodone/Acetaminophen (*Crx) 5-325 Mg Tablet PO 1 tab Q4H PRN Administration Pain Rated 4-6 Hydrocodone Bitart/Acetaminophen 1 tab 11/25/24 16:17 11/29/24 14:58 Hydrocodone/Acetaminophen (*Crx) 10-325 Mg Tablet PO 1 tab Q4H PRN Administration Pain Rated 7-10 Amoxicillin/Clavulanate Potassium 1 tablet 11/28/24 21:00 11/29/24 08:37 Amoxicillin/Clavulanate K 875-125 Mg Tab PO 1 tablet Q12HR SUHAIL Administration Atorvastatin Calcium 40 mg 11/22/24 09:00 11/29/24 08:37 Atorvastatin 40 Mg Tablet BY MOUTH 40 mg DAILY SUHAIL Administration Dextrose 12.5 gm 11/22/24 07:04 Dextrose 50% 25 Gm/50 Ml Syringe IV PUSH PRN PRN Hypoglycemia Protocol Doxycycline Hyclate 100 mg 11/28/24 21:00 11/29/24 08:37 Doxycycline Hyclate 100 Mg Tablet PO 100 mg Q12HR SUHAIL Administration Empagliflozin 10 mg 11/22/24 09:00 11/29/24 08:37 Empagliflozin 10 Mg Tablet BY MOUTH 10 mg DAILY SUHAIL Administration Enoxaparin Sodium 40 mg 11/23/24 09:00 11/29/24 08:40 Enoxaparin 40 Mg/0.4 Ml Syringe SUB-Q 40 mg DAILY SUHAIL Administration Glucagon 1 mg 11/22/24 07:04 Glucagon For Inj 1 Mg Vial IM PRN PRN Hypoglycemia Protocol Glucose 15 gm 11/22/24 07:04 Glucose Oral Gel 15 Gm Of Glucse In 37.5 Gm Tube PO PRN PRN Hypoglycemia Protocol Hydrochlorothiazide 12.5 mg 11/26/24 12:55 11/29/24 08:37 Hydrochlorothiazide 12.5 Mg Capsule PO 12.5 mg QAM SUHAIL Administration Dextrose 1,000 mls @ 100 mls/hr 11/22/24 07:04 Dextrose 5% 1,000 Ml IVPB PRN PRN Hypoglycemia Protocol Insulin Aspart 4 units 11/22/24 12:00 11/29/24 12:17 Insulin Aspart (*Bkc) 100 Units/Ml SUB-Q Not Given TIDWM [facility] Insulin Glargine 20 units 11/22/24 09:00 11/29/24 08:37 Insulin Glargine (*Bkc) 100 Units/Ml SUB-Q 20 units QAM SUHAIL Administration Losartan Potassium 50 mg 11/22/24 09:00 11/29/24 08:37 Losartan Potassium 50 Mg Tablet PO 50 mg DAILY SUHAIL Administration Metoprolol Succinate 25 mg 11/22/24 09:00 11/29/24 08:37 Metoprolol Succinate Ext Rel 25 Mg Tabcr PO 25 mg DAILY SUHAIL Administration Morphine Sulfate 2 mg 11/25/24 16:17 Morphine Sulfate (*Crx) 2 Mg/Ml Inj IV PUSH Q2H PRN Breakthrough Pain Rated 4-6 or NPO Morphine Sulfate 4 mg 11/25/24 16:17 Morphine Sulfate (*Crx) 4 Mg/Ml Inj IV PUSH Q2H PRN Breakthrough Pain Rated 7-10 or NPO Naloxone HCl 0.1 mg 11/25/24 16:17 Naloxone Hcl 0.4 Mg/Ml Vial IV PUSH Q2M PRN Opiate Reversal Ondansetron HCl 4 mg 11/22/24 08:20 Ondansetron Inj 4 Mg/2 Ml Vial IV PUSH Q6H PRN Nausea And Vomiting Pantoprazole Sodium 40 mg 11/22/24 09:00 11/29/24 08:37 Pantoprazole 40 Mg Tablet PO 40 mg QAM SUHAIL Administration Radiology Results: ITS Impressions Foot X-Ray 11/21/24 21:42 IMPRESSION: Osteomyelitis involving the proximal phalanx and distal phalanx of the left big toe. Clinical correlation and follow-up advised. Ankle Brachial Index 11/23/24 15:42 IMPRESSION: Normal right YARA. Moderate stenosis on the left side. Clinical correlation and further evaluation advised. Venous Doppler Study 11/29/24 11:59 IMPRESSION: 1. Patent left upper extremity veins. No evidence of deep venous thrombosis. Labs Labs: Laboratory Results - last 24 hr 11/28/24 11/28/24 11/29/24 17:10 20:29 04:55 WBC 6.1 RBC 4.49 L Hgb 13.2 L Hct 39.6 L MCV 88.2 MCH 29.4 MCHC 33.3 RDW 12.9 Plt Count 274 MPV 9.7 Immature Gran % (Auto) 2.0 H Neut % (Auto) 52.9 Lymph % (Auto) 34.0 [place] % (Auto) 7.5 Eos % (Auto) 2.9 Baso % (Auto) 0.7 Lymph # (Auto) 2.08 [place] # (Auto) 0.5 Eos # (Auto) 0.2 Baso # (Auto) 0.0 Abs Immat Gran (auto) 0.12 H Absolute Neuts (auto) 3.2 Absolute Nucleated RBC 0.000 Nucleated RBC % 0.0 Sodium 137 Potassium 3.8 Chloride 103 Carbon Dioxide 25 Anion Gap 9 BUN 14 Creatinine 0.82 Estim Creat Clear Calc 77 Estimated GFR > 60 Glucose 116 H POC Capillary Glucose 133 H 129 H Calcium 8.9 Magnesium 2.2 Total Bilirubin 0.5 AST 72 H ALT 40 Alkaline Phosphatase 106 Total Protein 7.0 Albumin 3.3 L 11/29/24 11/29/24 08:19 11:57 WBC RBC Hgb Hct MCV MCH MCHC RDW Plt Count MPV Immature Gran % (Auto) Neut % (Auto) Lymph % (Auto) [place] % (Auto) Eos % (Auto) Baso % (Auto) Lymph # (Auto) [place] # (Auto) Eos # (Auto) Baso # (Auto) Abs Immat Gran (auto) Absolute Neuts (auto) Absolute Nucleated RBC Nucleated RBC % Sodium Potassium Chloride Carbon Dioxide Anion Gap BUN Creatinine Estim Creat Clear Calc Estimated GFR Glucose POC Capillary Glucose 103 177 H Calcium Magnesium Total Bilirubin AST ALT Alkaline Phosphatase Total Protein Albumin
--- NOTE | 2024-11-29 15:28 | P.PNIM_ITS ---
Progress Note: A&P Assessment and Plan (1) Diabetic infection of left foot: Code(s): E11.628 - Type 2 diabetes mellitus with other skin complications; L08.9 - Local infection of the skin and subcutaneous tissue, unspecified Status: Acute Assessment and Plan: SSI with accucheks and lantus 20 units (2) Osteomyelitis: Qualifiers: Laterality: left Osteomyelitis location: foot Osteomyelitis type: other acute Qualified Code(s): M86.172 - Other acute osteomyelitis, left ankle and foot Code(s): M86.9 - Osteomyelitis, unspecified Status: Acute Assessment and Plan: * Presented to the ED with complaints of left great toe swelling and pain radiating to the ball of the foot * Osteomyelitis secondary to infected diabetic foot ulcer of the left toe. * s/p r amputation of left great toe * MRI of the foot unable to be done here will need to follow up further outpatient * For a possible second debridement, continue Abx * Gen surgery following (3) Uncontrolled diabetes mellitus with hyperglycemia: Qualifiers: Diabetes mellitus type: type 2 Qualified Code(s): E11.65 - Type 2 diabetes mellitus with hyperglycemia Code(s): E11.65 - Type 2 diabetes mellitus with hyperglycemia Status: Acute Assessment and Plan: * Glucose is stable at 99 * A1c 12.0 * Continue home Jardiance, Lantus 20 units at night * SSI with accucheks (4) Hypertension: Code(s): I10 - Essential (primary) hypertension Status: Acute Assessment and Plan: * Current BP is 162/90 * Continue home metoprolol, losartan * Trend BP * Adjust therapy as indicated (5) Dyslipidemia: Code(s): E78.5 - Hyperlipidemia, unspecified Status: Acute Assessment and Plan: * Continue atorvastatin (6) Hypokalemia: Code(s): E87.6 - Hypokalemia Status: Acute Assessment and Plan: resolved monitor Plan patient stats pain is tolerable s/p amputation of left G Toe POD #4, patient two sisters are present, patient is seen by general surgery service, will continue wound VAC therapy. patient is working with PT/OT, will monitor and plan. DVT prophylaxis on Sq Lovenox Subjective Date/time seen: 11/29/24 15:28 Interval history: Comfortable at bedside for a second debridement per Gen surgery patient stats pain is tolerable s/p amputation of left G Toe POD #4, patient two sisters are present, patient is seen by general surgery service, will continue wound VAC therapy. patient is working with PT/OT, will monitor and plan. Review of Systems Review of Systems: 12 systems were reviewed with pertinent positives and negatives per HPI. Except as documented in the HPI, all other systems were reviewed and are negative. Exam Narrative: Patient is comfortable, NAD HEENT: eyes are clear and none icteric LUNGS:CTA HEART: RR S1S2 ABD: BS+, Soft and nontender Lower extremities: no edema, left foot with dressing SKIN: nonjaundiced Neuro: grossly intact. Objective Data Vital Signs Vital Signs: Vital Signs - 24 hr 11/28/24 20:00 11/28/24 20:31 11/28/24 21:36 Temperature 36.2 C L Pulse Rate 75 Respiratory Rate 20 Blood Pressure 141/86 H Pulse Oximetry 98 98 Oxygen Delivery Room Air Room Air Fraction of Inspired Oxygen 21 11/29/24 00:00 11/29/24 08:00 11/29/24 08:00 Temperature 36.6 C 36.4 C Pulse Rate 81 78 Respiratory Rate 20 19 Blood Pressure 141/84 H 136/74 Pulse Oximetry 97 97 Oxygen Delivery Room Air Fraction of Inspired Oxygen 11/29/24 08:37 Temperature Pulse Rate 81 Respiratory Rate Blood Pressure Pulse Oximetry Oxygen Delivery Fraction of Inspired Oxygen Intake/Output Intake/Output: Intake & Output 11/26/24 11/27/24 11/28/24 11/29/24 23:59 23:59 23:59 23:59 Intake Total 2750 1690 850 540 Output Total 5300 2050 1650 1200 Balance -2550 -360 -800 -660 Meds/Results Medications: Active Medications Generic Name Dose Route Start Last Admin Trade Name Freq PRN Reason Stop Dose Admin Acetaminophen 650 mg 11/21/24 23:41 Acetaminophen 325 Mg Tablet PO Q4H PRN Mild Pain (1-3) or Fever Hydrocodone Bitart/Acetaminophen 1 tab 11/25/24 16:17 11/26/24 11:46 Hydrocodone/Acetaminophen (*Crx) 5-325 Mg Tablet PO 1 tab Q4H PRN Administration Pain Rated 4-6 Hydrocodone Bitart/Acetaminophen 1 tab 11/25/24 16:17 11/29/24 14:58 Hydrocodone/Acetaminophen (*Crx) 10-325 Mg Tablet PO 1 tab Q4H PRN Administration Pain Rated 7-10 Amoxicillin/Clavulanate Potassium 1 tablet 11/28/24 21:00 11/29/24 08:37 Amoxicillin/Clavulanate K 875-125 Mg Tab PO 1 tablet Q12HR SUHAIL Administration Atorvastatin Calcium 40 mg 11/22/24 09:00 11/29/24 08:37 Atorvastatin 40 Mg Tablet BY MOUTH 40 mg DAILY SUHAIL Administration Dextrose 12.5 gm 11/22/24 07:04 Dextrose 50% 25 Gm/50 Ml Syringe IV PUSH PRN PRN Hypoglycemia Protocol Doxycycline Hyclate 100 mg 11/28/24 21:00 11/29/24 08:37 Doxycycline Hyclate 100 Mg Tablet PO 100 mg Q12HR SUHAIL Administration Empagliflozin 10 mg 11/22/24 09:00 11/29/24 08:37 Empagliflozin 10 Mg Tablet BY MOUTH 10 mg DAILY SUHAIL Administration Enoxaparin Sodium 40 mg 11/23/24 09:00 11/29/24 08:40 Enoxaparin 40 Mg/0.4 Ml Syringe SUB-Q 40 mg DAILY SUHAIL Administration Glucagon 1 mg 11/22/24 07:04 Glucagon For Inj 1 Mg Vial IM PRN PRN Hypoglycemia Protocol Glucose 15 gm 11/22/24 07:04 Glucose Oral Gel 15 Gm Of Glucse In 37.5 Gm Tube PO PRN PRN Hypoglycemia Protocol Hydrochlorothiazide 12.5 mg 11/26/24 12:55 11/29/24 08:37 Hydrochlorothiazide 12.5 Mg Capsule PO 12.5 mg QAM SUHAIL Administration Dextrose 1,000 mls @ 100 mls/hr 11/22/24 07:04 Dextrose 5% 1,000 Ml IVPB PRN PRN Hypoglycemia Protocol Insulin Aspart 4 units 11/22/24 12:00 11/29/24 12:17 Insulin Aspart (*Bkc) 100 Units/Ml SUB-Q Not Given TIDWM [facility] Insulin Glargine 20 units 11/22/24 09:00 11/29/24 08:37 Insulin Glargine (*Bkc) 100 Units/Ml SUB-Q 20 units QAM SUHAIL Administration Losartan Potassium 50 mg 11/22/24 09:00 11/29/24 08:37 Losartan Potassium 50 Mg Tablet PO 50 mg DAILY SUHAIL Administration Metoprolol Succinate 25 mg 11/22/24 09:00 11/29/24 08:37 Metoprolol Succinate Ext Rel 25 Mg Tabcr PO 25 mg DAILY SUHAIL Administration Morphine Sulfate 2 mg 11/25/24 16:17 Morphine Sulfate (*Crx) 2 Mg/Ml Inj IV PUSH Q2H PRN Breakthrough Pain Rated 4-6 or NPO Morphine Sulfate 4 mg 11/25/24 16:17 Morphine Sulfate (*Crx) 4 Mg/Ml Inj IV PUSH Q2H PRN Breakthrough Pain Rated 7-10 or NPO Naloxone HCl 0.1 mg 11/25/24 16:17 Naloxone Hcl 0.4 Mg/Ml Vial IV PUSH Q2M PRN Opiate Reversal Ondansetron HCl 4 mg 11/22/24 08:20 Ondansetron Inj 4 Mg/2 Ml Vial IV PUSH Q6H PRN Nausea And Vomiting Pantoprazole Sodium 40 mg 11/22/24 09:00 11/29/24 08:37 Pantoprazole 40 Mg Tablet PO 40 mg QAM SUHAIL Administration Radiology Results: ITS Impressions Foot X-Ray 11/21/24 21:42 IMPRESSION: Osteomyelitis involving the proximal phalanx and distal phalanx of the left big toe. Clinical correlation and follow-up advised. Ankle Brachial Index 11/23/24 15:42 IMPRESSION: Normal right YARA. Moderate stenosis on the left side. Clinical correlation and further evaluation advised. Venous Doppler Study 11/29/24 11:59 IMPRESSION: 1. Patent left upper extremity veins. No evidence of deep venous thrombosis. Labs Labs: Laboratory Results - last 24 hr 11/28/24 11/28/24 11/29/24 17:10 20:29 04:55 WBC 6.1 RBC 4.49 L Hgb 13.2 L Hct 39.6 L MCV 88.2 MCH 29.4 MCHC 33.3 RDW 12.9 Plt Count 274 MPV 9.7 Immature Gran % (Auto) 2.0 H Neut % (Auto) 52.9 Lymph % (Auto) 34.0 [place] % (Auto) 7.5 Eos % (Auto) 2.9 Baso % (Auto) 0.7 Lymph # (Auto) 2.08 [place] # (Auto) 0.5 Eos # (Auto) 0.2 Baso # (Auto) 0.0 Abs Immat Gran (auto) 0.12 H Absolute Neuts (auto) 3.2 Absolute Nucleated RBC 0.000 Nucleated RBC % 0.0 Sodium 137 Potassium 3.8 Chloride 103 Carbon Dioxide 25 Anion Gap 9 BUN 14 Creatinine 0.82 Estim Creat Clear Calc 77 Estimated GFR > 60 Glucose 116 H POC Capillary Glucose 133 H 129 H Calcium 8.9 Magnesium 2.2 Total Bilirubin 0.5 AST 72 H ALT 40 Alkaline Phosphatase 106 Total Protein 7.0 Albumin 3.3 L 11/29/24 11/29/24 08:19 11:57 WBC RBC Hgb Hct MCV MCH MCHC RDW Plt Count MPV Immature Gran % (Auto) Neut % (Auto) Lymph % (Auto) [place] % (Auto) Eos % (Auto) Baso % (Auto) Lymph # (Auto) [place] # (Auto) Eos # (Auto) Baso # (Auto) Abs Immat Gran (auto) Absolute Neuts (auto) Absolute Nucleated RBC Nucleated RBC % Sodium Potassium Chloride Carbon Dioxide Anion Gap BUN Creatinine Estim Creat Clear Calc Estimated GFR Glucose POC Capillary Glucose 103 177 H Calcium Magnesium Total Bilirubin AST ALT Alkaline Phosphatase Total Protein Albumin Quality VTE Prophylaxis VTE prophylaxis: pharmacologic ordered (Lovenox 40 mg subQ daily. To start on 11/23/2024)
[2024-11-29 16:00] VITALS: BP 117/66; PULSE 64; RESP 20; TEMP 36.8; O2SAT 96
[2024-11-29 17:22] LABS: Glucose Point of Care 237 mg/dl (65-105)
[2024-11-29] MEDS: INSULIN ASPART (*BKC) 100 UNITS/ML SUB-Q (17:25)
[2024-11-29 20:59] LABS: Glucose Point of Care 254 mg/dl (65-105)
[2024-11-29 21:08] VITALS: BP 102/65; PULSE 71; RESP 20; TEMP 36.3; O2SAT 97
[2024-11-30 05:40] LABS: Hematocrit 40.1 % (42.0-52.0); Hemoglobin 13.3 g/dL (14.0-18.0); Mean Corpuscular HGB Conc 33.2 g/dl (32-36); Mean Corpuscular Hemoglobin 29.3 pg (26-34); Mean Corpuscular Volume 88.3 fl (80-100); Mean Platelet Volume 9.7 fl (7.4-10.4); Platelet Count Result 290 k/mm3 (150-375); Red Blood Count 4.54 M/mm3 (4.6-6.20); Red Cell Distribution Width 12.9 % (11.5-14.5); White Blood Count 7.3 K/mm3 (4.5-10.0)
[2024-11-30 05:50] LABS: Albumin Level 3.4 g/dL (3.5-5.1); Alkaline Phosphatase 97 U/L (38-126); Anion Gap 7 mmol/L (4-12); Bilirubin,Total 0.6 mg/dL (0.2-1.3); Blood Urea Nitrogen 18 mg/dL (9-20); Calcium 8.8 mg/dL (8.4-10.2); Carbon Dioxide 24 mmol/L (22-30); Chloride 102 mmol/L (98-107); Estimated CRCL calculation 74 ml/min; Estimated Glomerular Filt Rate > 60; Glucose 135 mg/dL (65-110); Potassium 3.9 mmol/L (3.4-5.0); Sodium 133 mmol/L (137-145); Total Protein 7.2 g/dL (6.3-8.2)
[2024-11-30 05:51] LABS: Alanine Aminotransferase 41 U/L (6-50); Aspartate Amino Transferase 59 U/L (17-59)
[2024-11-30 08:00] VITALS: BP 115/72; PULSE 68; RESP 19; TEMP 36.4; O2SAT 97
[2024-11-30 08:21] LABS: Glucose Point of Care 131 mg/dl (65-105)
[2024-11-30 08:39] VITALS: PULSE 71
[2024-11-30] MEDS: ATORVASTATIN 40 MG TABLET BY MOUTH (08:39)
[2024-11-30] MEDS: hydroCHLOROthiazide 12.5 MG CAPSULE PO (08:39)
[2024-11-30] MEDS: EMPAGLIFLOZIN 10 MG TABLET BY MOUTH (08:39)
[2024-11-30] MEDS: DOXYCYCLINE HYCLATE 100 MG TABLET PO ×2 (08:39→21:41)
[2024-11-30] MEDS: HYDROcodone/acetaminophen (*CRX) 5-325 MG TABLET 1 TAB PO (08:39)
[2024-11-30] MEDS: ENOXAPARIN 40 MG/0.4 ML SYRINGE SUB-Q (08:39)
[2024-11-30] MEDS: LOSARTAN POTASSIUM 50 MG TABLET PO (08:39)
[2024-11-30] MEDS: AMOXICILLIN/CLAVULANATE K 875-125 MG TAB 1 TABLET PO ×2 (08:39→21:41)
[2024-11-30] MEDS: METOPROLOL SUCCINATE EXT REL 25 MG TABCR PO (08:39)
[2024-11-30] MEDS: INSULIN ASPART (*BKC) 100 UNITS/ML SUB-Q ×3 (08:40→19:06)
[2024-11-30] MEDS: INSULIN GLARGINE (*BKC) 100 UNITS/ML 20 UNITS SUB-Q (08:42)
[2024-11-30] MEDS: PANTOPRAZOLE 40 MG TABLET PO (08:43)
--- NOTE | 2024-11-30 11:13 | P.PNGS_ITS ---
Progress Note: A&P Assessment and Plan (1) Diabetic infection of left foot: Code(s): E11.628 - Type 2 diabetes mellitus with other skin complications; L08.9 - Local infection of the skin and subcutaneous tissue, unspecified Status: Acute Assessment and Plan: * Continue wound vac therapy. Changed today and will plan to next change wound vac dressing Thursday. * Continue oral antibiotics * PT/OT following, heel touch weight bearing on LLE * CC planning for SNF placement on discharge. If wound remains stable, then he may be able to discharge from our standpoint in the next few days if no need for further debridement. Plan I have discussed the patient's case and plan of care with Dr. Salazar. Subjective Subjective Date/Time Seen: 11/30/24 11:13 Interval history: VSS. Normal WBC. Patient is doing well. Wound vac changed today with wound care nurses. Exam Narrative: Left foot wound vac in place with no drainage in the canister Skin: General skin exam: normal color Other: Warm, dry, normal color, no rashes. Edema and erythema to dorsal aspect of foot and ankle significantly improved. Extrem: Other: Left forefoot wound vac changed today. Tissue is pale and slightly grayish, but no purulence, fluctuance, duskiness, or other obvious signs of necrosis. No significant surrounding erythema or edema. Seems to be healing well with wound vac therapy. Minimal serosanguineous fluid in canister. Flap still viable. Small superficial ulcer to medial aspect of L second toe. No necrotic tissue or purulent drainage. The remaining toes are still viable without evidence of cellulitis. Objective Data Vital Signs Vital Signs: Vital Signs - 24 hr 11/29/24 16:00 11/29/24 20:00 11/29/24 21:08 Temperature 98.3 F 97.4 F L Pulse Rate 64 71 Respiratory Rate 20 20 Blood Pressure 117/66 102/65 Pulse Oximetry 96 97 Oxygen Delivery Room Air 11/30/24 08:00 11/30/24 08:39 Temperature Pulse Rate 71 Respiratory Rate Blood Pressure Pulse Oximetry Oxygen Delivery Room Air Intake/Output Intake/Output: Intake & Output 11/27/24 11/28/24 11/29/24 11/30/24 23:59 23:59 23:59 23:59 Intake Total 1690 850 750 270 Output Total 2050 1650 3100 450 Balance -360 -800 -2350 -180 Meds/Results Medications: Active Medications Generic Name Dose Route Start Last Admin Trade Name Freq PRN Reason Stop Dose Admin Acetaminophen 650 mg 11/21/24 23:41 Acetaminophen 325 Mg Tablet PO Q4H PRN Mild Pain (1-3) or Fever Hydrocodone Bitart/Acetaminophen 1 tab 11/25/24 16:17 11/26/24 11:46 Hydrocodone/Acetaminophen (*Crx) 5-325 Mg Tablet PO 1 tab Q4H PRN Administration Pain Rated 4-6 Hydrocodone Bitart/Acetaminophen 1 tab 11/25/24 16:17 11/29/24 14:58 Hydrocodone/Acetaminophen (*Crx) 10-325 Mg Tablet PO 1 tab Q4H PRN Administration Pain Rated 7-10 Amoxicillin/Clavulanate Potassium 1 tablet 11/28/24 21:00 11/30/24 08:39 Amoxicillin/Clavulanate K 875-125 Mg Tab PO 1 tablet Q12HR SUHAIL Administration Atorvastatin Calcium 40 mg 11/22/24 09:00 11/30/24 08:39 Atorvastatin 40 Mg Tablet BY MOUTH 40 mg DAILY SUHAIL Administration Dextrose 12.5 gm 11/22/24 07:04 Dextrose 50% 25 Gm/50 Ml Syringe IV PUSH PRN PRN Hypoglycemia Protocol Doxycycline Hyclate 100 mg 11/28/24 21:00 11/30/24 08:39 Doxycycline Hyclate 100 Mg Tablet PO 100 mg Q12HR SUHAIL Administration Empagliflozin 10 mg 11/22/24 09:00 11/30/24 08:39 Empagliflozin 10 Mg Tablet BY MOUTH 10 mg DAILY SUHAIL Administration Enoxaparin Sodium 40 mg 11/23/24 09:00 11/30/24 08:39 Enoxaparin 40 Mg/0.4 Ml Syringe SUB-Q 40 mg DAILY SUHAIL Administration Glucagon 1 mg 11/22/24 07:04 Glucagon For Inj 1 Mg Vial IM PRN PRN Hypoglycemia Protocol Glucose 15 gm 11/22/24 07:04 Glucose Oral Gel 15 Gm Of Glucse In 37.5 Gm Tube PO PRN PRN Hypoglycemia Protocol Hydrochlorothiazide 12.5 mg 11/26/24 12:55 11/30/24 08:39 Hydrochlorothiazide 12.5 Mg Capsule PO 12.5 mg QAM SUHAIL Administration Dextrose 1,000 mls @ 100 mls/hr 11/22/24 07:04 Dextrose 5% 1,000 Ml IVPB PRN PRN Hypoglycemia Protocol Insulin Aspart 4 units 11/22/24 12:00 11/30/24 08:40 Insulin Aspart (*Bkc) 100 Units/Ml SUB-Q 4 units TIDWM SUHAIL Administration Insulin Glargine 20 units 11/22/24 09:00 11/30/24 08:42 Insulin Glargine (*Bkc) 100 Units/Ml SUB-Q 20 units QAM SUHAIL Administration Losartan Potassium 50 mg 11/22/24 09:00 11/30/24 08:39 Losartan Potassium 50 Mg Tablet PO 50 mg DAILY SUHAIL Administration Metoprolol Succinate 25 mg 11/22/24 09:00 11/30/24 08:39 Metoprolol Succinate Ext Rel 25 Mg Tabcr PO 25 mg DAILY SUHAIL Administration Morphine Sulfate 2 mg 11/25/24 16:17 Morphine Sulfate (*Crx) 2 Mg/Ml Inj IV PUSH Q2H PRN Breakthrough Pain Rated 4-6 or NPO Morphine Sulfate 4 mg 11/25/24 16:17 Morphine Sulfate (*Crx) 4 Mg/Ml Inj IV PUSH Q2H PRN Breakthrough Pain Rated 7-10 or NPO Naloxone HCl 0.1 mg 11/25/24 16:17 Naloxone Hcl 0.4 Mg/Ml Vial IV PUSH Q2M PRN Opiate Reversal Ondansetron HCl 4 mg 11/22/24 08:20 Ondansetron Inj 4 Mg/2 Ml Vial IV PUSH Q6H PRN Nausea And Vomiting Pantoprazole Sodium 40 mg 11/22/24 09:00 11/30/24 08:43 Pantoprazole 40 Mg Tablet PO 40 mg QAM SUHAIL Administration Radiology Results: ITS Impressions Foot X-Ray 11/21/24 21:42 IMPRESSION: Osteomyelitis involving the proximal phalanx and distal phalanx of the left big toe. Clinical correlation and follow-up advised. Ankle Brachial Index 11/23/24 15:42 IMPRESSION: Normal right YARA. Moderate stenosis on the left side. Clinical correlation and further evaluation advised. Venous Doppler Study 11/29/24 11:59 IMPRESSION: 1. Patent left upper extremity veins. No evidence of deep venous thrombosis. Labs Labs: Laboratory Results - last 24 hr 11/29/24 11/29/24 11/29/24 11:57 17:10 20:45 WBC RBC Hgb Hct MCV MCH MCHC RDW Plt Count MPV Sodium Potassium Chloride Carbon Dioxide Anion Gap BUN Creatinine Estim Creat Clear Calc Estimated GFR Glucose POC Capillary Glucose 177 H 237 H 254 H Calcium Total Bilirubin AST ALT Alkaline Phosphatase Total Protein Albumin 11/30/24 11/30/24 04:57 08:10 WBC 7.3 RBC 4.54 L Hgb 13.3 L Hct 40.1 L MCV 88.3 MCH 29.3 MCHC 33.2 RDW 12.9 Plt Count 290 MPV 9.7 Sodium 133 L Potassium 3.9 Chloride 102 Carbon Dioxide 24 Anion Gap 7 BUN 18 Creatinine 0.85 Estim Creat Clear Calc 74 Estimated GFR > 60 Glucose 135 H POC Capillary Glucose 131 H Calcium 8.8 Total Bilirubin 0.6 AST 59 ALT 41 Alkaline Phosphatase 97 Total Protein 7.2 Albumin 3.4 L
[2024-11-30] MEDS: GABAPENTIN 300 MG CAPSULE PO ×2 (11:49→21:41)
[2024-11-30 12:15] LABS: Glucose Point of Care 128 mg/dl (65-105)
--- NOTE | 2024-11-30 13:44 | P.PNIM_ITS ---
Progress Note: A&P Assessment and Plan (1) Diabetic infection of left foot: Code(s): E11.628 - Type 2 diabetes mellitus with other skin complications; L08.9 - Local infection of the skin and subcutaneous tissue, unspecified Status: Acute Assessment and Plan: SSI with accucheks and lantus 20 units (2) Osteomyelitis: Qualifiers: Laterality: left Osteomyelitis location: foot Osteomyelitis type: other acute Qualified Code(s): M86.172 - Other acute osteomyelitis, left ankle and foot Code(s): M86.9 - Osteomyelitis, unspecified Status: Acute Assessment and Plan: * Presented to the ED with complaints of left great toe swelling and pain radiating to the ball of the foot * Osteomyelitis secondary to infected diabetic foot ulcer of the left toe. * s/p r amputation of left great toe * MRI of the foot unable to be done here will need to follow up further outpatient * For a possible second debridement, continue Abx * Gen surgery following (3) Uncontrolled diabetes mellitus with hyperglycemia: Qualifiers: Diabetes mellitus type: type 2 Qualified Code(s): E11.65 - Type 2 diabetes mellitus with hyperglycemia Code(s): E11.65 - Type 2 diabetes mellitus with hyperglycemia Status: Acute Assessment and Plan: * Glucose is stable at 99 * A1c 12.0 * Continue home Jardiance, Lantus 20 units at night * SSI with accucheks (4) Hypertension: Code(s): I10 - Essential (primary) hypertension Status: Acute Assessment and Plan: * Current BP is 162/90 * Continue home metoprolol, losartan * Trend BP * Adjust therapy as indicated (5) Dyslipidemia: Code(s): E78.5 - Hyperlipidemia, unspecified Status: Acute Assessment and Plan: * Continue atorvastatin (6) Hypokalemia: Code(s): E87.6 - Hypokalemia Status: Acute Assessment and Plan: resolved monitor Plan patient stats pain is tolerable s/p amputation of left G Toe POD #5, patient sister is present, patient is seen by general surgery service, dressing was changed today, will continue wound VAC therapy until Thursday, . patient is working with PT/OT, will monitor and plan. DVT prophylaxis on Sq Lovenox Subjective Date/time seen: 11/30/24 13:44 Interval history: Comfortable at bedside for a second debridement per Gen surgery patient stats pain is tolerable s/p amputation of left G Toe POD #5, patient sister is present, patient is seen by general surgery service, dressing was changed today, will continue wound VAC therapy until Thursday, . patient is working with PT/OT, will monitor and plan. Review of Systems Review of Systems: 12 systems were reviewed with pertinent positives and negatives per HPI. Except as documented in the HPI, all other systems were reviewed and are negative. Exam Narrative: Patient is comfortable, NAD HEENT: eyes are clear and none icteric LUNGS:CTA HEART: RR S1S2 ABD: BS+, Soft and nontender Lower extremities: no edema, left foot with dressing SKIN: nonjaundiced Neuro: grossly intact. Objective Data Vital Signs Vital Signs: Vital Signs - 24 hr 11/29/24 16:00 11/29/24 20:00 11/29/24 21:08 Temperature 36.8 C 36.3 C L Pulse Rate 64 71 Respiratory Rate 20 20 Blood Pressure 117/66 102/65 Pulse Oximetry 96 97 Oxygen Delivery Room Air 11/30/24 08:00 11/30/24 08:00 11/30/24 08:39 Temperature 36.4 C Pulse Rate 68 71 Respiratory Rate 19 Blood Pressure 115/72 Pulse Oximetry 97 Oxygen Delivery Room Air Intake/Output Intake/Output: Intake & Output 11/27/24 11/28/24 11/29/24 11/30/24 23:59 23:59 23:59 23:59 Intake Total 1690 850 750 510 Output Total 2050 1650 3100 450 Balance -360 -800 -2350 60 Meds/Results Medications: Active Medications Generic Name Dose Route Start Last Admin Trade Name Freq PRN Reason Stop Dose Admin Acetaminophen 650 mg 11/21/24 23:41 Acetaminophen 325 Mg Tablet PO Q4H PRN Mild Pain (1-3) or Fever Hydrocodone Bitart/Acetaminophen 1 tab 11/25/24 16:17 11/30/24 08:39 Hydrocodone/Acetaminophen (*Crx) 5-325 Mg Tablet PO 1 tab Q4H PRN Administration Pain Rated 4-6 Hydrocodone Bitart/Acetaminophen 1 tab 11/25/24 16:17 11/29/24 14:58 Hydrocodone/Acetaminophen (*Crx) 10-325 Mg Tablet PO 1 tab Q4H PRN Administration Pain Rated 7-10 Amoxicillin/Clavulanate Potassium 1 tablet 11/28/24 21:00 11/30/24 08:39 Amoxicillin/Clavulanate K 875-125 Mg Tab PO 1 tablet Q12HR SUHAIL Administration Atorvastatin Calcium 40 mg 11/22/24 09:00 11/30/24 08:39 Atorvastatin 40 Mg Tablet BY MOUTH 40 mg DAILY SUHAIL Administration Dextrose 12.5 gm 11/22/24 07:04 Dextrose 50% 25 Gm/50 Ml Syringe IV PUSH PRN PRN Hypoglycemia Protocol Doxycycline Hyclate 100 mg 11/28/24 21:00 11/30/24 08:39 Doxycycline Hyclate 100 Mg Tablet PO 100 mg Q12HR SUHAIL Administration Empagliflozin 10 mg 11/22/24 09:00 11/30/24 08:39 Empagliflozin 10 Mg Tablet BY MOUTH 10 mg DAILY SUHAIL Administration Enoxaparin Sodium 40 mg 11/23/24 09:00 11/30/24 08:39 Enoxaparin 40 Mg/0.4 Ml Syringe SUB-Q 40 mg DAILY SUHAIL Administration Gabapentin 300 mg 11/30/24 12:00 11/30/24 11:49 Gabapentin 300 Mg Capsule PO 300 mg Q8HR SUHAIL Administration Glucagon 1 mg 11/22/24 07:04 Glucagon For Inj 1 Mg Vial IM PRN PRN Hypoglycemia Protocol Glucose 15 gm 11/22/24 07:04 Glucose Oral Gel 15 Gm Of Glucse In 37.5 Gm Tube PO PRN PRN Hypoglycemia Protocol Hydrochlorothiazide 12.5 mg 11/26/24 12:55 11/30/24 08:39 Hydrochlorothiazide 12.5 Mg Capsule PO 12.5 mg QAM SUHAIL Administration Dextrose 1,000 mls @ 100 mls/hr 11/22/24 07:04 Dextrose 5% 1,000 Ml IVPB PRN PRN Hypoglycemia Protocol Insulin Aspart 4 units 11/22/24 12:00 11/30/24 12:43 Insulin Aspart (*Bkc) 100 Units/Ml SUB-Q 4 units TIDWM SUHAIL Administration Insulin Glargine 20 units 11/22/24 09:00 11/30/24 08:42 Insulin Glargine (*Bkc) 100 Units/Ml SUB-Q 20 units QAM SUHAIL Administration Losartan Potassium 50 mg 11/22/24 09:00 11/30/24 08:39 Losartan Potassium 50 Mg Tablet PO 50 mg DAILY SUHAIL Administration Metoprolol Succinate 25 mg 11/22/24 09:00 11/30/24 08:39 Metoprolol Succinate Ext Rel 25 Mg Tabcr PO 25 mg DAILY SUHAIL Administration Morphine Sulfate 2 mg 11/25/24 16:17 Morphine Sulfate (*Crx) 2 Mg/Ml Inj IV PUSH Q2H PRN Breakthrough Pain Rated 4-6 or NPO Morphine Sulfate 4 mg 11/25/24 16:17 Morphine Sulfate (*Crx) 4 Mg/Ml Inj IV PUSH Q2H PRN Breakthrough Pain Rated 7-10 or NPO Naloxone HCl 0.1 mg 11/25/24 16:17 Naloxone Hcl 0.4 Mg/Ml Vial IV PUSH Q2M PRN Opiate Reversal Ondansetron HCl 4 mg 11/22/24 08:20 Ondansetron Inj 4 Mg/2 Ml Vial IV PUSH Q6H PRN Nausea And Vomiting Pantoprazole Sodium 40 mg 11/22/24 09:00 11/30/24 08:43 Pantoprazole 40 Mg Tablet PO 40 mg QAM SUHAIL Administration Radiology Results: ITS Impressions Foot X-Ray 11/21/24 21:42 IMPRESSION: Osteomyelitis involving the proximal phalanx and distal phalanx of the left big toe. Clinical correlation and follow-up advised. Ankle Brachial Index 11/23/24 15:42 IMPRESSION: Normal right YARA. Moderate stenosis on the left side. Clinical correlation and further evaluation advised. Venous Doppler Study 11/29/24 11:59 IMPRESSION: 1. Patent left upper extremity veins. No evidence of deep venous thrombosis. Labs Labs: Laboratory Results - last 24 hr 11/29/24 11/29/24 11/30/24 17:10 20:45 04:57 WBC 7.3 RBC 4.54 L Hgb 13.3 L Hct 40.1 L MCV 88.3 MCH 29.3 MCHC 33.2 RDW 12.9 Plt Count 290 MPV 9.7 Sodium 133 L Potassium 3.9 Chloride 102 Carbon Dioxide 24 Anion Gap 7 BUN 18 Creatinine 0.85 Estim Creat Clear Calc 74 Estimated GFR > 60 Glucose 135 H POC Capillary Glucose 237 H 254 H Calcium 8.8 Total Bilirubin 0.6 AST 59 ALT 41 Alkaline Phosphatase 97 Total Protein 7.2 Albumin 3.4 L 11/30/24 11/30/24 08:10 12:12 WBC RBC Hgb Hct MCV MCH MCHC RDW Plt Count MPV Sodium Potassium Chloride Carbon Dioxide Anion Gap BUN Creatinine Estim Creat Clear Calc Estimated GFR Glucose POC Capillary Glucose 131 H 128 H Calcium Total Bilirubin AST ALT Alkaline Phosphatase Total Protein Albumin Quality VTE Prophylaxis VTE prophylaxis: pharmacologic ordered (Lovenox 40 mg subQ daily. To start on 11/23/2024)
[2024-11-30 16:00] VITALS: BP 115/72; PULSE 68; RESP 19; TEMP 36.4; O2SAT 97
[2024-11-30 17:01] LABS: Glucose Point of Care 159 mg/dl (65-105)
[2024-11-30 21:52] VITALS: BP 118/69; PULSE 72; RESP 16; TEMP 36.7; O2SAT 98
[2024-11-30 21:55] LABS: Glucose Point of Care 238 mg/dl (65-105)
[2024-12-01] MEDS: GABAPENTIN 300 MG CAPSULE PO ×2 (05:39→13:30)
[2024-12-01 08:00] VITALS: BP 128/60; PULSE 67; RESP 16; TEMP 36.8; O2SAT 100
[2024-12-01 08:20] LABS: Glucose Point of Care 138 mg/dl (65-105)
[2024-12-01 09:51] VITALS: PULSE 67
[2024-12-01] MEDS: METOPROLOL SUCCINATE EXT REL 25 MG TABCR PO (09:51)
[2024-12-01] MEDS: DOXYCYCLINE HYCLATE 100 MG TABLET PO ×2 (09:51→22:01)
[2024-12-01] MEDS: AMOXICILLIN/CLAVULANATE K 875-125 MG TAB 1 TABLET PO ×2 (09:51→22:01)
[2024-12-01] MEDS: ATORVASTATIN 40 MG TABLET BY MOUTH (09:52)
[2024-12-01] MEDS: hydroCHLOROthiazide 12.5 MG CAPSULE PO (09:52)
[2024-12-01] MEDS: LOSARTAN POTASSIUM 50 MG TABLET PO (09:52)
[2024-12-01] MEDS: PANTOPRAZOLE 40 MG TABLET PO (09:52)
[2024-12-01] MEDS: EMPAGLIFLOZIN 10 MG TABLET BY MOUTH (09:52)
[2024-12-01] MEDS: ENOXAPARIN 40 MG/0.4 ML SYRINGE SUB-Q (09:56)
[2024-12-01] MEDS: INSULIN GLARGINE (*BKC) 100 UNITS/ML 20 UNITS SUB-Q (09:59)
--- NOTE | 2024-12-01 10:16 | PM.PNGS ---
Progress Note: A&P Assessment and Plan (1) Diabetic infection of left foot: Code(s): E11.628 - Type 2 diabetes mellitus with other skin complications; L08.9 - Local infection of the skin and subcutaneous tissue, unspecified Status: Acute Assessment and Plan: Continue wound vac therapy. Changed yesterday and will plan to next change wound vac dressing tomorrow. Continue oral antibiotics PT/OT following, heel touch weight bearing on LLE CC planning for SNF placement on discharge. If wound remains stable, then he may be able to discharge from our standpoint in the next few days if no need for further debridement. Plan I have discussed the patient's case and plan of care with Dr. Salazar. Subjective Subjective Date/Time Seen: 12/01/24 10:16 Interval history: Patient stable overnight. WBC normal. Afebrile. No complaints today. Wound VAC functioning properly. Patient working with physical therapy for transfers and mobility. Exam Narrative: Left foot wound vac in place with no drainage in the canister. Extrem: Other: Left forefoot wound vac changed yesterday. Dressing clean dry and intact. No output in wound VAC canister. No redness or erythema to leg. Objective Data Vital Signs Vital Signs: Vital Signs - 24 hr 11/30/24 16:00 11/30/24 20:00 11/30/24 21:52 Temperature 97.6 F 98.0 F Pulse Rate 68 72 Respiratory Rate 19 16 Blood Pressure 115/72 118/69 Pulse Oximetry 97 98 Oxygen Delivery Room Air 12/01/24 08:00 12/01/24 09:51 Temperature Pulse Rate 67 Respiratory Rate Blood Pressure Pulse Oximetry Oxygen Delivery Room Air Intake/Output Intake/Output: Intake & Output 11/28/24 11/29/24 11/30/24 12/01/24 23:59 23:59 23:59 23:59 Intake Total 850 750 630 200 Output Total 1650 3100 1000 250 Balance -800 -2350 -370 -50 Meds/Results Medications: Active Medications Generic Name Dose Route Start Last Admin Trade Name Freq PRN Reason Stop Dose Admin Acetaminophen 650 mg 11/21/24 23:41 Acetaminophen 325 Mg Tablet PO Q4H PRN Mild Pain (1-3) or Fever Hydrocodone Bitart/Acetaminophen 1 tab 11/25/24 16:17 11/30/24 08:39 Hydrocodone/Acetaminophen (*Crx) 5-325 Mg Tablet PO 1 tab Q4H PRN Administration Pain Rated 4-6 Hydrocodone Bitart/Acetaminophen 1 tab 11/25/24 16:17 11/29/24 14:58 Hydrocodone/Acetaminophen (*Crx) 10-325 Mg Tablet PO 1 tab Q4H PRN Administration Pain Rated 7-10 Amoxicillin/Clavulanate Potassium 1 tablet 11/28/24 21:00 12/01/24 09:51 Amoxicillin/Clavulanate K 875-125 Mg Tab PO 1 tablet Q12HR SUHAIL Administration Atorvastatin Calcium 40 mg 11/22/24 09:00 12/01/24 09:52 Atorvastatin 40 Mg Tablet BY MOUTH 40 mg DAILY SUHAIL Administration Dextrose 12.5 gm 11/22/24 07:04 Dextrose 50% 25 Gm/50 Ml Syringe IV PUSH PRN PRN Hypoglycemia Protocol Doxycycline Hyclate 100 mg 11/28/24 21:00 12/01/24 09:51 Doxycycline Hyclate 100 Mg Tablet PO 100 mg Q12HR SUHAIL Administration Empagliflozin 10 mg 11/22/24 09:00 12/01/24 09:52 Empagliflozin 10 Mg Tablet BY MOUTH 10 mg DAILY SUHAIL Administration Enoxaparin Sodium 40 mg 11/23/24 09:00 12/01/24 09:56 Enoxaparin 40 Mg/0.4 Ml Syringe SUB-Q 40 mg DAILY SUHAIL Administration Gabapentin 300 mg 11/30/24 12:00 12/01/24 05:39 Gabapentin 300 Mg Capsule PO 300 mg Q8HR SUHAIL Administration Glucagon 1 mg 11/22/24 07:04 Glucagon For Inj 1 Mg Vial IM PRN PRN Hypoglycemia Protocol Glucose 15 gm 11/22/24 07:04 Glucose Oral Gel 15 Gm Of Glucse In 37.5 Gm Tube PO PRN PRN Hypoglycemia Protocol Hydrochlorothiazide 12.5 mg 11/26/24 12:55 12/01/24 09:52 Hydrochlorothiazide 12.5 Mg Capsule PO 12.5 mg QAM SUHAIL Administration Dextrose 1,000 mls @ 100 mls/hr 11/22/24 07:04 Dextrose 5% 1,000 Ml IVPB PRN PRN Hypoglycemia Protocol Insulin Aspart 4 units 11/22/24 12:00 12/01/24 09:51 Insulin Aspart (*Bkc) 100 Units/Ml SUB-Q Not Given TIDWM [facility] Insulin Glargine 20 units 11/22/24 09:00 12/01/24 09:59 Insulin Glargine (*Bkc) 100 Units/Ml SUB-Q 20 units QAM SUHAIL Administration Losartan Potassium 50 mg 11/22/24 09:00 12/01/24 09:52 Losartan Potassium 50 Mg Tablet PO 50 mg DAILY SUHAIL Administration Metoprolol Succinate 25 mg 11/22/24 09:00 12/01/24 09:51 Metoprolol Succinate Ext Rel 25 Mg Tabcr PO 25 mg DAILY SUHAIL Administration Morphine Sulfate 2 mg 11/25/24 16:17 Morphine Sulfate (*Crx) 2 Mg/Ml Inj IV PUSH Q2H PRN Breakthrough Pain Rated 4-6 or NPO Morphine Sulfate 4 mg 11/25/24 16:17 Morphine Sulfate (*Crx) 4 Mg/Ml Inj IV PUSH Q2H PRN Breakthrough Pain Rated 7-10 or NPO Naloxone HCl 0.1 mg 11/25/24 16:17 Naloxone Hcl 0.4 Mg/Ml Vial IV PUSH Q2M PRN Opiate Reversal Ondansetron HCl 4 mg 11/22/24 08:20 Ondansetron Inj 4 Mg/2 Ml Vial IV PUSH Q6H PRN Nausea And Vomiting Pantoprazole Sodium 40 mg 11/22/24 09:00 12/01/24 09:52 Pantoprazole 40 Mg Tablet PO 40 mg QAM [facility] Administration Radiology Results: ITS Impressions Foot X-Ray 11/21/24 21:42 IMPRESSION: Osteomyelitis involving the proximal phalanx and distal phalanx of the left big toe. Clinical correlation and follow-up advised. Ankle Brachial Index 11/23/24 15:42 IMPRESSION: Normal right YARA. Moderate stenosis on the left side. Clinical correlation and further evaluation advised. Venous Doppler Study 11/29/24 11:59 IMPRESSION: 1. Patent left upper extremity veins. No evidence of deep venous thrombosis. Labs Labs: Laboratory Results - last 24 hr 11/30/24 11/30/24 11/30/24 12:12 16:58 21:52 POC Capillary Glucose 128 H 159 H 238 H 12/01/24 08:10 POC Capillary Glucose 138 H
[2024-12-01 11:58] LABS: Glucose Point of Care 133 mg/dl (65-105)
--- NOTE | 2024-12-01 12:01 | P.PNIM_ITS ---
Progress Note: A&P Assessment and Plan (1) Diabetic infection of left foot: Code(s): E11.628 - Type 2 diabetes mellitus with other skin complications; L08.9 - Local infection of the skin and subcutaneous tissue, unspecified Status: Acute Assessment and Plan: SSI with accucheks and lantus 20 units (2) Osteomyelitis: Qualifiers: Laterality: left Osteomyelitis location: foot Osteomyelitis type: other acute Qualified Code(s): M86.172 - Other acute osteomyelitis, left ankle and foot Code(s): M86.9 - Osteomyelitis, unspecified Status: Acute Assessment and Plan: * Presented to the ED with complaints of left great toe swelling and pain radiating to the ball of the foot * Osteomyelitis secondary to infected diabetic foot ulcer of the left toe. * s/p r amputation of left great toe * MRI of the foot unable to be done here will need to follow up further outpatient * For a possible second debridement, continue Abx * Gen surgery following (3) Uncontrolled diabetes mellitus with hyperglycemia: Qualifiers: Diabetes mellitus type: type 2 Qualified Code(s): E11.65 - Type 2 diabetes mellitus with hyperglycemia Code(s): E11.65 - Type 2 diabetes mellitus with hyperglycemia Status: Acute Assessment and Plan: * Glucose is stable at 99 * A1c 12.0 * Continue home Jardiance, Lantus 20 units at night * SSI with accucheks (4) Hypertension: Code(s): I10 - Essential (primary) hypertension Status: Acute Assessment and Plan: * Current BP is 162/90 * Continue home metoprolol, losartan * Trend BP * Adjust therapy as indicated (5) Dyslipidemia: Code(s): E78.5 - Hyperlipidemia, unspecified Status: Acute Assessment and Plan: * Continue atorvastatin (6) Hypokalemia: Code(s): E87.6 - Hypokalemia Status: Acute Assessment and Plan: resolved monitor Plan patient stats pain is tolerable s/p amputation of left G Toe POD #6, patient is seen by general surgery service, dressing was changed on 11/30 will continue wound VAC therapy until Thursday and reassess the wound, stats pain is better , . patient is working with PT/OT, will monitor and plan. DVT prophylaxis on Sq Lovenox Subjective Date/time seen: 12/01/24 12:01 Interval history: Comfortable at bedside for a second debridement per Gen surgery patient stats pain is tolerable s/p amputation of left G Toe POD #6, patient is seen by general surgery service, dressing was changed on 11/30 will continue wound VAC therapy until Thursday and reassess the wound, stats pain is better , . patient is working with PT/OT, will monitor and plan. Review of Systems Review of Systems: 12 systems were reviewed with pertinent positives and negatives per HPI. Except as documented in the HPI, all other systems were reviewed and are negative. Exam Narrative: Patient is comfortable, NAD HEENT: eyes are clear and none icteric LUNGS:CTA HEART: RR S1S2 ABD: BS+, Soft and nontender Lower extremities: no edema, left foot with dressing SKIN: nonjaundiced Neuro: grossly intact. Objective Data Vital Signs Vital Signs: Vital Signs - 24 hr 11/30/24 16:00 11/30/24 20:00 11/30/24 21:52 Temperature 36.4 C 36.7 C Pulse Rate 68 72 Respiratory Rate 19 16 Blood Pressure 115/72 118/69 Pulse Oximetry 97 98 Oxygen Delivery Room Air 12/01/24 08:00 12/01/24 08:00 12/01/24 09:51 Temperature 36.8 C Pulse Rate 67 67 Respiratory Rate 16 Blood Pressure 128/60 Pulse Oximetry 100 Oxygen Delivery Room Air Intake/Output Intake/Output: Intake & Output 11/28/24 11/29/24 11/30/24 12/01/24 23:59 23:59 23:59 23:59 Intake Total 850 750 630 200 Output Total 1650 3100 1000 250 Balance -800 -2350 -370 -50 Meds/Results Medications: Active Medications Generic Name Dose Route Start Last Admin Trade Name Freq PRN Reason Stop Dose Admin Acetaminophen 650 mg 11/21/24 23:41 Acetaminophen 325 Mg Tablet PO Q4H PRN Mild Pain (1-3) or Fever Hydrocodone Bitart/Acetaminophen 1 tab 11/25/24 16:17 11/30/24 08:39 Hydrocodone/Acetaminophen (*Crx) 5-325 Mg Tablet PO 1 tab Q4H PRN Administration Pain Rated 4-6 Hydrocodone Bitart/Acetaminophen 1 tab 11/25/24 16:17 11/29/24 14:58 Hydrocodone/Acetaminophen (*Crx) 10-325 Mg Tablet PO 1 tab Q4H PRN Administration Pain Rated 7-10 Amoxicillin/Clavulanate Potassium 1 tablet 11/28/24 21:00 12/01/24 09:51 Amoxicillin/Clavulanate K 875-125 Mg Tab PO 1 tablet Q12HR SUHAIL Administration Atorvastatin Calcium 40 mg 11/22/24 09:00 12/01/24 09:52 Atorvastatin 40 Mg Tablet BY MOUTH 40 mg DAILY SUHAIL Administration Dextrose 12.5 gm 11/22/24 07:04 Dextrose 50% 25 Gm/50 Ml Syringe IV PUSH PRN PRN Hypoglycemia Protocol Doxycycline Hyclate 100 mg 11/28/24 21:00 12/01/24 09:51 Doxycycline Hyclate 100 Mg Tablet PO 100 mg Q12HR SUHAIL Administration Empagliflozin 10 mg 11/22/24 09:00 12/01/24 09:52 Empagliflozin 10 Mg Tablet BY MOUTH 10 mg DAILY SUHAIL Administration Enoxaparin Sodium 40 mg 11/23/24 09:00 12/01/24 09:56 Enoxaparin 40 Mg/0.4 Ml Syringe SUB-Q 40 mg DAILY SUHAIL Administration Gabapentin 300 mg 11/30/24 12:00 12/01/24 05:39 Gabapentin 300 Mg Capsule PO 300 mg Q8HR SUHAIL Administration Glucagon 1 mg 11/22/24 07:04 Glucagon For Inj 1 Mg Vial IM PRN PRN Hypoglycemia Protocol Glucose 15 gm 11/22/24 07:04 Glucose Oral Gel 15 Gm Of Glucse In 37.5 Gm Tube PO PRN PRN Hypoglycemia Protocol Hydrochlorothiazide 12.5 mg 11/26/24 12:55 12/01/24 09:52 Hydrochlorothiazide 12.5 Mg Capsule PO 12.5 mg QAM SUHAIL Administration Dextrose 1,000 mls @ 100 mls/hr 11/22/24 07:04 Dextrose 5% 1,000 Ml IVPB PRN PRN Hypoglycemia Protocol Insulin Aspart 4 units 11/22/24 12:00 12/01/24 12:00 Insulin Aspart (*Bkc) 100 Units/Ml SUB-Q Not Given TIDWM [facility] Insulin Glargine 20 units 11/22/24 09:00 12/01/24 09:59 Insulin Glargine (*Bkc) 100 Units/Ml SUB-Q 20 units QAM SUHAIL Administration Losartan Potassium 50 mg 11/22/24 09:00 12/01/24 09:52 Losartan Potassium 50 Mg Tablet PO 50 mg DAILY SUHAIL Administration Metoprolol Succinate 25 mg 11/22/24 09:00 12/01/24 09:51 Metoprolol Succinate Ext Rel 25 Mg Tabcr PO 25 mg DAILY SUHAIL Administration Morphine Sulfate 2 mg 11/25/24 16:17 Morphine Sulfate (*Crx) 2 Mg/Ml Inj IV PUSH Q2H PRN Breakthrough Pain Rated 4-6 or NPO Morphine Sulfate 4 mg 11/25/24 16:17 Morphine Sulfate (*Crx) 4 Mg/Ml Inj IV PUSH Q2H PRN Breakthrough Pain Rated 7-10 or NPO Naloxone HCl 0.1 mg 11/25/24 16:17 Naloxone Hcl 0.4 Mg/Ml Vial IV PUSH Q2M PRN Opiate Reversal Ondansetron HCl 4 mg 11/22/24 08:20 Ondansetron Inj 4 Mg/2 Ml Vial IV PUSH Q6H PRN Nausea And Vomiting Pantoprazole Sodium 40 mg 11/22/24 09:00 12/01/24 09:52 Pantoprazole 40 Mg Tablet PO 40 mg QAM SUHAIL Administration Radiology Results: ITS Impressions Foot X-Ray 11/21/24 21:42 IMPRESSION: Osteomyelitis involving the proximal phalanx and distal phalanx of the left big toe. Clinical correlation and follow-up advised. Ankle Brachial Index 11/23/24 15:42 IMPRESSION: Normal right YARA. Moderate stenosis on the left side. Clinical correlation and further evaluation advised. Venous Doppler Study 11/29/24 11:59 IMPRESSION: 1. Patent left upper extremity veins. No evidence of deep venous thrombosis. Labs Labs: Laboratory Results - last 24 hr 11/30/24 11/30/24 11/30/24 12:12 16:58 21:52 POC Capillary Glucose 128 H 159 H 238 H 12/01/24 12/01/24 08:10 11:56 POC Capillary Glucose 138 H 133 H Quality VTE Prophylaxis VTE prophylaxis: pharmacologic ordered (Lovenox 40 mg subQ daily. To start on 11/23/2024)
[2024-12-01 14:00] VITALS: BP 99/76; PULSE 86; RESP 18; TEMP 37.3; O2SAT 97
[2024-12-01] MEDS: HYDROcodone/acetaminophen (*CRX) 5-325 MG TABLET 1 TAB PO (14:13)
[2024-12-01 16:52] LABS: Glucose Point of Care 193 mg/dl (65-105)
[2024-12-01 20:40] VITALS: BP 91/62; PULSE 82; RESP 16; TEMP 36.2; O2SAT 98
[2024-12-01 20:54] VITALS: O2SAT 97
[2024-12-01 21:12] LABS: Glucose Point of Care 157 mg/dl (65-105)
[2024-12-02] VITALS: BP 124/73; PULSE 68; RESP 16; TEMP 36.4; O2SAT 98
[2024-12-02 05:48] VITALS: BP 118/85; PULSE 64; RESP 16; TEMP 36.6; O2SAT 92
[2024-12-02 06:20] LABS: Hematocrit 41.9 % (42.0-52.0); Hemoglobin 13.8 g/dL (14.0-18.0); Mean Corpuscular HGB Conc 32.9 g/dl (32-36); Mean Corpuscular Hemoglobin 29.8 pg (26-34); Mean Corpuscular Volume 90.5 fl (80-100); Mean Platelet Volume 9.6 fl (7.4-10.4); Platelet Count Result 287 k/mm3 (150-375); Red Blood Count 4.63 M/mm3 (4.6-6.20); White Blood Count 8.5 K/mm3 (4.5-10.0)
[2024-12-02 06:44] LABS: Anion Gap 9 mmol/L (4-12); Blood Urea Nitrogen 21 mg/dL (9-20); Calcium 9.1 mg/dL (8.4-10.2); Carbon Dioxide 28 mmol/L (22-30); Chloride 100 mmol/L (98-107); Estimated CRCL calculation 58 ml/min; Estimated Glomerular Filt Rate > 60; Glucose 104 mg/dL (65-110); Magnesium 2.3 mg/dL (1.6-2.3); Potassium 3.8 mmol/L (3.4-5.0); Sodium 137 mmol/L (137-145)
[2024-12-02 08:10] VITALS: BP 122/82
[2024-12-02 08:10] LABS: Glucose Point of Care 110 mg/dl (65-105)
[2024-12-02] MEDS: INSULIN GLARGINE (*BKC) 100 UNITS/ML 20 UNITS SUB-Q (09:04)
--- NOTE | 2024-12-02 09:07 | PM.PNGS ---
Progress Note: A&P Assessment and Plan (1) Diabetic infection of left foot: Code(s): E11.628 - Type 2 diabetes mellitus with other skin complications; L08.9 - Local infection of the skin and subcutaneous tissue, unspecified Status: Acute Assessment and Plan: Continue wound vac therapy. Changed Thursday and will plan to next change wound vac dressing today. Continue oral antibiotics PT/OT following, heel touch weight bearing on LLE CC planning for SNF placement on discharge. Accepted at [facility], just awaiting insurance approval. If wound remains stable, then he may be discharged from our standpoint. Subjective Subjective Date/Time Seen: 12/02/24 09:07 Interval history: No acute events overnight. VSS. Normal WBC. No complaints of pain. According to nurse, patient was very somnolent yesterday, presumably d/t gabapentin. Exam Skin: General skin exam: normal color Other: Warm, dry, normal color, no rashes. Edema and erythema to dorsal aspect of foot and ankle significantly improved. Extrem: Other: Left forefoot wound vac changed Thursday. Will be changed today. Dressing clean dry and intact. Scant output in wound VAC canister. No redness or erythema to leg. Objective Data Vital Signs Vital Signs: Vital Signs - 24 hr 12/01/24 09:51 12/01/24 14:00 12/01/24 20:00 Temperature 99.1 F Pulse Rate 67 86 Respiratory Rate 18 Blood Pressure 99/76 L Pulse Oximetry 97 Oxygen Delivery Room Air 12/01/24 20:40 12/01/24 20:54 12/02/24 00:00 Temperature 97.2 F L 97.5 F L Pulse Rate 82 68 Respiratory Rate 16 16 Blood Pressure 91/62 L 124/73 Pulse Oximetry 98 97 98 Oxygen Delivery Room Air 12/02/24 05:48 12/02/24 08:10 Temperature 97.8 F Pulse Rate 64 Respiratory Rate 16 Blood Pressure 118/85 122/82 Pulse Oximetry 92 Oxygen Delivery Intake/Output Intake/Output: Intake & Output 11/29/24 11/30/24 12/01/24 12/02/24 23:59 23:59 23:59 23:59 Intake Total 750 630 560 300 Output Total 3100 9869 467 9908 Balance -3780 -370 -290 -700 Meds/Results Medications: Active Medications Generic Name Dose Route Start Last Admin Trade Name Freq PRN Reason Stop Dose Admin Acetaminophen 650 mg 11/21/24 23:41 Acetaminophen 325 Mg Tablet PO Q4H PRN Mild Pain (1-3) or Fever Hydrocodone Bitart/Acetaminophen 1 tab 11/25/24 16:17 12/01/24 14:13 Hydrocodone/Acetaminophen (*Crx) 5-325 Mg Tablet PO 1 tab Q4H PRN Administration Pain Rated 4-6 Hydrocodone Bitart/Acetaminophen 1 tab 11/25/24 16:17 11/29/24 14:58 Hydrocodone/Acetaminophen (*Crx) 10-325 Mg Tablet PO 1 tab Q4H PRN Administration Pain Rated 7-10 Amoxicillin/Clavulanate Potassium 1 tablet 11/28/24 21:00 12/01/24 22:01 Amoxicillin/Clavulanate K 875-125 Mg Tab PO 1 tablet Q12HR SUHAIL Administration Atorvastatin Calcium 40 mg 11/22/24 09:00 12/01/24 09:52 Atorvastatin 40 Mg Tablet BY MOUTH 40 mg DAILY SUHAIL Administration Dextrose 12.5 gm 11/22/24 07:04 Dextrose 50% 25 Gm/50 Ml Syringe IV PUSH PRN PRN Hypoglycemia Protocol Doxycycline Hyclate 100 mg 11/28/24 21:00 12/01/24 22:01 Doxycycline Hyclate 100 Mg Tablet PO 100 mg Q12HR SUHAIL Administration Empagliflozin 10 mg 11/22/24 09:00 12/01/24 09:52 Empagliflozin 10 Mg Tablet BY MOUTH 10 mg DAILY SUHAIL Administration Enoxaparin Sodium 40 mg 11/23/24 09:00 12/01/24 09:56 Enoxaparin 40 Mg/0.4 Ml Syringe SUB-Q 40 mg DAILY SUHAIL Administration Gabapentin 300 mg 11/30/24 12:00 12/02/24 06:57 Gabapentin 300 Mg Capsule PO Not Given Q8HR SUHAIL Glucagon 1 mg 11/22/24 07:04 Glucagon For Inj 1 Mg Vial IM PRN PRN Hypoglycemia Protocol Glucose 15 gm 11/22/24 07:04 Glucose Oral Gel 15 Gm Of Glucse In 37.5 Gm Tube PO PRN PRN Hypoglycemia Protocol Hydrochlorothiazide 12.5 mg 11/26/24 12:55 12/01/24 09:52 Hydrochlorothiazide 12.5 Mg Capsule PO 12.5 mg QAM SUHAIL Administration Dextrose 1,000 mls @ 100 mls/hr 11/22/24 07:04 Dextrose 5% 1,000 Ml IVPB PRN PRN Hypoglycemia Protocol Insulin Aspart 4 units 11/22/24 12:00 12/02/24 08:04 Insulin Aspart (*Bkc) 100 Units/Ml SUB-Q Not Given TIDWM [facility] Insulin Glargine 20 units 11/22/24 09:00 12/02/24 09:04 Insulin Glargine (*Bkc) 100 Units/Ml SUB-Q 20 units QAM SUHAIL Administration Losartan Potassium 50 mg 11/22/24 09:00 12/01/24 09:52 Losartan Potassium 50 Mg Tablet PO 50 mg DAILY SUHAIL Administration Metoprolol Succinate 25 mg 11/22/24 09:00 12/01/24 09:51 Metoprolol Succinate Ext Rel 25 Mg Tabcr PO 25 mg DAILY [facility] Administration Morphine Sulfate 2 mg 11/25/24 16:17 Morphine Sulfate (*Crx) 2 Mg/Ml Inj IV PUSH Q2H PRN Breakthrough Pain Rated 4-6 or NPO Morphine Sulfate 4 mg 11/25/24 16:17 Morphine Sulfate (*Crx) 4 Mg/Ml Inj IV PUSH Q2H PRN Breakthrough Pain Rated 7-10 or NPO Naloxone HCl 0.1 mg 11/25/24 16:17 Naloxone Hcl 0.4 Mg/Ml Vial IV PUSH Q2M PRN Opiate Reversal Ondansetron HCl 4 mg 11/22/24 08:20 Ondansetron Inj 4 Mg/2 Ml Vial IV PUSH Q6H PRN Nausea And Vomiting Pantoprazole Sodium 40 mg 11/22/24 09:00 12/01/24 09:52 Pantoprazole 40 Mg Tablet PO 40 mg QAM SUHAIL Administration Radiology Results: ITS Impressions Foot X-Ray 11/21/24 21:42 IMPRESSION: Osteomyelitis involving the proximal phalanx and distal phalanx of the left big toe. Clinical correlation and follow-up advised. Ankle Brachial Index 11/23/24 15:42 IMPRESSION: Normal right YARA. Moderate stenosis on the left side. Clinical correlation and further evaluation advised. Venous Doppler Study 11/29/24 11:59 IMPRESSION: 1. Patent left upper extremity veins. No evidence of deep venous thrombosis. Head CT 12/01/24 15:06 IMPRESSION: No acute intracranial findings. Labs Labs: Laboratory Results - last 24 hr 12/01/24 12/01/2412/01/25 11:56 16:50 20:36 WBC RBC Hgb Hct MCV MCH MCHC RDW Plt Count MPV Sodium Potassium Chloride Carbon Dioxide Anion Gap BUN Creatinine Estim Creat Clear Calc Estimated GFR Glucose POC Capillary Glucose 133 H 193 H 157 H Calcium Magnesium 12/02/24 12/02/24 05:12 08:07 WBC 8.5 RBC 4.63 Hgb 13.8 L Hct 41.9 L MCV 90.5 MCH 29.8 MCHC 32.9 RDW 13.0 Plt Count 287 MPV 9.6 Sodium 137 Potassium 3.8 Chloride 100 Carbon Dioxide 28 Anion Gap 9 BUN 21 H Creatinine 1.10 Estim Creat Clear Calc 58 Estimated GFR > 60 Glucose 104 POC Capillary Glucose 110 H Calcium 9.1 Magnesium 2.3
[2024-12-02] MEDS: EMPAGLIFLOZIN 10 MG TABLET BY MOUTH (09:18)
[2024-12-02] MEDS: LOSARTAN POTASSIUM 50 MG TABLET PO (09:18)
[2024-12-02 09:19] VITALS: PULSE 87
[2024-12-02] MEDS: AMOXICILLIN/CLAVULANATE K 875-125 MG TAB 1 TABLET PO (09:19)
[2024-12-02] MEDS: ACETAMINOPHEN 325 MG TABLET 650 MG PO (09:19)
[2024-12-02] MEDS: hydroCHLOROthiazide 12.5 MG CAPSULE PO (09:19)
[2024-12-02] MEDS: METOPROLOL SUCCINATE EXT REL 25 MG TABCR PO (09:19)
[2024-12-02] MEDS: DOXYCYCLINE HYCLATE 100 MG TABLET PO (09:19)
[2024-12-02] MEDS: PANTOPRAZOLE 40 MG TABLET PO (09:19)
[2024-12-02] MEDS: ATORVASTATIN 40 MG TABLET BY MOUTH (09:19)
[2024-12-02] MEDS: ENOXAPARIN 40 MG/0.4 ML SYRINGE SUB-Q (09:23)
[2024-12-02 12:28] LABS: Glucose Point of Care 167 mg/dl (65-105)
--- NOTE | 2024-12-02 12:46 | P.DS_ITS ---
DS: Admitting Diagnosis Discharge Date 12/02/24 Admitting Diagnosis Left big toe swollen DS: Discharge Diagnosis Discharge Diagnosis (1) Diabetic infection of left foot: Code(s): E11.628 - Type 2 diabetes mellitus with other skin complications; L08.9 - Local infection of the skin and subcutaneous tissue, unspecified Status: Acute Assessment and Plan: SSI with accucheks and lantus 20 units (2) Osteomyelitis: Qualifiers: Laterality: left Osteomyelitis location: foot Osteomyelitis type: other acute Qualified Code(s): M86.172 - Other acute osteomyelitis, left ankle and foot Code(s): M86.9 - Osteomyelitis, unspecified Status: Acute Assessment and Plan: * Presented to the ED with complaints of left great toe swelling and pain radiating to the ball of the foot * Osteomyelitis secondary to infected diabetic foot ulcer of the left toe. * s/p r amputation of left great toe * MRI of the foot unable to be done here will need to follow up further outpatient * For a possible second debridement, continue Abx * Gen surgery following (3) Uncontrolled diabetes mellitus with hyperglycemia: Qualifiers: Diabetes mellitus type: type 2 Qualified Code(s): E11.65 - Type 2 diabetes mellitus with hyperglycemia Code(s): E11.65 - Type 2 diabetes mellitus with hyperglycemia Status: Acute Assessment and Plan: * Glucose is stable at 99 * A1c 12.0 * Continue home Jardiance, Lantus 20 units at night * SSI with accucheks (4) Hypertension: Code(s): I10 - Essential (primary) hypertension Status: Acute Assessment and Plan: * Current BP is 162/90 * Continue home metoprolol, losartan * Trend BP * Adjust therapy as indicated (5) Dyslipidemia: Code(s): E78.5 - Hyperlipidemia, unspecified Status: Acute Assessment and Plan: * Continue atorvastatin (6) Hypokalemia: Code(s): E87.6 - Hypokalemia Status: Acute Assessment and Plan: resolved monitor Plan patient stats pain is tolerable s/p amputation of left G Toe POD #6, patient is seen by general surgery service, dressing was changed on 11/30 will continue wound VAC therapy until Thursday and reassess the wound, stats pain is better , . patient is working with PT/OT, will monitor and plan. DVT prophylaxis on Sq Lovenox DS: Summary Hospital Course Hospital Course: patient stats pain is tolerable s/p amputation of left G Toe POD #7, patient is seen by general surgery service, dressing was changed on 11/30 will continue wound VAC therapy until Thursday and reassess the wound, stats pain is better, patient is working with PT/OT, will monitor and plan. today patient feels better and clinically stable, will discharge today. Time Spent with Patient Time attestation: Total time spent providing and/or coordinating discharge services: Exam Narrative: Patient is comfortable, NAD HEENT: eyes are clear and none icteric LUNGS:CTA HEART: RR S1S2 ABD: BS+, Soft and nontender Lower extremities: no edema, left foot with dressing SKIN: nonjaundiced Neuro: grossly intact. DS: Data Data Completed and Pending Completed studies during hospitalization: Pending at discharge 11/25/24 15:30 Surgical [PTH] Routine Labs on day of discharge: Labs from last 24 hours 12/02/24 12/02/24 12/02/24 12:08 08:07 05:12 WBC 8.5 RBC 4.63 Hgb 13.8 L Hct 41.9 L MCV 90.5 MCH 29.8 MCHC 32.9 RDW 13.0 Plt Count 287 MPV 9.6 Sodium 137 Potassium 3.8 Chloride 100 Carbon Dioxide 28 Anion Gap 9 BUN 21 H Creatinine 1.10 Estim Creat Clear Calc 58 Estimated GFR > 60 Glucose 104 POC Capillary Glucose 167 H 110 H Calcium 9.1 Magnesium 2.3 12/01/24 12/01/24 20:36 16:50 WBC RBC Hgb Hct MCV MCH MCHC RDW Plt Count MPV Sodium Potassium Chloride Carbon Dioxide Anion Gap BUN Creatinine Estim Creat Clear Calc Estimated GFR Glucose POC Capillary Glucose 157 H 193 H Calcium Magnesium Preliminary micro results at discharge 11/27/24 18:53 Anaerobic Culture - Preliminary Toe Left Great Discharge Plan Discharge Attending physician on discharge: Amber Mcfarlane Consulting providers: Maddy Smith; John Salazar; Kristen Pedersen; Stewart Dee; Argenis Medina; Peter Hines; Trey Florian; Rian Lim; Bucky Romero; Ladi Singh; Claude Monae; Aniket Wood Discharging Clinician: Anahi Aguilar Patient Disposition: SNF Activity: as tolerated Diet: heart healthy Discharge Instructions: Wound vac settings to left medial foot. -125mmHg, low continuous present, black foam only. Bridge to top of foot. Change 3 times per week patient to follow discharge care instruction from his surgeon and follow up as scheduled, patient to follow up with his primary care provider as soon as possible. Patient Instructions: Antibiotic Form, Basic Carbohydrate Counting (DC) Patient Language: Brazilian Stand Alone Forms: General Discharge Information Follow-up/Referrals: Eyal Whitney MD [Primary Care Provider] - John Salazar DO [Physician] - Discharge Medications: New amoxicillin-pot clavulanate 875-125 mg tablet 1 tablet PO Q12H Qty: 14 0RF hydrocodone-acetaminophen 5-325 mg Tablet 1 tablet PO Q4H PRN (Reason: Pain Rated 4-6) Qty: 15 0RF pantoprazole 40 mg Tablet,Delayed Release (Dr/Ec) 40 mg PO QAM Qty: 30 0RF hydrochlorothiazide 12.5 mg Capsule 12.5 mg PO QAM Qty: 30 0RF doxycycline hyclate 100 mg Tablet 100 mg PO Q12HR Qty: 14 0RF Continued atorvastatin 40 mg tablet See Rx Instructions .ROUTE .COMPLEX Qty: 90 2RF Dose Instruction: TAKE 1 TABLET BY MOUTH EVERY DAY Rx Instructions: TAKE 1 TABLET BY MOUTH EVERY DAY (DME) pen needle, diabetic 32 gauge x 5/32 needle Qty: 1 3RF Rx Instructions: May substitute to meet patient needs. Use As Directed losartan 50 mg tablet 50 mg PO DAILY Qty: 90 2RF metoprolol succinate 25 mg tablet extended release 24 hr 25 mg PO DAILY Qty: 30 5RF dapagliflozin propanediol [Farxiga] 5 mg tablet 5 mg PO DAILY Qty: 90 2RF (DME) lancets [Accu-Chek Fastclix Lancet Drum] Misc See Rx Instructions .Route Qty: 100 0RF Rx Instructions: May substitute to in-stock meter and/or covered by insurance. Use As Directed (DME) Accu-Chek Guide test strips Strip See Rx Instructions .Route Qty: 100 3RF Rx Instructions: To test blood sugar up to 4 times a day insulin aspart U-100 100 unit/mL (3 mL) insulin pen 1 sliding scale dose subcut .TID with meals Qty: 15 0RF Rx Instructions: Glucose less than 150 mg/dl-------no insulin glucose 151-200------3 units sub-q glucose 201-250------4 units sub-q glucose 251-300------5 units sub-q glucose 301-350------6 units sub-q glucose 351-400------7 units sub-q glucose greater than 401----call your primary care provider for further instructions. insulin aspart U-100 100 unit/mL (3 mL) insulin pen 4 unit subcut .TID with meals Qty: 15 0RF Rx Instructions: Please inject 4 units subcut three times a day with each meal. insulin glargine 100 unit/mL (3 mL) insulin pen 16 unit subcut QAM Qty: 15 2RF (DME) FreeStyle Yue 3 Plus Sensor Device See Rx Instructions .Route Qty: 1 3RF Rx Instructions: As directed (DME) FreeStyle Yue 3 [place] Misc See Rx Instructions .Route Qty: 1 3RF Rx Instructions: As directed metformin 500 mg tablet 500 mg PO BID Qty: 180 2RF Date of admission: 11/21/24 23:42 Primary Care Provider: Eyal Whitney Admitting Provider: Amber Mcfarlane Attending physician on admission: Anahi Aguilar Condition: Stable
[2024-12-02 13:55] VITALS: BP 114/72; PULSE 76; RESP 18; TEMP 36.2; O2SAT 100
== END 2024-12-02 16:01 | DRG 617 ==
LOC: ANHED 20:26 → ANH2MED 11-22 00:28
PROVIDERS: Internal Medicine; Nurse Practitioner Family; Surgery; Admitting Provider Internal Medicine; Emergency Provider Registered Nurse; PCP Emergency Medicine; Visit Provider Family Medicine
PROC: 0Y6N0Z9 Detachment at Left Foot, Partial 1st Ray, Open Approach (ICD-10-PCS; principal; 2024-11-25 14:30)
DX: E11.69 Type 2 diabetes mellitus with other specified complication (principal); F10.27 Alcohol dependence with alcohol-induced persisting dementia; M86.172 Other acute osteomyelitis, left ankle and foot; Z91.199 Patient's noncompliance with other medical treatment and regimen due to unspecified reason; E11.42 Type 2 diabetes mellitus with diabetic polyneuropathy; E11.65 Type 2 diabetes mellitus with hyperglycemia; E11.621 Type 2 diabetes mellitus with foot ulcer; L97.529 Non-pressure chronic ulcer of other part of left foot with unspecified severity; I10 Essential (primary) hypertension; E87.6 Hypokalemia; E78.5 Hyperlipidemia, unspecified; Z86.73 Personal history of transient ischemic attack (TIA), and cerebral infarction without residual deficits; Z86.16 Personal history of COVID-19; Z87.891 Personal history of nicotine dependence
CPT/HCPCS: 36415; 70450; 73630; 80048; 80053; 80202; 81001; 82010; 82565; 82948; 83036; 83605; 83735; 84145; 84484; 85025; 85027; 85610; 85730; 86140; 87040; 87075; 88305; 88311; 93005; 93922; 93971; 96361; 96365; 96366; 96367; 97110; 97161; 97165; 97530; 97535; 99285; A9270; J0692; J1650; J1815; J1836; J2003; J2405; J2704; J3010; J3370; J7030; J7120